=== PATIENT | male | born 1925 | race Caucasian/White ===

== ENCOUNTER 2016-07-15 13:01 | Inpatient (IN) | payer OTHER, MEDICARE ==
[~2016-07-15] VITALS: Ht 177.8 cm; Wt 100.0 kg
[~2016-07-15 13:01] MED LIST: <VITAMIN> A + D1 APP TOP; ACETAZOLAMIDE250 MG PO; ALLOPURINOL100 MG PO; AMBIEN (MONOGRAP5 MG PO; ATROVENT 0.02%2.5 ML INH; AUGMENTIN 875-1 EACH PO; BISAC-EVAC10 MG PR; CRANBERRY FRUI405 MG PO; CRANBERRY450 MG PO; DESITIN MAXIMUM S40% TOP; FUROSEMIDE20 MG PO; HYDROCORTI2.5 %/30 G TOP; HYDROCORTISONE EXT; LASIX20 M1 PO; LASIX20 MG PO; LASIX40 MG PO; LISINOPRIL2.5 M1 PO; LISINOPRIL2.5 MG PO; MAALOX PLUS30 ML PO; MELATONIN 3 MG-1 TAB PO; METFORMIN HCL1000 M2 PO; METFORMIN1000 MG PO; MILK OF MAGNESI30 ML PO; MOTRIN 400 MG400 MG PO; MULTIVITAMIN1 TAB PO; MYCOSTATIN POWD15 GM TOP; Mucinex PO; OXYCODONE HYDROC5 MG PO; OXYCONTIN10 MG PO; PHENAZOPYRIDIN100 M1 PO; PRAVACHOL40 M1 PO; PRAVASTATIN SOD40 MG PO; PREDNISONE 20MG20 MG PO; PREDNISONE10 MG PO; PRINIVIL 5MG5 MG PO; PYRIDIUM100 MG PO; PYRIDIUM200 MG PO; Prinivil PO; ROXICODONE5 MG PO; SENNA PLUS 50 M1 TAB PO; TAMSULOSIN HYD0.4 MG PO; TEMOVATE0.05% TOP; TESSALON PERLE100 MG PO; THEOPHYLLINE PO; TOPICORT0.251 TOP; TRIAMCINOL0.1 %/453 TOP; TYLENOL TAB 32325 MG PO; TYLENOL500 MG PO; ULTRAM(MONOGRAP50 MG PO; VENTOLIN1 PUF INH; VITAMIN D1000 IU PO; VITAMIN D400 I1 PO; Vitamin D PO; XARELTO10 MG PO; XARELTO20 M2 PO; ZITHROMAX 500M500 MG PO; ZOLOFT25 M1 PO
--- NOTE | 2016-07-15 13:20 | NUR ---
PT BIBA FROM HOME FOR INCREASED SOB, BLE EDEMA. PER EMS, PT WAS RECENTLY DISCHARGED FROM [facility] FOR RESP REHAB, HX OF COPD. PT POOR HISTORIAN, UNABLE TO INFORM OF ANY OTHER HISTORY. PT PURSE LIPPED BREATHING ON ARRIVAL, TACHYPNEIC, 86% ON RA. PLACED ON 3L NC OXYGEN WITH IMPROVEMENT TO 90-91%. EXP WHEEZES NOTED.
--- NOTE | 2016-07-15 13:44 | ED DYSPNEA/ASTHMA COMPLAINT ---
History of Present Illness General Chief Complaint: Dyspnea (COPD, CHF, Other) Stated Complaint: SOB Source: patient, family, old records Exam Limitations: no limitations Vital Signs & Intake/Output Vital Signs & Intake/Output Vital Signs Date Time Temp Pulse Resp B/P Pulse O2 O2 Flow FiO2 Ox Delivery Rate 07/16 0618 55 92 07/16 0400 94 BIPAP 30% 07/16 0332 65 93 07/16 0115 94 BIPAP 30% 07/16 0115 97.8 65 24 122/70 94 BIPAP 30% 07/15 1849 96.9 86 24 113/63 93 Nasal 3.0L Cannula 07/15 1821 92 Nasal 3.0L Cannula 07/15 1640 98.5 94 20 133/58 91 Nasal 2.0L Cannula 07/15 1340 95 Nasal 3.0L Cannula 07/15 1322 86 Room Air Room Air 07/15 1320 98.4 98 20 128/61 86 Room Air Room Air ED Intake and Output 07/16 0000 07/15 1200 Intake Total 7 Output Total 200 Balance -193 Intake, IV 7 Intake, Oral 0 Output, Urine 200 Patient 225 lb Weight Allergies Coded Allergies: NO KNOWN ALLERGIES (07/15/16) Triage Note: PT BIBA FROM HOME FOR INCREASED SOB, BLE EDEMA. PER EMS, PT WAS RECENTLY DISCHARGED FROM [facility] FOR [facility]P RE[facility], HX OF COPD. PT POOR HISTORIAN, UNABLE TO INFORM OF ANY OTHER HISTORY. PT PURSE LIPPED BREATHING ON ARRIVAL, TACHYPNEIC, 86% ON RA. PLACED ON 3L NC OXYGEN WITH IMPROVEMENT TO 90-91%. EXP WHEEZES NOTED. Triage Nurses Notes Reviewed? yes Onset: Gradual Duration: getting worse Timing: recent history Severity: severe Activities at Onset: activity Prior Episodes/Possible Cause: frequent episodes, chronic episodes HPI: Patient is a 89-year-old male with a past medical history of atrial fibrillation not on anticoagulation, COPD not on home O2, CHF, diabetes type 2, BPH, hypertension who presents emergency room for concerns of shortness of breath. Patient who currently lives with son who is present states that for the last 2-3 days patient has been having dyspnea and dyspnea on exertion lethargy increased sleeping and generalized malaise. No fever chills noted no cough noted. Son does state that the leg swelling is worse today Patient is also complaining of generalized body aches. Denies any headache, sore throat, chest pain arm pain and jaw pain nausea vomiting diaphoresis abdominal pain or calf pain. Patient does walk with assisted walker and gets out of breath significantly with minimal ambulation (ISABELLA SINGH) Reconcile Medications Acetazolamide 250 MG TAB 500 MG PO Q48 acidosis Alternative with Lasix every other day. Last given on 09/10/15. Amoxicillin/Potassium Clav (Augmentin 875-125 Tablet) 1 EACH TABLET 1 TAB PO BID PNEUMONIA Furosemide (Lasix) 20 MG TABLET 1 TAB PO BID DIURESIS Hydrocortisone (Cortaid Lotion 1 Oz) 1 OZ LOT 1 RAKAN EXT BID SKIN Lisinopril 2.5 MG TABLET 1 TAB PO DAILY BLOOD PRESSURE (Reported) Metformin Hydrochloride (Glucophage) 1,000 MG TAB 1 TAB PO DAILY DIABETES ( Reported) Nystatin (Mycostatin Powder) 15 GM PWD 1 RAKAN TOP TID SKIN PHENAZOPYRIDINE HCL (Phenazopyridine HCl) 100 MG TAB 200 MG PO PC SKIN Pravastatin Sodium 40 MG TABLET 1 TAB PO DAILY CHOLESTEROL (Reported) Risperidone (Risperdal) 0.25 MG TABLET 1 TAB PO DAILY AGITATION (Reported) Rivaroxaban (Xarelto) 20 MG TABLET 1 TAB PO DAILY BLOOD THINNER (Reported) with food SERTRALINE HCL (Sertraline Hydrochloride) 25 MG TABLET 1 TAB PO DAILY MENTAL HEALTH (Reported) TAMSULOSIN HCL (Tamsulosin Hydrochloride) 0.4 MG CAP.ER.24H 1 CAP PO BID PROSTATE (Reported) (NIMESH JETER,X[place]) Past History Travel History Traveled to [place] past 21 day No Medical History Any Pertinent Medical History? see below for history Neurological: dementia EENT: NONE Cardiovascular: aortic aneurysm, AFIB, CHF, hypertension, hyperlipidemia Respiratory: COPD Gastrointestinal: NONE Hepatic: NONE Renal: benign prost hyperplasia Musculoskeletal: chronic back pain, degen joint disease, fracture, gout, RIB FX left shoulder fracture Psychiatric: anxiety Endocrine: diabetes Blood Disorders: NONE Cancer(s): NONE NURSE MIDWIFE/Reproductive: NONE Other Medical Hx: Psoriasis History of MRSA: Yes History of VRE: No History of CDIFF: No Pneumonia Vaccine: 11/13/12 Influenza Vaccine: 03/16/16 Surgical History Surgical History: appendectomy Psychosocial History Who do you live with Son Services at Home None What is your primary language Sinhala Tobacco Use: Quit >30 days ago ETOH Use: denies use Illicit Drug Use: denies illicit drug use Family History Family History, If Any: FATHER (Heart disease in father). . MOTHER (Unknown cancer). . Hx Contributory? No (ISABELLA SINGH) Review of Systems Review of Systems Constitutional: Reports: see HPI, malaise. EENTM: Reports: no symptoms. Respiratory: Reports: see HPI, short of breath. Denies: cough. Cardiovascular: Reports: see HPI, peripheral edema. Denies: chest pain. GI: Reports: no symptoms. Genitourinary: Reports: no symptoms. Musculoskeletal: Reports: see HPI. Skin: Reports: no symptoms. Neurological/Psychological: Reports: no symptoms. Hematologic/Endocrine: Reports: no symptoms. Immunologic/Allergic: Reports: no symptoms. All Other Systems: Reviewed and Negative (ISABELLA SINGH) Physical Exam Physical Exam General Appearance: no apparent distress, comfortable Respiratory: wheezing, respiratory distress (MILD) Comments: HEENT: Normal EENT exam, extraocular motion intact, no nystagmus. Pupils equally round and reactive to light and accommodation. Nose is atraumatic. External auditory canal and Tympanic membranes clear. Pharynx normal. No swelling or edema. Neck: Supple, no lymphadenopathy, normal range of motion without pain or tenderness Back: Nontender, no CVA tenderness. Cardiovascular: IRRegular rate and rhythms no murmurs rubs or gallops, normal JVP Abdomen: Soft, nontender nondistended, no appreciable organomegaly. Normal bowel sounds. No ascites Extremity: No edema, no calf tenderness to palpation, normal and equal pulses. Neuro: Alert oriented x3, motor sensory normal, cranial nerves II through XII grossly intact. Skin: No appreciable rash on exposed skin, skin is warm and dry. Psych: Mood and affect is normal, memory and judgment is normal. Core Measures ACS in differential dx? No Severe Sepsis Present: No Septic Shock Present: No (ISABELLA SINGH) Progress Differential Diagnosis: asthma, AMI, bronchitis, costochondritis, CHF, COPD, musculoskeletal pain, pericarditis, pulmonary embolism, pneumonia, pneumothorax, rib fracture, unstable angina Plan of Care: Orders Procedure Date/time Status Consistent Carbohydrate 3 07/16 B Active ARTERIAL BLOOD GAS (GEN) 07/16 0600 Complete ICU LAB BUNDLE 07/16 0600 Complete Skin/Pressure Ulcer Assess (Sk 07/16 139 Active Turn and Reposition 07/16 434 Active Skin Integrity Protocol 01/01 0435 Active VRE ACTIVE SURVIELLANCE 07/16 0114 Active CULTURE,URINE 07/16 0114 Active ACTIVE SURVEILLANCE NARES 07/16 0114 Active Ngo, Insertion/Removal/Asses 07/16 UNK Active Transfer patient to 07/15 2236 Active FingerStick- Glucose 07/15 2143 Active ARTERIAL BLOOD GAS (GEN) 07/15 2128 Complete Teach/Educate 07/15 2056 Active Nutritional Intake, Monitor 07/15 2056 Active Isolation 07/15 2056 Active Patient Care Conference 07/15 2056 Active Activity/Ambulation 07/15 2056 Active TRC EVALUATION (GEN) 07/15 1632 Active Saline Lock 07/15 161 Active Pathway - chart 07/15 161 Active House Staff 07/15 161 Active Code Status 07/15 1613 Active Patient Data 07/15 1504 Active ARTERIAL BLOOD GAS (GEN) 07/15 1457 Complete Admit to inpatient 07/15 1457 Active Add-on Test (ER Only) 07/15 1352 Active MAGNESIUM 07/15 1348 Complete B-TYPE NATRIURETIC PEP (BNP) 07/15 1348 Complete RAPID VIRAL INFLUENZA A 07/15 1345 Complete D-DIMER 07/15 1344 Complete Telemetry/Protective Services Officer 07/15 1342 Active LACTIC ACID 07/15 1341 Complete CULTURE,URINE 07/15 1340 Active BLOOD CULTURE 07/15 1340 Active URINALYSIS 07/15 1340 Complete AEROSOL (GEN) 07/15 1339 Complete TROPONIN LEVEL 07/15 1325 Complete COMPREHENSIVE METABOLIC PANEL 07/15 1325 Complete CBC WITHOUT DIFFERENTIAL 07/15 1325 Complete Intake & Output 07/15 1322 Active EKG 07/15 1321 Active ARTERIAL BLOOD GAS (GEN) 07/15 1115 Complete THERAPIST ORDERS 07/15 UNK Complete Vital Signs 07/15 UNK Active Current Medications Sig/Emily Start time Last Medication Dose Stop Time Status Admin Azithromycin 500 MG DAILY@1550 07/16 1550 AC (Zithromax) Sodium Chloride 250 ML (Normal Saline 0.9%) Lisinopril 2.5 MG DAILY 07/16 1000 AC (Prinivil) Pravastatin Sodium 40 MG DAILY 07/16 1000 AC (Pravachol) Rivaroxaban 20 MG DAILY 07/16 1000 AC (Xarelto) Sertraline HCl 25 MG DAILY 07/16 1000 AC (Zoloft) Hydrocortisone 1 RAKAN BID 12/31 2200 AC Nystatin 1 RAKAN TID 07/15 2200 AC (Mycostatin) Tamsulosin HCl 0.4 MG BID 07/15 2200 AC (Flomax) Laboratory Tests 07/16/16 0600: Magnesium Cancelled 07/16/16 0540: pH 7.35, pCO2 53 H, pO2 67 L, HCO3 24, ABG O2 Sat (Measured) 93.0 L, P-50 ( Temp Corrected) N, Carboxyhemoglobin 1.2 L, O2 Concentration % .30, Respiration Rate 24, O2 Delivery Method BIPAP, Vent Mode ST, Expiratory Pressure 6, Inspiratory Pressure 16, Phlebotomy Draw Site RIGHT RADIAL 07/16/16 0427: Anion Gap 12, Estimated GFR > 60, Glucose 130 H, Calcium 7.9 L, Phosphorus 3.5 , Magnesium 1.9, Total Bilirubin 0.4, AST 15 L, ALT 30, Albumin 2.9 L 07/15/162304: pH 7.35, pCO2 58 H, pO2 69 L, HCO3 31 H, ABG O2 Sat (Measured) 93.0 L, P-50 (Temp Corrected) Y, Carboxyhemoglobin 1.3 L, O2 Concentration % 30, Temperature 98.5, Respiration Rate 24, O2 Delivery Method BIPAP, Vent Mode ST, Expiratory Pressure 6, Inspiratory Pressure 16, Phlebotomy Draw Site RIGHT RADIAL 07/15/162304: pH Pending, pCO2 Pending, pO2 Pending, HCO3 Pending, ABG O2 Sat (Measured) Pending, P-50 (Temp Corrected) Pending, Carboxyhemoglobin Pending, O2 Concentration % Pending, Temperature Pending, O2 Delivery Method Pending, Phlebotomy Draw Site Pending 07/15/162199: pH 7.25 *L, pCO2 74 *H, pO2 73 L, HCO3 32 H, ABG O2 Sat (Measured) 92.0 L, Carboxyhemoglobin 1.8, O2 Concentration % 30, Respiration Rate 24, O2 Delivery Method BIPAP, Vent Mode ST, Expiratory Pressure 6, Inspiratory Pressure 16, Phlebotomy Draw Site RIGHT RADIAL 07/15/162155: Urine Color YEL, Urine Clarity CLEAR, Urine pH 6.0, Ur Specific [place] 1.020, Urine Protein NEG, Urine Ketones NEG, Urine Nitrite NEG, Urine Bilirubin NEG, Urine Urobilinogen 0.2, Ur Leukocyte Esterase NEG, Ur Microscopic EXAM NOT REQUIRED, Urine Hemoglobin NEG, Urine Glucose NEG 07/15/16 1641: Lactic Acid Cancelled 07/15/16 1610: pH 7.31 L, pCO2 62 *H, pO2 45 *L, HCO3 45 H, ABG O2 Sat (Measured) 78.0 L, P- 50 (Temp Corrected) Y, Carboxyhemoglobin 1.6, O2 Concentration % RA, Temperature 98.4, O2 Delivery Method RA, Phlebotomy Draw Site LEFT RADIAL 07/15/16 1610: pH Pending, pCO2 Pending, pO2 Pending, HCO3 Pending, ABG O2 Sat (Measured) Pending, P-50 (Temp Corrected) Pending, Carboxyhemoglobin Pending, O2 Concentration % Pending, Temperature Pending, O2 Delivery Method Pending, Phlebotomy Draw Site Pending 07/15/16 1348: Magnesium Cancelled, Bxs-M-Bljzbqdkoaq Pept Cancelled 07/15/16 1348: Lactic Acid 0.9 07/15/16 1348: Anion Gap 11, Estimated GFR > 60, BUN/Creatinine Ratio 21.1, Glucose 115 H, Calcium 8.2 L, Magnesium 1.9, Total Bilirubin 0.4, AST 21, ALT 30, Alkaline Phosphatase 81, Troponin I < 0.01, Vmm-S-Lrznjdbrglk Pept 3280 H, Total Protein 6.5, Albumin 3.5, Globulin 3.0, Albumin/Globulin Ratio 1.2, CBC w Diff NO MAN DIFF REQ, RBC 4.49 L, MCV 85.3, MCH 27.7, RDW 14.2, MPV 9.0, Gran % 82.9 H, Lymphocytes % 7.9 L, Monocytes % 6.7, Eosinophils % 2.4, Basophils % 0.1, Absolute Granulocytes 6.3, Absolute Lymphocytes 0.6 L, Absolute Monocytes 0.5, Absolute Eosinophils 0.2, Absolute Basophils 0, PUBS MCHC 32.4 L 07/15/16 1344: D-Dimer 215 Microbiology 07/16 114 URINE ROUT: Urine Culture - RECD 07/16 114 UPPER RESP: Surveillance Culture - RECD 07/16 114 GI: Surveillance Culture - RECD 07/15 2156 URINE ROUT: Urine Culture - RECD 07/15 1410 BLOOD: Blood Culture - RECD 07/15 1348 BLOOD: Blood Culture - RECD Patient on initial examination without oxygen was noted to be 86% room air with significant wheezing noted. Patient was given nasal cannula 3 L in which she improved to 95%. Patient still is having mild respiratory distress Nebulizer treatment and steroids were initially ordered for concerns of COPD. Discussed admission with Dr. BEAVERS who is aware of telemetry admission and will take over for care (HUMA DICKERSON,ISABELLA) Diagnostic Imaging: Viewed by Me: Radiology Read. Radiology Impression: SEE COMMENTS, PLEURAL EFFUSION Initial ED EKG: AFIB (106 BPM) Comments: PATIENT: SUSU FRANCIS PRESENT AGE: 89 PATIENT ACCOUNT NO: [id number] : [birth year] LOCATION: [facility] ORDERING PHYSICIAN: ISABELLA DICKERSON SERVICE DATE: 07/15/16 EXAM TYPE: US - US-EXT BILAT VENOUS DOPPLER EXAMINATION: US TRIPLEX LOWER EXTREMITY, BILATERAL CLINICAL INFORMATION: 89-year-old male with bilateral leg edema. COMPARISON: Previous triplex scans of the lower extremities done January 2007, February 2011, at 2011, December 2012. TECHNIQUE: Color-flow triplex imaging with spectral analysis and compression Doppler were performed on the bilateral lower extremities. FINDINGS: Respiratory variation, normal compression and augmented flow are noted throughout the bilateral lower extremities. The visualized common femoral vein, superficial femoral vein, profunda femoral vein, popliteal vein and mid calf peroneal and posterior tibial venous segments show no evidence of deep venous thrombosis. Visualization of the calf veins is "sketchy" due to to the patient's body habitus. There is no Thompson's cyst. IMPRESSION: Normal triplex scan without evidence of deep venous thrombosis involving the bilateral lower extremities. PATIENT: SUSU FRANCIS PRESENT AGE: 89 PATIENT ACCOUNT NO: [id number] : [birth year] LOCATION: ER ORDERING PHYSICIAN: ISABELLA DICKERSON SERVICE DATE: 07/15/16 EXAM TYPE: RAD - XRY-CHEST XRAY, PA AND LATERAL EXAMINATION: XR CHEST CLINICAL INFORMATION: Increased shortness of breath. Recently discharged from [facility] for respiratory rehabilitation. COMPARISON: 03/28/2016. TECHNIQUE: Frontal and lateral views of the chest were obtained. FINDINGS: The cardiac silhouette is mildly enlarged. The lungs are slightly hypoinflated without focal consolidation. There is mild vascular congestion with a mild increase in interstitial markings compared to prior. Associated small pleural effusions are seen posteriorly. IMPRESSION: No focal consolidation or atelectasis. Small pleural effusions and mild interstitial edema identified. (ISABELLA SINGH) Departure Departure Disposition: STILL A PATIENT Condition: Fair Clinical Impression Primary Impression: COPD (chronic obstructive pulmonary disease) Secondary Impressions: CHF (congestive heart failure), Respiratory failure Referrals: RAMONE JETER,YAZ Cruz (PCP/Family) Referred to [facility] as new patient No Departure Forms: Customer Survey General Discharge Information Admission Note Spoke With: NATHAN JUNE MD Documentation of Exam: Documentation of any treatments & extenuating circumstances including Concerns Regarding Discharge (functional status, medication knowledge or non-compliance, living conditions, etc.) that warrant an admission rather than observation: [ Discussed patient with Dr. JUNE who agrees with telemetry admission for concerns of CHF exacerbation and COPD exacerbation. Patient requires cardiology consultation, IV diuresis, repeat nebulizer treatments, IV steroids, pulmonary consultation. Outpatient treatment at this time due to significant concerns of hypoxia would be medically harmful] (ISABELLA SINGH) PA/LAND LEASING INFORMATION CLERK Co-Sign Statement Statement: ED Attending supervision documentation- [X] I saw and evaluated the patient. I have also reviewed all the pertinent lab results and diagnostic results. I agree with the findings and the plan of care as documented in the PA's/LAND LEASING INFORMATION CLERK's documentation. [X] I have reviewed the ED Record and agree with the PA's/LAND LEASING INFORMATION CLERK's documentation. [] Additions or exceptions (if any) to the PAs/LAND LEASING INFORMATION CLERK's note and plan are summarized below: [] (NIMESH JETER,X[place]) Critical Care Note Critical Care Note Critical Care Time: 30-74 min (ISABELLA SINGH)
--- NOTE | 2016-07-15 13:53 | NUR ---
LABS DRAWN AND SENT BY THIS [facility] (BLUE,2 SST,LAV,CREWS,1ST SET OF B/C)
[2016-07-15 14:02] LABS: ABSOLUTE BASOPHIL COUNT 0 /CUMM (0.0-0.2); ABSOLUTE EOSINOPHIL COUNT 0.2 /CUMM (0.0-0.7); ABSOLUTE GRANULOCYTE CT 6.3 /CUMM (1.4-6.5); ABSOLUTE LYMPH COUNT 0.6 /CUMM (1.2-3.4); ABSOLUTE MONOCYTE COUNT 0.5 /CUMM (0.10-0.60); BASOPHIL % 0.1 % (0.0-2.0); EOSINOPHIL % 2.4 % (0-5); GRANULOCYTE % 82.9 % (42.2-75.2); HEMATOCRIT 38.3 % (42-52); MEAN CORPUSCULAR HGB 27.7 PG (27.0-31.0); MEAN CORPUSCULAR HGB CONC 32.4 G/DL (33.0-37.0); MEAN CORPUSCULAR VOLUME 85.3 FL (80.0-94.0); PLATELET COUNT 246 /CUMM (130-400); RBC DISTRIBUTION WIDTH 14.2 % (11.5-14.5); RED BLOOD CELL CT 4.49 /CUMM (4.70-6.10); WHITE BLOOD CELL COUNT 7.6 /CUMM (4.8-10.8)
--- NOTE | 2016-07-15 14:16 | NUR ---
SECOND SET OF BLOOD CULTURES AND FLU SWAB SENT TO LAB NOW. PT TO ULTRASOUND.
--- NOTE | 2016-07-15 14:32 | RADIOLOGY REPORT ---
EXAMINATION: XR CHEST CLINICAL INFORMATION: Increased shortness of breath. Recently discharged from [facility] for respiratory rehabilitation. COMPARISON: 03/28/2016. TECHNIQUE: Frontal and lateral views of the chest were obtained. FINDINGS: The cardiac silhouette is mildly enlarged. The lungs are slightly hypoinflated without focal consolidation. There is mild vascular congestion with a mild increase in interstitial markings compared to prior. Associated small pleural effusions are seen posteriorly. IMPRESSION: No focal consolidation or atelectasis. Small pleural effusions and mild interstitial edema identified.
--- NOTE | 2016-07-15 15:17 | ULTRASOUND REPORT ---
EXAMINATION: US TRIPLEX LOWER EXTREMITY, BILATERAL CLINICAL INFORMATION: 89-year-old male with bilateral leg edema. COMPARISON: Previous triplex scans of the lower extremities done January 2007, February 2011, at 2011, December 2012. TECHNIQUE: Color-flow triplex imaging with spectral analysis and compression Doppler were performed on the bilateral lower extremities. FINDINGS: Respiratory variation, normal compression and augmented flow are noted throughout the bilateral lower extremities. The visualized common femoral vein, superficial femoral vein, profunda femoral vein, popliteal vein and mid calf peroneal and posterior tibial venous segments show no evidence of deep venous thrombosis. Visualization of the calf veins is "sketchy" due to to the patient's body habitus. There is no Thompson's cyst. IMPRESSION: Normal triplex scan without evidence of deep venous thrombosis involving the bilateral lower extremities.
--- NOTE | 2016-07-15 15:36 | History & Physical ---
ABRAHAM JETER,[facility] 07/15/16 1534: General Information and HPI MD Statement: I have seen and personally examined SUSU FRANCIS and documented this H&P. The patient is a 89 year old M who presented with a patient stated chief complaint of dyspnea and dyspnea on exertion. 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 Part of the history below was obtained from the patient's son Eduardo. Over the last few days the patient has felt that he has been more dyspneic and and has experienced increasing dyspnea on exertion this has led him to become more sedentary. His son reports that the patient has also developed a tougher time completing full sentences. Approximately 3 days ago the patient's son suggested that the patient should come to the emergency department however the patient declined. Early this morning the patient's son again suggested that the patient should come to the emergency department and subsequently called the ambulance. In addition to the above he also has found that he has developed worsening bilateral leg edema. Patient also reports of worsening weakness and malaise. The son of the patient states that his appetite has been relatively good although he finds his father eating smaller and smaller meals. Patient's son reports good medication compliance. Patient's denies any chest pain and/or chest discomfort. Patient denies any fever, chills, nausea, vomiting. The patient's PCP is Dr. Irving. The patient's blowing engineer is Dr. Tay. The patient's son Eduardo with who the patient lives with can be reached on . 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 . MOTHER (Unknown cancer). . Psychosocial History Where do you live? Home Who Do You Live With? child (Son) Services at Home: None Primary Language: Yakut ETOH Use: denies use Illicit Drug Use: denies illicit drug use Functional Ability ADLs Needs Assist: dressing, eating, toileting, bathing. Ambulation: walker Review of Systems Review of Systems Constitutional: Reports: see HPI, malaise, weakness. Denies: chills, fever. Cardiovascular: Reports: peripheral edema. Denies: chest pain, edema, orthopena, palpitations, syncope. Respiratory: Reports: short of breath. Denies: cough, hemoptysis, orthopnea, sputum production. GI: Denies: abdominal pain, bloating, constipation, diarrhea, nausea, changes in stool, vomiting. Genitourinary: Denies: discharge, dysuria, frequency, hematuria. Neurological/Psychological: Denies: anxiety, depressed, dementia. Hematologic/Endocrine: Denies: bruising, bleeding, polyuria. Exam & Diagnostic Data Last 24 Hrs of Vital Signs/I&O Vital Signs Date Time Temp Pulse Resp B/P Pulse O2 O2 Flow FiO2 Ox Delivery Rate 07/15 1340 95 Nasal 3.0L Cannula 07/15 1322 86 Room Air Room Air 07/15 1320 98.4 98 20 128/61 86 Room Air Room Air Intake & Output 07/15 1600 07/15 0800 07/15 0000 Intake Total 0 Output Total Balance 0 Intake, Oral 0 Patient 102.058 kg Weight Physical Exam General Appearance Alert, Oriented X3, Cooperative HEENT Mucous Membr. moist/pink Lymphatic Axillary nl Cardiovascular Normal S1, Normal S2, Irregular rate and rhythm Lungs Mild Expirartory Wheezing Left Abdomen Normal Bowel Sounds, Soft, No Tenderness, Diffuse Psoriatic Lesions Across Anterior Abdominal Wall. Neurological Normal Speech, Strength at 5/5 X4 Ext Extremities Edema. 4+, Pitting, R>L Reproductive (MALE) ?Candial Infection, in Skin Folds Last 24 Hrs of Labs/Navdeep: Laboratory Tests 07/15/16 1610: pH 7.31 L, pCO2 62 *H, pO2 45 *L, HCO3 45 H, ABG O2 Sat (Measured) 78.0 L, P- 50 (Temp Corrected) Y, Carboxyhemoglobin 1.6, O2 Concentration % RA, Temperature 98.4, O2 Delivery Method RA, Phlebotomy Draw Site LEFT RADIAL 07/15/16 1610: pH Pending, pCO2 Pending, pO2 Pending, HCO3 Pending, ABG O2 Sat (Measured) Pending, P-50 (Temp Corrected) Pending, Carboxyhemoglobin Pending, O2 Concentration % Pending, Temperature Pending, O2 Delivery Method Pending, Phlebotomy Draw Site Pending 07/15/16 1348: Magnesium Cancelled, Udi-W-Taoztrgptju Pept Cancelled 07/15/16 1348: Lactic Acid 0.9 07/15/16 1348: Anion Gap 11, Estimated GFR > 60, BUN/Creatinine Ratio 21.1, Glucose 115 H, Calcium 8.2 L, Magnesium 1.9, Total Bilirubin 0.4, AST 21, ALT 30, Alkaline Phosphatase 81, Troponin I < 0.01, Pot-H-Hkjwxbtmdki Pept 3280 H, Total Protein 6.5, Albumin 3.5, Globulin 3.0, Albumin/Globulin Ratio 1.2, CBC w Diff NO MAN DIFF REQ, RBC 4.49 L, MCV 85.3, MCH 27.7, RDW 14.2, MPV 9.0, Gran % 82.9 H, Lymphocytes % 7.9 L, Monocytes % 6.7, Eosinophils % 2.4, Basophils % 0.1, Absolute Granulocytes 6.3, Absolute Lymphocytes 0.6 L, Absolute Monocytes 0.5, Absolute Eosinophils 0.2, Absolute Basophils 0, PUBS MCHC 32.4 L 07/15/16 1344: D-Dimer 215 Microbiology 07/15 1410 BLOOD: Blood Culture - RECD 07/15 1348 BLOOD: Blood Culture - RECD 07/15 134 URINE ROUT: Urine Culture - ORD Diagnostic Data EKG Results A.Fib Rate 106. QTC 489 CXR Results PATIENT: SUSU FRANCIS PRESENT AGE: 89 PATIENT ACCOUNT NO: [id number] : [birth year] LOCATION: [facility] ORDERING PHYSICIAN: ISABELLA DICKERSON SERVICE DATE: 07/15/16 EXAM TYPE: RAD - XRY-CHEST XRAY, PA AND LATERAL EXAMINATION: XR CHEST CLINICAL INFORMATION: Increased shortness of breath. Recently discharged from [facility] for respiratory rehabilitation. COMPARISON: 03/28/2016. TECHNIQUE: Frontal and lateral views of the chest were obtained. FINDINGS: The cardiac silhouette is mildly enlarged. The lungs are slightly hypoinflated without focal consolidation. There is mild vascular congestion with a mild increase in interstitial markings compared to prior. Associated small pleural effusions are seen posteriorly. IMPRESSION: No focal consolidation or atelectasis. Small pleural effusions and mild interstitial edema identified. DICTATED BY: JOLIE ROPER MD Other Results PATIENT: SUSU FRANCIS PRESENT AGE: 89 PATIENT ACCOUNT NO: [id number] : [birth year] LOCATION: [facility] ORDERING PHYSICIAN: ISABELLA DICKERSON SERVICE DATE: 07/15/16 EXAM TYPE: US - US-EXT BILAT VENOUS DOPPLER EXAMINATION: US TRIPLEX LOWER EXTREMITY, BILATERAL CLINICAL INFORMATION: 89-year-old male with bilateral leg edema. COMPARISON: Previous triplex scans of the lower extremities done January 2007, February 2011, at 2011, December 2012. TECHNIQUE: Color-flow triplex imaging with spectral analysis and compression Doppler were performed on the bilateral lower extremities. FINDINGS: Respiratory variation, normal compression and augmented flow are noted throughout the bilateral lower extremities. The visualized common femoral vein, superficial femoral vein, profunda femoral vein, popliteal vein and mid calf peroneal and posterior tibial venous segments show no evidence of deep venous thrombosis. Visualization of the calf veins is "sketchy" due to to the patient's body habitus. There is no Thompson's cyst. IMPRESSION: Normal triplex scan without evidence of deep venous thrombosis involving the bilateral lower extremities. DICTATED BY: SANFORD LYONS MD Assessment/Plan Assessment: This is an 89-year-old gentleman who presented today with worsening dyspnea and dyspnea on exertion. Likely related to increase salt intake and decreased activity leading to COPD exacerbation. Patient will be admitted to the telemetry service for continued monitoring. #COPD exacerbation vs CHF Exacerbation Solu-Medrol 40 mg IV every 8 hours. Once patient is stabilized he can be transitioned to by mouth prednisone. Maintain oxygen saturations above 92% supplement oxygen via nasal cannula. IV Azithromycin 500 mg every 24 hours which has been shown to reduce severity of COPD exacerbations due to its anti-inflammatory properties. Patient may benefit from a pulmonology consult in the a.m. Strict weights Maintain I's and O's Lasix IV 40 mg twice a day. BEP in a.m. CBC in a.m. Maintain aspiration precautions Keep foot of bed elevated. #History of diabetes Begin patient on NovoLog medium scale sliding dose. Fingersticks every 6 hours. If patient sugars remain unmanageable consider endocrinology consult. Hemoglobin A1c for long-term glycemic control. #History of atrial fibrillation Continue the patient on Pradaxa continued telemetry monitoring if any arrhythmias are noted. Consider cardiology consult. #History of BPH Continue Tamsulosin .4mg PO #History of mood disorder Continue Sertraline 25 mg daily #Diet Consistent carbohydrate diet, 2 g sodium restriction #Code DNR/DNI #DVT prophylaxis ALPS and novel agent Xarelto As Ranked By This Provider Problem List: 1. Dependent edema 2. DNI (do not intubate) 3. DNR (do not resuscitate) 4. Afib 5. Diabetes mellitus type 2 6. COPD exacerbation Core Measures/Miscellaneous Acute Coronary Syndrome ACS Diagnosis: No Cerebrovascular Accident CVA/TIA Diagnosis: No Congestive Heart Failure CHF Diagnosis: No Venous Thromboembolism VTE Risk Factors: Age > 40 VTE Prophylaxis Ordered Inpt: [facility] prophylaxis d/t: No contraindications No VTE Pharm Prophylaxis d/t: No contraindications VTE Diagnosis: No VTE Type: NONE VTE Confirmed by (Test): NONE Severe Sepsis Severe Sepsis Present: No BC x2: Yes Lactic Acid x2: Yes Septic Shock Septic Shock Present: No BC x2: Yes Lactic Acid: Yes Miscellaneous Documentation Attending Case Discussed With: Triny Atkinson MD Primary Care Physician: YAZ PACK MD Patient sees these Specialists Dr Tay Level of Patient Care: Telemetry JUAN JETER,MANOLO 07/15/16 1750: Resident Review Statement Resident Statement: examined this patient, discussed with internet sales representative, agreed with internet sales representative, discussed with family, reviewed EMR data (avail), discussed with nursing , discussed with case mgmt, reviewed images, amended to note Other Findings: Susu Cortes is an 89-year-old man with a medical history of COPD pneumonia psoriasis atrial fibrillation hypertension BPH dementia dyslipidemia diabetes AAA count and anemia who presents with shortness of breath and dyspnea associated with worsening dependent edema in the lower extremities; but denies any overt chest pain. His vital signs are stable at present, he did desaturate to 86% on room air. On physical examination, scattered wheeze was noted on exam , he does have dependent edema. He does have an elevated BNP of 3000 approximately. Chest x-ray did not reveal any consolidation atelectasis. However there are small pleural effusions. A Doppler ultrasound of the lower extremities did not reveal any DVTs. Suspect this patient is suffering from a COPD exacerbation in conjunction with worsening fluid retention/dependent edema without any clinical evidence of heart failure. Problem COPD exacerbation Severe dependent edema Atrial fibrillation Diabetes Plan Continued cardiac telemetry monitoring Monitor intake and output while on diuretic therapy Intravenous Lasix 40 mg twice a day to help alleviate the dependent fluid Solu-Medrol 40 mg IV every 8 hours Azithromycin 500 mg IV every 24 hours Continue home medications DVT prophylaxis the patient is already anticoagulated on a novel oral anticoagulant DNR/DNI TRINY ATKINSON MD 07/15/16 0066: General Information and HPI Allergies/Medications Home Med list Acetazolamide 250 MG TAB 500 MG PO Q48 acidosis Alternative with Lasix every other day. Last given on 09/10/15. Amoxicillin/Potassium Clav (Augmentin 875-125 Tablet) 1 EACH TABLET 1 TAB PO BID PNEUMONIA Furosemide (Lasix) 20 MG TABLET 1 TAB PO BID DIURESIS Hydrocortisone (Cortaid Lotion 1 Oz) 1 OZ LOT 1 RAKAN EXT BID SKIN Lisinopril 2.5 MG TABLET 1 TAB PO DAILY BLOOD PRESSURE (Reported) Metformin Hydrochloride (Glucophage) 1,000 MG TAB 1 TAB PO DAILY DIABETES ( Reported) Nystatin (Mycostatin Powder) 15 GM PWD 1 RAKAN TOP TID SKIN PHENAZOPYRIDINE HCL (Phenazopyridine HCl) 100 MG TAB 200 MG PO PC SKIN Pravastatin Sodium 40 MG TABLET 1 TAB PO DAILY CHOLESTEROL (Reported) Risperidone (Risperdal) 0.25 MG TABLET 1 TAB PO DAILY AGITATION (Reported) Rivaroxaban (Xarelto) 20 MG TABLET 1 TAB PO DAILY BLOOD THINNER (Reported) with food SERTRALINE HCL (Sertraline Hydrochloride) 25 MG TABLET 1 TAB PO DAILY MENTAL HEALTH (Reported) TAMSULOSIN HCL (Tamsulosin Hydrochloride) 0.4 MG CAP.ER.24H 1 CAP PO BID PROSTATE (Reported) Attending MD Review Statement Attending Statement Attending MD Statement: examined this patient, discuss w/resident/PA/SWIMMER, agreed w/resident/PA/SWIMMER, reviewed EMR data (avail), discussed with nursing Attending Assessment/Plan: 89-year-old male past medical history of COPD, chronic diastolic heart failure and A. fib. He was recently ?discharged from [facility] pul rehab ? and he returns with a shortness of breath and the room air sat of 86%. He is actively wheezing with some leg edema and elevated proBNP. At this point will bring him into telemetry and treat him both for CHF exacerbation with IV diuretics and a COPD exacerbation with IV steroids and by mouth antibiotics. Will get cardiology involved, check an echocardiogram, cont his ac and f/u lytes closely.
--- NOTE | 2016-07-15 15:57 | NUR ---
PT'S SON: FANNY FRANCIS [phone]
--- NOTE | 2016-07-15 17:15 | NUR ---
TRANSFERRED TO FLOOR BED FROM STRETCHER. COPIOUS AMOUNT OF INCONTINENT URINE NOTED. INCONTINTENT CARE PROVIDED. RED AREAS TO GROIN/SKIN/ARM FOLDS NOTED. PATIENT IS TELE HOLD IN ER. TRANSFERRING TO ROOM ROOM 9.
--- NOTE | 2016-07-15 18:05 | NUR ---
SMALL FULL THICKNESS OPEN AREA TO LEFT GLUTEAL FOLD 1.2CM X 0.5CM. WOUND BED IS 100% RED. ENTIRE BUTTOCKS, PERINEAL AREA, GROIN FOLDS, SCROTAL AREAS ARE RAW WITH SKIN SLOUGHING OFF & RED. PATIENT STATES AREA COREY WHEN CLEANED. BARRIER CREAM APPLIED TO ALL AREAS. WOUND CARE NURSE NOTIFIED FOR CONSULT. DR MARTINEZ NOTIFIED REGARDING PO LASIX DOSE ORDERED AFTER 40MG IV LASIX WAS GIVEN PER EMAR. DR MARTINEZ INSTRUCTED TO HOLD PO LASIX & HE WILL D/C THE ORDER IV LASIX IS ORDERED TO START BID IN THE AM.
[2016-07-15] MEDS ORDERED: RISPERDAL0.25 M1 PO (18:46)
--- NOTE | 2016-07-15 19:29 | NUR ---
02 SAT 93% ON 3L AT THIS TIME.
--- NOTE | 2016-07-15 19:29 | NUR ---
PT CURRENTLY SLEEPING WITH REGULAR RR. PT WAS UNABLE TO PROVIDE A URINE PREVIOUSLY. WILL CTM.
--- NOTE | 2016-07-15 20:28 | NUR ---
REPORT GIVEN TO CAR ALARCON.
--- NOTE | 2016-07-15 22:08 | NUR ---
AT APPX 2145, PT WAS UNRESPONSIVE TO VOICE AND STERNAL RUB, PT ALSO HAD A RUN OF V-TACH DURING THIS TIME. MD'S CALLED. RESPIRATORY PAGED. MD ORDERED BLOOD GAS AND BI-PAP. RESPIRATORY
--- NOTE | 2016-07-15 22:36 | NUR ---
PT IS GOING TO 103
--- NOTE | 2016-07-15 23:47 | NUR ---
REPORT GIVEN TO MARIA ISABEL YOON
[2016-07-16 01:15] VITALS: BP 122/70
--- NOTE | 2016-07-16 02:01 | NUR ---
@0030 PT ARRIVED FROM ER LETHARGIC BUT RESPONSIVE TO NAME AND TACTILE STIMULI. PT PLACED BACK ON BIPAP 30%, RR 24 IPAP 16/EPAP 6, LUNGS DIMINISHED 02 SAT 93-94%. HR ON MONITOR AFIB 60'S TO 70'S SEE ICU FLOWSHEET FOR ALL OTHER VITALS. PT WITH MULTIPLE SKIN ISSUES, PSORIASIS NOTED TO TORSO, ARMS, LEGS. YEAST TO FOLDS, PERINEAL AND COCCYX VERY RED TO PURPLE, PT SITTING IN URINE. FULL BED BATH GIVEN, CREAM APPLIED. PT REPOSITIONED FOR COMFORT.
--- NOTE | 2016-07-16 04:29 | NUR ---
PER MD JARA NO CBC THIS AM.
[2016-07-16 08:00] VITALS: BP 112/82
--- NOTE | 2016-07-16 08:00 | NUR ---
REC'D THE PT DROWSY BUT AROUSABLE TO VERBAL STIMULI-ONLY AWAKENS FOR A BRIEF TIME AND THEN DOZES BACK OFF. DENIES ANY PAIN. PT IS ON THE BIPAP AT 30% WITH AN I=16/E=6 AND A RATE OF 24. O2 SAT IS 93%. KRISTIN BS ARE CLEAR BUT DIMINISHED THROUGOUT. NO RESP DISTRESS NOTED. PT IS IN AN AFIB WITH A RATE IN THE 60'S. BLE 2+ EDEMA NOTED. PT MEDICATED WITH LASIX 40MG IV SCHEDULED AT 0730. MAYEN IN PLACE DRAINING CLEAR, PALE YELLOW URINE. ABD IS SOFT WITH NORMOACTIVE BOWEL SOUNDS. BREAKFAST TRAY HELD R/T DROWSINESS.
--- NOTE | 2016-07-16 08:21 | Cons- CRCU ---
General Information and HPI Allergies/Medications Allergies: Coded Allergies: NO KNOWN ALLERGIES (07/15/16) Home Med List: Acetazolamide 250 MG TAB 500 MG PO Q48 acidosis Alternative with Lasix every other day. Last given on 09/10/15. Amoxicillin/Potassium Clav (Augmentin 875-125 Tablet) 1 EACH TABLET 1 TAB PO BID PNEUMONIA Furosemide (Lasix) 20 MG TABLET 1 TAB PO BID DIURESIS Hydrocortisone (Cortaid Lotion 1 Oz) 1 OZ LOT 1 RAKAN EXT BID SKIN Lisinopril 2.5 MG TABLET 1 TAB PO DAILY BLOOD PRESSURE (Reported) Metformin Hydrochloride (Glucophage) 1,000 MG TAB 1 TAB PO DAILY DIABETES ( Reported) Nystatin (Mycostatin Powder) 15 GM PWD 1 RAKAN TOP TID SKIN PHENAZOPYRIDINE HCL (Phenazopyridine HCl) 100 MG TAB 200 MG PO PC SKIN Pravastatin Sodium 40 MG TABLET 1 TAB PO DAILY CHOLESTEROL (Reported) Risperidone (Risperdal) 0.25 MG TABLET 1 TAB PO DAILY AGITATION (Reported) Rivaroxaban (Xarelto) 20 MG TABLET 1 TAB PO DAILY BLOOD THINNER (Reported) with food SERTRALINE HCL (Sertraline Hydrochloride) 25 MG TABLET 1 TAB PO DAILY MENTAL HEALTH (Reported) TAMSULOSIN HCL (Tamsulosin Hydrochloride) 0.4 MG CAP.ER.24H 1 CAP PO BID PROSTATE (Reported) Past History Travel History Traveled to [place] past 21 day No Medical History Neurological: dementia EENT: NONE Cardiovascular: aortic aneurysm, AFIB, CHF, hypertension, hyperlipidemia Respiratory: COPD Gastrointestinal: NONE Hepatic: NONE Renal: benign prost hyperplasia Musculoskeletal: chronic back pain, degen joint disease, fracture, gout, RIB FX left shoulder fracture Psychiatric: anxiety Endocrine: diabetes Blood Disorders: NONE Cancer(s): NONE 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 . MOTHER (Unknown cancer). . Psychosocial History Where Do You Live? Home Who Do You Live With? child (Son) Services at Home: None Primary Language: Danish Smoking Status: Unknown If Ever Smoked ETOH Use: denies use Illicit Drug Use: denies illicit drug use Functional Ability ADLs Needs Assist: dressing, eating, toileting, bathing. Ambulation: walker Assessment/Plan Consult Acknowledgment - Thank you for your consult request.
--- NOTE | 2016-07-16 10:52 | PN- Att Addend ---
Attending Addendum Attending Brief Note Overnight events noted. Patient became more lethargic and was transferred to the ICU for hypercapnic respiratory failure. He remains on IV Lasix and IV steroids. On exam he is afebrile, blood pressure is 110/70, pulse of 78 breathing at 18-22, sat of 97% on 30%. Lungs have decreased breath sounds bilaterally, heart is S1-S2 regular, abdomen is soft and he does have edema bilaterally. He is an 89-year-old with a history of dementia, COPD and heart failure, A. fib on Xarelto was here with a presumed CHF and COPD exacerbation. We have him on Lasix 40 IV twice a day with IV steroids and by mouth Zithromax. Will watch his respiratory status closely specifically his PCO2. We will also have to watch closely for agitation in the setting of dementia. He is already anticoagulated with Xarelto and will follow.
--- NOTE | 2016-07-16 10:58 | NUR ---
THE PT WAS CHANGED FROM BIPAP TO A 3LNC AT 1015 WAS MORE ALERT. PT IS A&OX2, OFF TO TIME. ALL 1000 MEDS WERE ADMINISTERED AT 1030 ONCE THE PT WAS REMOVED FROM THE BIPAP. PT'S O2 SAT HAS BEEN 91-96%, DECREASES WHEN TALKING OR TAKING MEDS BUT IMMEDIATELY REBOUNDS UP WHEN STOPS THESE ACTIVITIES. NO RESP DISTRESS NOTED.
--- NOTE | 2016-07-16 12:48 | PN- Housestaff ---
See Addendum Subjective Follow-up For: Acute CHF/COPD exacerbation Complaints: no complaints Tele-Events Since Last Visit: Atrial Fibrillation - Subjective: I saw and examined the patient this morning. He is lying comfortably on bed on 3L NC still breathing with pursed lips. He is alert, oriented x 3. Reports feeling much better from the time he is admitted to hospital. He denies any fever, chills, chest pain, palpitations, pain, difficutly in urination. Review of Systems Constitutional: Reports: see HPI, malaise, weakness. EENTM: Reports: no symptoms. Cardiovascular: Reports: see HPI, peripheral edema. Denies: chest pain, orthopena, palpitations. Respiratory: Reports: see HPI, cough, short of breath, wheezing. Gastrointestinal: Reports: no symptoms. Genitourinary: Reports: no symptoms. Musculoskeletal: Reports: no symptoms. Skin: Reports: no symptoms. Neurological/Psychological: Reports: no symptoms. Hematologic/Endocrine: Reports: no symptoms. Objective Last 24 Hrs of Vital Signs/I&O Vital Signs Date Time Temp Pulse Resp B/P Pulse O2 O2 Flow FiO2 Ox Delivery Rate 07/16 1200 94 Nasal 3.0L Cannula 07/16 1144 Nasal 3.0L Cannula 07/16 1031 98.0 73 25 123/51 07/16 1030 98.0 73 25 123/51 07/16 1028 75 97 07/16 0834 59 92 07/16 0800 93 BIPAP 30% 07/16 0800 98.0 62 24 112/82 93 BIPAP 30% 07/16 0618 55 92 07/16 0400 94 BIPAP 30% 07/16 0332 65 93 07/16 0115 94 BIPAP 30% 07/16 0115 97.8 65 24 122/70 94 BIPAP 30% 07/15 1849 96.9 86 24 113/63 93 Nasal 3.0L Cannula 07/15 1821 92 Nasal 3.0L Cannula 07/15 1640 98.5 94 20 133/58 91 Nasal 2.0L Cannula Intake & Output 07/16 1600 07/16 0800 07/16 0000 Intake Total 66 7 Output Total 610 200 Balance -544 -193 Intake, IV 66 7 Intake, Oral 0 Number 0 Bowel Movements Output, Urine 610 200 Patient 100.045 kg Weight Physical Exam General Appearance: Alert, Oriented X3, Cooperative, No Acute Distress Skin: No Rashes HEENT: Atraumatic, PERRLA, EOMI Neck: Supple, No JVD Cardiovascular: Normal S1, Normal S2, No Murmurs, irregularly irregular Lungs: Diffuse expiratory wheezing evident Abdomen: Normal Bowel Sounds, Soft, No Tenderness Neurological: Sensation Intact, Cranial Nerves 3-12 NL, Able to talk, but not in full sentences Extremities: No Clubbing, No Cyanosis Vascular: Pulses Symmetrical Lines/Diet/Fluids Fluids/Infusions: none Catheters/Tubes: castillo Castilol Still Needed? Yes Lines: peripheral lines Assessment/Plan Assessment: Patient is a 89 YO M with PMH significant for COPD, Chronic CHF, HTN, HLD, Dementia, stable AAA, Gout, Atrial Fibrillation (on xarelto), BPH, Psoriasis presented to [facility] ED yesterday with Shrotness of breath and progressive swelling of lower extremities. PE is significant for wheezing and dependent edema. Labs significant for ProBNP of 3280. Yesterday patient became unresponsive due to hypercarbic respiratory failure, so placed in ICU and received Bipap with settings of 16/6. He is doing much better today still on 3L NC - saturating well. Overnight he remained afebrile with HR 65-72, BP 116/80mmHg, On Bipap 16/6 Plan: Acute COPD exacerbation * Admitted to tele and then transfered to ICU for close monitoring as developed hypercarbic respiratory failure for close monitoring. * IV Solumedrol 40mg Q8 * IV Azithromycin 500mg daily * TRC/nebs ??CHF exacerbation * ProBNP is 3280 with dependent leg edema, dyspnea * IV furosemide 40mg BID and pravastatin oral 40mg. * F/U ECHO , cardio consult ( worth informed). * Urine output overnight is 610. * Montoring and repleting electrolytes as needed. History of diabetes mellitus * On metformin 1000mg at home. * Blood sugars from admission are between 150-170. * Placed on low dose novolog sliding scale. History of hypertension * On lisinopril 2.5mg - we will continue that History of Atrial Fibrillation * HR overnight 65-72 * On xarelto History of BPH * On tamsulsoin - we will continue that History of depression * On sertraline 25mg - we will continue that DVT Prophylaxis * On xarelto Code Status * DNR/DNI Problem List: 1. BPH 2. Diabetes mellitus type 2 3. Gout 4. CHF (congestive heart failure) 5. Afib 6. DNR (do not resuscitate) 7. DNI (do not intubate) 8. Acute respiratory acidosis 9. Hypercapnic respiratory failure Pain Ratin Pain Location: none Pain Goal: Remain pain free Pain Plan: Tyelnol PRN Tomorrow's Labs & Rationales: CBC BEP as on diuretics DVT/Prophylaxis: pharmacological, on xarelto
[2016-07-16 16:00] VITALS: BP 110/64
--- NOTE | 2016-07-16 17:59 | NUR ---
Wound Care Assessment: Patient presents with alterations in skin integrity that were present on admission. Coccyx, bilateral buttocks, and upper posterior thighs present with multiple areas of reddened and dark purple but blanchable areas- appears as a micture of incontinence dermititis, and psoriasis lesions. Red, patchy scaly like psioraisis lesions also noted to bilateral arms, ankles, trunk, etc. A stage 2 is noted to the left buttock measuring 1 X 1.5 cm, clean pink dermal fill and a moist wound bed- Bilateral ankles are red, boggy but blanchable. Patient is on total care ICU mattress. Impression: Stage 2 pressure injury to the left buttock. Misture of inc dermititis and psoriasis like lesions as mentioned above. Recommendations: Continue use of prescribed hydrocortisone cream as prescibed by house staff. Consider dermatology eval if not already follows as an outpatient. Clease buttock wounds with normal saline- Apply vitamin A+D cream. Continue use of catergory 2 mattress. Encourage frequent turning and repositioning. Obtain a nutrition consult. Please follow all additional pressure injury guidelines.
--- NOTE | 2016-07-16 20:29 | Cons- Cardiology ---
General Information and HPI Consulting Request Date of Consult: 07/16/16 Requested By: NATHAN JUNE MD Reason for Consult: CHF History of Present Illness: The patient is an 89-year-old male with history of dementia, hypertension, hyperlipidemia, diabetes mellitus, AAA, and atrial fibrillation, anticoagulated on Xarelto. He presented to the [facility] Emergency Department on July 15 with complaint of shortness of breath. The shortness breath has progressed over the past few days, and has been worse with exertion. He also notes worsening lower extremity edema over the past few days. No chest pain. No palpitations. Diaphoresis. No syncope. No lightheadedness or dizziness. No nausea or vomiting. Allergies/Medications Allergies: Coded Allergies: NO KNOWN ALLERGIES (07/15/16) Home Med List: Acetazolamide 250 MG TAB 500 MG PO Q48 acidosis Alternative with Lasix every other day. Last given on 09/10/15. Amoxicillin/Potassium Clav (Augmentin 875-125 Tablet) 1 EACH TABLET 1 TAB PO BID PNEUMONIA Furosemide (Lasix) 20 MG TABLET 1 TAB PO BID DIURESIS Hydrocortisone (Cortaid Lotion 1 Oz) 1 OZ LOT 1 RAKAN EXT BID SKIN Lisinopril 2.5 MG TABLET 1 TAB PO DAILY BLOOD PRESSURE (Reported) Metformin Hydrochloride (Glucophage) 1,000 MG TAB 1 TAB PO DAILY DIABETES ( Reported) Nystatin (Mycostatin Powder) 15 GM PWD 1 RAKAN TOP TID SKIN PHENAZOPYRIDINE HCL (Phenazopyridine HCl) 100 MG TAB 200 MG PO PC SKIN Pravastatin Sodium 40 MG TABLET 1 TAB PO DAILY CHOLESTEROL (Reported) Risperidone (Risperdal) 0.25 MG TABLET 1 TAB PO DAILY AGITATION (Reported) Rivaroxaban (Xarelto) 20 MG TABLET 1 TAB PO DAILY BLOOD THINNER (Reported) with food SERTRALINE HCL (Sertraline Hydrochloride) 25 MG TABLET 1 TAB PO DAILY MENTAL HEALTH (Reported) TAMSULOSIN HCL (Tamsulosin Hydrochloride) 0.4 MG CAP.ER.24H 1 CAP PO BID PROSTATE (Reported) Current Medications: Current Medications Sig/Emily Start time Last Medication Dose Route Stop Time Status Admin Azithromycin 500 MG DAILY@1550 07/16 1550 AC 07/16 Sodium Chloride 250 ML IV 1630 Furosemide 40 MG 7:30 AM, & 4:30 PM 07/16 0730 AC 07/16 IV 1630 Hydrocortisone 1 RAKAN BID 07/15 2200 AC 07/16 EXT 2154 Insulin Aspart 0 TIDAC 07/16 1700 AC 07/16 SC 1700 Lisinopril 2.5 MG DAILY 07/16 1000 AC 07/16 PO 1030 Magnesium Oxide 400 MG ONE ONE 07/16 0815 DC 07/16 PO 07/16 0816 1031 Methylprednisolone 40 MG Q8 07/15 2200 AC 07/16 IV 2154 Nystatin 1 RAKAN TID 07/15 2200 AC 07/16 TOP 2154 Pravastatin Sodium 40 MG DAILY 07/16 1000 AC 07/16 PO 1031 Rivaroxaban 20 MG DAILY 07/16 1000 AC 07/16 PO 1030 Sertraline HCl 25 MG DAILY 07/16 1000 AC 07/16 PO 1031 Tamsulosin HCl 0.4 MG BID 07/15 2200 AC 07/16 PO 2153 Review of Systems Review of Systems: No rash. No tremor. No melena. No diaphoresis. All other systems are reviewed and are noted to be negative. Past History Travel History Traveled to [place] past 21 day No Medical History Neurological: dementia EENT: NONE Cardiovascular: aortic aneurysm, AFIB, CHF, hypertension, hyperlipidemia Respiratory: COPD Gastrointestinal: NONE Hepatic: NONE Renal: benign prost hyperplasia Musculoskeletal: chronic back pain, degen joint disease, fracture, gout, RIB FX left shoulder fracture Psychiatric: anxiety Endocrine: diabetes Blood Disorders: NONE Cancer(s): NONE CAN COVERER/Reproductive: NONE Other Medical Hx: Psoriasis Surgical History Surgical History: appendectomy Family History Relations & Conditions If Any: FATHER (Heart disease in father). . MOTHER (Unknown cancer). . Psychosocial History Where Do You Live? Home Who Do You Live With? child (Son) Services at Home: None Primary Language: Yi Smoking Status: Unknown If Ever Smoked ETOH Use: denies use Illicit Drug Use: denies illicit drug use Functional Ability ADLs Needs Assist: dressing, eating, toileting, bathing. Ambulation: walker Exam & Diagnostic Data Vital Signs and I&O Vital Signs Date Time Temp Pulse Resp B/P Pulse O2 O2 Flow FiO2 Ox Delivery Rate 07/16 2153 75 100/59 07/16 2000 95 Nasal 3.0L Cannula 07/16 1600 96 Nasal 3.0L Cannula 07/16 1600 98.1 86 24 110/64 96 Nasal 3.0L Cannula 07/16 1200 94 Nasal 3.0L Cannula 07/16 1144 Nasal 3.0L Cannula 07/16 1031 98.0 73 25 123/51 07/16 1030 98.0 73 25 123/51 07/16 1028 75 97 07/16 0834 59 92 07/16 0800 93 BIPAP 30% 07/16 08 98.0 62 24 112/82 93 BIPAP 30% 07/16 0618 55 92 07/16 0400 94 BIPAP 30% 07/16 0332 65 93 07/16 0115 94 BIPAP 30% 07/16 0115 97.8 65 24 122/70 94 BIPAP 30% Intake & Output 07/16 1600 07/16 0800 07/16 0000 07/15 1600 07/15 0800 07/15 0000 Intake Total 214 66 7 0 Output Total 1010 610 200 Balance -796 -544 -193 0 Intake, IV 14 66 7 Intake, Oral 200 0 0 Number 0 0 Bowel Movements Output, Urine 1010 610 200 Patient 221 lb 225 lb Weight Physical Exam: Gen: The patient is in no acute distress HEENT: Normal nose, ears, and oropharynx. Pupils equal bilaterally. Conjunctiva normal. Neck: Supple with no JVD, no masses, and no thyromegaly Lungs: Rales in the bases bilaterally, with normal respiratory effort Heart: RRR, S1, S2, no murmurs. 3+ peripheral edema, 2+ pulses in the lower extremities bilaterally Abdomen: Soft, nontender, no masses. No hepatomegaly. No splenomegaly Extremities: No clubbing or cyanosis. Normal muscle strength in the upper and lower extremities. Skin: Normal skin turgor with no skin ulcers or lesions noted. Neuro: Cranial nerves intact. Sensation intact Psych: Alert and oriented 3 with appropriate affect Labs/Navdeep Results: Laboratory Tests 07/16 07/16 07/16 07/15 0600 0540 8677 2305 Blood Gas pH (7.35 - 7.45 PH) 7.35 7.35 pCO2 (35 - 45 TORR) 53 H 58 H pO2 (80 - 100 TORR) 67 L 69 L HCO3 (21 - 28 MEQ/L) 24 31 H ABG O2 Sat (Measured) (>96.0 %) 93.0 L 93.0 L P-50 (Temp Corrected) N Y Carboxyhemoglobin (1.5 - 5.0 %) 1.2 L 1.3 L O2 Concentration % .30 30 Temperature (97.0 - 100.0 FARH) 98.5 Respiration Rate (BPM) 24 24 O2 Delivery Method BIPAP BIPAP Vent Mode ST ST Expiratory Pressure (CM H2O P) 6 6 Inspiratory Pressure (CM H2O P) 16 16 Chemistry Sodium (137 - 145 mmol/L) 140 Potassium (3.5 - 5.1 mmol/L) 4.1 Chloride (98 - 107 mmol/L) 99 Carbon Dioxide (22 - 30 mmol/L) 29 Anion Gap (5 - 16) 12 BUN (9 - 20 mg/dL) 22 H Creatinine (0.7 - 1.2 mg/dL) 0.8 Estimated GFR (>60 ml/min) > 60 Glucose (65 - 99 mg/dL) 130 H Calcium (8.4 - 10.2 mg/dL) 7.9 L Phosphorus (2.5 - 4.5 mg/dL) 3.5 Magnesium (1.6 - 2.3 mg/dL) Cancelled 1.9 Total Bilirubin (0.2 - 1.3 mg/dL) 0.4 AST (17 - 59 U/L) 15 L ALT (21 - 72 U/L) 30 Albumin (3.5 - 5.0 g/dL) 2.9 L Miscellaneous Phlebotomy Draw Site RIGHT RADIAL RIGHT RADIAL 07/15 07/15 2305 2200 Blood Gas pH (7.35 - 7.45 PH) Pending 7.25 *L pCO2 (35 - 45 TORR) Pending 74 *H pO2 (80 - 100 TORR) Pending 73 L HCO3 (21 - 28 MEQ/L) Pending 32 H ABG O2 Sat (Measured) (>96.0 %) Pending 92.0 L P-50 (Temp Corrected) Pending Carboxyhemoglobin (1.5 - 5.0 %) Pending 1.8 O2 Concentration % Pending 30 Temperature Pending Respiration Rate (BPM) 24 O2 Delivery Method Pending BIPAP Vent Mode ST Expiratory Pressure (CM H2O P) 6 Inspiratory Pressure (CM H2O P) 16 Miscellaneous Phlebotomy Draw Site Pending RIGHT RADIAL 07/15 07/15 2156 1641 Chemistry Lactic Acid Cancelled Urines Urine Color (YEL,AMB,STR) YEL Urine Clarity (CLEAR) CLEAR Urine pH (5.0 - 8.0) 6.0 Ur Specific [place] (1.001 - 1.035) 1.020 Urine Protein (NEG,<30 MG/DL) NEG Urine Ketones (NEG) NEG Urine Nitrite (NEG) NEG Urine Bilirubin (NEG) NEG Urine Urobilinogen (0.1 - 1.0 EU/dl) 0.2 Ur Leukocyte Esterase (NEG) NEG Ur Microscopic EXAM NOT REQUIRED Urine Hemoglobin (NEG) NEG Urine Glucose (N MG/DL) NEG 07/15 07/15 07/15 07/15 1610 1610 1348 1348 Blood Gas pH (7.35 - 7.45 PH) 7.31 L Pending pCO2 (35 - 45 TORR) 62 *H Pending pO2 (80 - 100 TORR) 45 *L Pending HCO3 (21 - 28 MEQ/L) 45 H Pending ABG O2 Sat (Measured) (>96.0 %) 78.0 L Pending P-50 (Temp Corrected) Y Pending Carboxyhemoglobin (1.5 - 5.0 %) 1.6 Pending O2 Concentration % RA Pending Temperature (97.0 - 100.0 FARH) 98.4 Pending O2 Delivery Method RA Pending Chemistry Lactic Acid (0.7 - 2.1 mmol/L) 0.9 Magnesium Cancelled Bfa-O-Woxxbrwpenc Pept Cancelled Miscellaneous Phlebotomy Draw Site LEFT RADIAL Pending 07/15 07/15 1348 1344 Chemistry Sodium (137 - 145 mmol/L) 143 Potassium (3.5 - 5.1 mmol/L) 4.0 Chloride (98 - 107 mmol/L) 100 Carbon Dioxide (22 - 30 mmol/L) 32 H Anion Gap (5 - 16) 11 BUN (9 - 20 mg/dL) 19 Creatinine (0.7 - 1.2 mg/dL) 0.9 Estimated GFR (>60 ml/min) > 60 BUN/Creatinine Ratio (7 - 25 %) 21.1 Glucose (65 - 99 mg/dL) 115 H Calcium (8.4 - 10.2 mg/dL) 8.2 L Magnesium (1.6 - 2.3 mg/dL) 1.9 Total Bilirubin (0.2 - 1.3 mg/dL) 0.4 AST (17 - 59 U/L) 21 ALT (21 - 72 U/L) 30 Alkaline Phosphatase (< 127 U/L) 81 Troponin I (<0.11 ng/ml) < 0.01 Czc-Y-Xqmizhldrow Pept (<125 pg/mL) 3280 H Total Protein (6.3 - 8.2 g/dL) 6.5 Albumin (3.5 - 5.0 g/dL) 3.5 Globulin (1.9 - 4.2 gm/dL) 3.0 Albumin/Globulin Ratio (1.1 - 2.2 %) 1.2 Coagulation D-Dimer (70 - 232 ng/ml) 215 Hematology CBC w Diff NO MAN DIFF REQ WBC (4.8 - 10.8 /CUMM) 7.6 RBC (4.70 - 6.10 /CUMM) 4.49 L Hgb (14.0 - 18.0 G/DL) 12.4 L Hct (42 - 52 %) 38.3 L MCV (80.0 - 94.0 FL) 85.3 MCH (27.0 - 31.0 PG) 27.7 RDW (11.5 - 14.5 %) 14.2 Plt Count (130 - 400 /CUMM) 246 MPV (7.4 - 10.4 FL) 9.0 Gran % (42.2 - 75.2 %) 82.9 H Lymphocytes % (20.5 - 51.1 %) 7.9 L Monocytes % (1.7 - 9.3 %) 6.7 Eosinophils % (0 - 5 %) 2.4 Basophils % (0.0 - 2.0 %) 0.1 Absolute Granulocytes (1.4 - 6.5 /CUMM) 6.3 Absolute Lymphocytes (1.2 - 3.4 /CUMM) 0.6 L Absolute Monocytes (0.10 - 0.60 /CUMM) 0.5 Absolute Eosinophils (0.0 - 0.7 /CUMM) 0.2 Absolute Basophils (0.0 - 0.2 /CUMM) 0 PUBS MCHC (33.0 - 37.0 G/DL) 32.4 L Diagnostic Data EKG Results EKG tracing is independently reviewed, and reveals atrial fibrillation with ventricular response of 106, premature ventricular contractions, intraventricular conduction delay CXR Results Chest x-ray July 15, 2016: No focal consolidation or atelectasis. Small pleural effusions and mild interstitial edema identified. Other Results Echocardiogram September 06, 2015: Normal size left ventricle. Mild concentric left ventricular hypertrophy. Normal left ventricular ejection fraction visually estimated at greater than 60%. Normal right ventricular size and function. Mild atrial dilatation. Mild mitral regurgitation. Mild aortic regurgitation. Mild tricuspid regurgitation. Mild pulmonary hypertension. Mild pulmonic regurgitation. Mildly dilated proximal ascending aorta (tube). Bilateral lower extremity Doppler study July 15, 2016: Normal triplex scan without evidence of deep venous thrombosis involving the bilateral lower extremities. Assessment/Plan Assessment/Plan Assessment: 1. Hypertension 2. Diabetes mellitus 3. Abdominal aortic aneurysm 4. Atrial fibrillation, anticoagulated on Xarelto 5. COPD exacerbation 6. Acute diastolic heart failure exacerbation Plan: 1. Lasix 40 milligrams IV q.12 hours 2. Continue anticoagulation with Xarelto 3. Antibiotics as per the medical service 4. Continue other cardiac medications Consult Acknowledgment - Thank you for your consult request.
[2016-07-17] VITALS: BP 118/68
[2016-07-17 04:50] LABS: ABSOLUTE BASOPHIL COUNT 0 /CUMM (0.0-0.2); ABSOLUTE EOSINOPHIL COUNT 0 /CUMM (0.0-0.7); ABSOLUTE GRANULOCYTE CT 7.8 /CUMM (1.4-6.5); ABSOLUTE LYMPH COUNT 0.3 /CUMM (1.2-3.4); ABSOLUTE MONOCYTE COUNT 0.3 /CUMM (0.10-0.60); BASOPHIL % 0.1 % (0.0-2.0); EOSINOPHIL % 0.2 % (0-5); GRANULOCYTE % 93.2 % (42.2-75.2); HEMATOCRIT 34.3 % (42-52); MEAN CORPUSCULAR HGB 27.5 PG (27.0-31.0); MEAN CORPUSCULAR HGB CONC 32.4 G/DL (33.0-37.0); MEAN CORPUSCULAR VOLUME 84.7 FL (80.0-94.0); MEAN PLATELET VOLUME 9.3 FL (7.4-10.4); PLATELET COUNT 217 /CUMM (130-400); RBC DISTRIBUTION WIDTH 13.8 % (11.5-14.5); RED BLOOD CELL CT 4.05 /CUMM (4.70-6.10); WHITE BLOOD CELL COUNT 8.4 /CUMM (4.8-10.8)
[2016-07-17 08:00] VITALS: BP 108/60
--- NOTE | 2016-07-17 08:21 | PN- Housestaff ---
RAMON JETER,BILL 07/17/16 0821: Subjective Follow-up For: COPD exacerbation Complaints: no complaints Tele-Events Since Last Visit: HR around 65-70, no significant overnight events. Subjective: I saw and examined the patient today morning. He is alert and oriented X3, saturating well on 3L NC. He reports sleepig well. Still had some dry cough. He denies any shortness of breath, fever, chills, chest pain/tightness, sorethroat, phlegm production. Review of Systems Constitutional: Reports: see HPI, malaise, weakness. EENTM: Reports: no symptoms, see HPI. Respiratory: Reports: cough. Denies: short of breath, sputum production, stridor, wheezing. Comments: ROS negative except the above. Objective Last 24 Hrs of Vital Signs/I&O Vital Signs Date Time Temp Pulse Resp B/P Pulse O2 O2 Flow FiO2 Ox Delivery Rate 07/17 0800 Nasal 2.0L Cannula 07/17 0800 97.8 66 22 108/60 92 Nasal 2.0L Cannula 07/17 0400 93 Nasal 2.0L Cannula 07/17 0000 93 Nasal 1.0L Cannula 07/17 0000 98.1 70 20 118/68 93 Nasal 1.0L Cannula 07/16 2153 75 100/59 07/16 2000 95 Nasal 3.0L Cannula 07/16 1600 96 Nasal 3.0L Cannula 07/16 1600 98.1 86 24 110/64 96 Nasal 3.0L Cannula 07/16 1200 94 Nasal 3.0L Cannula 07/16 1144 Nasal 3.0L Cannula 07/16 1031 98.0 73 25 123/51 07/16 1030 98.0 73 25 123/51 07/16 1028 75 97 Intake & Output 07/17 1600 07/17 0800 07/17 0000 Intake Total 400 784 Output Total 340 850 Balance 60 -66 Intake, IV 0 264 Intake, Oral 400 520 Number 0 2 Bowel Movements Output, Urine 340 850 Physical Exam General Appearance: Alert, Oriented X3, Cooperative, No Acute Distress Skin: No Rashes, No Breakdown HEENT: Atraumatic, PERRLA, EOMI Neck: Supple, No JVD Cardiovascular: Normal S1, Normal S2, No Murmurs Lungs: Normal Air Movement, scattered wheezing present. Abdomen: Normal Bowel Sounds, Soft, No Tenderness Neurological: Normal Speech, Strength at 5/5 X4 Ext, Normal Tone Extremities: No Clubbing, No Cyanosis, 3+ edema with significant desquamation and dryness of both the feet. Vascular: decreased pulsations over dorsalis pedis. Current Medications: Current Medications Sig/Emily Start time Last Medication Dose Route Stop Time Status Admin Azithromycin 500 MG DAILY@1550 07/16 1550 AC 07/16 Sodium Chloride 250 ML IV 1630 Furosemide 40 MG 7:30 AM, & 4:30 PM 07/16 0730 AC 07/17 IV 0639 Hydrocortisone 1 RAKAN BID 07/15 2200 AC 07/16 EXT 2154 Insulin Aspart 0 TIDAC 07/16 1700 AC 07/17 SC 0813 Lisinopril 2.5 MG DAILY 07/16 1000 AC 07/16 PO 1030 Melatonin 3 MG AT BEDTIME 07/17 0030 AC 07/17 PO 0046 Methylprednisolone 40 MG Q8 07/15 2200 AC 07/17 IV 0526 Nystatin 1 RAKAN TID 07/15 2200 AC 07/16 TOP 2154 Pravastatin Sodium 40 MG DAILY 07/16 1000 AC 07/16 PO 1031 Rivaroxaban 20 MG DAILY 07/16 1000 AC 07/16 PO 1030 Sertraline HCl 25 MG DAILY 07/16 1000 AC 07/16 PO 1031 Tamsulosin HCl 0.4 MG BID 07/15 2200 AC 07/16 PO 2153 Vancomycin HCl 1,500 MG ONCE ONE 07/17 929 AC Sodium Chloride 250 ML IV 07/17 1059 Last 24 Hrs of Lab/Navdeep Results Last 24 Hrs of Labs/Mics: Laboratory Tests 07/17/16 0420: Anion Gap 8, Estimated GFR > 60, BUN/Creatinine Ratio 38.8 H, Phosphorus 3.1, Magnesium 2.1, CBC w Diff NO MAN DIFF REQ, RBC 4.05 L, MCV 84.7, MCH 27.5, RDW 13.8, MPV 9.3, Gran % 93.2 H, Lymphocytes % 3.4 L, Monocytes % 3.1, Eosinophils % 0.2, Basophils % 0.1, Absolute Granulocytes 7.8 H, Absolute Lymphocytes 0.3 L, Absolute Monocytes 0.3, Absolute Eosinophils 0, Absolute Basophils 0, PUBS MCHC 32.4 L Microbiology 07/17 919 BLOOD: Blood Culture - ORD 01/02 0920 BLOOD: Blood Culture - ORD Lines/Diet/Fluids Lines: peripheral lines Assessment/Plan Assessment: Patient is a 89 YO M with PMH significant for COPD, Chronic CHF, HTN, HLD, Dementia, stable AAA, Gout, Atrial Fibrillation (on xarelto), BPH, Psoriasis presented to [facility] ED yesterday with Shrotness of breath and progressive swelling of lower extremities. PE is significant for wheezing and dependent edema. Labs significant for ProBNP of 3280. Yesterday patient became unresponsive due to hypercarbic respiratory failure, so placed in ICU and received Bipap with settings of 29/12. He is doing much better today still on 3L NC - saturating well. Overnight he remained afebrile with HR 65-72, BP 116/80mmHg, On Bipap 29/12 Plan: Acute COPD exacerbation * Admitted to tele and then transfered to ICU for close monitoring as developed hypercarbic respiratory failure for close monitoring. * IV Solumedrol 40mg Q12 * IV Azithromycin 500mg daily - discontinued it. * TRC/nebs ??CHF exacerbation * ProBNP is 3280 with dependent leg edema, dyspnea * IV furosemide 40mg BID and pravastatin oral 40mg. * F/U ECHO , cardio consult ( worth informed). * Urine output overnight is 610. * Montoring and repleting electrolytes as needed. Blood culx positive for gram positive cocci & urine culx positive for gram negative rods * STAGE II ulcer on buttock - possible source (unsure) * One set of blood cultures are positive for gram positive cocci. * Repeat blood cultures are sent. * A single dose of vancomycin is given pending second set culture results. History of diabetes mellitus * On metformin 1000mg at home. * Blood sugars from admission are between 150-170. * Placed on low dose novolog sliding scale. History of hypertension * On lisinopril 2.5mg - we will continue that History of Atrial Fibrillation * HR overnight 65-72 * On xarelto History of BPH * On tamsulsoin - we will continue that History of depression * On sertraline 25mg - we will continue that DVT Prophylaxis * On xarelto Code Status * DNR/DNI Problem List: 1. BPH 2. Diabetes mellitus type 2 3. Gout 4. CHF (congestive heart failure) 5. COPD exacerbation 6. DVT prophylaxis 7. Afib Pain Ratin Pain Location: n/a Pain Goal: Remain pain free Pain Plan: Tylenol PRN Tomorrow's Labs & Rationales: ICU bundle and cbc SHAYLEE JETER,NATHAN 07/17/16 1002: Attending MD Review Statement Attending Statement Attending MD Statement: examined this patient, discuss w/resident/PA/SKILLED NURSING CASE MANAGER, agreed w/resident/PA/SKILLED NURSING CASE MANAGER, reviewed EMR data (avail), discussed with nursing Attending Assessment/Plan: Patient is doing better today. He is down to 3 L of oxygen. Of note he has a stage II to his left buttock and diffuse psoriasis. He is an 89-year-old male with diabetes, A. fib on Xarelto, quit treating for acute diastolic heart failure and COPD exacerbation with acute hypoxic and hypercapnic respiratory failure. I think we can safely start tapering the steroids to every 12 today and probable by mouth prednisone in a.m. r.Talk to Cardiology about switching to by mouth Lasix. He has the Ngo catheter because of the diffuse skin peeling with the psoriasis and once we switched him to by mouth Lasix we can take out the catheter. PT eval and out of bed. Okay to transfer to telemetry. I noted the GPC in clusters in one set of blood cultures. Because of his erythematous legs with the psoriasis it's hard to tell if this is a true infection or a contaminant. At this point will repeat the blood cultures and give him 1 dose of IV Vanco to cover for the possibility of MRSA and closely follow up on the blood cultures.
--- NOTE | 2016-07-17 08:51 | NUR ---
0800: RECEIVED PT IN BED. A+OX3, FORGETFUL AT TIMES. ON 2L NC. LUNGS SOUND CLEAR, PT DENIES SOB, NO COUGH NOTED. AFIB ON MONITOR. RATE 80'S. VSS. AFEBRILE, DENIES CHEST PAIN. ABDOMEN D/S +BS. PT IS INCONTINENT OF STOOL. MAYEN IN PLACE DRAINING CLEAR YELLOW URINE. PT HAS PSORIASIS ALL OVER, BLE SWOLLEN RIGHT GREATER THAN LEFT. + PULSES. GROIN EXCORIATED. STAGE 2 X2 TO COCCYX, PT TURNED AND REPOSITIONED. #20 RF AND #[address] ON CONTACT PRECAUTIONS FOR HX OF MRSA. MRSA SWAB THIS ADMISSION CAME BACK NEGATIVE. BC 1 OF 2 SETS + FOR GRAM + COCCI IN CLUSTERS. PT DENIES PAIN AT THIS TIME. WILL MONITOR. SET UP FOR BREAKFAST.
--- NOTE | 2016-07-17 10:05 | Admission Certification ---
Admission Certification Certification Statement - As attending physician, I certify that at the time of - admission, based on clinical presentation, severity of - symptoms, need for further diagnostic testing and - therapeutic interventions, and risk of adverse outcomes - without in-hospital treatment, in my clinical assessment, - this patient requires an acute hospital stay for a minimum - of two nights or longer. I have also considered psychsocial - factors such as support system, advanced age, financial - issues, cognitive issues, and failed out-patient treatments, - past re-admission history, safety of patient, and lack of - compliance as applicable. Specific rationale supporting this admission is: Acute COPD and CHF exacerbation.
--- NOTE | 2016-07-17 10:46 | NUR ---
BLOOD CULTURES DRAWN. PT TURNED AND REPOSITIONED.
--- NOTE | 2016-07-17 15:04 | PN- Cardiology ---
Subjective Subjective: Feeling somewhat better. Shortness of breath improving. No palpitations. No lightheadedness or dizziness. No nausea. Objective Vital Signs and I&Os Vital Signs Date Time Temp Pulse Resp B/P Pulse O2 O2 Flow FiO2 Ox Delivery Rate 07/17 0946 65 124/80 07/17 0946 84 124/80 07/17 0800 Nasal 2.0L Cannula 07/17 0800 97.8 66 22 108/60 92 Nasal 2.0L Cannula 07/17 0400 93 Nasal 2.0L Cannula 07/17 0000 93 Nasal 1.0L Cannula 07/17 0000 98.1 70 20 118/68 93 Nasal 1.0L Cannula 07/16 2153 75 100/59 07/16 1999 95 Nasal 3.0L Cannula 07/16 1600 96 Nasal 3.0L Cannula 07/16 1600 98.1 86 24 110/64 96 Nasal 3.0L Cannula Intake & Output 07/17 1600 07/17 0800 07/17 0000 07/16 1600 07/16 0800 07/16 0000 Intake Total 1300 400 784 214 66 7 Output Total 1000 979 894 1265 610 200 Balance 300 60 -66 -796 -544 -193 Intake, IV 300 0 264 14 66 7 Intake, Oral 1000 400 520 200 0 Number 0 0 2 0 0 Bowel Movements Output, Urine 1000 348 724 4937 610 200 Patient 221 lb 221 lb Weight Physical Exam: Gen: The patient is in no acute distress HEENT: Normal nose, ears, and oropharynx. Pupils equal bilaterally. Conjunctiva normal. Neck: Supple with no JVD, no masses, and no thyromegaly Lungs: Rales in the bases bilaterally, with normal respiratory effort Heart: RRR, S1, S2, no murmurs. 3+ peripheral edema, 2+ pulses in the lower extremities bilaterally Abdomen: Soft, nontender, no masses. No hepatomegaly. No splenomegaly Extremities: No clubbing or cyanosis. Normal muscle strength in the upper and lower extremities. Skin: Normal skin turgor with no skin ulcers or lesions noted. Neuro: Cranial nerves intact. Sensation intact Current Medications: Current Medications Sig/Emily Start time Last Medication Dose Route Stop Time Status Admin Acetaminophen 325 MG Q6P PRN 07/17 1130 AC 07/17 PO 1139 Azithromycin 500 MG DAILY@1550 07/16 1550 DC 07/16 Sodium Chloride 250 ML IV 1630 Furosemide 40 MG 7:30 AM, & 4:30 PM 07/16 0730 AC 07/17 IV 0639 Hydrocortisone 1 RAKAN BID 07/15 2200 AC 07/17 EXT 0946 Insulin Aspart 0 TIDAC 07/16 1700 AC 07/17 SC 1147 Lisinopril 2.5 MG DAILY 07/16 1000 AC 07/17 PO 0946 Melatonin 3 MG AT BEDTIME 07/17 0030 AC 07/17 PO 0046 Methylprednisolone 40 MG Q12 07/17 2199 AC IV Methylprednisolone 40 MG Q8 07/15 2200 DC 07/17 IV 0526 Nystatin 1 RAKAN TID 07/15 220 AC 07/17 TOP 0946 Pravastatin Sodium 40 MG DAILY 07/16 1000 AC 07/17 PO 0945 Rivaroxaban 20 MG DAILY 07/16 1000 AC 07/17 PO 0946 Sertraline HCl 25 MG DAILY 07/16 1000 AC 07/17 PO 0946 Tamsulosin HCl 0.4 MG BID 07/15 2200 AC 07/17 PO 0946 Vancomycin HCl 1,500 MG ONCE ONE 07/17 929 DC 07/17 Sodium Chloride 250 ML IV 07/17 1059 1138 Vitamin A/Vitamin D 1 RAKAN DAILY 07/17 1053 07/17 TOP 1317 Results Last 48 Hrs of Labs/Mics: Laboratory Tests 07/17/16 0420: Anion Gap 8, Estimated GFR > 60, BUN/Creatinine Ratio 38.8 H, Phosphorus 3.1, Magnesium 2.1, CBC w Diff NO MAN DIFF REQ, RBC 4.05 L, MCV 84.7, MCH 27.5, RDW 13.8, MPV 9.3, Gran % 93.2 H, Lymphocytes % 3.4 L, Monocytes % 3.1, Eosinophils % 0.2, Basophils % 0.1, Absolute Granulocytes 7.8 H, Absolute Lymphocytes 0.3 L, Absolute Monocytes 0.3, Absolute Eosinophils 0, Absolute Basophils 0, PUBS MCHC 32.4 L 07/16/16 0600: Magnesium Cancelled 07/16/16 0540: pH 7.35, pCO2 53 H, pO2 67 L, HCO3 24, ABG O2 Sat (Measured) 93.0 L, P-50 ( Temp Corrected) N, Carboxyhemoglobin 1.2 L, O2 Concentration % .30, Respiration Rate 24, O2 Delivery Method BIPAP, Vent Mode ST, Expiratory Pressure 6, Inspiratory Pressure 16, Phlebotomy Draw Site RIGHT RADIAL 07/16/16 0427: Anion Gap 12, Estimated GFR > 60, Glucose 130 H, Calcium 7.9 L, Phosphorus 3.5 , Magnesium 1.9, Total Bilirubin 0.4, AST 15 L, ALT 30, Albumin 2.9 L 07/15/16 2305: pH 7.35, pCO2 58 H, pO2 69 L, HCO3 31 H, ABG O2 Sat (Measured) 93.0 L, P-50 (Temp Corrected) Y, Carboxyhemoglobin 1.3 L, O2 Concentration % 30, Temperature 98.5, Respiration Rate 24, O2 Delivery Method BIPAP, Vent Mode ST, Expiratory Pressure 6, Inspiratory Pressure 16, Phlebotomy Draw Site RIGHT RADIAL 07/15/162304: pH Pending, pCO2 Pending, pO2 Pending, HCO3 Pending, ABG O2 Sat (Measured) Pending, P-50 (Temp Corrected) Pending, Carboxyhemoglobin Pending, O2 Concentration % Pending, Temperature Pending, O2 Delivery Method Pending, Phlebotomy Draw Site Pending 07/15/162199: pH 7.25 *L, pCO2 74 *H, pO2 73 L, HCO3 32 H, ABG O2 Sat (Measured) 92.0 L, Carboxyhemoglobin 1.8, O2 Concentration % 30, Respiration Rate 24, O2 Delivery Method BIPAP, Vent Mode ST, Expiratory Pressure 6, Inspiratory Pressure 16, Phlebotomy Draw Site RIGHT RADIAL 07/15/166: Urine Color YEL, Urine Clarity CLEAR, Urine pH 6.0, Ur Specific [place] 1.020, Urine Protein NEG, Urine Ketones NEG, Urine Nitrite NEG, Urine Bilirubin NEG, Urine Urobilinogen 0.2, Ur Leukocyte Esterase NEG, Ur Microscopic EXAM NOT REQUIRED, Urine Hemoglobin NEG, Urine Glucose NEG 07/15/16 1641: Lactic Acid Cancelled 07/15/16 1610: pH 7.31 L, pCO2 62 *H, pO2 45 *L, HCO3 45 H, ABG O2 Sat (Measured) 78.0 L, P- 50 (Temp Corrected) Y, Carboxyhemoglobin 1.6, O2 Concentration % RA, Temperature 98.4, O2 Delivery Method RA, Phlebotomy Draw Site LEFT RADIAL 07/15/16 1610: pH Pending, pCO2 Pending, pO2 Pending, HCO3 Pending, ABG O2 Sat (Measured) Pending, P-50 (Temp Corrected) Pending, Carboxyhemoglobin Pending, O2 Concentration % Pending, Temperature Pending, O2 Delivery Method Pending, Phlebotomy Draw Site Pending Microbiology 07/16 114 UPPER RESP: Surveillance Culture - COMP 07/16 114 GI: Surveillance Culture - COMP Blood culture: Positive for gram-positive cocci Urine culture positive for gram-negative rods Assessment/Plan Assessment/Plan Assessment: 1. Hypertension 2. Diabetes mellitus 3. Abdominal aortic aneurysm 4. Atrial fibrillation, anticoagulated on Xarelto 5. COPD exacerbation 6. Acute diastolic heart failure exacerbation 7. Blood culture positive for gram-positive cocci Plan: 1. Would continue IV Lasix. 2. Continue anticoagulation with Xarelto 3. Antibiotics as per the medical service 4. Continue other cardiac medications 5. Echocardiogram pending. Continue telemetry? Yes
[2016-07-17 16:00] VITALS: BP 120/60
--- NOTE | 2016-07-17 20:28 | NUR ---
PT HAS HEMATURIA IN MAYEN. DR. RUBY NOTIFIED. PER MD CONTINUE TO MONITOR. IF HEMATURIA CONTINUES NOTIFIY MD AND CHECK CBC.
[2016-07-17 22:00] VITALS: BP 118/62
--- NOTE | 2016-07-18 07:40 | PN- Housestaff ---
ABRAHAM JETER,[facility] 07/18/16 0735: Subjective Follow-up For: COPD exacerbation Tele-Events Since Last Visit: Alonso. Fib 71-81 no events Subjective: Mr Lamar was seen and examined this morning. His resting comfortably in bed. Patient reports no events overnight. Patient is somewhat confused although is alert and oriented 3. He states that he has no reason to be in the hospital and was brought here mistakenly by the utility worker driver. Patient does state that he does feel better. He reports no chest pain and/or chest discomfort. Patient denies any shortness of breath, wheezing, orthopnea or palpitations. Patient reports that his bilateral leg edema has improved. Patient reports a good appetite. Patient denies any fever, chills comes, nausea, vomiting. Review of Systems Constitutional: Reports: see HPI. Denies: chills, fever, malaise, weakness. Objective Last 24 Hrs of Vital Signs/I&O Vital Signs Date Time Temp Pulse Resp B/P Pulse O2 O2 Flow FiO2 Ox Delivery Rate 07/18 0000 Nasal 2.0L Cannula 07/17 2200 97.8 72 20 118/62 94 Nasal 2.0L Cannula 07/17 2150 84 118/68 07/17 1600 Nasal 2.0L Cannula 07/17 1600 98.4 63 20 120/60 97 Nasal 2.0L Cannula 07/17 0946 65 124/80 07/17 0946 84 124/80 07/17 0800 Nasal 2.0L Cannula 07/17 0800 97.8 66 22 108/60 92 Nasal 2.0L Cannula Intake & Output 07/18 0800 07/18 0000 07/17 1600 Intake Total 250 1300 Output Total 1450 1000 Balance -1200 300 Intake, IV 10 300 Intake, Oral 240 1000 Number 0 Bowel Movements Output, Urine 1450 1000 Patient 100.045 kg Weight Physical Exam General Appearance: Alert, Oriented X3, Cooperative Cardiovascular: Normal S1, Normal S2, Irregular Rate/ Rhythm Lungs: Bilateral Expiratory Rhonchi Abdomen: Normal Bowel Sounds, Soft, No Tenderness Neurological: Normal Speech, Strength at 5/5 X4 Ext Extremities: Edema 3+. R>L Current Medications: Current Medications Sig/Emily Start time Last Medication Dose Route Stop Time Status Admin Acetaminophen 325 MG Q6P PRN 07/17 1130 AC 07/17 PO 1139 Azithromycin 500 MG DAILY@1550 07/16 1550 DC 07/16 Sodium Chloride 250 ML IV 1630 Furosemide 40 MG 7:30 AM, & 4:30 PM 07/16 0730 AC 07/17 IV 1549 Hydrocortisone 1 RAKAN BID 07/15 2200 AC 07/17 EXT 2151 Insulin Aspart 0 TIDAC 07/16 1700 AC 07/17 SC 1700 Lisinopril 2.5 MG DAILY 07/16 1000 AC 07/17 PO 0946 Melatonin 3 MG AT BEDTIME 07/17 0030 AC 07/17 PO 2150 Methylprednisolone 40 MG Q12 07/17 2200 AC 07/17 IV 2150 Methylprednisolone 40 MG Q8 07/15 220 DC 07/17 IV 0526 Nystatin 1 RAKAN TID 07/15 220 AC 07/17 TOP 2150 Pravastatin Sodium 40 MG DAILY 07/16 1000 AC 07/17 PO 0945 Rivaroxaban 20 MG DAILY 07/16 1000 AC 07/17 PO 0946 Sertraline HCl 25 MG DAILY 07/16 1000 AC 07/17 PO 0946 Tamsulosin HCl 0.4 MG BID 07/15 2200 AC 07/17 PO 2150 Vancomycin HCl 1,500 MG ONCE ONE 07/17 0930 DC 07/17 Sodium Chloride 250 ML IV 07/17 1059 1138 Vitamin A/Vitamin D 1 RAKAN DAILY 07/17 1053 AC 07/17 TOP 1317 Last 24 Hrs of Lab/Navdeep Results Last 24 Hrs of Labs/Mics: Laboratory Tests 07/18/16 0620: Sodium Pending, Potassium Pending, Chloride Pending, Carbon Dioxide Pending, Anion Gap Pending, BUN Pending, Creatinine Pending, BUN/Creatinine Ratio Pending , CBC w Diff Pending, WBC Pending, RBC Pending, Hgb Pending, Hct Pending, MCV Pending, MCH Pending, RDW Pending, Plt Count Pending, MPV Pending, PUBS MCHC Pending Microbiology 07/17 1010 BLOOD: Blood Culture - RECD 07/17 1010 BLOOD: Blood Culture - RECD Orders ECHO Findings: SERVICE DATE: 07/17/16- EXAM TYPE: CARD - ECHOCARDIOGRAM SUSU LAMAR Age: 89 : 1925 Gender: M Exam Date: 07/17/2016 09:02 Exam Location: [facility] Ht (in): 70 Wt (lb): 220 BSA: 2.25 BP: 118 / 68 Ordering Physician: BILL NAVARRO MD Referring Physician: Mallory Tay MD Technologist: Jessica Murillo [facility] Room Number: 103 Indications: HEART FAILURE Rhythm: Atrial fibrillation Technical Quality: Fair FINDINGS Left Ventricle Normal size left ventricle. Mild concentric left ventricular hypertrophy. No obvious regional wall motion abnormalities. Normal left ventricular ejection fraction visually estimated at > 60%. Right Ventricle Normal right ventricular size and function. Right Atrium Mild right atrial dilatation. Left Atrium Mild to moderate left atrial dilatation. Mitral Valve Mild mitral annular calcification. Mitral valve thickened. Mild mitral regurgitation. Aortic Valve Trileaflet aortic valve. Mild aortic sclerosis. No aortic stenosis. Mild aortic regurgitation. Tricuspid Valve Structurally normal tricuspid valve. Mild tricuspid regurgitation. Mild to moderate pulmonary hypertension. Right ventricular systolic pressure estimated to be elevated at 47 mmHg. Pulmonic Valve Pulmonic valve not well visualized. No pulmonic regurgitation. Pericardium No pericardial effusion. Great Vessels Normal size aortic root. CONCLUSIONS Normal size left ventricle. Mild concentric left ventricular hypertrophy. No obvious regional wall motion abnormalities. Normal left ventricular ejection fraction visually estimated at > 60%. Normal right ventricular size and function. Mild right atrial dilatation. Mild to moderate left atrial dilatation. Mild mitral regurgitation. Mild aortic regurgitation. Mild tricuspid regurgitation. Mild to moderate pulmonary hypertension. Mallory Tay M.D. (Electronically Signed) Final Date: 18 July 2016 10:37 MEASUREMENTS (Male / Female) Normal Values 2D ECHO LV Diastolic Diameter PLAX 5.5 cm 4.2 - 5.9 / 3.9 - 5.3 cm LV Systolic Diameter PLAX 3.1 cm 2.1 - 4.0 cm LV Fractional Shortening PLAX 43.6 % 25 - 46 % LV Ejection Fraction 2D Teich 74.3 % IVS Diastolic Thickness 1.3 cm LVPW Diastolic Thickness 1.3 cm LV Relative Wall Thickness 0.5 RV Internal Dim ED PLAX 3.1 cm 1.9 - 3.8 cm LVOT Diameter 2.0 cm Aortic Root Diameter 3.2 cm LA Systolic Diameter LX 4.4 cm 3.0 - 4.0 / 2.7 - 3.8 cm LA Volume 44.0 cm 18 - 58 / 22 - 52 cm Ascending Aorta Diameter 3.4 cm DOPPLER AV Peak Velocity 126.0 cm/s AV Peak Gradient 6.4 mmHg AV Mean Velocity 86.9 cm/s AV Mean Gradient 3.0 mmHg AV Velocity Time Integral 25.3 cm LVOT Peak Velocity 94.0 cm/s LVOT Peak Gradient 3.5 mmHg LVOT Mean Velocity 65.4 cm/s LVOT Mean Gradient 2.0 mmHg LVOT Velocity Time Integral 18.1 cm LVOT Stroke Volume 56.9 cm AV Area Cont Eq vti 2.2 cm AV Area Cont Eq pk 2.3 cm MV Peak Velocity 114.0 cm/s MV Peak Gradient 5.2 mmHg MV Mean Velocity 59.3 cm/s MV Mean Gradient 2.0 mmHg Mitral E Point Velocity 116.0 cm/s MV PHT Velocity 120.0 cm/s MV Deceleration [place] 410.0 cm/s MV Pressure Half Time 87.8 ms MV Area PHT 2.5 cm MV Deceleration Time 215.0 ms TR Peak Velocity 323.0 cm/s TR Peak Gradient 41.7 mmHg Right Atrial Pressure 5.0 mmHg Pulmonary Artery Systolic Pressu 46.7 mmHg Right Ventricular Systolic Press 46.7 mmHg PV Peak Velocity 85.9 cm/s PV Peak Gradient 3.0 mmHg PV Mean Velocity 51.8 cm/s PV Mean Gradient 1.0 mmHg PV Velocity Time Integral 14.0 cm LV E' Lateral Velocity 12.5 cm/s Mitral E to LV E' Lateral Ratio 9.3 LV E' Septal Velocity 11.6 cm/s Mitral E to LV E' Septal Ratio 10.0 DICTATED BY: JESSICA JETER,MALLORY Martínez Assessment/Plan Assessment: Patient is a 89 YO M with PMH significant for COPD, Chronic CHF, HTN, HLD, Dementia, stable AAA, Gout, Atrial Fibrillation (on xarelto), BPH, Psoriasis presented to [facility] ED yesterday with Shrotness of breath and progressive swelling of lower extremities. PE is significant for wheezing and dependent edema. Labs significant for ProBNP of 3280. Yesterday patient became unresponsive due to hypercarbic respiratory failure, so placed in ICU and received Bipap with settings of 16/6. He is doing much better today still on 3L NC - saturating well. Overnight he remained afebrile with HR 65-72, BP 116/80mmHg, On Bipap 16/6 Plan: #Acute COPD exacerbation * Admitted to tele and then transfered to ICU for close monitoring as developed hypercarbic respiratory failure for close monitoring. * IV Solumedrol 40mg Q12--> transitioned to Oral Prednisone, 20 mg. * IV Azithromycin 500mg daily - discontinued it. * TRC/nebs #??CHF exacerbation * ProBNP is 3280 with dependent leg edema, dyspnea * Continue IV furosemide 40mg BID and pravastatin oral 40mg. * Montoring and repleting electrolytes as needed. #Blood culx positive for gram positive cocci & urine culx positive for gram negative rods * STAGE II ulcer on buttock, Present on admission - possible source (unsure) * One set of blood cultures are positive for gram positive cocci. * Repeat blood cultures are pending. * A single dose of vancomycin is given pending second set culture results.--> discontinued Vancomycin. #History of diabetes mellitus * On metformin 1000mg at home. * Blood sugars from admission are between 193-248 * Placed on low dose novolog sliding scale.--> Medium Dose SS #History of Atrial Fibrillation * HR overnight 71-81 * On xarelto #History of BPH * On tamsulsoin - we will continue that #Thyroid Dysfunction * Rule out Hyupothyroid: TSH and Ft4 #History of depression * On sertraline 25mg - we will continue that #DVT Prophylaxis * On xarelto #Code Status * DNR/DNI Problem List: 1. COPD (chronic obstructive pulmonary disease) 2. Afib 3. Shortness of breath 4. COPD exacerbation 5. Dependent edema 6. Psoriasis 7. Sacral decubitus ulcer, stage II 8. Dementia Pain Ratin Pain Location: No Pain reported Pain Goal: Remain pain free Pain Plan: Tylenol PRN Tomorrow's Labs & Rationales: BEP: Monitor Electrolytes, Worsening hyponatremia CBC: Monitor WBC in the setting ?bacteremia JESENIA RAMOS MD 07/18/16 2243: Attending MD Review Statement Attending Statement Attending MD Statement: examined this patient, discuss w/resident/PA/TIE KNITTER HELPER, agreed w/resident/PA/TIE KNITTER HELPER, reviewed EMR data (avail), discussed with nursing, discussed with case mgmt, amended to note Attending Assessment/Plan: The patient was seen and discussed with house staff. Agree with plan of care as outlined.
[2016-07-18 08:04] LABS: ABSOLUTE BASOPHIL COUNT 0 /CUMM (0.0-0.2); ABSOLUTE EOSINOPHIL COUNT 0 /CUMM (0.0-0.7); ABSOLUTE GRANULOCYTE CT 7.6 /CUMM (1.4-6.5); ABSOLUTE LYMPH COUNT 0.3 /CUMM (1.2-3.4); ABSOLUTE MONOCYTE COUNT 0.3 /CUMM (0.10-0.60); BASOPHIL % 0 % (0.0-2.0); EOSINOPHIL % 0 % (0-5); GRANULOCYTE % 92.2 % (42.2-75.2); HEMATOCRIT 35.7 % (42-52); MEAN CORPUSCULAR HGB CONC 32.7 G/DL (33.0-37.0); MEAN CORPUSCULAR VOLUME 85.5 FL (80.0-94.0); MEAN PLATELET VOLUME 9.8 FL (7.4-10.4); PLATELET COUNT 225 /CUMM (130-400); RBC DISTRIBUTION WIDTH 13.7 % (11.5-14.5); RED BLOOD CELL CT 4.18 /CUMM (4.70-6.10)
[2016-07-18 08:30] VITALS: BP 132/66
[2016-07-18 09:32] LABS: WHITE BLOOD CELL COUNT 8.2 /CUMM (4.8-10.8)
--- NOTE | 2016-07-18 10:37 | ECHOCARDIOGRAM REPORT ---
SUSU FRANCIS Age: 89 : 1925 Gender: M Exam Date: 07/17/2016 09:02 Exam Location: [facility] Ht (in): 70 Wt (lb): 220 BSA: 2.25 BP: 118 / 68 Ordering Physician: BILL NAVARRO MD Referring Physician: Tripp Tay MD Technologist: Jessica Murillo [facility] Room Number: 103 Indications: HEART FAILURE Rhythm: Atrial fibrillation Technical Quality: Fair FINDINGS Left Ventricle Normal size left ventricle. Mild concentric left ventricular hypertrophy. No obvious regional wall motion abnormalities. Normal left ventricular ejection fraction visually estimated at > 60%. Right Ventricle Normal right ventricular size and function. Right Atrium Mild right atrial dilatation. Left Atrium Mild to moderate left atrial dilatation. Mitral Valve Mild mitral annular calcification. Mitral valve thickened. Mild mitral regurgitation. Aortic Valve Trileaflet aortic valve. Mild aortic sclerosis. No aortic stenosis. Mild aortic regurgitation. Tricuspid Valve Structurally normal tricuspid valve. Mild tricuspid regurgitation. Mild to moderate pulmonary hypertension. Right ventricular systolic pressure estimated to be elevated at 47 mmHg. Pulmonic Valve Pulmonic valve not well visualized. No pulmonic regurgitation. Pericardium No pericardial effusion. Great Vessels Normal size aortic root. CONCLUSIONS Normal size left ventricle. Mild concentric left ventricular hypertrophy. No obvious regional wall motion abnormalities. Normal left ventricular ejection fraction visually estimated at > 60%. Normal right ventricular size and function. Mild right atrial dilatation. Mild to moderate left atrial dilatation. Mild mitral regurgitation. Mild aortic regurgitation. Mild tricuspid regurgitation. Mild to moderate pulmonary hypertension. Tripp Tay M.D. (Electronically Signed) Final Date: 18 July 2016 10:37 MEASUREMENTS (Male / Female) Normal Values 2D ECHO LV Diastolic Diameter PLAX 5.5 cm 4.2 - 5.9 / 3.9 - 5.3 cm LV Systolic Diameter PLAX 3.1 cm 2.1 - 4.0 cm LV Fractional Shortening PLAX 43.6 % 25 - 46 % LV Ejection Fraction 2D Teich 74.3 % IVS Diastolic Thickness 1.3 cm LVPW Diastolic Thickness 1.3 cm LV Relative Wall Thickness 0.5 RV Internal Dim ED PLAX 3.1 cm 1.9 - 3.8 cm LVOT Diameter 2.0 cm Aortic Root Diameter 3.2 cm LA Systolic Diameter LX 4.4 cm 3.0 - 4.0 / 2.7 - 3.8 cm LA Volume 44.0 cm 18 - 58 / 22 - 52 cm Ascending Aorta Diameter 3.4 cm DOPPLER AV Peak Velocity 126.0 cm/s AV Peak Gradient 6.4 mmHg AV Mean Velocity 86.9 cm/s AV Mean Gradient 3.0 mmHg AV Velocity Time Integral 25.3 cm LVOT Peak Velocity 94.0 cm/s LVOT Peak Gradient 3.5 mmHg LVOT Mean Velocity 65.4 cm/s LVOT Mean Gradient 2.0 mmHg LVOT Velocity Time Integral 18.1 cm LVOT Stroke Volume 56.9 cm AV Area Cont Eq vti 2.2 cm AV Area Cont Eq pk 2.3 cm MV Peak Velocity 114.0 cm/s MV Peak Gradient 5.2 mmHg MV Mean Velocity 59.3 cm/s MV Mean Gradient 2.0 mmHg Mitral E Point Velocity 116.0 cm/s MV PHT Velocity 120.0 cm/s MV Deceleration [place] 410.0 cm/s MV Pressure Half Time 87.8 ms MV Area PHT 2.5 cm MV Deceleration Time 215.0 ms TR Peak Velocity 323.0 cm/s TR Peak Gradient 41.7 mmHg Right Atrial Pressure 5.0 mmHg Pulmonary Artery Systolic Pressu 46.7 mmHg Right Ventricular Systolic Press 46.7 mmHg PV Peak Velocity 85.9 cm/s PV Peak Gradient 3.0 mmHg PV Mean Velocity 51.8 cm/s PV Mean Gradient 1.0 mmHg PV Velocity Time Integral 14.0 cm LV E' Lateral Velocity 12.5 cm/s Mitral E to LV E' Lateral Ratio 9.3 LV E' Septal Velocity 11.6 cm/s Mitral E to LV E' Septal Ratio 10.0
--- NOTE | 2016-07-18 11:38 | PN- Cardiology ---
Subjective Subjective: Mr. Lamar is an 89-year-old white male with a history of dementia, hypertension , dyslipidemia, diabetes mellitus, hypomagnesemia, gout, chronic anemia, small abdominal aortic aneurysm, recurrent falls, and chronic anticoagulation on the factor Xa inhibitor rivaroxaban (Xarelto) who has also had recurrent episodes of diastolic heart failure with echocardiographic evidence of left ventricular hypertrophy by echocardiography performed most recently 09/05/2015 and preserved systolic function who presented from home with increasing shortness of breath and bilateral lower extremity edema with room air O2 saturation 86% in the emergency department that improved with 3 L nasal oxygen and a CXR consistent with interstitial edema and small bilateral pleural effusions. One bottle from a set of blood cultures drawn on admission is also growing coagulase-negative staph aureus. Mr. Lamar has dementia and cannot give a reliable history. Objective Vital Signs and I&Os Vital Signs Date Time Temp Pulse Resp B/P Pulse O2 O2 Flow FiO2 Ox Delivery Rate 07/18 1035 132/66 07/18 1035 132/66 07/18 0830 98.1 94 20 132/66 95 Nasal 2.0L Cannula 07/18 0000 Nasal 2.0L Cannula 07/17 2200 97.8 72 20 118/62 94 Nasal 2.0L Cannula 07/17 2150 84 118/68 07/17 1600 Nasal 2.0L Cannula 07/17 1600 98.4 63 20 120/60 97 Nasal 2.0L Cannula Intake & Output 07/18 1600 07/18 0800 07/18 0000 07/17 1600 07/17 0800 07/17 0000 Intake Total 250 1300 400 784 Output Total 1450 1000 340 850 Balance -1200 300 60 -66 Intake, IV 10 300 0 264 Intake, Oral 240 1000 400 520 Number 0 0 2 Bowel Movements Output, Urine 1450 1000 340 850 Patient 221 lb Weight Physical Exam: Unkempt appearing elderly male in no acute distress with nasal oxygen in place. Vital signs: See above. Lungs: Decreased breath sounds bilaterally, occasional wheeze. Heart: S1, S2 (irregularly, irregular) with grade 1-2/6 systolic murmur. Extremities: Bilateral lower extremity edema. Current Medications: Current Medications Sig/Emily Start time Last Medication Dose Route Stop Time Status Admin Acetaminophen 325 MG Q6P PRN 07/17 1130 AC 07/17 PO 1139 Furosemide 40 MG 7:30 AM, & 4:30 PM 07/16 0730 AC 07/18 IV 0831 Hydrocortisone 1 RAKAN BID 07/15 2200 AC 07/18 EXT 1041 Insulin Aspart 0 TIDAC 07/16 1700 AC 07/18 SC 0832 Lisinopril 2.5 MG DAILY 07/16 1000 AC 07/18 PO 1035 Melatonin 3 MG AT BEDTIME 07/17 0030 AC 07/17 PO 2150 Methylprednisolone 40 MG Q12 07/17 2200 AC 07/18 IV 1042 Nystatin 1 RAKAN TID 07/15 2200 AC 07/18 TOP 1041 Pravastatin Sodium 40 MG DAILY 07/16 1000 AC 07/18 PO 1035 Rivaroxaban 20 MG DAILY 07/16 1000 AC 07/18 PO 1035 Sertraline HCl 25 MG DAILY 07/16 1000 AC 07/18 PO 1035 Tamsulosin HCl 0.4 MG BID 07/15 2200 AC 07/18 PO 1035 Vitamin A/Vitamin D 1 RAKAN DAILY 07/17 1053 AC 07/18 TOP 1042 Results Last 48 Hrs of Labs/Mics: Laboratory Tests 07/18/16 0620: Anion Gap 6, Estimated GFR > 60, BUN/Creatinine Ratio 33.8 H, CBC w Diff NO MAN DIFF REQ, RBC 4.18 L, MCV 85.5, MCH 28.0, RDW 13.7, MPV 9.8, Gran % 92.2 H, Lymphocytes % 3.9 L, Monocytes % 3.9, Eosinophils % 0, Basophils % 0 L, Absolute Granulocytes 7.6 H, Absolute Lymphocytes 0.3 L, Absolute Monocytes 0.3, Absolute Eosinophils 0, Absolute Basophils 0, PUBS MCHC 32.7 L 07/17/16 0420: Anion Gap 8, Estimated GFR > 60, BUN/Creatinine Ratio 38.8 H, Phosphorus 3.1, Magnesium 2.1, CBC w Diff NO MAN DIFF REQ, RBC 4.05 L, MCV 84.7, MCH 27.5, RDW 13.8, MPV 9.3, Gran % 93.2 H, Lymphocytes % 3.4 L, Monocytes % 3.1, Eosinophils % 0.2, Basophils % 0.1, Absolute Granulocytes 7.8 H, Absolute Lymphocytes 0.3 L, Absolute Monocytes 0.3, Absolute Eosinophils 0, Absolute Basophils 0, PUBS MCHC 32.4 L Recent Imaging Studies: Echocardiogram (07/17/2015) Normal size left ventricle. Mild concentric left ventricular hypertrophy. No obvious regional wall motion abnormalities. Normal left ventricular ejection fraction visually estimated at > 60%. Normal right ventricular size and function. Mild right atrial dilatation. Mild to moderate left atrial dilatation. Mild mitral regurgitation. Mild aortic regurgitation. Mild tricuspid regurgitation. Mild to moderate pulmonary hypertension. Assessment/Plan Assessment/Plan Diastolic heart failure secondary to diastolic dysfunction from long-standing hypertension in this elderly male with dementia, multiple risk factors for coronary artery disease, etc. who is also growing coagulase-negative staph aureus in one bottle of blood cultures drawn on 07/15/2016 of questionable source. Fortunately, his respiratory status has improved following diuresis of over 2 L, total respiratory care, etc. and his echocardiogram again reveals preserved left ventricular systolic function and left ventricular hypertrophy. Continue present regimen. Consider ID and pulmonary medicine input. Continue telemetry? Yes
--- NOTE | 2016-07-18 11:43 | Patient Discharge Instructions ---
Discharge Instructions General Discharge Information You were seen/treated for: COPD Exacerbation You had these procedures: Echocardiogram Watch for these problems: Fever, nausea, vomiting, chills, weakness, increased generalized edema. Palpitations. Chest pain. Shortness of breath. If you have any adverse reactions from any of the medications prescribed please inform your primary care physician and you may be required to come back to the emergency department. Thank you for letting us be part of your care. Special Instructions: Please follow-up with your primary care physician on 07/24/2016. This is for a post hospital discharge follow-up. While you were in the hospital we chaged some of your medications. Take Lasix twice per day on: Sunday, Sunday, Sunday and Sunday. Take Acetazolamide on: Sunday, , Sunday. Please have a BEP drawn on 07/24/2016. CC results to PCP and Web Art Director. Please follow-up with the airfield operations specialist on 07/24/2016. We have provided you with a referral. Please follow-up with the agricultural extension educator on 07/24/2016. We have provided you with a referral. Diet Continue normal diet: No Recommended Diet: Heart Healthy Activity Full Activity/No Limits: No Activity Self Limited: Yes (As Tolerated) Acute Coronary Syndrome Inclusion Criteria At DC or during hospital stay patient has or had the following: ACS DIAGNOSIS No Discharge Core Measures Meds if any: Prescribed or Continued at Discharge Meds if any: NOT Prescribed or Continued at Discharge Congestive Heart Failure Inclusion Criteria At DC or during hospital stay patient has or had the following: CHF DIAGNOSIS No Discharge Core Measures Meds if any: Prescribed or Continued at Discharge Meds if any: NOT Prescribed or Continued at Discharge Cerebrovascular accident Inclusion Criteria At DC or during hospital stay patient has or had the following: CVA/TIA Diagnosis No Discharge Core Measures Meds if any: Prescribed or Continued at Discharge Meds if any: NOT Prescribed or Continued at Discharge Venous thromboembolism Inclusion Criteria VTE Diagnosis No VTE Type NONE VTE Confirmed by (Test) NONE Discharge Core Measures - Per Current guidelines, there needs to be overlap - treatment for the first 5 days of Warfarin therapy. - If discharged on Warfarin prior to 5 days of - overlap therapy, the patient will need to be - assessed for post discharge needs including - *Post discharge parental anticoagulation - *Warfarin and/or parental anticoagulation education - *Follow up date to check INR post discharge At least 5 days overlap therapy as Inpatient No Meds if any: Prescribed or Continued at Discharge Note: Overlap Therapy is Warfarin and Anticoagulant Meds if any: NOT Prescribed or Continued at Discharge
--- NOTE | 2016-07-18 15:25 | Cons- Infect Disease ---
General Information and HPI Consulting Request Date of Consult: 07/18/16 Requested By: JESENIA RAMOS MD Reason for Consult: Positive blood culture for gram-positive cocci Source of Information: patient, old records Exam Limitations: dementia History of Present Illness: This is an 89-year-old man with COPD, atrial fibrillation, maintained on Xarelto , psoriasis and BPH, hospitalized 3 months prior to admission with Group B strep and Moraxella sepsis, presumably secondary to a pulmonary infection, though his chest x-rays were negative, admitted on July 15 with a several day history of increasing shortness of breath and increasing lower extremity edema. On admission he was afebrile, tachypneic, with an O2 sat of 86% on room air. Laboratory data revealed a white blood cell count of 8000, BUN/creatinine 19 and 0.9, with normal liver enzymes, BNP 3280, d-dimer 215. ABG 7.31/62/45 on room air. Urinalysis negative. Chest x-ray revealed mild vascular congestion with increased interstitial markings and small pleural effusions bilaterally. Dopplers of both lower extremities were negative. He was begun on IV Lasix, Solumedrol and, for "its anti-inflammatory properties", Azithromycin, and he was admitted to the ICU. On July 17 one blood culture was reported positive for gram-positive cocci in clusters, at which point the Azithromycin was discontinued and he was given 1 dose of Vancomycin. He has been afebrile (on steroids) since admission and his white blood cell count has remained normal. He has diuresed about 3500 mL and at present offers no complaints, though he is a poor historian secondary to dementia. Allergies/Medications Allergies: Coded Allergies: NO KNOWN ALLERGIES (07/15/16) Home Med List: Acetazolamide 250 MG TAB 500 MG PO Q48 acidosis Alternative with Lasix every other day. Last given on 09/10/15. Amoxicillin/Potassium Clav (Augmentin 875-125 Tablet) 1 EACH TABLET 1 TAB PO BID PNEUMONIA Furosemide (Lasix) 20 MG TABLET 1 TAB PO BID DIURESIS Hydrocortisone (Cortaid Lotion 1 Oz) 1 OZ LOT 1 RAKAN EXT BID SKIN Lisinopril 2.5 MG TABLET 1 TAB PO DAILY BLOOD PRESSURE (Reported) Metformin Hydrochloride (Glucophage) 1,000 MG TAB 1 TAB PO DAILY DIABETES ( Reported) Nystatin (Mycostatin Powder) 15 GM PWD 1 RAKAN TOP TID SKIN PHENAZOPYRIDINE HCL (Phenazopyridine HCl) 100 MG TAB 200 MG PO PC SKIN Pravastatin Sodium 40 MG TABLET 1 TAB PO DAILY CHOLESTEROL (Reported) Risperidone (Risperdal) 0.25 MG TABLET 1 TAB PO DAILY AGITATION (Reported) Rivaroxaban (Xarelto) 20 MG TABLET 1 TAB PO DAILY BLOOD THINNER (Reported) with food SERTRALINE HCL (Sertraline Hydrochloride) 25 MG TABLET 1 TAB PO DAILY MENTAL HEALTH (Reported) TAMSULOSIN HCL (Tamsulosin Hydrochloride) 0.4 MG CAP.ER.24H 1 CAP PO BID PROSTATE (Reported) Past History Travel History Traveled to [place] past 21 day No Medical History Neurological: dementia EENT: NONE Cardiovascular: aortic aneurysm, AFIB, CHF, hypertension, hyperlipidemia Respiratory: COPD Gastrointestinal: NONE Hepatic: NONE Renal: benign prost hyperplasia Musculoskeletal: chronic back pain, degen joint disease, fracture, gout, RIB FX left shoulder fracture Psychiatric: anxiety Endocrine: diabetes Blood Disorders: NONE Cancer(s): 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 . MOTHER (Unknown cancer). . Psychosocial History Where Do You Live? Home Who Do You Live With? child (Son) Services at Home: None Primary Language: Croatian Smoking Status: Unknown If Ever Smoked ETOH Use: denies use Illicit Drug Use: denies illicit drug use Functional Ability ADLs Needs Assist: dressing, eating, toileting, bathing. Ambulation: walker Review of Systems Review of Systems Cardiovascular: Reports: edema (right greater than left leg). All Other Systems: Reviewed and Negative Exam & Diagnostic Data Last 24 Hrs of Vital Signs/I&O Vital Signs Date Time Temp Pulse Resp B/P Pulse O2 O2 Flow FiO2 Ox Delivery Rate 07/18 1035 132/66 07/18 1035 132/66 07/18 0830 98.1 94 20 132/66 95 Nasal 2.0L Cannula 07/18 0800 Nasal 2.0L Cannula 07/18 0000 Nasal 2.0L Cannula 07/17 2200 97.8 72 20 118/62 94 Nasal 2.0L Cannula 07/17 2150 84 118/68 07/17 1600 Nasal 2.0L Cannula 07/17 1600 98.4 63 20 120/60 97 Nasal 2.0L Cannula Intake & Output 07/18 1600 07/18 0800 07/18 0000 Intake Total 620 250 Output Total 1600 1450 Balance -980 -1200 Intake, IV 10 Intake, Oral 620 240 Number 1 Bowel Movements Output, Urine 1600 1450 Physical Exam Other Physical Findings: He is awake and alert in no acute distress. He is afebrile on steroids. Skin reveals scattered psoriatic lesions on his trunk and extremities, with no surrounding cellulitis. HEENT exam is negative. Neck is supple with no adenopathy. Lungs are clear with decreased breath sounds at both bases. Heart irregular rhythm with a 1/6 systolic ejection murmur. Abdomen is soft, nontender with positive bowel sounds. Back no CVA tenderness. Extremities bilateral lower extremity edema, right greater than left, with psoriatic lesions , but with no erythema. Neuro is without focality. Ngo catheter is in place. Last 24 Hours of Lab Results: Laboratory Tests 07/18 0620 Chemistry Sodium (137 - 145 mmol/L) 135 L Potassium (3.5 - 5.1 mmol/L) 4.2 Chloride (98 - 107 mmol/L) 90 L Carbon Dioxide (22 - 30 mmol/L) 38 H Anion Gap (5 - 16) 6 BUN (9 - 20 mg/dL) 27 H Creatinine (0.7 - 1.2 mg/dL) 0.8 Estimated GFR (>60 ml/min) > 60 BUN/Creatinine Ratio (7 - 25 %) 33.8 H Hematology CBC w Diff NO MAN DIFF REQ WBC (4.8 - 10.8 /CUMM) 8.2 RBC (4.70 - 6.10 /CUMM) 4.18 L Hgb (14.0 - 18.0 G/DL) 11.7 L Hct (42 - 52 %) 35.7 L MCV (80.0 - 94.0 FL) 85.5 MCH (27.0 - 31.0 PG) 28.0 RDW (11.5 - 14.5 %) 13.7 Plt Count (130 - 400 /CUMM) 225 MPV (7.4 - 10.4 FL) 9.8 Gran % (42.2 - 75.2 %) 92.2 H Lymphocytes % (20.5 - 51.1 %) 3.9 L Monocytes % (1.7 - 9.3 %) 3.9 Eosinophils % (0 - 5 %) 0 Basophils % (0.0 - 2.0 %) 0 L Absolute Granulocytes (1.4 - 6.5 /CUMM) 7.6 H Absolute Lymphocytes (1.2 - 3.4 /CUMM) 0.3 L Absolute Monocytes (0.10 - 0.60 /CUMM) 0.3 Absolute Eosinophils (0.0 - 0.7 /CUMM) 0 Absolute Basophils (0.0 - 0.2 /CUMM) 0 PUBS MCHC (33.0 - 37.0 G/DL) 32.7 L Last 24 Hours of Navdeep Results: Blood cultures July 15 one bottle positive for coag-negative Staph Blood cultures July 17 negative Rapid flu swab July 15 negative Urine culture July 15 approximately 40,000 colonies of Proteus mirabilis resistant to Nitrofurantoin Diagnostic Data Recent Imaging Findings: Chest x-ray July 15, personally reviewed, reveals mild vascular congestion with increased interstitial markings and small pleural effusions bilaterally. Dopplers of both lower extremities July 15 negative. Assessment/Plan Assessment/Plan Impression: This is an 89-year-old man with a history of COPD, atrial fibrillation, psoriasis and BPH admitted on July 15 with several days of increasing shortness of breath and lower extremity edema, found to be afebrile with a normal white blood cell count, treated with Lasix for presumed CHF and Solumedrol for a possible exacerbation of COPD, with one blood culture found to be positive for coag-negative Staph and with a urine culture positive for 40,000 colonies of Proteus. I suspect that the positive blood culture represents a contaminant, and this is reinforced by the fact that the repeat blood cultures sent yesterday remain negative. Likewise the positive urine culture most likely represents a contaminant as the urinalysis was negative. He appears to have overall improved with Lasix and Solumedrol; therefore, in the absence of any obvious focus of infection, I feel that he can continue to be followed off antibiotics. The role of Azithromycin in this setting, for its presumed anti- inflammatory effect, is unclear and feel that it would be best to follow him off of this as well. Suggestion: 1. Would taper steroids 2. Would remove Ngo catheter as soon as possible 3. Continue to follow off antibiotics Consult Acknowledgment - Thank you for your consult request.
--- NOTE | 2016-07-18 16:06 | Cons- Pulmonary ---
General Information and HPI Consulting Request Date of Consult: 07/18/16 Requested By: Med team History of Present Illness: This is an 89-year-old man with a history of COPD, atrial fibrillation, psoriasis and BPH admitted on July 15 with several days of increasing shortness of breath and lower extremity edema, found to be afebrile with a normal white blood cell count, treated with Lasix for presumed CHF and Solumedrol for a possible exacerbation of COPD, with one blood culture found to be positive for coag-negative Staph and with a urine culture positive for 40,000 colonies of Proteus. SInce admission he has sig diuresed and has improved per patient No sig sputum no sig wheezing He also notes worsening lower extremity edema over the past few days. No chest pain. No palpitations. Diaphoresis. No syncope. No lightheadedness or dizziness. No nausea or vomiting. Review of Systems Constitutional: Reports: see HPI, malaise, weakness. Denies: chills, fever. Cardiovascular: Reports: peripheral edema. Denies: chest pain, edema, orthopena, palpitations, syncope. Respiratory: Reports: short of breath. Denies: cough, hemoptysis, orthopnea, sputum production. GI: Denies: abdominal pain, bloating, constipation, diarrhea, nausea, changes in stool, vomiting. Genitourinary: Denies: discharge, dysuria, frequency, hematuria. Neurological/Psychological: Denies: anxiety, depressed, dementia. Hematologic/Endocrine: Denies: bruising, bleeding, polyuria. Allergies/Medications Allergies: Coded Allergies: NO KNOWN ALLERGIES (07/15/16) Home Med List: Acetazolamide 250 MG TAB 500 MG PO Q48 acidosis Alternative with Lasix every other day. Last given on 09/10/15. Amoxicillin/Potassium Clav (Augmentin 875-125 Tablet) 1 EACH TABLET 1 TAB PO BID PNEUMONIA Furosemide (Lasix) 20 MG TABLET 1 TAB PO BID DIURESIS Hydrocortisone (Cortaid Lotion 1 Oz) 1 OZ LOT 1 RAKAN EXT BID SKIN Lisinopril 2.5 MG TABLET 1 TAB PO DAILY BLOOD PRESSURE (Reported) Metformin Hydrochloride (Glucophage) 1,000 MG TAB 1 TAB PO DAILY DIABETES ( Reported) Nystatin (Mycostatin Powder) 15 GM PWD 1 RAKAN TOP TID SKIN PHENAZOPYRIDINE HCL (Phenazopyridine HCl) 100 MG TAB 200 MG PO PC SKIN Pravastatin Sodium 40 MG TABLET 1 TAB PO DAILY CHOLESTEROL (Reported) Risperidone (Risperdal) 0.25 MG TABLET 1 TAB PO DAILY AGITATION (Reported) Rivaroxaban (Xarelto) 20 MG TABLET 1 TAB PO DAILY BLOOD THINNER (Reported) with food SERTRALINE HCL (Sertraline Hydrochloride) 25 MG TABLET 1 TAB PO DAILY MENTAL HEALTH (Reported) TAMSULOSIN HCL (Tamsulosin Hydrochloride) 0.4 MG CAP.ER.24H 1 CAP PO BID PROSTATE (Reported) Review of Systems Review of Systems Constitutional: Reports: see HPI. 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 . MOTHER (Unknown cancer). . Psychosocial History Where Do You Live? Home Who Do You Live With? child (Son) Services at Home: None Primary Language: Irish Smoking Status: Unknown If Ever Smoked ETOH Use: denies use Illicit Drug Use: denies illicit drug use Functional Ability ADLs Needs Assist: dressing, eating, toileting, bathing. Ambulation: walker Exam & Diagnostic Data Last 24 Hrs of Vital Signs/I&O Vital Signs Date Time Temp Pulse Resp B/P Pulse O2 O2 Flow FiO2 Ox Delivery Rate 07/18 1035 132/66 07/18 1035 132/66 07/18 0830 98.1 94 20 132/66 95 Nasal 2.0L Cannula 07/18 0800 Nasal 2.0L Cannula 07/18 0000 Nasal 2.0L Cannula 07/17 2200 97.8 72 20 118/62 94 Nasal 2.0L Cannula 07/17 2150 84 118/68 07/17 1600 Nasal 2.0L Cannula 07/17 1600 98.4 63 20 120/60 97 Nasal 2.0L Cannula Intake & Output 07/18 1600 07/18 0800 07/18 0000 Intake Total 620 250 Output Total 1600 1450 Balance -980 -1200 Intake, IV 10 Intake, Oral 620 240 Number 1 Bowel Movements Output, Urine 1600 1450 Last 48 Hrs of Labs/Navdeep: Laboratory Tests 07/18/16 0620: Anion Gap 6, Estimated GFR > 60, BUN/Creatinine Ratio 33.8 H, CBC w Diff NO MAN DIFF REQ, RBC 4.18 L, MCV 85.5, MCH 28.0, RDW 13.7, MPV 9.8, Gran % 92.2 H, Lymphocytes % 3.9 L, Monocytes % 3.9, Eosinophils % 0, Basophils % 0 L, Absolute Granulocytes 7.6 H, Absolute Lymphocytes 0.3 L, Absolute Monocytes 0.3, Absolute Eosinophils 0, Absolute Basophils 0, PUBS MCHC 32.7 L 07/17/16 0420: Anion Gap 8, Estimated GFR > 60, BUN/Creatinine Ratio 38.8 H, Phosphorus 3.1, Magnesium 2.1, CBC w Diff NO MAN DIFF REQ, RBC 4.05 L, MCV 84.7, MCH 27.5, RDW 13.8, MPV 9.3, Gran % 93.2 H, Lymphocytes % 3.4 L, Monocytes % 3.1, Eosinophils % 0.2, Basophils % 0.1, Absolute Granulocytes 7.8 H, Absolute Lymphocytes 0.3 L, Absolute Monocytes 0.3, Absolute Eosinophils 0, Absolute Basophils 0, PUBS MCHC 32.4 L Assessment/Plan Impression/Plan: Physical Exam General Appearance Alert, Oriented X3, Cooperative HEENT Mucous Membr. moist/pink Lymphatic Axillary nl Cardiovascular Normal S1, Normal S2, Irregular rate and rhythm Lungs Mild Expirartory Wheezing Left Abdomen Normal Bowel Sounds, Soft, No Tenderness, Diffuse Psoriatic Lesions Across Anterior Abdominal Wall. Neurological Normal Speech, Strength at 5/5 X4 Ext Extremities Edema. 1+, Pitting, R>L Reproductive (MALE) ?Candial Infection, in Skin Folds SIGNIFICANT DATA Lower extremity ultrasoundrevealed no DVT chest x-ray showed no focal consolidation and small bilateral pulmonary edema with effusion echocardiogram showed normal ejection fraction with moderate pulmonary hypertension previous CT scan of the abdomen and pelvis had shown enlarged prostate with some gallbladder sludge CT scan of the chest done in 2013 showed no major acute abnormality in the chest White count upon admission was normal there is mild left shift hemoglobin 12.4 ABG 735/53/57 signifying chronic hypercarbia IMPRESSION This is an elderly gentleman with history of dementia with 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 He does not seem to have significant COPD. Patient's previous thyroid function tests has been normal and this is probably not contribution to his hypercarbia. 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 * Diabetes, BPH, hyperlipidemia, psoriasis * Previous history suggestive of on and off hyperglycemia RECOMMENDATION * Can discontinue antibiotics * Switch him to by mouth prednisone 20 mg for 3 days and DC * Continue intravenous diuretics * If his bicarbonate goes more than 38 patient would require Diamox by mouth into the right be Lasix * Keep his head of bed elevated * If his heart rate is well under control we could try him on 200 mg of theophylline at bedtime * Keep the head of bed elevated * Check tsh and free t4 * Increase activity Consult Acknowledgment - Thank you for your consult request.
[2016-07-18 16:26] VITALS: BP 138/86
[2016-07-18 23:00] VITALS: BP 134/76
--- NOTE | 2016-07-19 05:43 | PN- Housestaff ---
ABRAHAM JETER,[facility] 07/19/16 0541: Subjective Follow-up For: COPD Exacerbation GPC Bacteremia Tele-Events Since Last Visit: Chance Subjective: Mr Lamar was seen and examined this morning. He is resting comfortably in bed. Patient denies any issue any overnight. Reports improvement in dyspnea and shortness of breath. Patient denies any wheezing. He denies any chest pain and/or chest discomfort. He states that the Ngo was removed and subsequently feels more comfortable. He reports a good appetite and is tolerating by mouth intake well. Patient denies any fever, chills, nausea, vomiting. Review of Systems Constitutional: Denies: chills, fever, weakness. Objective Last 24 Hrs of Vital Signs/I&O Vital Signs Date Time Temp Pulse Resp B/P Pulse O2 O2 Flow FiO2 Ox Delivery Rate 07/19 0000 92 Nasal 2.0L Cannula 07/18 2300 98.6 82 14 134/76 92 Nasal 2.0L Cannula 07/18 1626 98.2 95 20 138/86 97 Nasal Cannula 07/18 1600 Nasal 2.0L Cannula 07/18 1035 132/66 07/18 1035 132/66 07/18 0830 98.1 94 20 132/66 95 Nasal 2.0L Cannula 07/18 0800 Nasal 2.0L Cannula Intake & Output 07/19 0800 07/19 0000 07/18 1600 Intake Total 730 620 Output Total 1650 1600 Balance -920 -980 Intake, IV 10 Intake, Oral 720 620 Number 1 Bowel Movements Output, Urine 1650 1600 Physical Exam General Appearance: Alert, Oriented X3, Cooperative Cardiovascular: Normal S1, Normal S2, Irregular Rate/ Rhythm Lungs: Clear to Auscultation Abdomen: Normal Bowel Sounds, Soft, No Tenderness Neurological: Normal Gait, Normal Speech Extremities: Edema 3+ Current Medications: Current Medications Sig/Emily Start time Last Medication Dose Route Stop Time Status Admin Acetaminophen 325 MG Q6P PRN 07/17 1130 AC 07/19 PO 0646 Furosemide 40 MG 7:30 AM, & 4:30 PM 07/16 0730 AC 07/18 IV 1734 Hydrocortisone 1 RAKAN BID 07/15 2200 AC 07/18 EXT 2120 Insulin Aspart 0 TIDAC 07/18 1200 AC 07/18 SC 1735 Insulin Aspart 0 TIDAC 07/16 1700 DC 07/18 SC 0832 Lisinopril 2.5 MG DAILY 07/16 1000 AC 07/18 PO 1035 Melatonin 3 MG AT BEDTIME 07/17 0030 AC 07/18 PO 2119 Methylprednisolone 40 MG Q12 07/17 2199 DC 07/18 IV 1042 Nystatin 1 RAKAN TID 07/15 2200 AC 07/18 TOP 2120 Patient Medication 1 ED .STK-MED ONE 07/18 1415 DC Teaching ED 07/18 1416 Pravastatin Sodium 40 MG DAILY 07/16 1000 AC 07/18 PO 1035 Prednisone 20 MG DAILY 07/18 1620 AC 07/18 PO 2119 Rivaroxaban 20 MG DAILY 07/16 1000 AC 07/18 PO 1035 Sertraline HCl 25 MG DAILY 07/16 1000 AC 07/18 PO 1035 Tamsulosin HCl 0.4 MG BID 07/15 2200 AC 07/18 PO 2119 Theophylline 200 MG ONCE ONE 07/18 2199 DC 07/18 PO 07/18 2201 2119 Vitamin A/Vitamin D 1 RAKAN DAILY 07/17 1053 07/18 TOP 1042 Last 24 Hrs of Lab/Navdeep Results Last 24 Hrs of Labs/Mics: Laboratory Tests 07/19/16 0640: Sodium Pending, Potassium Pending, Chloride Pending, Carbon Dioxide Pending, Anion Gap Pending, BUN Pending, Creatinine Pending, BUN/Creatinine Ratio Pending , CBC w Diff Pending, WBC Pending, RBC Pending, Hgb Pending, Hct Pending, MCV Pending, MCH Pending, RDW Pending, Plt Count Pending, MPV Pending, PUBS MCHC Pending Microbiology 07/18 1105 URINE ROUT: Urine Culture - COLB 07/18 1031 UPPER RESP: Surveillance Culture - RECD Assessment/Plan Assessment: Patient is a 89 YO M with PMH significant for COPD, Chronic CHF, HTN, HLD, Dementia, stable AAA, Gout, Atrial Fibrillation (on xarelto), BPH, P[facility]iasis [facility] yesterday with Shrotness of breath and progressive swelling of lower extremities. PE is significant for wheezing and dependent edema. Labs significant for ProBNP of 3280. Yesterday patient became unresponsive due to hypercarbic respiratory failure, so placed in ICU and received Bipap with settings of 16/6. He is doing much better today still on 3L NC - saturating well. Overnight he remained afebrile with HR 65-72, BP 116/80mmHg, On Bipap 29/12 Plan: #Hypercarbic respiratory failure * Admitted to tele and then transfered to ICU for close monitoring as developed hypercarbic respiratory failure for close monitoring. * IV Solumedrol 40mg Q12--> transitioned to Oral Prednisone, 20 mg. this can be discontinued tomorrow. * IV Azithromycin 500mg daily - discontinued it. * The patient was started on theophylline at bedtime. Day 2. 200 mg to be administered this evening. Patient will also have his evening IV Lasix dose replaced with a one-time dose of Diamox 500 mg IV. Bicarbonate level elevated today 40. * TRC/nebs #??CHF exacerbation * ProBNP is 3280 with dependent leg edema, dyspnea * Continue IV furosemide 40mg BID and pravastatin oral 40mg. * Montoring and repleting electrolytes as needed. #Blood culx positive for gram positive cocci & urine culx positive for gram negative rods * STAGE II ulcer on buttock, Present on admission - possible source (unsure) * One set of blood cultures are positive for gram positive cocci. * Repeat blood cultures are pending: Currently negative. Formal ID consult obtained who recommended that we should follow the patient off antibiotics. * A single dose of vancomycin is given pending second set culture results.--> discontinued Vancomycin. #History of diabetes mellitus * On metformin 1000mg at home. * Blood sugars from admission are between 162-246 * Placed on low dose novolog sliding scale.--> Medium Dose SS #History of Atrial Fibrillation * HR overnight 70s-80s * On xarelto #History of BPH * On tamsulsoin - we will continue that. Ngo was discontinued on 07/18/2016. #Thyroid Dysfunction * Rule out Hypothyroid: TSH: 1.60, Free T4: 0.97. Values within normal limits. #History of depression * On sertraline 25mg - we will continue that #DVT Prophylaxis * On xarelto #Code Status * DNR/DNI Problem List: 1. Respiratory failure 2. Afib 3. Hypercapnic respiratory failure 4. Shortness of breath 5. Psoriasis 6. Dependent edema 7. Lower extremity edema 8. BPH Pain Ratin Pain Location: No Pain Pain Goal: Remain pain free Pain Plan: Tylenol PRN Tomorrow's Labs & Rationales: BEP: Monitor electrolytes due to diuresis. JESENIA RAMOS MD 07/19/16 4349: Attending MD Review Statement Attending Statement Attending MD Statement: examined this patient, discuss w/resident/PA/STEEPLE JACK, agreed w/resident/PA/STEEPLE JACK, reviewed EMR data (avail), discussed with nursing, discussed with case mgmt, amended to note Attending Assessment/Plan: The patient was seen and agree with assessment and plan as outlined.
[2016-07-19 08:04] LABS: ABSOLUTE BASOPHIL COUNT 0 /CUMM (0.0-0.2); ABSOLUTE EOSINOPHIL COUNT 0 /CUMM (0.0-0.7); ABSOLUTE GRANULOCYTE CT 7.1 /CUMM (1.4-6.5); ABSOLUTE LYMPH COUNT 0.4 /CUMM (1.2-3.4); ABSOLUTE MONOCYTE COUNT 0.5 /CUMM (0.10-0.60); BASOPHIL % 0.3 % (0.0-2.0); EOSINOPHIL % 0.1 % (0-5); HEMATOCRIT 37.8 % (42-52); MEAN CORPUSCULAR HGB 27.8 PG (27.0-31.0); MEAN CORPUSCULAR HGB CONC 32.7 G/DL (33.0-37.0); MEAN CORPUSCULAR VOLUME 84.9 FL (80.0-94.0); MEAN PLATELET VOLUME 9.4 FL (7.4-10.4); RBC DISTRIBUTION WIDTH 13.9 % (11.5-14.5); RED BLOOD CELL CT 4.46 /CUMM (4.70-6.10)
[2016-07-19 08:10] VITALS: BP 134/70
[2016-07-19 09:02] LABS: GRANULOCYTE % 88.6 % (42.2-75.2); PLATELET COUNT 223 /CUMM (130-400)
--- NOTE | 2016-07-19 09:45 | PN- Pulmonary ---
Subjective HPI/Critical Care Issues: Mr Lamar was seen and examined this morning. He is resting comfortably in bed. Patient denies any issue any overnight. Reports improvement in dyspnea and shortness of breath. Patient denies any wheezing. He denies any chest pain and/or chest discomfort. He states that the Castillo was removed and subsequently feels more comfortable. He reports a good appetite and is tolerating by mouth intake well. Patient denies any fever, chills, nausea, vomiting. Review of Systems Constitutional: Denies: chills, fever, weakness. Objective Current Medications: Current Medications Sig/Emily Start time Last Medication Dose Route Stop Time Status Admin Acetaminophen 325 MG Q6P PRN 07/17 1130 AC 07/19 PO 0646 Furosemide 40 MG 7:30 AM, & 4:30 PM 07/16 0730 AC 07/19 IV 0803 Hydrocortisone 1 RAKAN BID 07/15 2200 AC 07/19 EXT 0908 Insulin Aspart 0 TIDAC 07/18 1200 AC 07/19 SC 0801 Insulin Aspart 0 TIDAC 07/16 1700 DC 07/18 SC 0832 Lisinopril 2.5 MG DAILY 07/16 1000 AC 07/19 PO 0906 Melatonin 3 MG AT BEDTIME 07/17 0030 AC 07/18 PO 2119 Methylprednisolone 40 MG Q12 07/17 2200 DC 07/18 IV 1042 Nystatin 1 RAKAN TID 07/15 220 AC 07/19 TOP 0908 Patient Medication 1 ED .STK-MED ONE 07/18 1415 DC Teaching ED 07/18 1416 Pravastatin Sodium 40 MG DAILY 07/16 1000 AC 07/19 PO 0906 Prednisone 20 MG DAILY 07/18 1620 AC 07/19 PO 0906 Rivaroxaban 20 MG DAILY 07/16 1000 AC 07/19 PO 0906 Sertraline HCl 25 MG DAILY 07/16 1000 AC 07/19 PO 0906 Tamsulosin HCl 0.4 MG BID 07/15 2200 AC 07/19 PO 0906 Theophylline 200 MG ONCE ONE 07/18 2200 DC 07/18 PO 07/18 2201 2119 Vitamin A/Vitamin D 1 RAKAN DAILY 07/17 1053 AC 07/19 TOP 0909 Vital Signs & I&O Last 24 Hrs of Vitals and I&O: Vital Signs Date Time Temp Pulse Resp B/P Pulse O2 O2 Flow FiO2 Ox Delivery Rate 01/04 0906 68 134/70 07/19 0906 68 134/70 07/19 0810 97.8 68 20 134/70 95 Nasal 2.0L Cannula 07/19 0800 Nasal 2.0L Cannula 07/19 0000 92 Nasal 2.0L Cannula 07/18 2300 98.6 82 14 134/76 92 Nasal 2.0L Cannula 07/18 1626 98.2 95 20 138/86 97 Nasal Cannula 07/18 1600 Nasal 2.0L Cannula 07/18 1035 132/66 07/18 1035 132/66 Intake & Output 07/19 1600 07/19 0800 07/19 0000 Intake Total 200 730 Output Total 700 1650 Balance -500 -920 Intake, IV 10 Intake, Oral 200 720 Output, Urine 700 1650 Impression/Plan Impression/Plan Impression/Plan: Physical Exam General Appearance Alert, Oriented X3, Cooperative HEENT Mucous Membr. moist/pink Lymphatic Axillary nl Cardiovascular Normal S1, Normal S2, Irregular rate and rhythm Lungs Mild Expirartory Wheezing Left Abdomen Normal Bowel Sounds, Soft, No Tenderness, Diffuse Psoriatic Lesions Across Anterior Abdominal Wall. Neurological Normal Speech, Strength at 5/5 X4 Ext Extremities Edema. 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 He does not seem to have significant COPD. Patient's previous thyroid function tests has been normal. 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
--- NOTE | 2016-07-19 15:42 | PN- Infect Dx ---
Subjective Subjective: Afebrile. He does report mild nausea with no other complaints. Objective Last 24 Hrs of Vital Signs/I&O Vital Signs Date Time Temp Pulse Resp B/P Pulse O2 O2 Flow FiO2 Ox Delivery Rate 07/19 1221 Nasal 2.0L Cannula 07/19 0906 68 134/70 07/19 0906 68 134/70 07/19 0810 97.8 68 20 134/70 95 Nasal 2.0L Cannula 07/19 0800 Nasal 2.0L Cannula 07/19 0000 92 Nasal 2.0L Cannula 07/18 2300 98.6 82 14 134/76 92 Nasal 2.0L Cannula 07/18 1626 98.2 95 20 138/86 97 Nasal Cannula 07/18 1600 Nasal 2.0L Cannula Intake & Output 07/19 1600 07/19 0800 07/19 0000 Intake Total 614 200 730 Output Total 5540 434 5254 Balance -586 -500 -920 Intake, IV 14 10 Intake, Oral 600 200 720 Output, Urine 6326 722 4076 Physical Exam Other Physical Findings: He appears comfortable in no acute distress Lungs decreased breath sounds at both bases Heart irregular rhythm with a 1/6 systolic ejection murmur Extremities bilateral lower extremity edema, right greater than left Results Last 24 Hours of Lab Results: Laboratory Tests 07/19 0640 Chemistry Sodium (137 - 145 mmol/L) 135 L Potassium (3.5 - 5.1 mmol/L) 4.3 Chloride (98 - 107 mmol/L) 87 L Carbon Dioxide (22 - 30 mmol/L) 40 H Anion Gap (5 - 16) 8 BUN (9 - 20 mg/dL) 25 H Creatinine (0.7 - 1.2 mg/dL) 0.8 Estimated GFR (>60 ml/min) > 60 BUN/Creatinine Ratio (7 - 25 %) 31.3 H Hematology CBC w Diff NO MAN DIFF REQ WBC (4.8 - 10.8 /CUMM) 8.0 RBC (4.70 - 6.10 /CUMM) 4.46 L Hgb (14.0 - 18.0 G/DL) 12.4 L Hct (42 - 52 %) 37.8 L MCV (80.0 - 94.0 FL) 84.9 MCH (27.0 - 31.0 PG) 27.8 RDW (11.5 - 14.5 %) 13.9 Plt Count (130 - 400 /CUMM) 223 MPV (7.4 - 10.4 FL) 9.4 Gran % (42.2 - 75.2 %) 88.6 H Lymphocytes % (20.5 - 51.1 %) 5.1 L Monocytes % (1.7 - 9.3 %) 5.9 Eosinophils % (0 - 5 %) 0.1 Basophils % (0.0 - 2.0 %) 0.3 Absolute Granulocytes (1.4 - 6.5 /CUMM) 7.1 H Absolute Lymphocytes (1.2 - 3.4 /CUMM) 0.4 L Absolute Monocytes (0.10 - 0.60 /CUMM) 0.5 Absolute Eosinophils (0.0 - 0.7 /CUMM) 0 Absolute Basophils (0.0 - 0.2 /CUMM) 0 PUBS MCHC (33.0 - 37.0 G/DL) 32.7 L Last 24 Hours of Navdeep Results: Blood cultures July 17 remain negative Assessment/Plan Impression: Stable off antibiotics with temperatures and white blood cell count remaining normal and with repeat blood cultures remaining negative. He has no evidence of infection at this time. Suggestion: 1. Would continue to taper steroids per Pulmonary 2. Continue to follow off antibiotics
[2016-07-19 17:05] VITALS: BP 127/82
[2016-07-19] MEDS ORDERED: DIAMOX SEQUELS500 MG PO (20:37)
[2016-07-19] MEDS ORDERED: LASIX20 M1 PO (20:37)
[2016-07-19 22:21] VITALS: BP 150/90
--- NOTE | 2016-07-20 06:07 | PN- Housestaff ---
ABRAHAM JETER,[facility] 07/20/16 0607: Subjective Follow-up For: Hypercapnic respiratory failure Dependent edema Atrial fibrillation Tele-Events Since Last Visit: Catina Kolb Subjective: Mr. Lamar was seen and examined this morning. He is resting comfortably in bed. Patient states that this morning he not feeling very well. Following to dyspnea. He also states that he feels more malaise and weakness. Patient states he was able to sleep relatively okay overnight. He does not state that he has any active pain or discomfort. He denies any chest pain, palpitations, orthopnea. Patient does report dysuria, denies frequency No evidence of any hematuria. Patient denies any fever, chills, nausea, vomiting. Review of Systems Constitutional: Reports: see HPI, malaise, weakness. Denies: chills. Objective Last 24 Hrs of Vital Signs/I&O Vital Signs Date Time Temp Pulse Resp B/P Pulse O2 O2 Flow FiO2 Ox Delivery Rate 07/20 1037 83 178/100 07/20 1037 83 178/100 07/20 0851 97.9 83 26 178/100 95 Nasal 2.0L Cannula 07/20 0800 95 Nasal 2.0L Cannula 07/20 0000 Nasal 2.0L Cannula 07/19 2221 98.5 94 24 150/90 95 Nasal 2.0L Cannula 07/19 2219 94 150/90 07/19 1705 98.4 77 22 127/82 92 Nasal 3.0L Cannula 07/19 1600 Nasal 2.0L Cannula 07/19 1221 Nasal 2.0L Cannula Intake & Output 07/20 1600 07/20 0800 07/20 0000 Intake Total 240 Output Total Balance 240 Intake, Oral 240 Number 1 Bowel Movements Physical Exam General Appearance: Alert, Oriented X3, Cooperative, No Acute Distress Cardiovascular: Normal S1, Normal S2, Irregular rate and Rhythm Lungs: Decreased Breath Sounds Bilaterally Abdomen: Normal Bowel Sounds, Soft, No Tenderness Neurological: Normal Speech Extremities: Edema 3+ Current Medications: Current Medications Sig/Emily Start time Last Medication Dose Route Stop Time Status Admin Acetaminophen 325 MG .STK-MED ONE 07/19 2144 DC PO 07/19 2145 Acetaminophen 325 MG Q6P PRN 07/17 1130 AC 07/19 PO 2217 Acetazolamide 500 MG ONCE ONE 07/19 1600 DC 07/19 Sodium Chloride 50 ML IV 07/19 1629 1931 Furosemide 40 MG 7:30 AM, & 4:30 PM 07/16 0730 DC 07/19 IV 0803 Hydrocortisone 1 RAKAN BID 07/15 2200 AC 07/20 EXT 1037 Insulin Aspart 0 TIDAC 07/18 1200 AC 07/19 SC 1930 Lisinopril 2.5 MG DAILY 07/16 1000 AC 07/20 PO 1037 Melatonin 3 MG AT BEDTIME 07/17 0030 AC 07/19 PO 2216 Nystatin 1 RAKAN TID 07/15 2200 DC 07/19 TOP 1932 Pravastatin Sodium 40 MG DAILY 07/16 1000 AC 07/20 PO 1037 Prednisone 20 MG DAILY 07/18 1620 AC 07/20 PO 1037 Rivaroxaban 20 MG DAILY 07/16 1000 AC 07/20 PO 1037 Sertraline HCl 25 MG DAILY 07/16 1000 AC 07/20 PO 1037 Tamsulosin HCl 0.4 MG BID 07/15 2200 AC 07/20 PO 1037 Theophylline 200 MG 2200 07/19 2200 AC 07/19 PO 2217 Vitamin A/Vitamin D 1 RAKAN DAILY 07/17 1053 AC 07/20 TOP 1037 Last 24 Hrs of Lab/Navdeep Results Last 24 Hrs of Labs/Mics: Laboratory Tests 07/20/16 1010: pH 7.38, pCO2 66 *H, pO2 93, HCO3 39 H, ABG O2 Sat (Measured) 96.0, Carboxyhemoglobin 1.4 L, O2 Concentration % 3LPM, Temperature 97.9, O2 Delivery Method NC, Phlebotomy Draw Site RIGHT RADIAL 07/20/16 0645: Anion Gap 5, Estimated GFR > 60, BUN/Creatinine Ratio 27.8 H Orders Radiology Findings: SERVICE DATE: 07/20/16 EXAM TYPE: RAD - XRY-PORTABLE CHEST XRAY EXAMINATION: XR PORTABLE CHEST CLINICAL INFORMATION: Shortness of breath. Evaluate for aspiration pneumonia. COMPARISON: CXR from 03/28/2016 and 07/15/2016. TECHNIQUE: Portable view of the chest was obtained. FINDINGS: Cardiomegaly and chronically enlarged central pulmonary vessels without interstitial edema. No pleural effusions are seen on this single view exam. There is no acute pulmonary consolidation. Thoracic aorta has atherosclerotic calcification. The bones appear diffusely osteopenic. Old fracture deformity of left humeral neck. IMPRESSION: 1. Cardiomegaly. 2. No evidence of aspiration pneumonia. No acute pulmonary findings compared to the chest radiograph of 03/28/2016. DICTATED BY: ISABELA CHASE MD Assessment/Plan Assessment: Patient is a 89 YO M with PMH significant for COPD, Chronic CHF, HTN, HLD, Dementia, stable AAA, Gout, Atrial Fibrillation (on xarelto), BPH, Psoriasis presented to [place] ED yesterday with Shrotness of breath and progressive swelling of lower extremities. PE is significant for wheezing and dependent edema. Labs significant for ProBNP of 3280. Yesterday patient became unresponsive due to hypercarbic respiratory failure, so placed in ICU and received Bipap with settings of 29/12. He is doing much better today still on 3L NC - saturating well. Overnight he remained afebrile with HR 65-72, BP 116/80mmHg, On Bipap 29/12 Plan: #Hypercarbic respiratory failure * Admitted to tele and then transfered to ICU for close monitoring as developed hypercarbic respiratory failure for close monitoring. * IV Solumedrol 40mg Q12--> transitioned to Oral Prednisone, 40 mg. Patient received two doses of 20mg and will be started on 40 mg on 07/21/2016. * IV Azithromycin 500mg daily - discontinued it. * The patient was started on theophylline at bedtime. Day 2. 200 mg to be administered this evening. Patient will also have his evening IV Lasix dose replaced with a one-time dose of Diamox 500 mg IV. Bicarbonate level elevated today 42. Acetazolamide 500 mg BID. * Chest X-Ray repeated, does not show worsening pulmonary congestion. * AB.38, pCO2 66, pO2 93, HCO3: 39 * Theophylline 200mg at Bed Time. * TRC/nebs #??CHF exacerbation * ProBNP is 3280 with dependent leg edema, dyspnea * Continue IV furosemide 40mg BID and pravastatin oral 40mg. * Montoring and repleting electrolytes as needed. * [id number] Ordered.Repeat BEP at 20.00 #Blood culx positive for gram positive cocci & urine culx positive for gram negative rods * STAGE II ulcer on buttock, Present on admission - possible source (unsure) * One set of blood cultures are positive for gram positive cocci. * Repeat blood cultures are pending: Currently negative. Formal ID consult obtained who recommended that we should follow the patient off antibiotics. * A single dose of vancomycin is given pending second set culture results.--> discontinued Vancomycin. * Urine Analysis Repeated 07/20/2016. * Urine Culture Ordered. Repeated 07/20/2016. #History of diabetes mellitus * On metformin 1000mg at home. * Blood sugars from admission are between 143-237 * Placed on low dose novolog sliding scale.--> Medium Dose SS #History of Atrial Fibrillation * HR overnight 82-90 * On xarelto #History of BPH * On tamsulsoin - we will continue that. Ngo was discontinued on 07/18/2016. #Thyroid Dysfunction * Rule out Hypothyroid: TSH: 1.60, Free T4: 0.97. Values within normal limits. #History of depression * On sertraline 25mg - we will continue that #DVT Prophylaxis * On xarelto #Code Status * DNR/DNI Problem List: 1. Respiratory failure 2. Afib 3. COPD (chronic obstructive pulmonary disease) 4. Hypercapnic respiratory failure 5. Acute respiratory acidosis Pain Ratin Pain Location: NA Pain Goal: Remain pain free Pain Plan: Tylenol PRN Tomorrow's Labs & Rationales: BEP: monitor electrolyte derangements, Hypokalemia JESENIA RAMOS MD 07/20/16 1729: Attending MD Review Statement Attending Statement Attending MD Statement: examined this patient, discuss w/resident/PA/FULL STACK WEB DEVELOPER, agreed w/resident/PA/[employer] ST[employer] WEB DEVELOPER, reviewed EMR data (avail), discussed with nursing, discussed with case mgmt, amended to note Attending Assessment/Plan: The patient was seen and discussed with house staff. Agree with plan of care as outlined.
[2016-07-20 08:51] VITALS: BP 178/100
--- NOTE | 2016-07-20 10:50 | NUR ---
PHYSICAL THERAPY. PT TREATMENT DEFERRED AT THIS TIME 2/2 HTN. PT WILL F/U APPROPRIATE.
[2016-07-20] MEDS ORDERED: ACETAZOLAMIDE250 M1 PO (10:51)
[2016-07-20] MEDS ORDERED: THEOPHYLLINE A200 MG PO (10:54)
--- NOTE | 2016-07-20 10:59 | Discharge Summary ---
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 Diabetes history of gout chronic edema small abdominal aneurysm, psoriasis proximal atrial fibrillation on anticoagulation diastolic heart failure was admitted with acute diastolic congestive heart failure, multifactorial acute on chronic hypercarbic respiratory failure, respiratory acidosis, bilateral pulmonary edema with effusions, underlying pulmonary hypertension 2/2 significant diastolic heart disease,obesity hypoventilation syndrome with central apnea. Patient improved with diuretics and steroids, Diamox. He will be in a brief prednisone taper 20 mg for 2 days and then discontinued, theophylline 200 mg at bedtime. His diuretic regimen will be as follows: Acetazolamide 250mg 1 capsule twice a day on Sunday and Sunday, Lasix 20 mg bid SUN-SUN. Theophylline 200mg po at bedtime. PT evaluation recommends short-term rehabilitation. After removal of the castillo catheter, he began complaining of dysuria, had a UA + for esterase, and grew >100,000 CFUs of GNRs. He is being treated with bactrim DS for 7 days. Please check culture sensitivies to ensure microorganism is sensitive to Bactrim. He should have prompt follow-up with his primary medical doctor, Dr. Gladys Jasmine, Dr. Mallory Tay (cardiology), Mona Barkley MD (pulmonology) - Problems - Multifactorial acute on chronic hypercarbic hypoxemic respiratory failure Acute diastolic congestive heart failure Pulmonary edema with pleural effusions UTI Allergies: Coded Allergies: NO KNOWN ALLERGIES (07/15/16) Disposition Summary Disposition Principal Diagnosis: Multifactorial acute on chronic hypercarbic hypoxemic respiratory failure Additional Diagnosis: Acute diastolic congestive heart failure Pulmonary edema with pleural effusions UTI Discharge Disposition: STR Discharge Instructions General Discharge Information Code Status: Do Not Resucitate/Intubat Patient's Diet: CC3 Patient's Activity: self limited Follow-Up Instructions/Appts: follow-up with his primary medical doctor, Dr. Gladys Jasmine, Dr. Mallory Tay ( cardiology), Mona Barkley MD (pulmonology) Medications at Discharge Discharge Medications: Stop taking the following medications: Acetazolamide (Acetazolamide) 250 MG TAB ORAL EVERY 48 HOURS (Every 2 days) Days = 30 Amoxicillin/Potassium Clav (Augmentin 875-125 Tablet) 1 EACH TABLET ORAL TWICE DAILY Qty = 10 Continue taking these medications: SERTRALINE HCL (Sertraline Hydrochloride) 25 MG TABLET 1 Tablet ORAL DAILY Qty = 30 Comments: Last Taken:not taken while in hospital Time: TAMSULOSIN HCL (Tamsulosin Hydrochloride) 0.4 MG CAP.ER.24H 1 Capsule ORAL TWICE DAILY Qty = 30 Comments: Last Taken:09/10/15 Time:1100 Rivaroxaban (Xarelto) 20 MG TABLET 1 Tablet ORAL DAILY Qty = 30 Instructions: with food Comments: Last Taken:09/10/14 Time:1137 Metformin Hydrochloride (Glucophage) 1,000 MG TAB 1 Tablet ORAL DAILY Comments: Last Taken:not take in hospital Time: Pravastatin Sodium (Pravastatin Sodium) 40 MG TABLET 1 Tablet ORAL DAILY Qty = 30 Comments: Last Taken:not taken in hospital Time: Lisinopril (Lisinopril) 2.5 MG TABLET 1 Tablet ORAL DAILY Comments: Last Taken:09/09/15 Time:1520 Nystatin (Mycostatin Powder) 15 GM PWD 1 Application On the skin THREE TIMES DAILY Days = 30 Comments: Last Taken:09/10/15 Time:1100 Hydrocortisone (Cortaid Lotion 1 Oz) 1 OZ LOT 1 Application ON SKIN TWICE DAILY Days = 30 Comments: Last Taken:09/10/15 Time:1100 PHENAZOPYRIDINE HCL (Phenazopyridine HCl) 100 MG TAB 200 Milligram ORAL AFTER MEALS Days = 30 Comments: Last Taken:09/10/15 Time:1500 Risperidone (Risperdal) 0.25 MG TABLET 1 Tablet ORAL DAILY Qty = 30 Acetazolamide (Acetazolamide) 250 MG TABLET 1 Tablet ORAL SEE INSTRUCTIONS Qty = 60 Instructions: Take on: Sunday, Sunday, . Do not take your Lasix on these days. Comments: IV GIVEN 07/21/16 @ 2100 This prescription has been renewed Start taking the following new medications: Acetazolamide (Acetazolamide) 250 MG TABLET 1 Tablet ORAL TWICE DAILY Qty = 60 No Refills Instructions: take only on every SAT & SUN Furosemide (Lasix) 40 MG TABLET 40 Milligram ORAL SEE INSTRUCTIONS Qty = 60 No Refills Instructions: Take on: Sunday, Sunday, Sunday, Sunday. Theophylline Anhydrous (Theophylline Anhydrous) 200 MG TAB.ER.12H 1 Tablet ORAL AT BEDTIME Qty = 30 No Refills Prednisone (Prednisone) 10 MG TABLET 1 Tablet ORAL SEE INSTRUCTIONS Qty = 26 No Refills Instructions: Please take: From 07/22/2016 to 07/23/2016: take 4 tablets daily From 07/24 to 07/26: take 3 tablets daily From 07/27 to 07/29: take 2 tablets daily From 07/30 to 08/01: take 1 tablet daily Then Stop Sulfamethoxazole/Trimethoprim (Bactrim Ds Tablet) 800 MG-160 MG TABLET 1 Tablet ORAL TWICE DAILY Qty = 12 No Refills Comments: Last Taken: 07/21/16 Time: Copies To: SIERRA JETER,MONA Martínez; JESSICA JETER,MALLORY Martínez; RAMONE JETER,YAZ Cruz Attending MD Review Statement Documenting Attending: JESENIA RAMOS MD Other Findings: The patient was seen and discussed with house staff. GNR UTI with some symptoms. Will treat empirically with Bactrim per ID and await final culture. Also add pyridium for dysuria. OK to go to rehab and will check culture to verify sensitivity to Bactrim.
--- NOTE | 2016-07-20 11:58 | PN- Pulmonary ---
Subjective HPI/Critical Care Issues: Mr. Lamar was seen and examined this morning. He is resting comfortably in bed. Patient states that this morning he not feeling very well. Has dysuria He also states that he feels more malaise a Patient states he was able to sleep relatively okay overnight. He does not state that he has any active pain or discomfort. He denies any chest pain, palpitations, orthopnea. Patient does report dysuria, denies frequency No evidence of any hematuria. Patient denies any fever, chills, nausea, vomiting. Review of Systems Constitutional: Reports: see HPI, malaise, weakness. Denies: chills. Objective Current Medications: Current Medications Sig/Emily Start time Last Medication Dose Route Stop Time Status Admin Acetaminophen 325 MG .STK-MED ONE 07/19 2145 DC PO 07/19 214 Acetaminophen 325 MG Q6P PRN 07/17 1130 AC 07/19 PO 2217 Acetazolamide 500 MG ONCE ONE 07/19 1600 DC 07/19 Sodium Chloride 50 ML IV 07/19 1629 1931 Furosemide 40 MG 7:30 AM, & 4:30 PM 07/16 0730 DC 07/19 IV 0803 Hydrocortisone 1 RAKAN BID 07/15 2200 AC 07/20 EXT 1037 Insulin Aspart 0 TIDAC 07/18 1200 AC 07/19 SC 1930 Lisinopril 2.5 MG DAILY 07/16 1000 AC 07/20 PO 1037 Melatonin 3 MG AT BEDTIME 07/17 0030 AC 07/19 PO 2216 Nystatin 1 RAKAN TID 07/15 2200 DC 07/19 TOP 1932 Pravastatin Sodium 40 MG DAILY 07/16 1000 AC 07/20 PO 1037 Prednisone 20 MG DAILY 07/18 1620 AC 07/20 PO 1037 Rivaroxaban 20 MG DAILY 07/16 1000 AC 07/20 PO 1037 Sertraline HCl 25 MG DAILY 07/16 1000 AC 07/20 PO 1037 Tamsulosin HCl 0.4 MG BID 07/15 2200 AC 07/20 PO 1037 Theophylline 200 MG 2200 07/19 2200 AC 07/19 PO 2217 Vitamin A/Vitamin D 1 RAKAN DAILY 07/17 1053 AC 07/20 TOP 1037 Vital Signs & I&O Last 24 Hrs of Vitals and I&O: Vital Signs Date Time Temp Pulse Resp B/P Pulse O2 O2 Flow FiO2 Ox Delivery Rate 07/20 1037 83 178/100 07/20 1037 83 178/100 07/20 0851 97.9 83 26 178/100 95 Nasal 2.0L Cannula 07/20 0800 95 Nasal 2.0L Cannula 07/20 0000 Nasal 2.0L Cannula 07/19 2221 98.5 94 24 150/90 95 Nasal 2.0L Cannula 07/19 2219 94 150/90 07/19 1705 98.4 77 22 127/82 92 Nasal 3.0L Cannula 07/19 1600 Nasal 2.0L Cannula 07/19 1221 Nasal 2.0L Cannula Intake & Output 07/20 1600 07/20 0800 07/20 0000 Intake Total 240 Output Total Balance 240 Intake, Oral 240 Number 1 Bowel Movements Laboratory Tests 07/20 07/20 1010 0645 Blood Gas pH (7.35 - 7.45 PH) 7.38 pCO2 (35 - 45 TORR) 66 *H pO2 (80 - 100 TORR) 93 HCO3 (21 - 28 MEQ/L) 39 H ABG O2 Sat (Measured) (>96.0 %) 96.0 Carboxyhemoglobin (1.5 - 5.0 %) 1.4 L O2 Concentration % 3LPM Temperature (97.0 - 100.0 FARH) 97.9 O2 Delivery Method NC Chemistry Sodium (137 - 145 mmol/L) 135 L Potassium (3.5 - 5.1 mmol/L) 3.8 Chloride (98 - 107 mmol/L) 88 L Carbon Dioxide (22 - 30 mmol/L) 42 H Anion Gap (5 - 16) 5 BUN (9 - 20 mg/dL) 25 H Creatinine (0.7 - 1.2 mg/dL) 0.9 Estimated GFR (>60 ml/min) > 60 BUN/Creatinine Ratio (7 - 25 %) 27.8 H Miscellaneous Phlebotomy Draw Site RIGHT RADIAL 07/19 0640 Chemistry Sodium (137 - 145 mmol/L) 135 L Potassium (3.5 - 5.1 mmol/L) 4.3 Chloride (98 - 107 mmol/L) 87 L Carbon Dioxide (22 - 30 mmol/L) 40 H Anion Gap (5 - 16) 8 BUN (9 - 20 mg/dL) 25 H Creatinine (0.7 - 1.2 mg/dL) 0.8 Estimated GFR (>60 ml/min) > 60 BUN/Creatinine Ratio (7 - 25 %) 31.3 H Hematology CBC w Diff NO MAN DIFF REQ WBC (4.8 - 10.8 /CUMM) 8.0 RBC (4.70 - 6.10 /CUMM) 4.46 L Hgb (14.0 - 18.0 G/DL) 12.4 L Hct (42 - 52 %) 37.8 L MCV (80.0 - 94.0 FL) 84.9 MCH (27.0 - 31.0 PG) 27.8 RDW (11.5 - 14.5 %) 13.9 Plt Count (130 - 400 /CUMM) 223 MPV (7.4 - 10.4 FL) 9.4 Gran % (42.2 - 75.2 %) 88.6 H Lymphocytes % (20.5 - 51.1 %) 5.1 L Monocytes % (1.7 - 9.3 %) 5.9 Eosinophils % (0 - 5 %) 0.1 Basophils % (0.0 - 2.0 %) 0.3 Absolute Granulocytes (1.4 - 6.5 /CUMM) 7.1 H Absolute Lymphocytes (1.2 - 3.4 /CUMM) 0.4 L Absolute Monocytes (0.10 - 0.60 /CUMM) 0.5 Absolute Eosinophils (0.0 - 0.7 /CUMM) 0 Absolute Basophils (0.0 - 0.2 /CUMM) 0 PUBS MCHC (33.0 - 37.0 G/DL) 32.7 L Microbiology Date/Time Procedure - Status Source Growth 07/18 1105 Urine Culture - CAN URINE ROUT Cancelled: SPECIMEN NOT RECEIVED IN LABORATORY 07/18 1031 Surveillance Culture - COMP UPPER RESP Impression/Plan Impression/Plan Impression/Plan: Physical Exam General Appearance Alert, Oriented X3, Cooperative HEENT Mucous Membr. moist/pink Lymphatic Axillary nl Cardiovascular Normal S1, Normal S2, Irregular rate and rhythm Lungs Mild Expirartory Wheezing Left Abdomen Normal Bowel Sounds, Soft, No Tenderness, Diffuse Psoriatic Lesions Across Anterior Abdominal Wall. Neurological Normal Speech, Strength at 5/5 X4 Ext Extremities Edema. 1+, Pitting, R>L Reproductive (MALE) ?Candial Infection, in Skin Folds SIGNIFICANT DATA Lower extremity ultrasoundrevealed no DVT chest x-ray showed no focal consolidation and small bilateral pulmonary edema with effusion echocardiogram showed normal ejection fraction with moderate pulmonary hypertension previous CT scan of the abdomen and pelvis had shown enlarged prostate with some gallbladder sludge ABG 735/53/57 signifying chronic hypercarbia Bicarb today 42 IMPRESSION This is an elderly gentleman with history of dementia with severe small vessel disease in the brain, hypertension, hyperlipidemia, diabetes, previous gout and chronic anemia, small abdominal aneurysm, significant psoriasis, paroxysmal atrial fibrillation on appropriate anticoagulation, diastolic heart disease with acute diastolic heart failure now with significant diuresis, now has a following respiratory issues * Chronic hypercarbic respiratory failure with mild worsening today which appears to be multifactorial which includes probable significant central apnea as patient seemed to have significant small vessel disease. He does not seem to have significant COPD. Patient's previous thyroid function tests has been normal. * Resolving Bilateral pulmonary edema with pleural effusion with acute diastolic heart failure * Secondary pulmonary hypertension most likely related to diastolic heart disease and probable obesity hypoventilation syndrome with central apnea * Diabetes, BPH, hyperlipidemia, psoriasis * Previous history suggestive of on and off hyperglycemia RECOMMENDATION * Switch him to by mouth prednisone can increase to 40 daily * Continue intravenous diuretics, give diamox 500 two doses today as his bicarb is high * Potassium 40 meq today and rpt this pm * Would eventually need lasix 5 days a week and diamox 2 days a week * Keep his head of bed elevated * 200 mg of theophylline at bedtime * Keep the head of bed elevated * Increase activity, oob to chair * Urine culture and post void residue
--- NOTE | 2016-07-20 12:09 | RADIOLOGY REPORT ---
EXAMINATION: XR PORTABLE CHEST CLINICAL INFORMATION: Shortness of breath. Evaluate for aspiration pneumonia. COMPARISON: CXR from 03/28/2016 and 07/15/2016. TECHNIQUE: Portable view of the chest was obtained. FINDINGS: Cardiomegaly and chronically enlarged central pulmonary vessels without interstitial edema. No pleural effusions are seen on this single view exam. There is no acute pulmonary consolidation. Thoracic aorta has atherosclerotic calcification. The bones appear diffusely osteopenic. Old fracture deformity of left humeral neck. IMPRESSION: 1. Cardiomegaly. 2. No evidence of aspiration pneumonia. No acute pulmonary findings compared to the chest radiograph of 03/28/2016.
--- NOTE | 2016-07-20 13:29 | PN- Cardiology ---
Subjective Subjective: Complaining of burning on urination. Ngo catheter was discontinued yesterday. Also admits to chest discomfort during the night. On telemetry he remains in atrial fibrillation/flutter with a ventricular response rate ranging between approximately 70-90 bpm. Objective Vital Signs and I&Os Vital Signs Date Time Temp Pulse Resp B/P Pulse O2 O2 Flow FiO2 Ox Delivery Rate 07/20 1037 83 178/100 07/20 1037 83 178/100 07/20 0851 97.9 83 26 178/100 95 Nasal 2.0L Cannula 07/20 0800 95 Nasal 2.0L Cannula 07/20 0000 Nasal 2.0L Cannula 07/19 2221 98.5 94 24 150/90 95 Nasal 2.0L Cannula 07/19 2219 94 150/90 07/19 1705 98.4 77 22 127/82 92 Nasal 3.0L Cannula 07/19 1600 Nasal 2.0L Cannula Intake & Output 07/20 1600 07/20 0800 07/20 0000 07/19 1600 07/19 0800 07/19 0000 Intake Total 240 614 200 730 Output Total 5603 101 2584 Balance 240 -586 -500 -920 Intake, IV 14 10 Intake, Oral 240 600 200 720 Number 1 Bowel Movements Output, Urine 7884 733 9912 Physical Exam: Elderly male in no acute distress with nasal oxygen in place. Vital signs: See above. Lungs: Decreased breath sounds bilaterally, occasional wheeze. Heart: S1, S2 (irregularly, irregular) with grade 1-2/6 systolic murmur. Extremities: Bilateral lower extremity edema. Palpation to the chest where he has been feeling discomfort overnight reproduced chest discomfort similar to what he was experiencing. Current Medications: Current Medications Sig/Emily Start time Last Medication Dose Route Stop Time Status Admin Acetaminophen 325 MG .STK-MED ONE 07/19 214 DC PO 07/19 214 Acetaminophen 325 MG Q6P PRN 07/17 1130 AC 07/19 PO 2217 Acetazolamide 500 MG ONCE ONE 07/19 1600 DC 07/19 Sodium Chloride 50 ML IV 07/19 1629 1931 Furosemide 40 MG 7:30 AM, & 4:30 PM 07/16 0730 DC 07/19 IV 0803 Hydrocortisone 1 RAKAN BID 07/15 2200 AC 07/20 EXT 1037 Insulin Aspart 0 TIDAC 07/18 1200 AC 07/20 SC 1207 Lisinopril 2.5 MG DAILY 07/16 1000 AC 07/20 PO 1037 Melatonin 3 MG AT BEDTIME 07/17 0030 AC 07/19 PO 2216 Nystatin 1 RAKAN TID 07/15 2200 DC 07/19 TOP 1932 Patient Medication 1 ED .STK-MED ONE 07/20 1311 DC Teaching ED 07/20 1312 Pravastatin Sodium 40 MG DAILY 07/16 1000 AC 07/20 PO 1037 Prednisone 20 MG DAILY 07/18 1620 AC 07/20 PO 1037 Rivaroxaban 20 MG DAILY 07/16 1000 AC 07/20 PO 1037 Sertraline HCl 25 MG DAILY 07/16 1000 AC 07/20 PO 1037 Tamsulosin HCl 0.4 MG BID 07/15 2200 AC 07/20 PO 1037 Theophylline 200 MG 2200 07/19 220 AC 07/19 PO 2217 Vitamin A/Vitamin D 1 RAKAN DAILY 07/17 1053 07/20 TOP 1037 Results Last 48 Hrs of Labs/Mics: Laboratory Tests 07/20/16 1130: Urine Color YEL, Urine Clarity HAZY H, Urine pH 8.5 H, Ur Specific [place] <= 1.005, Urine Protein TRACE H, Urine Ketones NEG, Urine Nitrite POS H, Urine Bilirubin NEG, Urine Urobilinogen 1.0, Ur Leukocyte Esterase LARGE H, Ur Microscopic SEDIMENT EXAMINED, Urine RBC >75 H, Urine WBC 1-3 H, Ur Epithelial Cells FEW, Urine Hemoglobin LARGE H, Urine Glucose NEG 07/20/16 1010: pH 7.38, pCO2 66 *H, pO2 93, HCO3 39 H, ABG O2 Sat (Measured) 96.0, Carboxyhemoglobin 1.4 L, O2 Concentration % 3LPM, Temperature 97.9, O2 Delivery Method NC, Phlebotomy Draw Site RIGHT RADIAL 07/20/16 0645: Anion Gap 5, Estimated GFR > 60, BUN/Creatinine Ratio 27.8 H 07/19/16 0640: Anion Gap 8, Estimated GFR > 60, BUN/Creatinine Ratio 31.3 H, CBC w Diff NO MAN DIFF REQ, RBC 4.46 L, MCV 84.9, MCH 27.8, RDW 13.9, MPV 9.4, Gran % 88.6 H, Lymphocytes % 5.1 L, Monocytes % 5.9, Eosinophils % 0.1, Basophils % 0.3, Absolute Granulocytes 7.1 H, Absolute Lymphocytes 0.4 L, Absolute Monocytes 0.5, Absolute Eosinophils 0, Absolute Basophils 0, PUBS MCHC 32.7 L Recent Imaging Studies: CXR (07/20/2015) Cardiomegaly. No evidence of aspiration pneumonia. No acute pulmonary findings compared to the chest radiograph of 03/28/2016. Assessment/Plan Assessment/Plan Diastolic heart failure secondary to diastolic dysfunction from long-standing hypertension in this elderly male with dementia, multiple risk factors for coronary artery disease, etc. who is also growing coagulase-negative staph aureus in one bottle of blood cultures drawn on 07/15/2016 that is probably a contaminant, as the other bottle from that set and the subsequent set to have all been "no growth". Fortunately, his respiratory status has improved following diuresis of over 5 L, total respiratory care, etc. and his echocardiogram again reveals preserved left ventricular systolic function and left ventricular hypertrophy. The chest discomfort he was experiencing is likely musculoskeletal, as it was easily reproducible by palpation to the chest wall. Continue present regimen. Replete potassium and follow-up magnesium levels given his significant diuresis. His dysuria and urinalysis suggest a urinary tract infection and would alert infectious disease to this. Can discontinue telemetry. Continue telemetry? No
[2016-07-20 16:00] VITALS: BP 120/80
[2016-07-20 22:25] VITALS: BP 106/62
--- NOTE | 2016-07-21 06:39 | PN- Housestaff ---
Subjective Follow-up For: Hypercapnic respiratory failure Dependent edema Atrial fibrillation Tele-Events Since Last Visit: Off Tele Subjective: Mr Lamar was seen and examined this morning. He is resting comfortably in bed. He states he was able to sleep well. The patient denies any chest pain and states the episode he has at 2.00 am has since resolved. Patient denies any dyspnea or any shortness of breath. Mr Lamar denies any dysuria, frequency, hesitation or burning. Patient continues to be on supplemental O2 3L. Via NC. The patient does states the he feels his dyspnea and shortness of breath have improved. He reports decreased bilaterral edema. He denies any fever, chills, nausea, vomiting. Review of Systems Constitutional: Reports: see HPI. Denies: chills, fever, malaise. Objective Last 24 Hrs of Vital Signs/I&O Vital Signs Date Time Temp Pulse Resp B/P Pulse O2 O2 Flow FiO2 Ox Delivery Rate 07/21 0100 96 Nasal 2.0L Cannula 07/20 2225 99.5 72 20 106/62 97 Nasal 2.0L Cannula 07/20 2125 99.5 07/20 2125 72 106/62 07/20 1600 98.0 90 24 120/80 95 Nasal 2.0L Cannula 07/20 1037 83 178/100 07/20 1037 83 178/100 07/20 0851 97.9 83 26 178/100 95 Nasal 2.0L Cannula 07/20 0800 95 Nasal 2.0L Cannula Intake & Output 07/21 0800 07/21 0000 07/20 1600 Intake Total 480 1209 725 Output Total 50 Balance 480 1209 675 Intake, IV 144 Intake, Oral 480 1065 725 Number 1 1 2 Bowel Movements Output, Urine 50 Physical Exam General Appearance: Alert, Oriented X3, Cooperative Cardiovascular: Normal S1, Normal S2, Irregular Rate and Rhythm Lungs: Decreased Breath sounds. L Sided Wheezing. Abdomen: Normal Bowel Sounds, Soft, No Tenderness Neurological: Normal Speech Extremities: No Edema Current Medications: Current Medications Sig/Emily Start time Last Medication Dose Route Stop Time Status Admin Acetaminophen 325 MG .STK-MED ONE 07/20 2113 DC PO 07/20 2114 Acetaminophen 325 MG .STK-MED ONE 07/20 1541 DC PO 07/20 1542 Acetaminophen 325 MG Q6P PRN 07/17 1130 AC 07/20 PO 2125 Acetazolamide 500 MG BID 07/20 1320 DC 07/20 Sodium Chloride 50 ML IV 07/20 Ceftriaxone Sodium 1,000 MG DAILY 07/20 1450 DC 07/20 IV 1538 Furosemide 40 MG DAILY 07/20 1457 AC 07/20 IV 1538 Hydrocortisone 1 RAKAN BID 07/15 2200 AC 07/20 EXT 2127 Insulin Aspart 0 TIDAC 07/18 1200 AC 07/20 SC 1753 Lisinopril 2.5 MG DAILY 07/16 1000 AC 07/20 PO 1037 Melatonin 3 MG AT BEDTIME 07/17 0030 AC 07/20 PO 2125 Patient Medication 1 ED .STK-MED ONE 07/20 1311 DC Teaching ED 07/20 1312 Phenazopyridine HCl 100 MG BID PRN 07/21 0015 AC PO Phenazopyridine HCl 100 MG ONCE ONE 07/20 1415 DC 07/20 PO 07/20 1416 1538 Potassium Chloride 40 MEQ ONCE ONE 07/20 1330 DC 07/20 PO 07/20 1331 1427 Pravastatin Sodium 40 MG DAILY 07/16 1000 AC 07/20 PO 1037 Prednisone 40 MG DAILY 07/21 1000 AC PO Prednisone 20 MG ONCE ONE 07/20 1330 DC 07/20 PO 07/20 1331 1538 Prednisone 20 MG DAILY 07/18 1620 DC 07/20 PO 1037 Rivaroxaban 20 MG DAILY 07/16 1000 AC 07/20 PO 1037 Sertraline HCl 25 MG DAILY 07/16 1000 AC 07/20 PO 1037 Tamsulosin HCl 0.4 MG BID 07/15 220 AC 07/20 PO 2125 Theophylline 200 MG 22007/19 2200 AC 07/20 PO 2126 Vitamin A/Vitamin D 1 RAKAN DAILY 07/17 1053 AC 07/20 TOP 1037 Last 24 Hrs of Lab/Navdeep Results Last 24 Hrs of Labs/Mics: Laboratory Tests 07/21/16 0655: Sodium Pending, Potassium Pending, Chloride Pending, Carbon Dioxide Pending, Anion Gap Pending, BUN Pending, Creatinine Pending, BUN/Creatinine Ratio Pending 07/20/16 2100: Anion Gap 9, Estimated GFR > 60, BUN/Creatinine Ratio 27.0 H, Phosphorus 3.1, Magnesium 2.1 07/20/16 1130: Urine Color YEL, Urine Clarity HAZY H, Urine pH 8.5 H, Ur Specific [employer] <= 1.005, Urine Protein TRACE H, Urine Ketones NEG, Urine Nitrite POS H, Urine Bilirubin NEG, Urine Urobilinogen 1.0, Ur Leukocyte Esterase LARGE H, Ur Microscopic SEDIMENT EXAMINED, Urine RBC >75 H, Urine WBC 1-3 H, Ur Epithelial Cells FEW, Urine Hemoglobin LARGE H, Urine Glucose NEG 07/20/16 1010: pH 7.38, pCO2 66 *H, pO2 93, HCO3 39 H, ABG O2 Sat (Measured) 96.0, Carboxyhemoglobin 1.4 L, O2 Concentration % 3LPM, Temperature 97.9, O2 Delivery Method NC, Phlebotomy Draw Site RIGHT RADIAL Microbiology 07/20 908 URINE ROUT: Urine Culture - RECD Assessment/Plan Assessment: Patient is a 89 YO M with PMH significant for COPD, Chronic CHF, HTN, HLD, Dementia, stable AAA, Gout, Atrial Fibrillation (on xarelto), BPH, Psoriasis presented to [facility] yesterday with Shrotness of breath and progressive swelling of lower extremities. PE is significant for wheezing and dependent edema. Labs significant for ProBNP of 3280. Yesterday patient became unresponsive due to hypercarbic respiratory failure, so placed in ICU and received Bipap with settings of 16/6. He is doing much better today still on 3L NC - saturating well. Overnight he remained afebrile with HR 65-72, BP 116/80mmHg, On Bipap 16/6 Plan: #Hypercarbic respiratory failure * Admitted to tele and then transfered to ICU for close monitoring as developed hypercarbic respiratory failure for close monitoring. * IV Solumedrol 40mg Q12--> transitioned to Oral Prednisone, 40 mg. Patient received two doses of 20mg and will be started on 40 mg on 07/21/2016. Patient discharged on a prednisone taper every 3 days. * IV Azithromycin 500mg daily - discontinued it. * The patient was started on theophylline at bedtime. Day 2. 200 mg to be administered this evening. Patient will also have his evening IV Lasix dose replaced with a one-time dose of Diamox 500 mg IV. Bicarbonate level elevated today 42. Acetazolamide 500 mg BID. * Chest X-Ray repeated, does not show worsening pulmonary congestion. * AB.38, pCO2 66, pO2 93, HCO3: 39 * Patient will receive acetazolamide on 3 days a week and Lasix on 4 days a week. * Theophylline 200mg at Bed Time. * TRC/nebs #??CHF exacerbation * ProBNP is 3280 with dependent leg edema, dyspnea * Continue IV furosemide 40mg --> Transition to Oral Lasix 40 mg BID and pravastatin oral 40mg. * Montoring and repleting electrolytes as needed. * [id number] Ordered.Repeat BEP at 20.00 #Blood culx positive for gram positive cocci & urine culx positive for gram negative rods * STAGE II ulcer on buttock, Present on admission - possible source (unsure) * One set of blood cultures are positive for gram positive cocci. * Repeat blood cultures are pending: Currently negative. Formal ID consult obtained who recommended that we should follow the patient off antibiotics. * A single dose of vancomycin is given pending second set culture results.--> discontinued Vancomycin. * Urine Analysis Repeated: Positive of Nitrite, WBC 1-3, RBC >75 (likely due to trauma from castillo pull), Large hemoglobin. * Urine culture from 07/20/2016 shows greater than 100,000 colonies of gram- negative rods. The patient was started on Bactrim double strength every 12 hours. He was discharged to [facility] on this medication will await sensitivities and follow-up with correct and/or antibiotic revision if this antibiotic does not offer advocate adequate coverage. #History of diabetes mellitus * On metformin 1000mg at home. * Blood sugars from admission are between 167-282 * Placed on low dose novolog sliding scale.--> Medium Dose SS #History of Atrial Fibrillation * HR overnight 72-90 * On xarelto #History of BPH * On tamsulsoin - we will continue that. Castillo was discontinued on 07/18/2016. * Denies any urinary Symptoms #Thyroid Dysfunction * Rule out Hypothyroid: TSH: 1.60, Free T4: 0.97. Values within normal limits. #History of depression * On sertraline 25mg - we will continue that #DVT Prophylaxis * On xarelto #Code Status * DNR/DNI Problem List: 1. Respiratory failure 2. COPD (chronic obstructive pulmonary disease) 3. Afib 4. Hypercapnic respiratory failure 5. Shortness of breath 6. BPH 7. Dysuria Pain Ratin Pain Location: NA Pain Goal: Remain pain free Pain Plan: Tylenol PRN Tomorrow's Labs & Rationales: NA
[2016-07-21 07:59] VITALS: BP 110/62
--- NOTE | 2016-07-21 08:45 | PN- Pulmonary ---
Subjective HPI/Critical Care Issues: Ms Lamar was seen and examined this morning. He is resting comfortably in bed. He denies any events overnight and states he was able to sleep well. The patient denies any chest pain and states the episode he has at 2.00 am has since resolved. Patient denies any dyspnea or any shortness of breath. Patient continues to be on supplemental O2. Via NC. The patient does states the he feels his dyspnea and shortness of breath have improved. He reports decreased edema. He denies any fever, chills, nausea, vomiting. Review of Systems Constitutional: Reports: see HPI. Denies: chills, fever, malaise. Objective Current Medications: Current Medications Sig/Emily Start time Last Medication Dose Route Stop Time Status Admin Acetaminophen 325 MG .STK-MED ONE 07/204 DC PO 07/20 211 Acetaminophen 325 MG .STK-MED ONE 07/20 1541 DC PO 07/20 1542 Acetaminophen 325 MG Q6P PRN 07/17 1130 AC 07/20 PO 2125 Acetazolamide 500 MG BID 07/20 1320 DC 07/20 Sodium Chloride 50 ML IV 07/20 2229 2126 Ceftriaxone Sodium 1,000 MG DAILY 07/20 1450 DC 07/20 IV 1538 Furosemide 40 MG DAILY 07/20 1457 AC 07/20 IV 1538 Hydrocortisone 1 RAKAN BID 07/15 2200 AC 07/20 EXT 2127 Insulin Aspart 0 TIDAC 07/18 1200 AC 07/20 SC 1753 Lisinopril 2.5 MG DAILY 07/16 1000 AC 07/20 PO 1037 Melatonin 3 MG AT BEDTIME 07/17 0030 07/20 PO 2125 Patient Medication 1 ED .STK-MED ONE 07/20 1311 DC Teaching ED 07/20 1312 Phenazopyridine HCl 100 MG BID PRN 07/21 0015 AC PO Phenazopyridine HCl 100 MG ONCE ONE 07/20 1415 DC 07/20 PO 07/20 1416 1538 Potassium Chloride 40 MEQ ONCE ONE 07/20 1330 DC 07/20 PO 07/20 1331 1427 Pravastatin Sodium 40 MG DAILY 07/16 1000 AC 07/20 PO 1037 Prednisone 40 MG DAILY 07/21 1000 AC PO Prednisone 20 MG ONCE ONE 07/20 1330 DC 07/20 PO 07/20 1331 1538 Prednisone 20 MG DAILY 07/18 1620 DC 07/20 PO 1037 Rivaroxaban 20 MG DAILY 07/16 1000 AC 07/20 PO 1037 Sertraline HCl 25 MG DAILY 07/16 1000 AC 07/20 PO 1037 Tamsulosin HCl 0.4 MG BID 07/15 2200 AC 07/20 PO 212 Theophylline 200 MG 07/19 AC 07/20 PO 2126 Vitamin A/Vitamin D 1 RAKAN DAILY 07/17 1053 AC 07/20 TOP 1037 Vital Signs & I&O Last 24 Hrs of Vitals and I&O: Vital Signs Date Time Temp Pulse Resp B/P Pulse O2 O2 Flow FiO2 Ox Delivery Rate 07/21 0759 98.3 88 20 110/62 96 Nasal 2.0L Cannula 07/21 0100 96 Nasal 2.0L Cannula 07/20 2225 99.5 72 20 106/62 97 Nasal 2.0L Cannula 07/20 2125 99.5 07/20 2125 72 106/62 07/20 1600 98.0 90 24 120/80 95 Nasal 2.0L Cannula 07/20 1037 83 178/100 07/20 1037 83 178/100 07/20 0851 97.9 83 26 178/100 95 Nasal 2.0L Cannula Intake & Output 07/21 1600 07/21 0800 07/21 0000 Intake Total 480 1209 Output Total Balance 480 1209 Intake, IV 144 Intake, Oral 480 1065 Number 1 1 Bowel Movements Impression/Plan Impression/Plan Impression/Plan: Physical Exam General Appearance Alert, Oriented X3, Cooperative HEENT Mucous Membr. moist/pink Lymphatic Axillary nl Cardiovascular Normal S1, Normal S2, Irregular rate and rhythm Lungs Mild Expirartory Wheezing Left Abdomen Normal Bowel Sounds, Soft, No Tenderness, Diffuse Psoriatic Lesions Across Anterior Abdominal Wall. Neurological Normal Speech, Strength at 5/5 X4 Ext Extremities Edema. 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 He does not seem to have significant COPD. Patient's previous thyroid function tests has been normal. 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
[2016-07-21] MEDS ORDERED: ACETAZOLAMIDE250 M1 PO (09:33)
[2016-07-21] MEDS ORDERED: LASIX40 M1 PO ×2 (09:34→09:37)
[2016-07-21] MEDS ORDERED: PREDNISONE10 M2 PO (09:45)
--- NOTE | 2016-07-21 13:48 | PN- Cardiology ---
Subjective Subjective: Still c/o dysuria. Denies any further chest discomfort or shortness of breath. Inputs/outputs suggest a greater than 2 L positive fluid balance over the past 24 hours ? accuracy with incontinence. Off telemetry. Objective Vital Signs and I&Os Vital Signs Date Time Temp Pulse Resp B/P Pulse O2 O2 Flow FiO2 Ox Delivery Rate 07/21 0829 110/62 07/21 0926 110/62 07/21 0800 96 Nasal 2.0L Cannula 07/21 0759 98.3 88 20 110/62 96 Nasal 2.0L Cannula 07/21 0100 96 Nasal 2.0L Cannula 07/20 222 99.5 72 20 106/62 97 Nasal 2.0L Cannula 07/20 212 99.5 07/20 212 72 106/62 07/20 1600 98.0 90 24 120/80 95 Nasal 2.0L Cannula Intake & Output 07/21 1600 07/21 0800 07/21 0000 07/20 1600 07/20 0807/20 0000 Intake Total 480 1209 725 240 Output Total 50 Balance 480 1209 675 240 Intake, IV 144 Intake, Oral 480 1065 725 240 Number 1 1 2 1 Bowel Movements Output, Urine 50 Physical Exam: Elderly male in no acute distress with nasal oxygen in place. Vital signs: See above. Lungs: Decreased breath sounds bilaterally, occasional wheeze. Heart: S1, S2 (irregularly, irregular) with grade 1-2/6 systolic murmur. Extremities: Bilateral lower extremity edema. Current Medications: Current Medications Sig/Emily Start time Last Medication Dose Route Stop Time Status Admin Acetaminophen 325 MG .STK-MED ONE 07/20 2113 DC PO 07/20 2114 Acetaminophen 325 MG .STK-MED ONE 07/20 1541 DC PO 07/20 1542 Acetaminophen 325 MG Q6P PRN 07/17 1130 AC 07/21 PO 1256 Acetazolamide 500 MG BID 07/20 1320 DC 07/20 Sodium Chloride 50 ML IV 07/20 Ceftriaxone Sodium 1,000 MG DAILY 07/20 1450 DC 07/20 IV 1538 Furosemide 40 MG 7:30 AM, & 4:30 PM 07/21 1630 AC PO Furosemide 40 MG DAILY 07/20 1457 DC 07/20 IV 1538 Hydrocortisone 1 RAKAN BID 07/15 2200 AC 07/21 EXT 1036 Insulin Aspart 0 TIDAC 07/18 1200 AC 07/21 SC 1215 Lisinopril 2.5 MG DAILY 07/16 1000 AC 07/21 PO 0929 Melatonin 3 MG AT BEDTIME 07/17 0030 AC 07/20 PO 2125 Phenazopyridine HCl 100 MG BID PRN 07/21 0015 AC PO Phenazopyridine HCl 100 MG ONCE ONE 07/20 1415 DC 07/20 PO 07/20 1416 1538 Potassium Chloride 40 MEQ ONCE ONE 07/21 0900 DC 07/21 PO 07/21 0901 1032 Pravastatin Sodium 40 MG DAILY 07/16 1000 AC 07/21 PO 0926 Prednisone 40 MG DAILY 07/21 1000 AC 07/21 PO 0932 Rivaroxaban 20 MG DAILY 07/16 1000 AC 07/21 PO 0929 Sertraline HCl 25 MG DAILY 07/16 1000 AC 07/21 PO 0930 Tamsulosin HCl 0.4 MG BID 07/15 2200 AC 07/21 PO 0926 Theophylline 200 MG 2200 07/19 2200 AC 07/20 PO 2126 Vitamin A/Vitamin D 1 RAKAN DAILY 07/17 1053 07/21 TOP 1036 Results Last 48 Hrs of Labs/Mics: Laboratory Tests 07/21/16 0655: Anion Gap 8, Estimated GFR > 60, BUN/Creatinine Ratio 31.3 H 07/20/16 2100: Anion Gap 9, Estimated GFR > 60, BUN/Creatinine Ratio 27.0 H, Phosphorus 3.1, Magnesium 2.1 07/20/16 1130: Urine Color YEL, Urine Clarity HAZY H, Urine pH 8.5 H, Ur Specific [employer] <= 1.005, Urine Protein TRACE H, Urine Ketones NEG, Urine Nitrite POS H, Urine Bilirubin NEG, Urine Urobilinogen 1.0, Ur Leukocyte Esterase LARGE H, Ur Microscopic SEDIMENT EXAMINED, Urine RBC >75 H, Urine WBC 1-3 H, Ur Epithelial Cells FEW, Urine Hemoglobin LARGE H, Urine Glucose NEG 07/20/16 1010: pH 7.38, pCO2 66 *H, pO2 93, HCO3 39 H, ABG O2 Sat (Measured) 96.0, Carboxyhemoglobin 1.4 L, O2 Concentration % 3LPM, Temperature 97.9, O2 Delivery Method NC, Phlebotomy Draw Site RIGHT RADIAL 07/20/16 0645: Anion Gap 5, Estimated GFR > 60, BUN/Creatinine Ratio 27.8 H Assessment/Plan Assessment/Plan Diastolic heart failure secondary to diastolic dysfunction from long-standing hypertension in this elderly male with dementia, multiple risk factors for coronary artery disease, etc. who is also growing coagulase-negative staph aureus in one bottle of two in blood culture set drawn on 07/15/2016 that is probably a contaminant, as the other bottle from that set and the subsequent set have all been "no growth". Fortunately, his respiratory status has improved following diuresis, total respiratory care, etc. and his echocardiogram again reveals preserved left ventricular systolic function and left ventricular hypertrophy. The chest discomfort he had been experiencing was likely musculoskeletal, as it was easily reproducible by palpation to the chest wall, he had no acute neurologic or graphic changes, and his troponins remained negative. Continue present regimen with alternating furosemide and acetazolamide. Will need close outpatient follow-up with laboratory work. His dysuria, urinalysis, and urine culture growing greater than 10,000 GNRs c/w possible urinary tract infection. Discuss with hospitalist/ID. Continue telemetry? Not applicable
--- NOTE | 2016-07-21 14:26 | PN- Infect Dx ---
Subjective Subjective: Afebrile on steroids. He does report dysuria over the last several days since removal of the Ngo catheter. Objective Last 24 Hrs of Vital Signs/I&O Vital Signs Date Time Temp Pulse Resp B/P Pulse O2 O2 Flow FiO2 Ox Delivery Rate 07/21 928 110/62 07/21 09 110/62 07/21 08 96 Nasal 2.0L Cannula 07/21 0759 98.3 88 20 11062 96 Nasal 2.0L Cannula 07/21 0100 96 Nasal 2.0L Cannula 07/20 2225 99.5 72 20 106/62 97 Nasal 2.0L Cannula 07/20 2125 99.5 07/20 2125 72 106/62 07/20 1600 98.0 90 24 120/80 95 Nasal 2.0L Cannula Intake & Output 07/21 1600 07/21 0807/21 0000 Intake Total 480 1209 Output Total Balance 480 1209 Intake, IV 144 Intake, Oral 480 1065 Number 1 1 Bowel Movements Physical Exam Other Physical Findings: He appears comfortable in no acute distress Lungs mild expiratory wheezes bilaterally Heart irregular rhythm with a 1/6 systolic ejection murmur Back no CVA tenderness Extremities bilateral lower extremity edema, right greater than left Results Last 24 Hours of Lab Results: Laboratory Tests 07/21 07/20 0655 2100 Chemistry Sodium (137 - 145 mmol/L) 136 L 134 L Potassium (3.5 - 5.1 mmol/L) 3.9 4.4 Chloride (98 - 107 mmol/L) 89 L 87 L Carbon Dioxide (22 - 30 mmol/L) 38 H 37 H Anion Gap (5 - 16) 8 9 BUN (9 - 20 mg/dL) 25 H 27 H Creatinine (0.7 - 1.2 mg/dL) 0.8 1.0 Estimated GFR (>60 ml/min) > 60 > 60 BUN/Creatinine Ratio (7 - 25 %) 31.3 H 27.0 H Phosphorus (2.5 - 4.5 mg/dL) 3.1 Magnesium (1.6 - 2.3 mg/dL) 2.1 Last 24 Hours of Navdeep Results: Urine culture July 20 greater than 100,000 colonies of gram-negative rods Recent Imaging Studies: Chest x-ray July 20 cardiomegaly Assessment/Plan Impression: Stable with temperatures and white blood cell count remaining normal. He does report dysuria and repeat urine culture is again positive, now for greater than 100,000 colonies of gram-negative rods, though his urinalysis is not suggestive of a urinary tract infection. He was apparently given a dose of Ceftriaxone yesterday and, given his complaints, it would be reasonable to continue him on antibiotics for a presumed lower urinary tract infection. A recent urine culture grew Proteus, though only 40,000 colonies, and can cover this organism pending results of the recent repeat culture. Suggestion: 1. Would continue to taper steroids 2. Follow-up final urine culture 3. Begin Bactrim DS 1 po every 12 hours for 6 days pending above
[2016-07-21 15:13] VITALS: BP 102/60
[2016-07-21] MEDS ORDERED: BACTRIM DS TAB1 EACH PO (15:15)
[2016-07-21 17:19] VITALS: BP 102/60
--- NOTE | 2016-07-24 11:11 | Event Note ---
Event Note Event Note: Spoke with the attending physician Dr Holbrook regarding an oversight that had been done on discharge instructions with regards to this patients' Lasix and Acetazolamide. Called [facility] ([phone]) and spoke to the nurse drying room supervisor (Jazmin), communicated these changes to her. Patient was to take: PO lasix 40 mg twice per day on Sunday, Sunday, Sunday, Sunday. Acetazolamide: 500mg twice per day: Sunday, , Sunday. The above was to be administered with routine BEP monotoring. Next BEP was recomended for 07/27/2016. Beeper #[id number] was given for additional questions or concerns. 07/26/2016. Called [facility] again, Spoke with Ana MATTA), reconfrimed the above with her. Agree with above.
== END 2016-07-21 19:00 | DRG 291 ==
LOC: ERH 13:01 → CRI 14:57 → 1NO 14:57 → ERHI 14:57 → CRI 07-16 00:16 → 1NO 07-17 21:08
PROVIDERS: Emergency Medicine; Internal Medicine; Student in an Organized Health Care Education/Training Program; ADMIT Nuclear Medicine Nuclear Cardiology
PROC: 5A09357 Assistance with Respiratory Ventilation, Less than 24 Consecutive Hours, Continuous Positive Airway Pressure (ICD-10-PCS; principal; 2016-07-16)
DX: I11.0 Hypertensive heart disease with heart failure (principal); I50.33 Acute on chronic diastolic (congestive) heart failure; J96.22 Acute and chronic respiratory failure with hypercapnia; E87.2 Acidosis; F03.90 Unspecified dementia, unspecified severity, without behavioral disturbance, psychotic disturbance, mood disturbance, and anxiety; L89.322 Pressure ulcer of left buttock, stage 2; N39.0 Urinary tract infection, site not specified; J44.1 Chronic obstructive pulmonary disease with (acute) exacerbation; I48.92 Unspecified atrial flutter; I27.2 Other secondary pulmonary hypertension; E66.2 Morbid (severe) obesity with alveolar hypoventilation; E11.9 Type 2 diabetes mellitus without complications; B96.4 Proteus (mirabilis) (morganii) as the cause of diseases classified elsewhere; I71.4 Abdominal aortic aneurysm, without rupture; N40.0 Benign prostatic hyperplasia without lower urinary tract symptoms; E78.5 Hyperlipidemia, unspecified; Z79.01 Long term (current) use of anticoagulants; I48.2 Chronic atrial fibrillation; Z79.84 Long term (current) use of oral hypoglycemic drugs; L40.8 Other psoriasis
CPT/HCPCS: 1NP; CCU; ERO; 36415; 81001; 81003; 82436; 87040; 87086; 87804; 87804-59; 93005; 93010; 93306; 93970; 96365; 96375; 97001-GP; 97110-GO; 97112-GO; 97162-GP; 97530-GO; 99291; J0456; J0696; J1120; J1815; J1940; J2405; J2920; J2930; J3370; J3490; J7040

== ENCOUNTER 2016-08-19 12:13 | Inpatient (IN) | payer OTHER, MEDICARE ==
[~2016-08-19] VITALS: Ht 177.8 cm; Wt 90.3 kg
[~2016-08-19 12:13] MED LIST changes: +ACETAZOLAMIDE250 M1 PO; +BACTRIM DS TAB1 EACH PO; +DIAMOX SEQUELS500 MG PO; +LASIX40 M1 PO; +PREDNISONE10 M2 PO; +RISPERDAL0.25 M1 PO; +THEOPHYLLINE A200 MG PO
--- NOTE | 2016-08-19 12:30 | NUR ---
PT TO ROOM21 BIBA FROM HOME FOR C/O BACK PAIN 12/23 SINCE THIS MORNING, PT DENIES INJURY, DENIES FALL. HX OF AAA,AFIB,HTN,DIABETES,DEMENTIA,CHRONIC BACK PAIN. PT ARRIVED AAOx2, DENIES CHEST PAIN, DENIES SOB, DENIES ABD PAIN,N/V/D. VSS. RASH TO ABDOMEN AND BACK NOTED.
--- NOTE | 2016-08-19 12:38 | ED NECK/BACK PAIN COMPLAINT ---
History of Present Illness General Chief Complaint: Low Back Pain/Injury Stated Complaint: BIBA BACK PAIN Source: patient, family, old records, EMS Exam Limitations: dementia Vital Signs & Intake/Output Vital Signs & Intake/Output Vital Signs Date Time Temp Pulse Resp B/P Pulse O2 O2 Flow FiO2 Ox Delivery Rate 08/22 1033 92 Room Air Room Air 08/22 0928 Room Air 08/22 0627 97.7 85 20 136/80 90 Room Air 08/22 0000 Room Air 08/21 2318 97.7 100 20 140/70 94 Room Air 08/21 2107 98.0 77 20 122/82 08/21 1935 95 Room Air 08/21 1405 98.0 77 20 122/82 95 ED Intake and Output 08/22 0000 08/21 1200 Intake Total 1190 Output Total 1 Balance 1189 Intake, IV 370 Intake, Oral 820 Number 1 1 Bowel Movements Output, Stool 1 Allergies Coded Allergies: NO KNOWN ALLERGIES (07/15/16) Triage Note: PT TO [facility]OM[facility] FROM HOME FOR C/O BACK PAIN 12/23 SINCE THIS MORNING, PT DENIES INJURY, DENIES FALL. HX OF AAA,AFIB,HTN,DIABETES,DEMENTIA,CHRONIC BACK PAIN. PT ARRIVED AAOx2, DENIES CHEST PAIN, DENIES SOB, DENIES ABD PAIN,N/V/D. VSS. RASH TO ABDOMEN AND BACK NOTED. Triage Nurses Notes Reviewed? yes Onset: Abrupt Duration: day(s): (4), constant Timing: recent history Quality/Severity: moderate Radiation: none Method of Injury: unknown Loss of Consciousness: no loss of consciousness Associated Symptoms: LETHARGY HPI: 89 year old male with history dementia small subtle disease of the brain, hypertension distal. Diabetes history of gout chronic edema small abdominal aneurysm, psoriasis proximal atrial fibrillation on anticoagulation diastolic heart failure presents emergency room with his son for evaluation who states that the patient has been more lethargic and has had difficulty transferring and ambulating since getting home from rehabilitation 4 days ago. The patient was recently hospitalized here for a CHF exacerbation. His son states that he has never acted this way upon being discharged in the past he has physical therapy scheduled to come for the first time in 2 days to the house. On arrival the patient is without any complaints. He denies back pain to myself contrary to triage note. There's been no fever no chills no cough. No chest pain or leg swelling. Son states she has been sleeping more frequently there's been no change in his appetite (ISABELLA ZHU) Reconcile Medications Acetazolamide 250 MG TABLET 1 TAB PO SEE ADMIN CRITERIA respiratory failure Take on: Sunday, Sunday, . Do not take your Lasix on these days. Furosemide 20 MG TABLET 1 TAB PO BID WATER PILL (Reported) Hydrocortisone (Cortaid Lotion 1 Oz) 1 OZ LOT 1 RAKAN EXT BID SKIN Lisinopril 2.5 MG TABLET 1 TAB PO DAILY BLOOD PRESSURE (Reported) Metformin Hydrochloride (Glucophage) 1,000 MG TAB 1 TAB PO DAILY DIABETES ( Reported) Pravastatin Sodium 40 MG TABLET 1 TAB PO DAILY CHOLESTEROL (Reported) Risperidone (Risperdal) 0.25 MG TABLET 1 TAB PO DAILY AGITATION (Reported) Rivaroxaban (Xarelto) 20 MG TABLET 1 TAB PO DAILY BLOOD THINNER (Reported) with food SERTRALINE HCL (Sertraline Hydrochloride) 25 MG TABLET 1 TAB PO DAILY MENTAL HEALTH (Reported) TAMSULOSIN HCL (Tamsulosin Hydrochloride) 0.4 MG CAP.ER.24H 1 CAP PO BID PROSTATE (Reported) Theophylline Anhydrous 200 MG TAB.ER.12H 1 TAB PO AT BEDTIME COPD (NIMESH JETER,XENIA) Past History Travel History Traveled to [place] past 21 day No Medical History Any Pertinent Medical History? 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 . MOTHER (Unknown cancer). . Hx Contributory? No (ISABELLA ZHU) Review of Systems Review of Systems Constitutional: Reports: see HPI. All Other Systems: Reviewed and Negative Comments Review of systems: See HPI, All other systems negative. Constitutional, no chills no fever, malaise HEENT: No visual changes no sore throat no congestion Cardiovascular: No chest pain , no palpitation Skin, no jaundice no rashes, no change in skin Respiratory: No dyspnea no cough no sputum GI: No nausea no vomiting, no diarrhea, no bloating/constipation : No dysuria No hematuria, no frequency, Muscle skeletal: No joint pain, no joint swelling,back pain, no neck pain, Neurologic: No numbness no headache Psych: No stress Heme/endocrine: No bruising no bleeding Immunology: No lymphadenopathy (ISABELLA ZHU) Physical Exam Physical Exam General Appearance: well developed/nourished, awake Neck: normal inspection, supple, full range of motion Comments: Well-developed well-nourished person in no acute distress HEENT: Normal EENT exam; PERRL, EOMI, no nystagmus. HEAD is atraumatic. moist mucous membranes. Neck: Supple, normal range of motion without pain or tenderness Back: Nontender, no CVA tenderness. Full range of motion Cardiovascular: Regular rate and rhythms no murmurs rubs or gallops, normal JVP Respiratory: Chest nontender.There were no bony deformities, no asymmetry. No respiratory distress. Crackles bilateral bases Abdomen: Soft, nontender nondistended, no appreciable organomegaly. Normal bowel sounds. No rebound/guarding, No appreciable enlargement of the abdominal aorta, No ascites. Extremity: No edema, full range of motion of extremities, normal and equal pulses bilaterally, 5 out of 5 strength noted to bilateral upper and lower extremities Neuro: Alert oriented x, motor sensory normal, There were no obvious focal neurologic abnormalities. Skin: There is an irregularLY shaped area partial-thickness skin breakdown to the right upper back with dressing in place, there is no surrounding erythema or tenderness, skin is warm and dry. Psych: Mood and affect is normal, memory and judgment is normal. (ISABELLA ZHU) Progress Differential Diagnosis: spinal cord inj, chf, pna, electrolyte abnoramlity, dehydration, hypercarbic resp failure,c ellulitis Plan of Care: Orders Procedure Date/time Status TROPONIN LEVEL 08/22 599 Complete CBC WITHOUT DIFFERENTIAL 08/22 599 Complete BASIC ELECTROLYTES PLUS BUN&CR 08/22 599 Complete Therapeutic Activities 08/22 UNK Complete PT EVAL LOW COMPLEX 20 MIN 08/22 UNK Complete Evaluate Swallowing 08/21 UNK Complete AEROSOL CHG 08/21 UNK Complete PHYSICIAN CONSULT 08/21 UNK Active Laboratory Tests 08/22/16 0645: Anion Gap 5, Estimated GFR > 60, BUN/Creatinine Ratio 21.7, Troponin I < 0.01, CBC w Diff NO MAN DIFF REQ, RBC 4.14 L, MCV 83.1, MCH 27.7, RDW 14.6 H, MPV 8.3, Gran % 77.0 H, Lymphocytes % 14.6 L, Monocytes % 8.1, Eosinophils % 0.1, Basophils % 0.2, Absolute Granulocytes 4.1, Absolute Lymphocytes 0.8 L, Absolute Monocytes 0.4, Absolute Eosinophils 0, Absolute Basophils 0, PUBS MCHC 33.3 Diagnostic Imaging: Viewed by Me: Radiology Read. Discussed w/RAD: Radiology Read. Radiology Impression: PATIENT: SUSU FRANCIS PRESENT AGE: 89 PATIENT ACCOUNT NO: [id number] : [birth year] LOCATION: [facility] ORDERING PHYSICIAN: ISABELLA DICKERSON SERVICE DATE: 08/19/16 EXAM TYPE: RAD - XRY- PORTABLE CHEST XRAY EXAMINATION: XR PORTABLE CHEST CLINICAL INFORMATION: 89-year -old man with dyspnea. COMPARISON: 07/20/2016 chest radiograph TECHNIQUE: Portable AP view of the chest was obtained. FINDINGS: There is new patchy airspace opacity in the right mid lung that is most consistent with acute pneumonia. Atelectatic changes are noted at the left lung base. Moderate cardiomegaly and aortic tortuosity are approximately stable. There are no large pleural effusions. IMPRESSION: New hazy opacity in the right midlung is most consistent with acute pneumonia. DICTATED BY: ESAU MANCILLA MD DATE/TIME DICTATED: 08/19/161341 AMBULATORY CARE COORDINATOR:JAIME DATE/TIME TRANSCRIBED:08/19/161341 CONFIDENTIAL, DO NOT COPY WITHOUT APPROPRIATE AUTHORIZATION. <Electronically signed in Other Vendor System> SIGNED BY: ESAU MANCILLA MD 08/19/161345 Initial ED EKG: AFIB 90, NO ACUTE ST SEG CHANGES, NORMAL AXIS Prior EKG: unchanged (07/15/16) Rhythm Strip: atrial fibrillation (MARCIA DICKERSON,ISABELLA) Departure Departure Time of Disposition: 1416 Disposition: HOME OR SELF CARE Condition: Stable Clinical Impression Primary Impression: PNA (pneumonia) Secondary Impressions: Skin abrasion Referrals: LEONARDO JETER,RONI Cruz (PCP/Family) Departure Forms: Customer Survey General Discharge Information Admission Note Spoke With: AVA JETER,ROSLYN Documentation of Exam: Documentation of any treatments & extenuating circumstances including Concerns Regarding Discharge (functional status, medication knowledge or non-compliance, living conditions, etc.) that warrant an admission rather than observation: IV ABX, TREND LABS, WUOND CARE CONSULT FOR SORE ON RIGHT UPPER BACK , GIVEN LETHARGY PREMATURE DISCHARGE [facility] (ISABELLA ZHU) PA/SEPTIC TANK SETTER Co-Sign Statement Statement: ED Attending supervision documentation- [X] I saw and evaluated the patient. I have also reviewed all the pertinent lab results and diagnostic results. I agree with the findings and the plan of care as documented in the PA's/SEPTIC TANK SETTER's documentation. [X] I have reviewed the ED Record and agree with the PA's/SEPTIC TANK SETTER's documentation. [] Additions or exceptions (if any) to the PAs/SEPTIC TANK SETTER's note and plan are summarized below: [] (NIMESH JETER,[place]) ED Attending Observation Initial Observation Note: I have seen and personally examined SUSU FRANCIS on 08/19/16 at 1441. I agree with the current emergency department documentation. The disposition (admission or discharge) is uncertain at this time, he needs a period of observation for the following reason(s): The ED Nurse caring for this patient has been personally informed as to what the patient is being observed for. (ISABELLA ZHU)
--- NOTE | 2016-08-19 13:03 | NUR ---
TUAN KENNEDY AT BEDSIDE FOR PT EVAL.
--- NOTE | 2016-08-19 13:30 | NUR ---
LABS DRAWN AND SENT BY THIS [facility] (BLUE,2 SST,LAV,CREWS)
--- NOTE | 2016-08-19 13:46 | RADIOLOGY REPORT ---
EXAMINATION: XR PORTABLE CHEST CLINICAL INFORMATION: 89-year-old man with dyspnea. COMPARISON: 07/20/2016 chest radiograph TECHNIQUE: Portable AP view of the chest was obtained. FINDINGS: There is new patchy airspace opacity in the right mid lung that is most consistent with acute pneumonia. Atelectatic changes are noted at the left lung base. Moderate cardiomegaly and aortic tortuosity are approximately stable. There are no large pleural effusions. IMPRESSION: New hazy opacity in the right midlung is most consistent with acute pneumonia.
[2016-08-19 13:58] LABS: ABSOLUTE BASOPHIL COUNT 0 /CUMM (0.0-0.2); ABSOLUTE EOSINOPHIL COUNT 0 /CUMM (0.0-0.7); ABSOLUTE GRANULOCYTE CT 5.4 /CUMM (1.4-6.5); ABSOLUTE LYMPH COUNT 0.4 /CUMM (1.2-3.4); ABSOLUTE MONOCYTE COUNT 0.5 /CUMM (0.10-0.60); BASOPHIL % 0 % (0.0-2.0); EOSINOPHIL % 0.6 % (0-5); GRANULOCYTE % 85.3 % (42.2-75.2); HEMATOCRIT 38.6 % (42-52); MEAN CORPUSCULAR HGB 27.5 PG (27.0-31.0); MEAN CORPUSCULAR HGB CONC 33.2 G/DL (33.0-37.0); MEAN CORPUSCULAR VOLUME 82.8 FL (80.0-94.0); MEAN PLATELET VOLUME 8.2 FL (7.4-10.4); PLATELET COUNT 235 /CUMM (130-400); RBC DISTRIBUTION WIDTH 14.9 % (11.5-14.5); RED BLOOD CELL CT 4.67 /CUMM (4.70-6.10); WHITE BLOOD CELL COUNT 6.3 /CUMM (4.8-10.8)
--- NOTE | 2016-08-19 14:27 | NUR ---
TUAN KENNEDY TO BEDSIDE TO DISCUSS TEST RESULTS AND POC. PTS SON AT BEDSIDE.
[2016-08-19] MEDS ORDERED: FUROSEMIDE20 M1 PO (14:39)
--- NOTE | 2016-08-19 15:48 | NUR ---
PT GOING TO ROOM 234-1.
--- NOTE | 2016-08-19 16:00 | NUR ---
IV EST, PT MEDICATED WITH FORTAZ PER EMAR. VANCOMYCIN INFUSING PER EMAR.
--- NOTE | 2016-08-19 16:17 | History & Physical ---
[facility]NE [facility] 08/19/16 1546: General Information and HPI MD Statement: I have seen and personally examined SUSU FRANCIS and documented this H&P. The patient is a 89 year old M who presented with a patient stated chief complaint of [weakness and lethargy]. 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 Patient had a prolonged hospitalization at [facility] from 07/07/16- 07/21/16. His problems included acute diastolic congestive heart failure, multifactorial acute on chronic hypercarbic respiratory failure likely secondary to obesity hypoventilation syndrome with central apnea, pulmonary edema with pleural effusions and UTI. He was treated with diuretics, steroids and Diamox. Blood cultures were positive for coag-negative staph and urine culture for Proteus. Patient was watched off antibiotics and discharged to [facility] on a steroid taper. He was discharged home from [facility] on 08/15/2016. Patient's son states that since discharge, he has been doing poorly with increased fatigue and lethargy. He hasn't been able to ambulate with his walker. He denied any fever , chills, nausea, vomiting, abdominal discomfort, chest pain, palpitations, urinary or bowel symptoms. He has been coughing occasionally without significant sputum production. Son said that he sounded congested at home. His functional status is below his baseline and that is concerning his family. His nursing clinical director found him to be very drowsy and lethargic this morning and recommended to bring him to the hospital for evaluation. Vitals in the ED temperature 90.8, pulse 96, respirations 16, blood pressure 117 /64, saturating 96% on room air. Labs showed no white count, H&H 12.8/38.6, sodium 136, potassium 3.2, bicarbonate 34, proBNP 1070. ABG 7.41/40/74 Chest x-ray:New hazy opacity in the right midlung is most consistent with acute pneumonia. Patient received 1 dose of IV ceftazidime plus vancomycin in the ED. Allergies/Medications Allergies: Coded Allergies: NO KNOWN ALLERGIES (07/15/16) Home Med list Acetazolamide 250 MG TABLET 1 TAB PO SEE ADMIN CRITERIA respiratory failure Take on: Sunday, Sunday, . Do not take your Lasix on these days. Furosemide 20 MG TABLET 1 TAB PO BID WATER PILL (Reported) Hydrocortisone (Cortaid Lotion 1 Oz) 1 OZ LOT 1 RAKAN EXT BID SKIN Lisinopril 2.5 MG TABLET 1 TAB PO DAILY BLOOD PRESSURE (Reported) Metformin Hydrochloride (Glucophage) 1,000 MG TAB 1 TAB PO DAILY DIABETES ( Reported) Pravastatin Sodium 40 MG TABLET 1 TAB PO DAILY CHOLESTEROL (Reported) Risperidone (Risperdal) 0.25 MG TABLET 1 TAB PO DAILY AGITATION (Reported) Rivaroxaban (Xarelto) 20 MG TABLET 1 TAB PO DAILY BLOOD THINNER (Reported) with food SERTRALINE HCL (Sertraline Hydrochloride) 25 MG TABLET 1 TAB PO DAILY MENTAL HEALTH (Reported) TAMSULOSIN HCL (Tamsulosin Hydrochloride) 0.4 MG CAP.ER.24H 1 CAP PO BID PROSTATE (Reported) Theophylline Anhydrous 200 MG TAB.ER.12H 1 TAB PO AT BEDTIME COPD Past History Travel History Traveled to [place] past 21 day No Medical History Neurological: dementia EENT: NONE Cardiovascular: aortic aneurysm, AFIB, CHF, hypertension, hyperlipidemia Respiratory: COPD Gastrointestinal: NONE Hepatic: NONE Renal: benign prost hyperplasia Musculoskeletal: chronic back pain, degen joint disease, fracture, gout, RIB FX left shoulder fracture Psychiatric: anxiety Endocrine: diabetes Blood Disorders: NONE Cancer(s): 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 . MOTHER (Unknown cancer). . Psychosocial History Who Do You Live With? child (Son) Services at Home: None Primary Language: Scottish Functional Ability ADLs Needs Assist: dressing, eating, toileting, bathing. Ambulation: walker Review of Systems Review of Systems Constitutional: Reports: malaise, weakness. EENTM: Reports: no symptoms. Cardiovascular: Reports: no symptoms. Respiratory: Reports: cough. GI: Reports: no symptoms. Genitourinary: Reports: no symptoms. Musculoskeletal: Reports: no symptoms. Skin: Reports: no symptoms. Neurological/Psychological: Reports: dementia. Exam & Diagnostic Data Last 24 Hrs of Vital Signs/I&O Vital Signs Date Time Temp Pulse Resp B/P Pulse O2 O2 Flow FiO2 Ox Delivery Rate 08/19 1511 98.6 86 16 111/60 98 Room Air 08/19 1227 98.0 96 16 117/64 96 Room Air Intake & Output 08/19 1600 08/19 0800 08/19 0000 Intake Total Output Total Balance Patient 79.379 kg Weight Physical Exam General Appearance Alert, Moderate Distress, oriented X 2 Skin skin tear seen in the back, dressings intact, patchy areas of redness seen on the left back HEENT Atraumatic, PERRLA, EOMI Neck Supple, No JVD Lymphatic Cervical nl Cardiovascular Normal S1, Normal S2, irregularly irregular heart rate Lungs bilateral ronchi Abdomen Normal Bowel Sounds, Soft, No Tenderness Neurological Normal Speech, Normal Tone Extremities No Clubbing, No Cyanosis, 1+ edema right lower extremity, trace edema left lower extremity Vascular Pulses Symmetrical Body Front and Back (Adult) 1) skin tear 2) patchy red areas Last 24 Hrs of Labs/Navdeep: Laboratory Tests 08/19/16 1330: pH 7.41, pCO2 40, pO2 74 L, HCO3 25, ABG O2 Sat (Measured) 92.0 L, Carboxyhemoglobin 1.9, O2 Concentration % .21, Temperature 98.0, O2 Delivery Method RA, Phlebotomy Draw Site LEFT RADIAL 08/19/16 1329: Anion Gap 6, Estimated GFR > 60, BUN/Creatinine Ratio 21.3, Glucose 128 H, Calcium 8.4, Total Bilirubin 0.3, AST 24, ALT 28, Alkaline Phosphatase 70, Pro-B -Natriuretic Pept 1070 H, Total Protein 6.1 L, Albumin 3.4 L, Globulin 2.7, Albumin/Globulin Ratio 1.3, CBC w Diff MAN DIFF ORDERED, RBC 4.67 L, MCV 82.8, MCH 27.5, RDW 14.9 H, MPV 8.2, Gran % 85.3 H, Lymphocytes % 6.3 L, Monocytes % 7.8, Eosinophils % 0.6, Basophils % 0 L, Absolute Granulocytes 5.4, Absolute Lymphocytes 0.4 L, Absolute Monocytes 0.5, Absolute Eosinophils 0, Absolute Basophils 0, Platelet Estimate VERIFIED BY SMEAR, Poikilocytosis 1+, Anisocytosis 1+, Ovalocytes 1+, PUBS MCHC 33.2 Microbiology 08/19 1504 BLOOD: Blood Culture - RECD 08/19 1455 BLOOD: Blood Culture - RECD Assessment/Plan Assessment: 89 year-old gentleman with significant past medical history COPD, not on home oxygen, 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 Vitals in the ED temperature 90.8, pulse 96, respirations 16, blood pressure 117 /64, saturating 96% on room air. Labs showed no white count, H&H 12.8/38.6, sodium 136, potassium 3.2, bicarbonate 34, proBNP 1070. ABG 7.41/40/74 Chest x-ray:New hazy opacity in the right midlung is most consistent with acute pneumonia. Patient received 1 dose of IV ceftazidime plus vancomycin in the ED. Plan: #Acute hypoxic respiratory failure likely 2/2 healthcare associated pneumonia( HCAP) -Recent hospitalization at [facility] followed by rehabilitation at [facility] -Evidence of new hazy opacity in the right midlung consistent with acute pneumonia -Received 1 dose of IV ceftazidime plus vancomycin in the ED. Continue the same antibiotics pending cultures. -Maintain oxygen saturations above 92% -TR nebs [id number] -Continue Solu-Medrol 40 every 8 for now as patient is wheezing -Pancultures -Tylenol for fever -Urine strep and Legionella -Incentive spirometry -Pulmonology consult in a.m. #History of HFpEF: No evidence of congestion on chest x-ray. -Continue home dose of Lasix at 20 twice a day by mouth #History of diabeteS -Hold metformin -4 times a day Accu-Cheks -NovoLog sliding scale -Diabetic diet #History of atrial fibrillation/hypertension and hyper lipidemia -Continue Xarelto, lisinopril and statin #History of BPH -Continue Tamsulosin .4mg PO #History of mood disorder -Continue Sertraline 25 mg daily and risperidone 0.25 mg daily #Diet -Consistent carbohydrate diet, 2 g sodium restriction #Code -DNR/DNI #DVT prophylaxis -ALPS and Xarelto As Ranked By This Provider Problem List: 1. Skin abrasion 2. COPD (chronic obstructive pulmonary disease) 3. Afib 4. Dementia 5. Pneumonia Core Measures/Miscellaneous Acute Coronary Syndrome ACS Diagnosis: No Cerebrovascular Accident CVA/TIA Diagnosis: No Congestive Heart Failure CHF Diagnosis: No Venous Thromboembolism VTE Risk Factors: Age > 40, Immobility, paresis VTE Prophylaxis Ordered Inpt: [facility]- [facility] prophylaxis d/t: No contraindications No VTE Pharm Prophylaxis d/t: No contraindications VTE Diagnosis: No VTE Type: NONE VTE Confirmed by (Test): NONE Severe Sepsis Severe Sepsis Present: No BC x2: Yes Lactic Acid x2: Yes Septic Shock Septic Shock Present: No BC x2: Yes Lactic Acid: Yes Miscellaneous Documentation Attending Case Discussed With: ROSLYN ESCALANTE MD Primary Care Physician: RONI IRVING MD Patient sees these Specialists Dr Irving Level of Patient Care: General Medicine ROSLYN ESCALANTE MD 08/19/162051: Attending MD Review Statement Attending Statement Attending MD Statement: examined this patient, discuss w/resident/PA/MEDICAL SERVICES ASSISTANT, agreed w/resident/PA/MEDICAL SERVICES ASSISTANT, reviewed EMR data (avail), discussed with nursing, discussed with case mgmt, reviewed images, amended to note Attending Assessment/Plan: 89 y/o with pmh sig for COPD, not on home oxygen, 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 Siknce he went home from rehab he is doing posstly. Very weak, lethargic. VNs found him lethargic this am therefore was sent to ER. In the ER the cxr is consistent with possible PNA. Pt did c/o cough and some sob but 2/2 dementia, detailed hx was limited. Vital Signs Date Time Temp Pulse Resp B/P Pulse O2 O2 Flow FiO2 Ox Delivery Rate 08/19 1903 Room Air Room Air 08/19 1831 93 Room Air 08/19 1826 98.1 91 24 124/62 93 Room Air 08/19 1649 99.3 94 16 116/74 96 Room Air 08/19 1511 98.6 86 16 111/60 98 Room Air 08/19 1227 98.0 96 16 117/64 96 Room Air on exam; awake, nad. cv; s1,s2, irregular. resp; + rhonchi b/l and some wheeze. abd; soft, nt, bs+ ext; 1+ edema b/l Laboratory Tests 08/19 08/19 1330 1329 Blood Gas pH (7.35 - 7.45 PH) 7.41 pCO2 (35 - 45 TORR) 40 pO2 (80 - 100 TORR) 74 L HCO3 (21 - 28 MEQ/L) 25 ABG O2 Sat (Measured) (>96.0 %) 92.0 L Carboxyhemoglobin (1.5 - 5.0 %) 1.9 O2 Concentration % .21 Temperature (97.0 - 100.0 FARH) 98.0 O2 Delivery Method RA Chemistry Sodium (137 - 145 mmol/L) 136 L Potassium (3.5 - 5.1 mmol/L) 3.2 L Chloride (98 - 107 mmol/L) 96 L Carbon Dioxide (22 - 30 mmol/L) 34 H Anion Gap (5 - 16) 6 BUN (9 - 20 mg/dL) 17 Creatinine (0.7 - 1.2 mg/dL) 0.8 Estimated GFR (>60 ml/min) > 60 BUN/Creatinine Ratio (7 - 25 %) 21.3 Glucose (65 - 99 mg/dL) 128 H Calcium (8.4 - 10.2 mg/dL) 8.4 Total Bilirubin (0.2 - 1.3 mg/dL) 0.3 AST (17 - 59 U/L) 24 ALT (21 - 72 U/L) 28 Alkaline Phosphatase (< 127 U/L) 70 Ltw-M-Tyxjmphphoj Pept (<125 pg/mL) 1070 H Total Protein (6.3 - 8.2 g/dL) 6.1 L Albumin (3.5 - 5.0 g/dL) 3.4 L Globulin (1.9 - 4.2 gm/dL) 2.7 Albumin/Globulin Ratio (1.1 - 2.2 %) 1.3 Hematology CBC w Diff MAN DIFF ORDERED WBC (4.8 - 10.8 /CUMM) 6.3 RBC (4.70 - 6.10 /CUMM) 4.67 L Hgb (14.0 - 18.0 G/DL) 12.8 L Hct (42 - 52 %) 38.6 L MCV (80.0 - 94.0 FL) 82.8 MCH (27.0 - 31.0 PG) 27.5 RDW (11.5 - 14.5 %) 14.9 H Plt Count (130 - 400 /CUMM) 235 MPV (7.4 - 10.4 FL) 8.2 Gran % (42.2 - 75.2 %) 85.3 H Lymphocytes % (20.5 - 51.1 %) 6.3 L Monocytes % (1.7 - 9.3 %) 7.8 Eosinophils % (0 - 5 %) 0.6 Basophils % (0.0 - 2.0 %) 0 L Absolute Granulocytes (1.4 - 6.5 /CUMM) 5.4 Absolute Lymphocytes (1.2 - 3.4 /CUMM) 0.4 L Absolute Monocytes (0.10 - 0.60 /CUMM) 0.5 Absolute Eosinophils (0.0 - 0.7 /CUMM) 0 Absolute Basophils (0.0 - 0.2 /CUMM) 0 Platelet Estimate (ADEQUATE) VERIFIED BY SMEAR Poikilocytosis 1+ Anisocytosis 1+ Ovalocytes 1+ PUBS MCHC (33.0 - 37.0 G/DL) 33.2 Miscellaneous Phlebotomy Draw Site LEFT RADIAL EKG>>> afib. 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 Pt admitted to med floor. Will obtain all cx, urine legionella ans strept ag. WIll cover with broad spectrum abx and narrow as cx result. Agree with IV steroids, TRC neds. Confirm and continue home meds, DVT Px: Xarelto. DNR./I.,
--- NOTE | 2016-08-19 16:56 | NUR ---
REPORT GIVEN TO CAR MARLEY TO 2NA.
--- NOTE | 2016-08-19 17:02 | NUR ---
PT REFUSED TO TAKE HIS PANTS OFF, AND REFUSED TO CHANGE BREAF.
--- NOTE | 2016-08-19 17:10 | NUR ---
[employer] CALLED FOR TRANSPORTATION.
[2016-08-19 18:26] VITALS: BP 124/62
--- NOTE | 2016-08-19 20:13 | NUR ---
1744-PT ARRIVED VIA STRETCHER FROM ER. REPORT REC'D FROM TICKET COLLECTOR OR USHERCAR CUTLER. PT INCONTINENT OF BOWEL AND BLADDER. PT CHANGED WHEN HE ARRIVED TO THE FLOOR. OPEN AREAS TO COCCYX, MID BACK. DISCOLORATION TO BUTTOCKS/COCCYX. SEE SKIN MAN. VSS. BED ALARM PLACED. PT ORIENTED TO ROOM AND CALL LIGHT.
[2016-08-19 22:47] VITALS: BP 126/64
[2016-08-20 03:28] VITALS: BP 130/70
--- NOTE | 2016-08-20 03:57 | NUR ---
PT VSS, C/O CHEST PAIN, NOTIFIED MD, TROPONIN,EKG ORDERED. THEN PT DENIED CHEST PAIN TO MD. WILL CONTINUE TO MONITOR.
--- NOTE | 2016-08-20 07:01 | NUR ---
PT C/O DIFFICULTY BREATHING, SATING 93% RA, HAS NOT DIFFICULTY YELLING, DEMANDING TO SEE MD. MD NOTIFIED.
[2016-08-20 07:07] VITALS: BP 124/62
--- NOTE | 2016-08-20 09:13 | PN- Housestaff ---
Subjective Follow-up For: Pneumonia Subjective: Patient seen and examined. He is seen sitting upright in bed receiving a breathing treatment. He appears to be in no acute distress. He is complaing of mild shortness of breath and a nonproductive cough. He is also complaining of persistent chest pain. Otheriwse he denies any fever, chills, palpitations, nausea, vomiting, diarrhea. No overnight events reported. Review of Systems Constitutional: Reports: see HPI. Objective Last 24 Hrs of Vital Signs/I&O Vital Signs Date Time Temp Pulse Resp B/P Pulse O2 O2 Flow FiO2 Ox Delivery Rate 08/20 1422 98.2 80 20 120/80 96 / 1220 94 Room Air 08/20 0952 75 122/78 08/20 0951 75 122/78 08/20 0929 93 Nasal 2.0L Cannula 08/20 0800 94 08/20 0707 98.1 102 20 124/62 93 Room Air 08/20 0328 98.4 97 21 130/70 93 Room Air 08/20 0249 93 Room Air 02 0000 94 Room Air 08/19 2247 98.5 79 24 126/64 94 Room Air 08/19 2208 79 126/64 02/04 1903 Room Air Room Air 08/19 1831 93 Room Air 08/19 1826 98.1 91 24 124/62 93 Room Air / 1649 99.3 94 16 116/74 96 Room Air Intake & Output / 1600 /05 0800 02/05 0000 Intake Total 660 500 500 Output Total 300 Balance 360 500 500 Intake, IV 60 20 20 Intake, Oral 600 480 480 Number 1 3 1 Bowel Movements Output, Urine 300 Patient 90.718 kg Weight Physical Exam General Appearance: Alert, Cooperative, No Acute Distress Other Physical Findings: General - well developed, well nourished elderly male in no acute distress HEENT - NCAT, PERRL, EOMI, anicteric sclera, moist mucous membranes, nasal cannula in place Neck - Supple, no JVD CVS - S1, S2 w/o m/g/r Resp - Minimal wheezing heard in all four lung aguilar GI - Soft, nontender, nondistended, bowel sounds present Neuro - Awake and alert, CN II - XII grossly intact Ext - normal distal pulses, no cyanosis/clubbing/edema Current Medications: Current Medications Sig/Emily Start time Last Medication Dose Route Stop Time Status Admin Acetaminophen 325 MG Q6 PRN 08/19 1630 AC PO Acetazolamide 250 MG TuThSa@1000 08/22 1000 AC PO Albuterol Sulfate 3 ML BID 08/19 2200 AC 08/20 INH 1214 Azithromycin 500 MG ONCE ONE 08/20 1315 DC 08/20 Dextrose/Water 250 ML IV 08/20 1414 1418 Ceftazidime 1,000 MG IQ8 08/20 0000 AC 08/20 IV 1600 Furosemide 20 MG BID 08/19 220 DC 08/20 PO 0951 Hydrocortisone 1 RAKAN BID 08/19 220 AC 08/20 EXT 0952 Insulin Aspart 0 TIDAC 08/19 1700 AC 08/20 SC 0823 Lisinopril 2.5 MG DAILY 08/20 1000 AC 08/20 PO 0952 Methylprednisolone 40 MG BID 08/19 220 AC 08/20 IV 0951 Methylprednisolone 40 MG Q8 08/19 1622 DC IV Patient Medication 1 UNIT ONE NR 08/19 1600 RI Teaching ED 08/19 1630 Patient Medication 1 UNIT ONE NR 08/19 1600 RI Teaching ED 08/19 1630 Patient Medication 1 UNIT ONE NR 08/19 1600 RI Teaching ED 08/19 1630 Patient Medication 1 UNIT ONE NR 08/19 1600 RI Teaching ED 08/19 1630 Potassium Chloride 40 MEQ .STK-MED ONE 08/20 0000 DC PO 08/20 0001 Potassium Chloride 40 MEQ ONCE ONE 08/19 2345 DC 08/20 PO 08/19 2346 0004 Potassium Chloride 10 MEQ ONCE ONE 08/19 1745 CAN IV 08/19 1746 Potassium Chloride 10 MEQ ONCE ONE 08/19 1745 DC 08/19 IV 08/19 1746 1940 Pravastatin Sodium 40 MG 1700 08/19 1700 AC 08/19 PO 1940 Risperidone 0.25 MG DAILY 08/20 1000 AC 08/20 PO 0952 Rivaroxaban 20 MG DAILY 08/20 1000 AC 08/20 PO 0952 Sertraline HCl 25 MG DAILY 08/20 1000 AC 08/20 PO 0952 Tamsulosin HCl 0.4 MG BID 08/19 2200 AC 08/20 PO 0951 Theophylline 200 MG AT BEDTIME 08/19 2200 AC 08/19 PO 2206 Vancomycin HCl 1,000 MG DAILY@1600 08/20 1600 AC Dextrose/Water 250 ML IV Last 24 Hrs of Lab/Navdeep Results Last 24 Hrs of Labs/Mics: Laboratory Tests 08/20/16 0348: Troponin I 0.02 08/20/16 0348: Anion Gap 6, Estimated GFR > 60, BUN/Creatinine Ratio 26.7 H, Serum Osmolality 290 Microbiology 08/20 1120 URINE ROUT: Legionella Antigen - RES 08/20 1120 URINE ROUT: Streptococcus pneumoniae Antigen (M - RES 08/20 1120 URINE ROUT: Urine Culture - RES 08/19 1625 LOWER RESP: Respiratory Culture - CAN Cancelled: SPECIMEN NOT RECEIVED IN LABORATORY 08/19 162 LOWER RESP: Gram Stain - CAN Cancelled: SPECIMEN NOT RECEIVED IN LABORATORY Assessment/Plan Assessment: Patient was started on vancomycin/ceftazidime for clinical suspicion of healthy care acquired pneumonia. He has remained afebrile without leukocytosis since admission last evening. Patients lab worked demonstrated hyponatremia for which one dose of azithromycin was given for low clinical suspicion of legionella pneumonia. Strep/Legionella labs later returned negative. Patient is still continued on intravenous steroids, TRC albuterol treatments, and supplemental oxygen. Healthcare Acquired Pneumonia/COPD/Acute Hypoxic Respiratory Failure: History of COPD no home O2 and Obesity Hypoventilation Syndrome. Recently discharged from [place] to [facility] on 07/21/16. Strep/Legionella antigen negative. -Supplemental oxygen, goal >92% -TRC with Albuterol when necessary -Incentive spirometry -Vancomycin 1g IV Daily -Ceftazidime 1g IV Q8H -Theophylline 200mg PO QHS -Solumedrol 40mg IV Q8H -PT evaluation -F/U Cultures & Sensitivities -Pulm consult History of Atrial Fibrillation: -Xarelto 20mg PO Daily Hyponatremia: -Hold lasix -F/U Urine lytes HFpEF: No pulmonary vascular congestion on chest x-ray. -Lasix held NIDDM: -Hold oral hypoglycemics -Accuchecks TIDAC/HS -Novolog SSI Mood Disorder - Risperidone 0.25mg PO Daily Hyperlipidemia - Pravastatin 40mg PO Daily Hypertension - Lisinopril 2.5mg PO Daily BPH - Tamuloson 0.4mg PO Daily Pain Plan: -Acetaminophen 650mg PO Q6H Pain 1-3/Fever Diet - Consistent Carb with 2g Na restriction DVT PPx - ALPS & Anticoagulation Code Status - DNR/DNI Problem List: 1. Pneumonia Pain Ratin Pain Location: Chest Pain Goal: Pain 4 or less Pain Plan: As noted in plan Tomorrow's Labs & Rationales: CBC - pneumonia BEP - hyponatremia
--- NOTE | 2016-08-20 12:28 | Cons- Pulmonary ---
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 Patient had a prolonged hospitalization at [facility] from 07/07/16- 07/21/16. His problems included acute diastolic congestive heart failure, multifactorial acute on chronic hypercarbic respiratory failure likely secondary to obesity hypoventilation syndrome with central apnea, pulmonary edema with pleural effusions and UTI. He was treated with diuretics, steroids and Diamox. Blood cultures were positive for coag-negative staph and urine culture for Proteus. Patient was watched off antibiotics and discharged to [facility] on a steroid taper. He was discharged home from [facility] on 08/15/2016. Patient's son states that since discharge, he has been doing poorly with increased fatigue and lethargy. He hasn't been able to ambulate with his walker. He denied any fever , chills, nausea, vomiting, abdominal discomfort, chest pain, palpitations, urinary or bowel symptoms. He has been coughing occasionally without significant sputum production. Son said that he sounded congested at home. His functional status is below his baseline and that is concerning his family. His acute care certified nursing assistant found him to be very drowsy and lethargic this morning and recommended to bring him to the hospital for evaluation. Vitals in the ED temperature 90.8, pulse 96, respirations 16, blood pressure 117 /64, saturating 96% on room air. Labs showed no white count, H&H 12.8/38.6, sodium 136, potassium 3.2, bicarbonate 34, proBNP 1070. ABG 7.41/40/74 Chest x-ray:New hazy opacity in the right midlung is most consistent with acute pneumonia. Patient received 1 dose of IV ceftazidime plus vancomycin in the ED. Allergies/Medications Allergies: Coded Allergies: NO KNOWN ALLERGIES (07/15/16) Home Med List: Acetazolamide 250 MG TABLET 1 TAB PO SEE ADMIN CRITERIA respiratory failure Take on: Sunday, Sunday, . Do not take your Lasix on these days. Furosemide 20 MG TABLET 1 TAB PO BID WATER PILL (Reported) Hydrocortisone (Cortaid Lotion 1 Oz) 1 OZ LOT 1 RAKAN EXT BID SKIN Lisinopril 2.5 MG TABLET 1 TAB PO DAILY BLOOD PRESSURE (Reported) Metformin Hydrochloride (Glucophage) 1,000 MG TAB 1 TAB PO DAILY DIABETES ( Reported) Pravastatin Sodium 40 MG TABLET 1 TAB PO DAILY CHOLESTEROL (Reported) Risperidone (Risperdal) 0.25 MG TABLET 1 TAB PO DAILY AGITATION (Reported) Rivaroxaban (Xarelto) 20 MG TABLET 1 TAB PO DAILY BLOOD THINNER (Reported) with food SERTRALINE HCL (Sertraline Hydrochloride) 25 MG TABLET 1 TAB PO DAILY MENTAL HEALTH (Reported) TAMSULOSIN HCL (Tamsulosin Hydrochloride) 0.4 MG CAP.ER.24H 1 CAP PO BID PROSTATE (Reported) Theophylline Anhydrous 200 MG TAB.ER.12H 1 TAB PO AT BEDTIME COPD Review of Systems Review of Systems Constitutional: Reports: see HPI. Comments Review of Systems Constitutional: Reports: malaise, weakness. EENTM: Reports: no symptoms. Cardiovascular: Reports: no symptoms. Respiratory: Reports: cough. GI: Reports: no symptoms. Genitourinary: Reports: no symptoms. Musculoskeletal: Reports: no symptoms. Skin: Reports: no symptoms. 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 . MOTHER (Unknown cancer). . Psychosocial History Where Do You Live? Home Who Do You Live With? child (Son) Services at Home: None Primary Language: Icelandic Smoking Status: Former Smoker Functional Ability ADLs Needs Assist: dressing, eating, toileting, bathing. Ambulation: walker Exam & Diagnostic Data Last 24 Hrs of Vital Signs/I&O Vital Signs Date Time Temp Pulse Resp B/P Pulse O2 O2 Flow FiO2 Ox Delivery Rate 08/20 1220 94 Room Air 08/20 0952 75 122/78 08/20 0951 75 122/78 08/20 0929 93 Nasal 2.0L Cannula 08/20 0800 94 08/20 0707 98.1 102 20 124/62 93 Room Air 08/20 0328 98.4 97 21 130/70 93 Room Air 08/20 0249 93 Room Air 08/20 0000 94 Room Air 08/19 2247 98.5 79 24 126/64 94 Room Air 08/19 2208 79 126/64 08/19 1903 Room Air Room Air 08/19 1831 93 Room Air 08/19 1826 98.1 91 24 124/62 93 Room Air 08/19 1649 99.3 94 16 116/74 96 Room Air 08/19 1511 98.6 86 16 111/60 98 Room Air 08/19 1227 98.0 96 16 117/64 96 Room Air Intake & Output 08/20 1600 08/20 0800 08/20 0000 Intake Total 500 500 Output Total Balance 500 500 Intake, IV 20 20 Intake, Oral 480 480 Number 3 1 Bowel Movements Patient 200 lb Weight Last 48 Hrs of Labs/Navdeep: Laboratory Tests 08/20/16 0348: Troponin I 0.02 08/20/16 0348: Anion Gap 6, Estimated GFR > 60, BUN/Creatinine Ratio 26.7 H 08/19/16 1330: pH 7.41, pCO2 40, pO2 74 L, HCO3 25, ABG O2 Sat (Measured) 92.0 L, Carboxyhemoglobin 1.9, O2 Concentration % .21, Temperature 98.0, O2 Delivery Method RA, Phlebotomy Draw Site LEFT RADIAL 08/19/16 1329: Anion Gap 6, Estimated GFR > 60, BUN/Creatinine Ratio 21.3, Glucose 128 H, Calcium 8.4, Total Bilirubin 0.3, AST 24, ALT 28, Alkaline Phosphatase 70, Pro-B -Natriuretic Pept 1070 H, Total Protein 6.1 L, Albumin 3.4 L, Globulin 2.7, Albumin/Globulin Ratio 1.3, CBC w Diff MAN DIFF ORDERED, RBC 4.67 L, MCV 82.8, MCH 27.5, RDW 14.9 H, MPV 8.2, Gran % 85.3 H, Lymphocytes % 6.3 L, Monocytes % 7.8, Eosinophils % 0.6, Basophils % 0 L, Absolute Granulocytes 5.4, Absolute Lymphocytes 0.4 L, Absolute Monocytes 0.5, Absolute Eosinophils 0, Absolute Basophils 0, Platelet Estimate VERIFIED BY SMEAR, Poikilocytosis 1+, Anisocytosis 1+, Ovalocytes 1+, PUBS MCHC 33.2 Assessment/Plan Impression/Plan: SIGNIFICANT DATA Chest x-ray showed hazy opacity in the right mid lung consistent with pneumonia Recent CT of the abdomen done that showed distended gallbladder and large prostate BUN/creatinine stable bicarbonate 29 white count 6.3 hemoglobin 12.8 he had 81% granulocytes INR was not done ABG did not reveal hypercarbia much improved than previous ABGs Physical Exam General Appearance Alert, Moderate Distress, oriented X 2 Skin skin tear seen in the back, dressings intact, patchy areas of redness seen on the left back HEENT Atraumatic, PERRLA, EOMI Neck Supple, No JVD Lymphatic Cervical nl Cardiovascular Normal S1, Normal S2, irregularly irregular heart rate Lungs bilateral ronchi Abdomen Normal Bowel Sounds, Soft, No Tenderness Neurological Normal Speech, Normal Tone Extremities No Clubbing, No Cyanosis, 1+ edema right lower extremity, trace edema left lower extremity Vascular Pulses Symmetrical IMPRESSION This is an elderly gentleman with history of dementia with severe small vessel disease in the brain, hypertension, hyperlipidemia, diabetes, previous gout and chronic anemia, small abdominal aneurysm, significant psoriasis, paroxysmal atrial fibrillation on appropriate anticoagulation, diastolic heart disease , now has a following respiratory issues * Right-sided pulmonary infiltrate could be pneumonia but seems less likely. 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 and probable obesity hypoventilation syndrome with central apnea * Diabetes, BPH, hyperlipidemia, psoriasis * Previous history suggestive of on and off hypoglycemia RECOMMENDATION Panculture Continue his current diuretic regimen Continue antibiotics Swallow evaluation Please order a CT of the chest without IV contrast later on to evaluate his pulmonary infiltrates Continue his bedtime theophylline and acetazolamide as before Out of bed to chair Keep his head elevated Avoid any sedatives or narcotics Check theophylline level If he stable we will consider discontinuing his antibiotics for now Aggressive physical therapy Check Legionella urinary antigen and pneumococcal antigen Flu swab Changes steroids to 20 mg prednisone daily Continue his other diuretics Continue his nebulizer treatment Prognosis guarded Consult Acknowledgment - Thank you for your consult request.
--- NOTE | 2016-08-20 13:41 | PN- Att Addend ---
Attending Addendum Attending Brief Note Patient seen and examined, claims that he's feeling slightly better. He still has a cough. He denies any current shortness of breath. Vital Signs Date Time Temp Pulse Resp B/P Pulse O2 O2 Flow FiO2 Ox Delivery Rate 08/20 1220 94 Room Air 08/20 0952 75 122/78 08/20 0951 75 122/78 08/20 0929 93 Nasal 2.0L Cannula 08/20 0800 94 08/20 0707 98.1 102 20 124/62 93 Room Air 08/20 0328 98.4 97 21 130/70 93 Room Air 08/20 0249 93 Room Air 08/20 0000 94 Room Air 08/19 2247 98.5 79 24 126/64 94 Room Air 08/19 2208 79 126/64 / 1903 Room Air Room Air 08/19 1831 93 Room Air 08/19 1826 98.1 91 24 124/62 93 Room Air 08/19 1649 99.3 94 16 116/74 96 Room Air 08/19 1511 98.6 86 16 111/60 98 Room Air on exam; awake, nad. cv; s1,s2, irregular. resp; b/l coare bs. 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 Please follow-up on all the cultures. We'll check urine Legionella antigen. Patient has hyponatremia today. Question if this was secondary to overdiuresis. Patient has received am dose of Lasix. We'll hold the p.m. dose and reevaluate in the morning. Please check urine lytes as well as serum and urine osmolality. We'll continue the antibiotics until we receive the cultures. If cultures remain negative then will narrow the coverage. Continue current dose of IV steroids, TRC nebs. DVT prophylaxis: Xarelto.
[2016-08-20 14:22] VITALS: BP 120/80
[2016-08-20 22:22] VITALS: BP 122/78
--- NOTE | 2016-08-21 07:46 | PN- Housestaff ---
KAYLEEN BERNABE MD 08/21/16 0746: Subjective Follow-up For: Pneumonia Subjective: Patient seen and examined. He is seen lying flat in bed resting comfortably. He appears to be in no acute distress. Currently he is complaining of 5/10 aching chest pain located in the middle of his chest radiating "straight down". He denies any blurred/double vision, numbness/tingling/pain in his arms. He is complaining of a mild shortness of breath, but is denying any supplemental oxygen. Otherwise he says he slept well last night and has no complaints. Additionally he denies any fever, chills, palpitations, nausea, vomiting, diarrhea. Overnight he reportedly had multiple episodes of either chest pain, shortness of breath, or other minor complaints or which he paged nursing staff frequently but quickly forgot about. During these events he appeared to be in no acute distress and any investigations were negative. Review of Systems Constitutional: Reports: see HPI. Objective Last 24 Hrs of Vital Signs/I&O Vital Signs Date Time Temp Pulse Resp B/P Pulse O2 O2 Flow FiO2 Ox Delivery Rate 08/20 2221 97.6 72 20 122/78 94 Room Air 08/20 2140 120/78 08/20 1422 98.2 80 20 120/80 96 08/20 1220 94 Room Air 08/20 0952 75 122/78 08/20 0951 75 122/78 08/20 0929 93 Nasal 2.0L Cannula 08/20 0800 94 Intake & Output 08/21 0800 08/21 0000 08/20 1600 Intake Total 300 660 Output Total 300 Balance 300 360 Intake, IV 300 60 Intake, Oral 600 Number 1 1 Bowel Movements Output, Urine 300 Physical Exam General Appearance: Alert, Cooperative, No Acute Distress Other Physical Findings: General - well developed, well nourished elderly male in no acute distress HEENT - NCAT, PERRL, EOMI, anicteric sclera, moist mucous membranes Neck - Supple, no JVD CVS - S1, S2 w/o m/g/r, nontender to palpation Resp -diminished airflow with minimal wheezing heard in left lung aguilar, no crackles GI - Soft, mild right upper quadrant tenderness, nondistended, bowel sounds present Neuro - Awake and alert, CN II - XII grossly intact Ext - normal distal pulses, no cyanosis/clubbing/edema Current Medications: Current Medications Sig/Emily Start time Last Medication Dose Route Stop Time Status Admin Acetaminophen 325 MG Q6 PRN 08/19 1630 AC 08/21 PO 0523 Acetazolamide 250 MG TuThSa@1000 08/22 1000 AC PO Albuterol Sulfate 3 ML BID 08/19 2200 AC 08/20 INH 1214 Azithromycin 500 MG ONCE ONE 08/20 1315 DC 08/20 Dextrose/Water 250 ML IV 08/20 1414 1418 Ceftazidime 1,000 MG IQ8 08/20 0000 AC 08/20 IV 2330 Furosemide 20 MG BID 08/19 2200 DC 08/20 PO 0951 Hydrocortisone 1 RAKAN BID 08/19 2200 AC 08/20 EXT 2140 Insulin Aspart 0 TIDAC 08/19 1700 AC 08/20 SC 1753 Lisinopril 2.5 MG DAILY 08/20 1000 AC 08/20 PO 0952 Methylprednisolone 40 MG BID 08/19 2200 DC 08/20 IV 0951 Pravastatin Sodium 40 MG 1700 08/19 1700 AC 08/20 PO 1639 Prednisone 20 MG DAILY 08/21 1000 AC PO Risperidone 0.25 MG DAILY 08/20 1000 AC 08/20 PO 0952 Rivaroxaban 20 MG DAILY 08/20 1000 AC 08/20 PO 0952 Sertraline HCl 25 MG DAILY 08/20 1000 AC 08/20 PO 0952 Tamsulosin HCl 0.4 MG BID 08/19 2200 AC 08/20 PO 2140 Theophylline 200 MG AT BEDTIME 08/19 2200 AC 08/20 PO 2139 Vancomycin HCl 1,000 MG DAILY@1600 08/20 1600 AC 08/20 Dextrose/Water 250 ML IV 1919 Last 24 Hrs of Lab/Navdeep Results Last 24 Hrs of Labs/Mics: Laboratory Tests 08/20/16 1120: Urine Osmolality 344, Ur Random Creatinine 48.4, Ur Random Sodium 21 L, Ur Random Potassium 19.6, Fraction Sodium Excret 0.2 Microbiology 08/20 1119 URINE ROUT: Legionella Antigen - RES 08/20 1119 URINE ROUT: Streptococcus pneumoniae Antigen (M - RES 08/20 1119 URINE ROUT: Urine Culture - RES Assessment/Plan Assessment: Patient was scheduled to have a CT scan of his chest this morning but declined when transport arrived stating he doesn't "need it anymore" because he "feels better". In the afternoon he was encouraged to have the scan again to help guide clinical therapy, for which he agreed. He is continued on Vancomycin/Ceftazidime and remains without fever. Antibiotics will be narrowed pending CT scan results and culture/sensitivites. Labs were not drawn today for unclear reasons. Patient continues to complain of chest pain, but soon forgets when asked about it a short time later. Healthcare Acquired Pneumonia/COPD/Acute Hypoxic Respiratory Failure: History of COPD no home O2 and Obesity Hypoventilation Syndrome. Recently discharged from [place] to [facility] on 07/21/16. Strep/Legionella antigen negative. -Supplemental oxygen, goal >92% -TRC with Albuterol when necessary -Incentive spirometry -Vancomycin 1g IV Daily -Ceftazidime 1g IV Q8H -Theophylline 200mg PO QHS -Acetazolamide 250mg PO -Solumedrol discontinued -Prednisone 40mg PO Daily x 4 days -PT evaluation -F/U Cultures & Sensitivities -Pulm consult History of Atrial Fibrillation: -Xarelto 20mg PO Daily Hyponatremia: -Hold lasix HFpEF: No pulmonary vascular congestion on chest x-ray. -Lasix held NIDDM: -Hold oral hypoglycemics -Accuchecks TIDAC/HS -Novolog SSI Mood Disorder - Risperidone 0.25mg PO Daily Hyperlipidemia - Pravastatin 40mg PO Daily Hypertension - Lisinopril 2.5mg PO Daily BPH - Tamuloson 0.4mg PO Daily Pain Plan: -Acetaminophen 650mg PO Q6H Pain 1-3/Fever Diet - Consistent Carb with 2g Na restriction DVT PPx - ALPS & Anticoagulation Code Status - DNR/DNI Problem List: 1. Pneumonia Pain Ratin Pain Location: Chest Pain Goal: Remain pain free Pain Plan: As noted in plan Tomorrow's Labs & Rationales: CBC - pneumonia BEP - hyponatremia Troponin - persistent CP, labs not drawn today ROSLYN ESCALANTE MD 08/21/16 1213: Attending MD Review Statement Attending Statement Attending Statement: examined this patient, discuss w/resident/PA/SHIPWRIGHT HELPER, agreed w/resident/PA/SHIPWRIGHT HELPER, reviewed EMR data (avail), discussed with nursing, discussed with case mgmt, reviewed images, amended to note Attending Assessment/Plan: Patient seen and examined, he is forgetful. Currently feels well and denies any complaints. He is currently not requiring any oxygen. Patient is scheduled for CT chest today. Vital Signs Date Time Temp Pulse Resp B/P Pulse O2 O2 Flow FiO2 Ox Delivery Rate 08/21 1112 94 Room Air 08/20 2222 97.6 72 20 122/78 94 Room Air 08/20 2140 120/78 02/ 1422 98.2 80 20 120/80 96 / 1220 94 Room Air on exam; awake, nad. cv; s1,s2, rrr. resp; coarse bs overall. abd; soft, nt, bs+ ext; trace edema. labs pending. 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 ' Patient undergoing CT chest to determine if there is any evidence of residual pneumonia. Patient was hyponatremic yesterday, today's labs are pending. So far his cultures have remained negative. Will adjust antibiotics according to the CT results. Continue prednisone, TRC nebs. Will start the taper of prednisone. Continue other current medications. DVT prophylaxis: Xarelto. Please order PT evaluation if not done.
--- NOTE | 2016-08-21 11:17 | NUR ---
PHYSICAL THERAPY: ORDERS RECIEVED, CHART REVIEWED, ATTEMPTED TO SEE PT FOR EVAL IN PT X 2 TODAY, PT REFUSING EACH TIME, RN INFORMED
--- NOTE | 2016-08-21 13:30 | PN- Pulmonary ---
Subjective HPI/Critical Care Issues: Sleeping early this am when i saw him Improving by history Objective Current Medications: Current Medications Sig/Emily Start time Last Medication Dose Route Stop Time Status Admin Acetaminophen 650 MG .STK-MED ONE 08/21 0519 DC PO 08/21 0520 Acetaminophen 325 MG Q6 PRN / 1630 AC 08/21 PO 0523 Acetazolamide 250 MG TuThSa@1000 / 1000 AC PO Albuterol Sulfate 3 ML BID 08/19 2200 AC 08/21 INH 1108 Azithromycin 500 MG ONCE ONE 08/20 1315 DC 02/05 Dextrose/Water 250 ML IV 08/20 1414 1418 Ceftazidime 1,000 MG IQ8 08/20 0000 AC 08/21 IV 1129 Hydrocortisone 1 RAKAN BID 08/19 2200 AC 08/21 EXT 1155 Insulin Aspart 0 TIDAC 08/19 1700 AC 08/21 SC 1240 Lisinopril 2.5 MG DAILY / 1000 AC 08/21 PO 1155 Methylprednisolone 40 MG BID 08/19 2200 DC / IV 0951 Omeprazole 20 MG DAILY AC 08/21 1015 AC 08/21 PO 1301 Pravastatin Sodium 40 MG 1700 / 1700 AC 08/20 PO 1639 Prednisone 40 MG DAILY 08/22 1000 AC 08/21 PO 1303 Prednisone 20 MG DAILY 08/21 1000 DC PO Risperidone 0.25 MG DAILY 08/20 1000 AC 08/21 PO 1154 Rivaroxaban 20 MG DAILY 08/20 1000 AC 08/21 PO 1154 Sertraline HCl 25 MG DAILY 08/20 1000 AC 08/21 PO 1153 Tamsulosin HCl 0.4 MG BID 08/19 2200 AC 08/21 PO 1155 Theophylline 200 MG AT BEDTIME 08/19 2200 AC 08/20 PO 2139 Vancomycin HCl 1,000 MG DAILY@1600 / 1600 AC 08/20 Dextrose/Water 250 ML IV 1919 Vital Signs & I&O Last 24 Hrs of Vitals and I&O: Vital Signs Date Time Temp Pulse Resp B/P Pulse O2 O2 Flow FiO2 Ox Delivery Rate 08/21 1112 94 Room Air / 2222 97.6 72 20 122/78 94 Room Air / 2140 120/78 / 1422 98.2 80 20 120/80 96 Intake & Output 08/21 1600 02/ 0800 02/06 0000 Intake Total 300 Output Total 1 Balance -1 300 Intake, IV 300 Number 1 Bowel Movements Output, Stool 1 Impression/Plan Impression/Plan Impression/Plan: SIGNIFICANT DATA Chest x-ray showed hazy opacity in the right mid lung consistent with pneumonia Recent CT of the abdomen done that showed distended gallbladder and large prostate BUN/creatinine stable bicarbonate 29 white count 6.3 hemoglobin 12.8 he had 81% granulocytes INR was not done ABG did not reveal hypercarbia much improved than previous ABGs Physical Exam General Appearance sleeping Skin sstable HEENT Atraumatic, PERRLA, EOMI Neck Supple, No JVD Lymphatic Cervical nl Cardiovascular Normal S1, Normal S2, irregularly irregular heart rate Lungs bilateral ronchi Abdomen Normal Bowel Sounds, Soft, No Tenderness Neurological Normal Speech, Normal Tone Extremities No Clubbing, No Cyanosis, 1+ edema right lower extremity, trace edema left lower extremity Vascular Pulses Symmetrical IMPRESSION This is an elderly gentleman with history of dementia with severe small vessel disease in the brain, hypertension, hyperlipidemia, diabetes, previous gout and chronic anemia, small abdominal aneurysm, significant psoriasis, paroxysmal atrial fibrillation on appropriate anticoagulation, diastolic heart disease , now has a following respiratory issues * Right-sided pulmonary infiltrate could be pneumonia but seems less likely. 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
[2016-08-21 14:05] VITALS: BP 122/82
--- NOTE | 2016-08-21 14:10 | NUR ---
WOUND CARE: REQUESTED BY NURSING STAFF TO EVALUATE PT FOR SKIN ALTERATIONS PRESENT ON ADMISSION - HX REVIEWED FROM CHART - MID BACK PRESENTS WITH A 8X13 CM IRREGULARLY SHAPED WOUND SECONDARY TO ABRASION/SKIN TEAR WITH PREDOMINANTLY YELLOW FILL AND BUDS OF GRANULATION THROUGHOUT - SCANT SEROUS DRNG - NO INFECTION - COCCYX 1 X 0.2 CM STAGE 2 PRESSURE INJURY CLEAN PINK DERMAL FILL SCANT SEROUS DRNG AND SL PERIWOUND MACERATION - LEFT BUTTOCKS UNSTAGEABLE PRESSURE INJURIES 1X1 CM AND 0.3 X 0.3 CM MOIST YELLOW SLOUGH AND PERIWOUND CALLOUSED TISSUE - SCANT DRNG - NO EVIDENCE OF INFECTION - MULTIPLE PLAQUE LIKE LESIONS TO ABD FOLDS, BACK AND LEGS SECONDARY TO PSORIASIS RECOMMENDATION: CLEANSE BACK WOUND WITH NS FB XEROFORM GAUZE AND DPD DAILY - CLEANSE BUTTOCKS WOUNDS WITH NS FB HYDROCOLLOID DRSG Q 3 DAYS AND PRN - CLEANSE COCCYX WITH NS FB HYDROCOLLOID DRESSING Q 3 DAYS AND PRN - CONT WITH SIZE ISAACS MATTRESS
--- NOTE | 2016-08-21 16:42 | CT SCAN REPORT ---
EXAMINATION: CT CHEST WITHOUT CONTRAST CLINICAL INFORMATION: Shortness of breath. Chest pain. Hypoxia. Evaluate for pulmonary infiltrate. COMPARISON: CT scan of the chest dated 03/03/2014. Chest x-ray dated 08/19/2016 and 07/20/2016. TECHNIQUE: Multidetector volumetric CT imaging of the chest was obtained noncontrast. Sagittal and coronal reformations were obtained. DLP: 701.32 mGy-cm. FINDINGS: LUNGS: Evaluation is limited by motion artifact. However, no focal consolidation is seen in the right mid lung. There is a small amount of dependent atelectasis seen posteriorly in the right upper lobe adjacent to the fissure. There is mild dependent atelectasis in both lower lobes and some reticular nodular irregular opacity is seen chronically within the inferior aspect of the lingula, unchanged. There is also small amount of pleural-based reticular nodular opacities seen anteriorly within the right lower lobe (series 4, image 284 through 280). A few scattered tiny noncalcified 0.2 cm micronodules are seen in the lungs bilaterally, unchanged. No suspicious pulmonary nodule or mass is seen. No effusion or focal pleural thickening is noted. LYMPHOVASCULAR STRUCTURES: Ascending and descending aorta mildly ectatic but not aneurysmal. Moderate atherosclerotic calcifications of the aorta is seen. Heart size normal. No pericardial effusion. Severe coronary artery calcifications involving all 3 vessels. No mediastinal, hilar or axillary adenopathy or free fluid collection. THYROID GLAND: Unremarkable to the extent included. UPPER ABDOMEN: There may be a small sliding hiatal hernia. Included portions of the solid organs in the upper abdomen within normal limits. BONES: Old healed fracture deformity of the left humeral neck is seen. There is a mild S-shaped thoracic scoliosis with moderate vertebral spondylosis in the lower thoracic spine. IMPRESSION: 1. No focal pneumonia. 2. Small amounts of dependent atelectasis in the right upper lobe and both lower lobes. 3. Chronic area of atelectasis or scarring in the inferomedial lingula. 4. No adenopathy. 5. Ectatic aorta and severe three-vessel coronary artery calcifications.
[2016-08-21 23:18] VITALS: BP 140/70
[2016-08-22 06:27] VITALS: BP 136/80
--- NOTE | 2016-08-22 07:11 | PN- Housestaff ---
KAYLEEN BERNABE MD 08/22/16 0711: Subjective Follow-up For: Pneumonia Subjective: Patient seen and examined. He is seen sitting upright in his bed resting comfortably. He appears to be in no acute distress. He denies any continues chest/abdominal pain or shortness of breath, but does admit to a persistent nonproductive cough. Otherwise he slept well last night and has no complaints. He was encouraged to work with physical therapy today and was agreeable. Additionally he denies any fever, chills, palpitations, nausea, vomiting, diarrhea. No overnight events reported. Review of Systems Constitutional: Reports: see HPI. Objective Last 24 Hrs of Vital Signs/I&O Vital Signs Date Time Temp Pulse Resp B/P Pulse O2 O2 Flow FiO2 Ox Delivery Rate 08/22 626 97.7 85 20 136/80 90 Room Air 08/22 0000 Room Air 08/21 2318 97.7 100 20 140/70 94 Room Air 08/21 2107 98.0 77 20 122/82 08/21 1935 95 Room Air 08/21 1405 98.0 77 20 122/82 95 08/21 1112 94 Room Air Intake & Output 08/22 1600 08/22 0800 08/22 0000 Intake Total 120 240 Output Total Balance 120 240 Intake, IV 120 Intake, Oral 120 120 Number 1 Bowel Movements Physical Exam General Appearance: Alert, Cooperative, No Acute Distress Other Physical Findings: General - well developed, well nourished elderly male in no acute distress HEENT - NCAT, PERRL, EOMI, anicteric sclera, moist mucous membranes Neck - Supple, no JVD CVS - S1, S2 w/o m/g/r, nontender to palpation Resp -diminished airflow in all lung aguilar, no crackles GI - Soft, mild right upper quadrant tenderness, nondistended, bowel sounds present Neuro - Awake and alert, CN II - XII grossly intact Ext - normal distal pulses, no cyanosis/clubbing/edema Current Medications: Current Medications Sig/Emily Start time Last Medication Dose Route Stop Time Status Admin Acetaminophen 325 MG Q6 PRN 08/19 1630 AC 08/21 PO 0523 Acetazolamide 250 MG TuThSa@1000 08/22 1000 AC PO Albuterol Sulfate 3 ML BID 08/19 2200 AC 08/21 INH 1933 Ceftazidime 1,000 MG IQ8 08/20 0000 AC 08/22 IV 0135 Guaifenesin 600 MG Q12 08/21 2200 AC 08/21 PO 2107 Hydrocortisone 1 RAKAN BID 08/19 2200 AC 08/21 EXT 2107 Insulin Aspart 0 TIDAC 08/19 1700 AC 08/21 SC 1706 Lisinopril 2.5 MG DAILY 08/20 1000 AC 08/21 PO 1155 Omeprazole 20 MG DAILY AC 08/21 1015 AC 08/22 PO 0615 Pravastatin Sodium 40 MG 1700 08/19 1700 AC 08/21 PO 1709 Prednisone 40 MG DAILY 08/22 1000 AC 08/21 PO 1303 Prednisone 20 MG DAILY 08/21 1000 DC PO Risperidone 0.25 MG DAILY 08/20 1000 AC 08/21 PO 1154 Rivaroxaban 20 MG DAILY 08/20 1000 AC 08/21 PO 1154 Sertraline HCl 25 MG DAILY 08/20 1000 AC 08/21 PO 1153 Tamsulosin HCl 0.4 MG BID 08/19 2200 AC 08/21 PO 2107 Theophylline 200 MG AT BEDTIME 08/19 2200 AC 08/21 PO 2107 Vancomycin HCl 1,000 MG DAILY@1600 / 1600 AC 08/21 Dextrose/Water 250 ML IV 1712 Assessment/Plan Assessment: Patient underwent a CT scan without contrast of his chest last night to further assess for occult disease. The imaging study did not demonstrate any focal pneumona and commented on only atelectasis and coronary calcifications. He remains afebrile without leukocytosis. Vancomycin/Ceftazidime discontinued today and patient was followed off antibiotics as he has remained afebrile without leukocytosis. He is continued on prednisone. PT assessment determined that patient was an assist of 2 and would benefit from short term rehabiliation. COPD: History of COPD no home O2 and Obesity Hypoventilation Syndrome. Recently discharged from [place] to [facility] on 07/21/16. Strep/Legionella antigen negative. Patient started on Vancomycin/Ceftazidime were were subsequently discontinued and converted to oral augmentin. -Supplemental oxygen, goal >92% -TRC with Albuterol when necessary -Incentive spirometry -Vancomycin/Ceftazidime discontinued -Theophylline 200mg PO QHS -Acetazolamide 250mg PO -Prednisone 40mg PO Daily x 4 days -PT evaluation: Assist of 2, DC to STR -F/U Cultures & Sensitivities, NGTD -Pulm consult History of Atrial Fibrillation: -Xarelto 20mg PO Daily Hyponatremia: -Hold lasix HFpEF: No pulmonary vascular congestion on chest x-ray. -Lasix held NIDDM: -Hold oral hypoglycemics -Accuchecks TIDAC/HS -Novolog SSI Mood Disorder - Risperidone 0.25mg PO Daily Hyperlipidemia - Pravastatin 40mg PO Daily Hypertension - Lisinopril 2.5mg PO Daily BPH - Tamuloson 0.4mg PO Daily Pain Plan: -Acetaminophen 650mg PO Q6H Pain 1-3/Fever Diet - Consistent Carb with 2g Na restriction DVT PPx - ALPS & Anticoagulation Code Status - DNR/DNI Problem List: 1. Respiratory failure Pain Ratin Pain Location: None Pain Goal: Pain 4 or less Pain Plan: As noted in plan Tomorrow's Labs & Rationales: None LEON JETER,JADYN 08/22/16 1425: Attending MD Review Statement Attending Statement Attending MD Statement: examined this patient, discuss w/resident/PA/HUMAN RESOURCES REPRESENTATIVE, agreed w/resident/PA/HUMAN RESOURCES REPRESENTATIVE, reviewed EMR data (avail), discussed with nursing Attending Assessment/Plan: Patient seen and examined. Plan of care discussed with the medical team and the patient. Available lab work and radiology test reports were reviewed. He is on room air. He is awake alert and oriented. He denies any acute respiratory issues or difficulty breathing. He denies any recent fever or chills. He is currently afebrile with stable vital signs. Chest exam shows somewhat decreased air entry with bilateral scattered crackles. Labs were reviewed. CT findings from yesterday were reviewed there is no evidence of pneumonia. Plan dx: COPD Acute Bronchitis * Given the patient is afebrile without any elevated white cell count and currently asymptomatic and not even requiring oxygen and his CT scan does not show any lobar pneumonia I will stop antibiotics and watch patient off antibiotics * Continue supportive treatment with TRC nebulizer treatment * Increase ambulation and begin discharge planning
[2016-08-22 09:20] LABS: ABSOLUTE BASOPHIL COUNT 0 /CUMM (0.0-0.2); ABSOLUTE EOSINOPHIL COUNT 0 /CUMM (0.0-0.7); ABSOLUTE GRANULOCYTE CT 4.1 /CUMM (1.4-6.5); ABSOLUTE LYMPH COUNT 0.8 /CUMM (1.2-3.4); ABSOLUTE MONOCYTE COUNT 0.4 /CUMM (0.10-0.60); BASOPHIL % 0.2 % (0.0-2.0); EOSINOPHIL % 0.1 % (0-5); HEMATOCRIT 34.4 % (42-52); MEAN CORPUSCULAR HGB 27.7 PG (27.0-31.0); MEAN CORPUSCULAR HGB CONC 33.3 G/DL (33.0-37.0); MEAN CORPUSCULAR VOLUME 83.1 FL (80.0-94.0); MEAN PLATELET VOLUME 8.3 FL (7.4-10.4); PLATELET COUNT 226 /CUMM (130-400); RBC DISTRIBUTION WIDTH 14.6 % (11.5-14.5); RED BLOOD CELL CT 4.14 /CUMM (4.70-6.10); WHITE BLOOD CELL COUNT 5.4 /CUMM (4.8-10.8)
--- NOTE | 2016-08-22 12:37 | PN- Pulmonary ---
Subjective HPI/Critical Care Issues: He denies any continues chest/abdominal pain or shortness of breath, but does admit to a persistent nonproductive cough. Otherwise he slept well last night and has no complaints. He was encouraged to work with physical therapy today and was agreeable. Additionally he denies any fever, chills, palpitations, nausea, vomiting, diarrhea. No overnight events reported. Review of Systems Constitutional: Reports: see HPI. Objective Current Medications: Current Medications Sig/Emily Start time Last Medication Dose Route Stop Time Status Admin Acetaminophen 325 MG Q6 PRN 08/19 1630 AC 08/21 PO 0523 Acetazolamide 250 MG TuThSa@1000 08/22 1000 AC 08/22 PO 1128 Albuterol Sulfate 3 ML BID 08/19 220 AC 08/22 INH 1028 Amoxicillin/ 875 MG Q12 08/22 1000 AC 08/22 Clavulanate Potassium PO 1128 Ceftazidime 1,000 MG IQ8 08/20 0000 DC 08/22 IV 0135 Guaifenesin 600 MG Q12 08/21 2200 AC 08/22 PO 1135 Hydrocortisone 1 RAKAN BID 08/19 2200 AC 08/22 EXT 1136 Insulin Aspart 0 TIDAC / 1700 AC 08/21 SC 1706 Lisinopril 2.5 MG DAILY 08/20 1000 AC 08/22 PO 1135 Omeprazole 20 MG DAILY AC 08/21 1015 AC 08/22 PO 0615 Pravastatin Sodium 40 MG 1700 / 1700 AC 08/21 PO 1709 Prednisone 40 MG DAILY 08/22 1000 AC 08/22 PO 1133 Risperidone 0.25 MG DAILY 08/20 1000 AC 08/22 PO 1134 Rivaroxaban 20 MG DAILY 08/20 1000 AC 08/22 PO 1130 Sertraline HCl 25 MG DAILY 08/20 1000 AC 08/22 PO 1130 Tamsulosin HCl 0.4 MG BID 08/19 2200 AC 08/22 PO 1132 Theophylline 200 MG AT BEDTIME 08/19 220 AC 08/21 PO 2107 Vancomycin HCl 1,000 MG DAILY@1600 02/ 1600 DC 08/21 Dextrose/Water 250 ML IV 1712 Vital Signs & I&O Last 24 Hrs of Vitals and I&O: Vital Signs Date Time Temp Pulse Resp B/P Pulse O2 O2 Flow FiO2 Ox Delivery Rate 08/22 1033 92 Room Air Room Air 08/22 0928 Room Air 08/22 06 97.7 85 20 136/80 90 Room Air 08/22 0000 Room Air 08/21 2318 97.7 100 20 140/70 94 Room Air 08/21 2107 98.0 77 20 122/82 / 1935 95 Room Air 08/21 1405 98.0 77 20 122/82 95 Intake & Output 08/22 1600 08/22 0800 08/22 0000 Intake Total 120 240 Output Total 1 Balance -1 120 240 Intake, IV 120 Intake, Oral 120 120 Number 1 Bowel Movements Output, Stool 1 Impression/Plan Impression/Plan Impression/Plan: SIGNIFICANT DATA Chest x-ray showed hazy opacity in the right mid lung consistent with pneumonia Recent CT of the abdomen done that showed distended gallbladder and large prostate BUN/creatinine stable bicarbonate 29 white count 6.3 hemoglobin 12.8 he had 81% granulocytes INR was not done ABG did not reveal hypercarbia much improved than previous ABGs CT CHEST IMPRESSION: 1. No focal pneumonia. 2. Small amounts of dependent atelectasis in the right upper lobe and both lower lobes. 3. Chronic area of atelectasis or scarring in the inferomedial lingula. 4. No adenopathy. 5. Ectatic aorta and severe three-vessel coronary artery calcifications. 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
[2016-08-22 14:35] VITALS: BP 122/72
[2016-08-22] MEDS ORDERED: PREDNISONE20 M1 PO (15:19)
[2016-08-22] MEDS ORDERED: AUGMENTIN 875-1 EACH PO (15:24)
--- NOTE | 2016-08-22 16:23 | Patient Discharge Instructions ---
Discharge Instructions General Discharge Information You were seen/treated for: Acute bronchitis with COPD Generalized weakness You had these procedures: CT chest Special Instructions: Follow-up with your primary care provider and advertising job titles after discharge. Take Augmentin as directed, be sure to finish his medication. Wound care instructions: CLEANSE BACK WOUND WITH NS FB XEROFORM GAUZE AND DPD DAILY - CLEANSE BUTTOCKS WOUNDS WITH NS FB HYDROCOLLOID DRSG Q 3 DAYS AND PRN - CLEANSE COCCYX WITH NS FB HYDROCOLLOID DRESSING Q 3 DAYS AND PRN - CONT WITH SIZE ISAACS MATTRESS Diet Continue normal diet: Yes Recommended Diet: Diabetic, Heart Healthy Activity Full Activity/No Limits: Yes Activity Self Limited: No Additional ACTIVITY Info: Increase as tolerated Acute Coronary Syndrome Inclusion Criteria At DC or during hospital stay patient has or had the following: ACS DIAGNOSIS No Discharge Core Measures Meds if any: Prescribed or Continued at Discharge Meds if any: NOT Prescribed or Continued at Discharge Congestive Heart Failure Inclusion Criteria At DC or during hospital stay patient has or had the following: CHF DIAGNOSIS Yes Discharge Core Measures Meds if any: Prescribed or Continued at Discharge CATHERINE/ARB for EF <40% Yes Meds if any: NOT Prescribed or Continued at Discharge Cerebrovascular accident Inclusion Criteria At DC or during hospital stay patient has or had the following: CVA/TIA Diagnosis No Discharge Core Measures Meds if any: Prescribed or Continued at Discharge Meds if any: NOT Prescribed or Continued at Discharge Venous thromboembolism Inclusion Criteria VTE Diagnosis No VTE Type NONE VTE Confirmed by (Test) NONE Discharge Core Measures - Per Current guidelines, there needs to be overlap - treatment for the first 5 days of Warfarin therapy. - If discharged on Warfarin prior to 5 days of - overlap therapy, the patient will need to be - assessed for post discharge needs including - *Post discharge parental anticoagulation - *Warfarin and/or parental anticoagulation education - *Follow up date to check INR post discharge At least 5 days overlap therapy as Inpatient No Meds if any: Prescribed or Continued at Discharge Note: Overlap Therapy is Warfarin and Anticoagulant Meds if any: NOT Prescribed or Continued at Discharge
[2016-08-22 23:00] VITALS: BP 142/90
--- NOTE | 2016-08-23 07:12 | PN- Housestaff ---
KAYLEEN BERNABE MD 08/23/16 0711: Subjective Follow-up For: Acute bronchitis Subjective: Patient seen and examined. He is seen lying flat in bed resting comfortably. He appears to be in no acute distress. At his bedside is his son whom is up-to- date about his father's clinical condition has no further questions at this time. He continues to report persistent chest pain that radiates down to his belly, collateral information obtained from his son confirms that he has had this pain at home and sometimes uses this as an excuse to not participate in an activity. Patient also admits to a persistent nonproductive cough. Otherwise he feels fine and is agreeable to discharge to [facility] today. Additionally he denies any headache, fever, chills, palpitations, worsening shortness of breath, nausea, vomiting, diarrhea. No overnight events reported. Review of Systems Constitutional: Reports: see HPI. Objective Last 24 Hrs of Vital Signs/I&O Vital Signs Date Time Temp Pulse Resp B/P Pulse O2 O2 Flow FiO2 Ox Delivery Rate 08/23 0921 94 Room Air Room Air 08/23 0738 97.9 72 22 140/80 92 Room Air 08/22 2300 97.9 88 18 142/90 93 Room Air 08/22 2108 144/90 08/22 1850 94 Room Air Room Air 08/22 1435 98.2 68 20 122/72 93 08/22 1033 92 Room Air Room Air Intake & Output 08/23 1600 08/23 0800 08/23 0000 Intake Total 300 300 Output Total Balance 300 300 Intake, Oral 300 300 Physical Exam General Appearance: Alert, Oriented X3, Cooperative, No Acute Distress Other Physical Findings: General - well developed, well nourished elderly male in no acute distress HEENT - NCAT, PERRL, EOMI, anicteric sclera, moist mucous membranes Neck - Supple, no JVD CVS - S1, S2 w/o m/g/r, nontender to palpation Resp -diminished airflow in all lung aguilar, no crackles GI - Soft, nontender, nondistended, bowel sounds present Neuro - Awake and alert, CN II - XII grossly intact Ext - normal distal pulses, no cyanosis/clubbing/edema Current Medications: Current Medications Sig/Emily Start time Last Medication Dose Route Stop Time Status Admin Acetaminophen 325 MG Q6 PRN 08/19 1630 AC 08/21 PO 0523 Acetazolamide 250 MG TuThSa@1000 08/22 1000 AC 08/22 PO 1128 Albuterol Sulfate 3 ML BID 08/19 2200 AC 08/23 INH 0917 Amoxicillin/ 875 MG Q12 08/22 2200 CAN Clavulanate Potassium PO Amoxicillin/ 875 MG Q12 08/22 1000 DC / Clavulanate Potassium PO 1128 Calcium Carbonate 500 MG DAILY 08/23 1000 AC PO Furosemide 20 MG BID 08/22 2200 AC 08/22 PO 2104 Guaifenesin 600 MG Q12 08/21 2200 AC 08/22 PO 2104 Guaifenesin/Codeine 10 ML Q6P PRN 08/23 0800 AC Phosphate PO Hydrocortisone 1 RAKAN BID 08/19 2200 AC 08/22 EXT 2104 Insulin Aspart 0 TIDAC 08/19 1700 AC 08/22 SC 1745 Lisinopril 2.5 MG DAILY 08/20 1000 AC 08/22 PO 1135 Omeprazole 20 MG DAILY AC 08/21 1015 AC 08/23 PO 0550 Pravastatin Sodium 40 MG 1700 08/19 1700 AC 08/22 PO 1744 Prednisone 40 MG DAILY 08/22 1000 AC 08/22 PO 1133 Risperidone 0.25 MG DAILY 08/20 1000 AC 08/22 PO 1134 Rivaroxaban 20 MG DAILY 08/20 1000 AC 08/22 PO 1130 Sertraline HCl 25 MG DAILY 08/20 1000 AC 08/22 PO 1130 Tamsulosin HCl 0.4 MG BID 08/19 2200 AC 08/22 PO 2108 Theophylline 200 MG AT BEDTIME 08/19 2200 AC 08/22 PO 2104 Assessment/Plan Assessment: Patient is doing well and has clinically improving acute bronchitis. Patient is to be discharged to [facility]. He is to finish his antibiotic course with oral Augmentin to complete a 7 day total course. COPD: History of COPD no home O2 and Obesity Hypoventilation Syndrome. Recently discharged from [place] to [facility] on 07/21/16. Strep/Legionella antigen negative. Patient started on Vancomycin/Ceftazidime were were subsequently discontinued and converted to oral augmentin. -Supplemental oxygen, goal >92% -TRC with Albuterol when necessary -Incentive spirometry -Augmentin 875 mg by mouth twice a day, 7 day total course of antibiotics -Theophylline 200mg PO QHS -Acetazolamide 250mg PO -Prednisone 40mg PO Daily x 4 days -PT evaluation: Assist of 2, DC to STR -F/U Cultures & Sensitivities, NGTD -Pulm consult History of Atrial Fibrillation: -Xarelto 20mg PO Daily Hyponatremia: -Hold lasix HFpEF: No pulmonary vascular congestion on chest x-ray. -Lasix held NIDDM: -Hold oral hypoglycemics -Accuchecks TIDAC/HS -Novolog SSI Mood Disorder - Risperidone 0.25mg PO Daily Hyperlipidemia - Pravastatin 40mg PO Daily Hypertension - Lisinopril 2.5mg PO Daily BPH - Tamuloson 0.4mg PO Daily Pain Plan: -Acetaminophen 650mg PO Q6H Pain 1-3/Fever Diet - Consistent Carb with 2g Na restriction DVT PPx - ALPS & Anticoagulation Code Status - DNR/DNI Problem List: 1. COPD (chronic obstructive pulmonary disease) Pain Ratin Pain Location: None Pain Goal: Remain pain free Pain Plan: As noted in plan Tomorrow's Labs & Rationales: None ROSLYN ESCALANTE MD 08/23/16 1241: Attending MD Review Statement Attending Statement Attending MD Statement: examined this patient, discuss w/resident/PA/METALIZING MACHINE OPERATOR, agreed w/resident/PA/METALIZING MACHINE OPERATOR, reviewed EMR data (avail), discussed with nursing, discussed with case mgmt, reviewed images, amended to note Attending Assessment/Plan: Patient seen and examined, overall improved. CT chest does not show any evidence of pneumonia but gameroom technician thinks that patient has acute bronchitis therefore recommended a total of seven-day course of antibiotics. Antibiotics have been switched to oral. Patient remained afebrile with white count normal. Otherwise he is doing much better overall. He was seen by physical therapy and they recommended rehabilitation. He had complained of recurrent chest pain but every time her EKG was negative and upon questioning the family further we found that patient has a tendency to do that to been some attention. Patient is medically stable for discharge to rehabilitation today. We have added Prilosec to the regimen.
[2016-08-23 07:38] VITALS: BP 140/80
--- NOTE | 2016-08-23 08:17 | Discharge Summary ---
See Addendum Visit Information Visit Dates Admission Date: 08/19/16 Discharge Date: 08/23/16 Hospital Course Course Attending Physician: ROSLYN ESCALANTE MD Primary Care Physician: LEONARDO JETER,RONI Cruz Consulting Request: Consulting Specialty: Pulmonary Disease Consulting Physician: Dr. Barkley Reason for Consult: Pneumonia Hospital Course: 89 yo gentleman with pmh of COPD not on home oxygen, vascular dementia, HTN, HLD , DM, abdominal aortic aneurysm, HFpEF (>60%), gout, chronic anemia, BPH, obesity hypoventilation syndrome, and atrial fibrillation on Xarelto was brought from home by EMS due to weakness and inability to ambulate. He was recently admitted in [facility] for acute on chronic respiratory failure secondary to pulmonary edema/acute diastolic HF and Proteus mirabilis UTI then discharged to [facility] on 07/21/2016. He came home from [facility] on 08/15/16. Patient's son stated that since discharge, he has been doing poorly with increased fatigue and lethargy. He hasn't been able to ambulate with his walker. He has been coughing occasionally without significant sputum production. He denied any fever/chills, nausea/vomiting, abdominal discomfort, chest pain, palpitations, urinary or bowel symptoms. His functional status is below his baseline and that was concerning to his family. His assistant director of nursing found him to be very drowsy and lethargic on day of admission and recommended to bring him to the hospital for evaluation. Initial V/S: 98F, pulse 96, respirations 16, blood pressure 117/64, saturating 96% on room air. On exam: General Appearance Alert, Moderate Distress, oriented X 2, Skin skin tear seen in the back, dressings intact, patchy areas of redness seen on the left back, HEENT Atraumatic, PERRLA, EOMI, Neck Supple, No JVD, Lymphatic Cervical nl, Cardiovascular irregularly irregular heart rate, Normal S1, Normal S2, Lungs bilateral ronchi, Abdomen Normal Bowel Sounds, Soft, No Tenderness Neurological Normal Speech, Normal Tone, Extremities No Clubbing, No Cyanosis, 1 + edema right lower extremity, trace edema left lower extremity, Vascular Pulses Symmetrical Labs 6.3, Hb&Hct 12.8/38.6, sodium 136, potassium 3.2, bicarbonate 34, proBNP 1070. ABG pH7.41, pCO2 40 pO2 74 HCO3 25 O2 92% on RA Chest x-ray: New hazy opacity in the right midlung is most consistent with acute pneumonia. 1. Acute bronchitis: Initially patient was treated with IV vancomycin / ceftazidime for probable health-care associated PNA. Pulmonary consult was obtained from Dr. Barkley. As patient remained afebrile without leukocytosis, CT chest was obtained which showed no focal pneumonia with small amounts of dependent atelectasis. It was recommended to treat with po augementin for bronichitis with underlying COPD/chronic respiratory failure. He will be discharged with po augmentin. 2. COPD/chronic respiratory failure: We continued TRC/nebs with oxygen support to keep O2 > 92%. PO prednisone 40mg daily was given and he'll be discharge with po prednisone. Please follow up with Dr. Barkley for further management. 3. HTN/A.fib on xarelto: We continued xarelto 20mg daily and lisinopril 2.5mg daily 4. HFpEF: Last echo EF > 60% with RVSP 47mmHg. As patient had hyponatremia, po lasix was held initially. PO lasix 20mg bid was resumed and we continued diamox 250mg and lisinopril. 5. DM: patient had Accuchecks TIDAC/HS with diabetic/heart healthy diet, novolog s/s was given during hospitalization. 6. HLD: We continued pravastatin 40mg daily 7. BPH: We continued tamsulosin 0.4mg daily 8. Generalized weakness: Patient continue physical therapy. STR was recommended. DVT ppx: po xarelto, DNR/I. Allergies: Coded Allergies: NO KNOWN ALLERGIES (07/15/16) Disposition Summary Disposition Principal Diagnosis: Acute bronchitis with COPD Generalized weakness Additional Diagnosis: HTN HLD A.fib on xarelto HFpEF DM BPH Discharge Disposition: SNF Discharge Instructions General Discharge Information Code Status: Do Not Resucitate/Intubat Patient's Diet: Diabetic /heart-healthy diet Patient's Activity: Increase as tolerated Follow-Up Instructions/Appts: Please follow up with a primary care physician in 1 week Please follow up with Dr. Barkley for chronic respiratory failure/COPD Please follow up with postal delivery officer for A.fib/CHF. Medications at Discharge Discharge Medications: Continue taking these medications: SERTRALINE HCL (Sertraline Hydrochloride) 25 MG TABLET 1 Tablet ORAL DAILY Qty = 30 Comments: Last Taken:not taken while in hospital Time: TAMSULOSIN HCL (Tamsulosin Hydrochloride) 0.4 MG CAP.ER.24H 1 Capsule ORAL TWICE DAILY Qty = 30 Comments: Last Taken:09/10/15 Time:1100 Rivaroxaban (Xarelto) 20 MG TABLET 1 Tablet ORAL DAILY Qty = 30 Instructions: with food Comments: Last Taken:09/10/14 Time:1137 Metformin Hydrochloride (Glucophage) 1,000 MG TAB 1 Tablet ORAL DAILY Comments: Last Taken:not take in hospital Time: Pravastatin Sodium (Pravastatin Sodium) 40 MG TABLET 1 Tablet ORAL DAILY Qty = 30 Comments: Last Taken:not taken in hospital Time: Lisinopril (Lisinopril) 2.5 MG TABLET 1 Tablet ORAL DAILY Comments: Last Taken:09/09/15 Time:1520 Hydrocortisone (Cortaid Lotion 1 Oz) 1 OZ LOT 1 Application ON SKIN TWICE DAILY Days = 30 Comments: Last Taken:09/10/15 Time:1100 Risperidone (Risperdal) 0.25 MG TABLET 1 Tablet ORAL DAILY Qty = 30 Theophylline Anhydrous (Theophylline Anhydrous) 200 MG TAB.ER.12H 1 Tablet ORAL AT BEDTIME Qty = 30 Acetazolamide (Acetazolamide) 250 MG TABLET 1 Tablet ORAL SEE INSTRUCTIONS Qty = 60 Instructions: Take on: Sunday, Sunday, . Do not take your Lasix on these days. Comments: IV GIVEN 07/21/16 @ 2100 Furosemide (Furosemide) 20 MG TABLET 1 Tablet ORAL TWICE DAILY Qty = 60 Start taking the following new medications: Prednisone (Prednisone) 20 MG TABLET 40 Milligram ORAL DAILY Qty = 3 No Refills Amoxicillin/Potassium Clav (Augmentin 875-125 Tablet) 875 MG-125 MG TABLET 1 Tablet ORAL TWICE DAILY Qty = 6 No Refills Copies To: AVA JETER,ROSLYN; SIERRA JETER,MONA Martínez; LEONARDO JETER,RONI Cruz
--- NOTE | 2016-08-23 09:57 | PN- Pulmonary ---
Subjective HPI/Critical Care Issues: Appears comfortable afebrile stable Sleeping when i saw him Objective Current Medications: Current Medications Sig/Emily Start time Last Medication Dose Route Stop Time Status Admin Acetaminophen 325 MG Q6 PRN 08/19 1630 AC 08/21 PO 0523 Acetazolamide 250 MG TuThSa@1000 / 1000 AC 08/22 PO 1128 Albuterol Sulfate 3 ML BID 08/19 2200 AC 08/23 INH 0917 Amoxicillin/ 875 MG Q12 08/22 2200 CAN Clavulanate Potassium PO Amoxicillin/ 875 MG Q12 08/22 1000 DC /07 Clavulanate Potassium PO 1128 Calcium Carbonate 500 MG DAILY 08/23 1000 AC PO Furosemide 20 MG BID 08/22 2200 AC 08/22 PO 2104 Guaifenesin 600 MG Q12 08/21 2200 AC 08/22 PO 2104 Guaifenesin/Codeine 10 ML Q6P PRN 08/23 0800 AC Phosphate PO Hydrocortisone 1 RAKAN BID 08/19 2200 AC 08/22 EXT 2104 Insulin Aspart 0 TIDAC 08/19 1700 AC 08/22 SC 1745 Lisinopril 2.5 MG DAILY 08/20 1000 AC 08/22 PO 1135 Omeprazole 20 MG DAILY AC 08/21 1015 AC 08/23 PO 0550 Pravastatin Sodium 40 MG 1700 08/19 1700 AC 08/22 PO 1744 Prednisone 40 MG DAILY 08/22 1000 AC 08/22 PO 1133 Risperidone 0.25 MG DAILY 08/20 1000 AC 08/22 PO 1134 Rivaroxaban 20 MG DAILY 08/20 1000 AC 08/22 PO 1130 Sertraline HCl 25 MG DAILY 08/20 1000 AC 08/22 PO 1130 Tamsulosin HCl 0.4 MG BID 08/19 2200 AC 08/22 PO 2108 Theophylline 200 MG AT BEDTIME 08/19 2200 AC 08/22 PO 2104 Vital Signs & I&O Last 24 Hrs of Vitals and I&O: Vital Signs Date Time Temp Pulse Resp B/P Pulse O2 O2 Flow FiO2 Ox Delivery Rate 08/23 0921 94 Room Air Room Air 08/23 737 97.9 72 22 140/80 92 Room Air 08/22 2300 97.9 88 18 142/90 93 Room Air 08/22 2108 144/90 08/22 1850 94 Room Air Room Air 08/22 1435 98.2 68 20 122/72 93 08/22 1033 92 Room Air Room Air Intake & Output 08/23 1600 08/23 0800 08/23 0000 Intake Total 300 300 Output Total Balance 300 300 Intake, Oral 300 300 Impression/Plan Impression/Plan Impression/Plan: SIGNIFICANT DATA Chest x-ray showed hazy opacity in the right mid lung consistent with pneumonia Recent CT of the abdomen done that showed distended gallbladder and large prostate BUN/creatinine stable bicarbonate 29 white count 6.3 hemoglobin 12.8 he had 81% granulocytes INR was not done ABG did not reveal hypercarbia much improved than previous ABGs CT CHEST IMPRESSION: 1. No focal pneumonia. 2. Small amounts of dependent atelectasis in the right upper lobe and both lower lobes. 3. Chronic area of atelectasis or scarring in the inferomedial lingula. 4. No adenopathy. 5. Ectatic aorta and severe three-vessel coronary artery calcifications. 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
[2016-08-23 11:46] VITALS: BP 140/80
[2016-08-23] MEDS ORDERED: OMEPRAZOLE20 M2 PO (11:46)
== END 2016-08-23 13:31 | DRG 191 ==
LOC: ENRESERVDT → ENRESERVTM → ERH 12:13 → ENPENDDIS 14:18 → 2NA 14:18 → ERHI 14:18 → 2NA 17:42
PROVIDERS: Internal Medicine Interventional Cardiology; Physician Assistant Medical; ADMIT Hospitalist
DX: J44.0 Chronic obstructive pulmonary disease with (acute) lower respiratory infection (principal); E66.2 Morbid (severe) obesity with alveolar hypoventilation; J96.12 Chronic respiratory failure with hypercapnia; I27.2 Other secondary pulmonary hypertension; E87.1 Hypo-osmolality and hyponatremia; I11.0 Hypertensive heart disease with heart failure; I50.32 Chronic diastolic (congestive) heart failure; J20.9 Acute bronchitis, unspecified; N40.0 Benign prostatic hyperplasia without lower urinary tract symptoms; Z79.01 Long term (current) use of anticoagulants; Z68.28 Body mass index [BMI] 28.0-28.9, adult; E78.5 Hyperlipidemia, unspecified; F41.9 Anxiety disorder, unspecified; I48.0 Paroxysmal atrial fibrillation; L40.9 Psoriasis, unspecified; Z87.891 Personal history of nicotine dependence; F01.50 Vascular dementia, unspecified severity, without behavioral disturbance, psychotic disturbance, mood disturbance, and anxiety; E11.9 Type 2 diabetes mellitus without complications; Z79.84 Long term (current) use of oral hypoglycemic drugs
CPT/HCPCS: 2NAP; 84133; 84300; 82436; 82570; 87040; 87070; 87086; 87449; 87450; 87804; 87804-59; 93005; 93010; 97110-GO; 97161-GP; 97530-GO; J0456; J0713; J2920; J3370; J3490; J7060

== ENCOUNTER 2016-09-06 14:32 | Inpatient (IN) | payer OTHER, MEDICARE ==
[~2016-09-06] VITALS: Ht 175.3 cm; Wt 92.6 kg
[~2016-09-06 14:32] MED LIST changes: +FUROSEMIDE20 M1 PO; +OMEPRAZOLE20 M2 PO; +PREDNISONE20 M1 PO
[2016-09-06] MEDS ORDERED: TRAZODONE HCL50 M1 PO (14:35)
[2016-09-06] MEDS ORDERED: CEFTRIAXONE1 G1 IM (14:37)
[2016-09-06] MEDS ORDERED: PREDNISONE20 M1 PO (14:40)
[2016-09-06] MEDS ORDERED: VITAMIN D250000 UNIT PO (14:43)
[2016-09-06] MEDS ORDERED: CORTAID42 GM TOP (14:45)
[2016-09-06] MEDS ORDERED: TAMSULOSIN HCL0.4 M1 PO (14:47)
--- NOTE | 2016-09-06 14:58 | ED GI/GU/ABDOMINAL COMPLAINT ---
History of Present Illness General Chief Complaint: General Adult Stated Complaint: HEMATURIA UNABLE TO URINATE Source: patient Exam Limitations: dementia Vital Signs & Intake/Output Vital Signs & Intake/Output Vital Signs Date Time Temp Pulse Resp B/P Pulse O2 O2 Flow FiO2 Ox Delivery Rate 09/06 2105 97 Nasal 2.0L Cannula 09/06 2011 98.6 110 28 75/50 95 Nasal 2.0L Cannula 09/06 1849 99.6 109 24 75/54 96 Nasal 2.0L Cannula 09/06 1738 105 24 84/42 97 Nasal 2.0L Cannula 09/06 1654 95 30 82/40 97 Nasal 2.0L Cannula 09/06 1610 102.3 09/06 1608 Nasal Cannula 09/06 1608 99.6 107 36 84/40 95 Nasal Cannula 09/06 1436 102.3 115 26 101/63 94 Nasal 2.0L Cannula Allergies Coded Allergies: NO KNOWN ALLERGIES (07/15/16) Triage Nurses Notes Reviewed? yes Onset: Abrupt Duration: unknown duration Timing: recent history No Modifying Factors: none HPI: 82-year-old male with a history of dementia sent into [facility] for evaluation of altered mental status and inability to urinate and high fever. They cannot get a catheter in her at the [facility]. Patient has a fever upon arrival and is pleasantly demented and not able to answer any questions. He denies any pain or any symptoms at all. (VALERIE DICKERSON,JALEEL) Reconcile Medications Acetazolamide 250 MG TABLET 1 TAB PO SEE ADMIN CRITERIA respiratory failure Take on: Sunday, Sunday, . Do not take your Lasix on these days. Ceftriaxone Sodium (Ceftriaxone) 1 GRAM VIAL 1 IM 1300 UTI (Reported) FIRST DOSE 09/06 LAST DATE 09/10 Ergocalciferol (Vitamin D2) (Vitamin D2) 50,000 UNIT CAPSULE 1 CAP PO Q30D SUPPLEMENT (Reported) Furosemide 20 MG TABLET 1 TAB PO BID WATER PILL (Reported) Reason to Stop at ADM: HYPOTENSIVE Hydrocortisone (Cortaid) 1 % CREAM..G. 1 RAKAN TOP BID UNKNOWN (Reported) Lisinopril 2.5 MG TABLET 1 TAB PO DAILY HEART (Reported) Metformin HCl (Metformin HCl ER) 1,000 MG TAB.ER.24 1 TAB PO DAILY DM ( Reported) Reason to Stop at ADM: ISS Omeprazole 20 MG CAPSULE.DR 20 MG PO DAILY AC GERD Pravastatin Sodium (Pravachol) 40 MG TABLET 1 TAB PO 1700 CHOLESTEROL ( Reported) Prednisone 20 MG TABLET 1 TAB PO DAILY STEROID (Reported) 20MG 09/05-09/07 10MG 09/08-09/10 5MG 09/11 Risperidone (Risperdal) 0.25 MG TABLET 1 TAB PO DAILY AGITATION (Reported) Rivaroxaban (Xarelto) 20 MG TABLET 1 TAB PO 1700 BLOOD THINNER (Reported) with food Sertraline HCl (Zoloft) 25 MG TABLET 1 TAB PO DAILY MENTAL HEALTH (Reported) Tamsulosin HCl 0.4 MG CAP.ER.24H 1 CAP PO BID PROSTATE (Reported) Reason to Stop at ADM: HYPOTENSIVE Theophylline Anhydrous 200 MG TAB.ER.12H 1 TAB PO AT BEDTIME COPD Trazodone HCl 50 MG TABLET 1 TAB PO DAILY SLEEP (Reported) Reason to Stop at ADM: WILL HOLF FOR NOW, PATIENT SEPTIC AND MAY GET ALTERED (LELA JETER,RONI Weller) Past History Travel History Traveled to [place] past 21 day No Medical History Any Pertinent Medical History? see below for history Neurological: dementia EENT: NONE Cardiovascular: aortic aneurysm, AFIB, CHF, hypertension, hyperlipidemia Respiratory: COPD Gastrointestinal: NONE Hepatic: NONE Renal: benign prost hyperplasia Musculoskeletal: chronic back pain, degen joint disease, fracture, gout, RIB FX left shoulder fracture Psychiatric: anxiety Endocrine: diabetes Blood Disorders: NONE Cancer(s): NONE MINE INSPECTOR/Reproductive: NONE Other Medical Hx: Psoriasis History of MRSA: No History of VRE: No History of CDIFF: No Influenza Vaccine: 03/16/16 Surgical History Surgical History: appendectomy Psychosocial History Who do you live with Son Services at Home None What is your primary language Ugandan Tobacco Use: Never used Family History Family History, If Any: FATHER (Heart disease in father). . MOTHER (Unknown cancer). . Hx Contributory? No (JALEEL STREETER) Review of Systems Review of Systems Constitutional: Reports: see HPI. EENTM: Reports: no symptoms. Respiratory: Reports: no symptoms. Cardiovascular: Reports: no symptoms. GI: Reports: no symptoms. Genitourinary: Reports: see HPI. Musculoskeletal: Reports: no symptoms. Skin: Reports: no symptoms. Neurological/Psychological: Reports: no symptoms. Hematologic/Endocrine: Reports: no symptoms. Immunologic/Allergic: Reports: no symptoms. All Other Systems: Reviewed and Negative (JALEEL STREETER) Physical Exam Physical Exam General Appearance: alert, awake, mild distress Head: atraumatic, normal appearance Eyes: Bilateral: normal appearance. Ears, Nose, Throat, Mouth: hearing grossly normal, moist mucous membrane Neck: normal inspection Respiratory: normal breath sounds, no respiratory distress Cardiovascular: regular rate/rhythm Gastrointestinal: soft, non-tender Back: normal inspection Extremities: normal range of motion Neurologic/Psych: awake, alert, disoriented x 3 Skin: intact, normal color Core Measures ACS in differential dx? No Severe Sepsis Present: Yes BC x2: Yes Lactic Acid x2: Yes IV ABX Broad Spectrum: Yes NS/LR Started: Yes Septic Shock Present: Yes BC x2: Yes Lactic Acid: Yes IV ABX Broad Spectrum: Yes Focused Exam Completed: Yes NS/LR 30ml/kg w/in 3hrs: Yes IV Vasopressors started: No (family declined) (JALEEL STREETER) ED Sepsis Exam Date of Focused Sepsis Exam: 09/06/16 Time of Focused Sepsis Exam: 1800 Sepsis Cardiac Exam: Tachycardia Sepsis Resp Exam: decreased Sepsis Cap Refill Exam: <2 Sec Sepsis Peripheral Pulse Exam: Normal Sepsis Peripheral Pulse Location: Radial Sepsis Skin Color Exam: Flushed Skin Temp/Moisture Exam: Cool/Diaphoretic (JALEEL STREETER) Progress Differential Diagnosis: appendicitis, biliary colic, bowel obstruction, cholecystitis, diverticulitis, epididymitis, pancreatitis, prostatitis, peptic ulcer, PUD/GERD, SBO, UTI/pyelo, sepsis Plan of Care: Orders Procedure Date/time Status Nothing by Mouth 09/07 B Active ICU LAB BUNDLE 09/07 0500 Active CORTISOL AM 09/07 0500 Active CBC WITHOUT DIFFERENTIAL 09/07 0500 Active LACTIC ACID 09/07 0005 Active LACTIC ACID 09/06 2130 Active Skin/Pressure Ulcer Assess (Sk 09/06 2102 Active Lab Add-on Test 09/06 2049 Active LACTIC ACID 09/06 204 Active Pathway - chart 09/06 181 Active Code Status 09/06 181 Active LACTIC ACID 09/06 1757 Complete Patient Data 09/06 1720 Active Admit to inpatient 09/06 1648 Active C.DIFFICILE 09/06 1615 Active RAPID VIRAL INFLUENZA A 09/06 1532 Complete CORTISOL PM 09/06 1520 Active Ngo, Insertion/Removal/Asses 09/06 145 Active CULTURE,URINE 09/06 145 Active BLOOD CULTURE 09/06 145 Active TROPONIN LEVEL 09/06 145 Active LACTIC ACID 09/06 145 Active COMPREHENSIVE METABOLIC PANEL 09/06 145 Active CBC WITHOUT DIFFERENTIAL 09/06 145 Complete EKG 09/06 145 Active CULTURE,URINE 09/06 145 Active URINALYSIS 09/06 145 Complete House Staff 09/06 UNK Active Vital Signs 09/06 UNK Active Intake & Output 09/06 UNK Active Current Medications Sig/Emily Start time Last Medication Dose Stop Time Status Admin Vancomycin HCl 1,000 MG DAILY 09/07 1000 AC Dextrose/Water 250 ML (D5W) Ceftazidime 1,000 MG Q12 09/06 2200 AC (Fortaz) Theophylline 200 MG AT BEDTIME 09/06 2200 AC (Theophylline 200MG ER Tab) Ergocalciferol 50,000 IU Q30D 09/06 1845 UNVr (Drisdol) Acetaminophen 650 MG Q6P PRN 09/06 1830 AC (Tylenol) Laboratory Tests 09/06/16 2055: Lactic Acid Pending 09/06/16 1840: Lactic Acid 3.5 H 09/06/16 1520: Anion Gap 13, Estimated GFR > 60, BUN/Creatinine Ratio 24.5, Glucose 209 H, Lactic Acid 6.2 H, Calcium 8.2 L, Total Bilirubin 0.7, AST 41, ALT 36, Alkaline Phosphatase 98, Troponin I 0.03, Total Protein 6.0 L, Albumin 3.4 L, Globulin 2.6, Albumin/Globulin Ratio 1.3, Cortisol PM Sample Pending, CBC w Diff MAN DIFF ORDERED, RBC 4.64 L, MCV 82.7, MCH 27.3, RDW 16.2 H, MPV 8.4, Gran % 98.3 H, Lymphocytes % 1.2 L, Monocytes % 0.5 L, Eosinophils % 0, Basophils % 0 L, Absolute Granulocytes 19.8 H, Segmented Neutrophils 88 H, Band Neutrophils 9 H, Absolute Lymphocytes 0.3 L, Lymphocytes 2 L, Monocytes 1 L, Absolute Monocytes 0.1 L, Absolute Eosinophils 0, Absolute Basophils 0, Platelet Estimate ADEQUATE, Normochromic RBCs VERIFIED, Anisocytosis 1+, PUBS MCHC 33.0 09/06/16 1455: Urine Color BLDY H, Urine Clarity HAZY H, Urine pH 6.0, Ur Specific [place] 1.015, Urine Protein 30 H, Urine Ketones NEG, Urine Nitrite NEG, Urine Bilirubin NEG, Urine Urobilinogen 0.2, Ur Leukocyte Esterase LARGE H, Ur Microscopic SEDIMENT EXAMINED, Urine RBC 25-50 H, Urine WBC 10-15 H, Urine Hemoglobin LARGE H, Urine Glucose NEG 09/06/16 1000: Sodium Cancelled, Potassium Cancelled, Chloride Cancelled, Carbon Dioxide Cancelled, Anion Gap Cancelled, BUN Cancelled, Creatinine Cancelled, Glucose Cancelled, Calcium Cancelled, Phosphorus Cancelled, Magnesium Cancelled, Total Bilirubin Cancelled, AST Cancelled, ALT Cancelled, Albumin Cancelled Microbiology 09/06 1616 NASOPHARYN: Influenza Virus A & B Rapid Smear - COMP 09/06 1615 STOOL: Clostridium difficile Toxin A & B - ORD 09/06 1525 BLOOD: Blood Culture - RECD 09/06 1520 BLOOD: Blood Culture - RECD 09/06 1457 URINE ROUT: Urine Culture - ORD 09/06 1455 URINE ROUT: Urine Culture - RECD Diagnostic Imaging: Viewed by Me: Radiology Read. Discussed w/RAD: Radiology Read. Radiology Impression: SERVICE DATE: 09/06/16-1501 EXAM TYPE: RAD - XRY- PORTABLE CHEST XRAY EXAMINATION: XR PORTABLE CHEST CLINICAL INFORMATION: Acute mental status changes. Fever. COMPARISON: Several prior chest x-rays, most recent of which is dated 08/19/2016. CT scan of the chest dated 08/21/2016. TECHNIQUE: Portable AP semierect view of the chest was obtained. FINDINGS: The cardiomediastinal silhouette is within normal limits in size. Prominent ectasia of the aorta is again seen is accentuated by patient rotation. Lungs bilaterally are symmetrically expanded without focal consolidation, evidence of edema or pleural effusion. No pneumothorax is seen. Chronic fracture deformity of the left humeral neck is seen, unchanged. IMPRESSION: 1. No evidence of focal pneumonia. 2. Ectatic aorta, unchanged. Initial ED EKG: rate (140), AFIB Comments: 09/06/2016 4:29:41 PM Case was discussed with the patient's son. He is a DNR/DNI. He does not want the patient to get a central line if needed. Patient [facility] be [facility]. (JALEEL STREETER) Departure Departure Disposition: STILL A PATIENT Condition: Stable Clinical Impression Primary Impression: Sepsis Secondary Impressions: UTI (urinary tract infection) Referrals: LEONARDO JETER,RONI Cruz Departure Forms: Customer Survey General Discharge Information (JALEEL STREETER) Departure Prescriptions: Current Visit Scripts Theophylline Anhydrous 1 TAB PO AT BEDTIME #30 TAB Admission Note Spoke With: LEON JETER,JADYN Documentation of Exam: Documentation of any treatments & extenuating circumstances including Concerns Regarding Discharge (functional status, medication knowledge or non-compliance, living conditions, etc.) that warrant an admission rather than observation: [ AGREESIVE HYDRATION, BROAD SPETCUM ABX, patient remained hypotensive and really prior ICU level of monitoring. Patient's son does not want a central line at this time but does want him to still be treated. Patient is DNR/DNI. ] PA/ANDROID PROGRAMMER Co-Sign Statement Statement: ED Attending supervision documentation- [X] I saw and evaluated the patient. I have also reviewed all the pertinent lab results and diagnostic results. I agree with the findings and the plan of care as documented in the PA's/ANDROID PROGRAMMER's documentation. [X] I have reviewed the ED Record and agree with the PA's/ANDROID PROGRAMMER's documentation. [] Additions or exceptions (if any) to the PAs/ANDROID PROGRAMMER's note and plan are summarized below: [] (LELA JETER,RONI Weller) Critical Care Note Critical Care Note Critical Care Time: 30-74 min (JLAEEL STREETER)
--- NOTE | 2016-09-06 15:23 | RADIOLOGY REPORT ---
EXAMINATION: XR PORTABLE CHEST CLINICAL INFORMATION: Acute mental status changes. Fever. COMPARISON: Several prior chest x-rays, most recent of which is dated 08/19/2016. CT scan of the chest dated 08/21/2016. TECHNIQUE: Portable AP semierect view of the chest was obtained. FINDINGS: The cardiomediastinal silhouette is within normal limits in size. Prominent ectasia of the aorta is again seen is accentuated by patient rotation. Lungs bilaterally are symmetrically expanded without focal consolidation, evidence of edema or pleural effusion. No pneumothorax is seen. Chronic fracture deformity of the left humeral neck is seen, unchanged. IMPRESSION: 1. No evidence of focal pneumonia. 2. Ectatic aorta, unchanged.
[2016-09-06 15:35] LABS: ABSOLUTE BASOPHIL COUNT 0 /CUMM (0.0-0.2); ABSOLUTE EOSINOPHIL COUNT 0 /CUMM (0.0-0.7); ABSOLUTE GRANULOCYTE CT 19.8 /CUMM (1.4-6.5); ABSOLUTE LYMPH COUNT 0.3 /CUMM (1.2-3.4); ABSOLUTE MONOCYTE COUNT 0.1 /CUMM (0.10-0.60); BASOPHIL % 0 % (0.0-2.0); EOSINOPHIL % 0 % (0-5); GRANULOCYTE % 98.3 % (42.2-75.2); MEAN CORPUSCULAR HGB 27.3 PG (27.0-31.0); MEAN CORPUSCULAR VOLUME 82.7 FL (80.0-94.0); MEAN PLATELET VOLUME 8.4 FL (7.4-10.4); PLATELET COUNT 265 /CUMM (130-400); RBC DISTRIBUTION WIDTH 16.2 % (11.5-14.5); RED BLOOD CELL CT 4.64 /CUMM (4.70-6.10); WHITE BLOOD CELL COUNT 20.2 /CUMM (4.8-10.8)
[2016-09-06 15:50] LABS: HEMATOCRIT 38.4 % (42-52)
--- NOTE | 2016-09-06 17:46 | History & Physical ---
NATANAEL JETER,[facility] [place]/06[place]16 1895: General Information and HPI MD Statement: I have seen and personally examined SUSU LAMAR and documented this H&P. The patient is a 89 year old M who presented with a chief complaint of fever, urinary retention, hematuria and AMS. Source of Information: patient, family, old records Exam Limitations: clinical condition, confusion, dementia History of Present Illness: Mr. Lamar is a 89 y/o M with PMHx of COPD on 2 L home oxygen, atrial fibrillation on Xarelto and HFpEF who is brought in from [facility] for fever, urinary retention, hematuria and AMS. Of note, patient has dementia at baseline and was confused and unable to provide clear and detailed history at the time of the interview so most of the history is obtained from the W-10, ED notes and patient's son. According to the W-10, they were unable to place a Ngo catheter at the group home and patient arrived to the ED with blood on his penis. During the interview patient denied chest pain, palpitations , shortness of breath, abdominal pain, nausea, vomiting or diarrhea. His only complaint was headache which had started this morning. Of note, patient has been hospitalized here at [facility] twice within the past two month. The most recent hospitalization was about 2.5 weeks ago (08/19/16-08/23/16) for acute bronchitis and COPD exacerbation, during which time patient was treated with IV steroids and discharged on prednisone taper and home oxygen. The first one was about two months ago (07/15/16-07/21/16) for acute on chronic hypercarbic respiratory failure that was felt to be multifactorial. According to patient's son he has been doing poorly with low oral intake since that hospitalization. Allergies/Medications Allergies: Coded Allergies: NO KNOWN ALLERGIES (07/15/16) Home Med list Acetazolamide 250 MG TABLET 1 TAB PO SEE ADMIN CRITERIA respiratory failure Take on: Sunday, Sunday, . Do not take your Lasix on these days. Albuterol Sulfate 5 MG/ML SOLUTION 0.5 MG NEB Q4 PRN COPD (Reported) Calcium Carbonate (TUMS) 200 MG CALCIUM (500 MG) TAB.CHEW 2 TAB PO 4 TIMES/DAY HEART BURN (Reported) Ceftriaxone Sodium (Ceftriaxone) 1 GRAM VIAL 1 IM 1300 UTI (Reported) FIRST DOSE 09/06 LAST DATE 09/10 Ergocalciferol (Vitamin D2) (Vitamin D2) 50,000 UNIT CAPSULE 1 CAP PO Q30D SUPPLEMENT (Reported) Furosemide 20 MG TABLET 1 TAB PO BID WATER PILL (Reported) Reason to Stop at ADM: HYPOTENSIVE Hydrocortisone (Cortaid) 1 % CREAM..G. 1 RAKAN TOP BID SKIN (Reported) Lisinopril 2.5 MG TABLET 1 TAB PO DAILY BP (Reported) Reason to Stop at ADM: HYPOTENSIVE Metformin HCl (Metformin HCl ER) 1,000 MG TAB.ER.24 1 TAB PO DAILY DM ( Reported) Reason to Stop at ADM: ISS Pravastatin Sodium (Pravachol) 40 MG TABLET 1 TAB PO 1700 CHOLESTEROL ( Reported) Prednisone 20 MG TABLET 2 TAB PO DAILY STEROID (Reported) 20MG 09/05-09/07 10MG 09/08-09/10 5MG 09/11 Risperidone (Risperdal) 0.25 MG TABLET 1 TAB PO DAILY AGITATION (Reported) Reason to Stop at ADM: AMS Rivaroxaban (Xarelto) 20 MG TABLET 1 TAB PO DAILY AFIB (Reported) with food Sertraline HCl (Zoloft) 25 MG TABLET 1 TAB PO DAILY MENTAL HEALTH (Reported) Reason to Stop at ADM: AMS Tamsulosin HCl 0.4 MG CAP.ER.24H 1 CAP PO BID PROSTATE (Reported) Reason to Stop at ADM: HYPOTENSIVE Theophylline Anhydrous 200 MG TAB.ER.12H 1 TAB PO AT BEDTIME COPD Trazodone HCl 50 MG TABLET 1 TAB PO DAILY SLEEP (Reported) Reason to Stop at ADM: WILL HOLF FOR NOW, PATIENT SEPTIC AND MAY GET ALTERED Past History Travel History Traveled to [place] past 21 day No Medical History Neurological: dementia EENT: NONE Cardiovascular: aortic aneurysm, AFIB, CHF, hypertension, hyperlipidemia Respiratory: COPD Gastrointestinal: NONE Hepatic: NONE Renal: benign prost hyperplasia Musculoskeletal: chronic back pain, degen joint disease, fracture, gout, RIB FX left shoulder fracture Psychiatric: anxiety Endocrine: diabetes Blood Disorders: NONE Cancer(s): NONE TAWER/Reproductive: NONE Other Medical Hx: Psoriasis History of MRSA: No History of VRE: No History of CDIFF: No Influenza Vaccine: 03/16/16 Surgical History Surgical History: appendectomy Past Family/Social History Family History Relations & Conditions if any FATHER (Heart disease in father). . MOTHER (Unknown cancer). . Psychosocial History [facility] do you live? [facility] Primary Language: Estonian Smoking Status: Never Smoked ETOH Use: denies use Illicit Drug Use: denies illicit drug use Functional Ability ADLs Needs Assist: dressing, eating, toileting, bathing. 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 EENTM: Reports: no symptoms. Cardiovascular: Denies: chest pain, palpitations. Respiratory: Denies: short of breath. GI: Denies: abdominal pain. Genitourinary: Reports: no symptoms. Musculoskeletal: Reports: no symptoms. Skin: Reports: no symptoms. Neurological/Psychological: Reports: headache. Hematologic/Endocrine: Reports: no symptoms. Immunologic/Allergic: Reports: no symptoms. All Other Systems: Reviewed and Negative Exam & Diagnostic Data Last 24 Hrs of Vital Signs/I&O Vital Signs Date Time Temp Pulse Resp B/P Pulse O2 O2 Flow FiO2 Ox Delivery Rate 09/06 1738 105 24 84/42 97 Nasal 2.0L Cannula 09/06 1654 95 30 82/40 97 Nasal 2.0L Cannula 09/06 1610 102.3 09/06 1608 Nasal Cannula 09/06 1608 99.6 107 36 84/40 95 Nasal Cannula 09/06 1436 102.3 115 26 101/63 94 Nasal 2.0L Cannula Intake & Output 09/06 1600 09/06 0800 09/06 0000 Intake Total Output Total 400 Balance -400 Number 1 Bowel Movements Output, Urine 400 Patient 79.379 kg Weight Physical Exam General Appearance Lethargic but Arousable, Follows Commands Skin Psoriasiform Lesions on Abdomen, Delayed Capillary Refill (>2 Seconds) HEENT Dry Mucous Membranes Neck No JVD Cardiovascular Irregularly Irregular Lungs Clear to Auscultation Bilaterally on Anterior Lung Riggs Abdomen Soft, Positive Bowel Sounds, Mild Tenderness To Palpation on Right Upper Quadrant Neurological Oriented to Name and Place, but Not Time Extremities No Clubbing, No Cyanosis, Trace Pitting Edema on Bilateral Lower Extremities Last 24 Hrs of Labs/Navdeep: Laboratory Tests 09/06/16 1520: Anion Gap 13, Estimated GFR > 60, BUN/Creatinine Ratio 24.5, Glucose 209 H, Lactic Acid 6.2 H, Calcium 8.2 L, Total Bilirubin 0.7, AST 41, ALT 36, Alkaline Phosphatase 98, Troponin I 0.03, Total Protein 6.0 L, Albumin 3.4 L, Globulin 2.6, Albumin/Globulin Ratio 1.3, CBC w Diff MAN DIFF ORDERED, RBC 4.64 L, MCV 82.7, MCH 27.3, RDW 16.2 H, MPV 8.4, Gran % 98.3 H, Lymphocytes % 1.2 L, Monocytes % 0.5 L, Eosinophils % 0, Basophils % 0 L, Absolute Granulocytes 19.8 H, Segmented Neutrophils 88 H, Band Neutrophils 9 H, Absolute Lymphocytes 0.3 L, Lymphocytes 2 L, Monocytes 1 L, Absolute Monocytes 0.1 L, Absolute Eosinophils 0, Absolute Basophils 0, Platelet Estimate ADEQUATE, Normochromic RBCs VERIFIED, Anisocytosis 1+, PUBS MCHC 33.0 09/06/16 1455: Urine Color BLDY H, Urine Clarity HAZY H, Urine pH 6.0, Ur Specific [place] 1.015, Urine Protein 30 H, Urine Ketones NEG, Urine Nitrite NEG, Urine Bilirubin NEG, Urine Urobilinogen 0.2, Ur Leukocyte Esterase LARGE H, Ur Microscopic SEDIMENT EXAMINED, Urine RBC 25-50 H, Urine WBC 10-15 H, Urine Hemoglobin LARGE H, Urine Glucose NEG Diagnostic Data EKG Results Atrial fibrillation HR 140 QTc 489 CXR Results 1. No evidence of focal pneumonia. 2. Ectatic aorta, unchanged. Assessment/Plan Assessment: 89 y/o M with PMHx of COPD, atrial fibrillation on Xarelto and psoriasis who presents with fever and hematuria. #Severe sepsis: Patient met SIRS criteria on initial presentation in the presence of fever (102.3), tachycardia (HR 115), tachypnea (RR 26) and leukocytosis (WBC 20.2). Qualifies as severe sepsis in the setting of hypotension with BP, measured by cuff, of 79/46 after receiving 3 boluses of NS in the ED. Lactic acid markedly elevated at 6.2 on admission, improved to 3.5 with aggressive IVF hydration. Most likely source of sepsis is UTI given urinalysis with large leukocyte esterase and pyuria (WBC 10-15) as well as hematuria and urinary retention. Other potential but less likely sources include pneumonia although CXR with no evidence of focal pneumonia, diarrhea or biliary tree although LFTs and bilirubin are within normal limits. S/p 1 dose of vancomycin and ceftriaxone in the ED. * Admit to the ICU for close hemodynamic monitoring. * Patient is DNR/DNI including no pressors or central line. * CT Chest and Abdomen/Pelvis W/ IV Contrast ordered * UCx and BCx ordered. * Check rapid flu. * Stool C diff ordered. * Continue aggressive IVF hydration with NS @ 100 cc/hr. * Administer NS boluses as needed. * Continue vancomycin 1 g IV Q24H. * Start ceftazidime 1 g IV Q12H. * Trend lactic acid. * Ngo inserted. Monitor strict I/Os. * Keep patient NPO in the setting of altered mental status. * Strict aspiration precautions. * Hydrocortisone 100 mg IV administered as patient had recently. * Check AM cortisol. #Atrial fibrillation: Presented with atrial fibrillation with rapid ventricular response, most likely secondary to sepsis. HR improved from 140s to 90-100s after fluid resuscitation. * Continue prior to admission Xarelto 20 mg PO QHS. #HFpEF: Most recent ECHO in July 2016 with LVEF > 60%. No evidence of decompensated CHF including JVD or crackles. * Monitor for volume overload. * Hold prior to admission Lasix and metolazone in the setting of hypotension. #T2DM: Takes metformin 1000 mg ER daily. * Hold oral hypoglycemic agents while inpatient. * Accu-checks Q6H and Novolog NPO sliding scale while inpatient. #COPD: Not in acute exacerbation. No wheezing on lung exam. Recently hospitalized here at [facility] for COPD * Provide supplemental oxygen to keep SpO2 > 92%. * Continue prior to admission theophylline 200 mg PO QHS. * TRC and nebs as needed. #HTN: Takes lisinopril 2.5 mg PO daily and furosemide 20 mg PO BID. * Hold antihypertensive medications in the setting of hypotension. #BPH: Takes tamsulosin 0.4 mg ER PO BID. * Hold tamsulosin in the setting of hypotension. * Ngo inserted. Monitor strict I/Os. #HLD: * Continue prior to admission pravastatin 40 mg PO QHS. Diet: NPO DVT PPx: Xarelto Pain: Tylenol 650 mg PO Q6H PRN for mild pain (scale 1-3) Percocet 1 tab PO Q6H PRN for moderate pain (scale 4-6) Percocet 2 tabs PO Q6H PRN for severe pain (scale 7-10) CODE: DNR/DNI, no pressors or central lines As Ranked By This Provider Problem List: 1. Severe sepsis 2. Atrial fibrillation 3. (HFpEF) heart failure with preserved ejection fraction 4. Type 2 diabetes mellitus 5. Altered mental status 6. COPD (chronic obstructive pulmonary disease) 7. BPH (benign prostatic hyperplasia) 8. HTN (hypertension) Core Measures/Miscellaneous Acute Coronary Syndrome ACS Diagnosis: No Cerebrovascular Accident CVA/TIA Diagnosis: No Congestive Heart Failure CHF Diagnosis: No Venous Thromboembolism VTE Risk Factors: Acute medical illness, Age > 40, Immobility, paresis VTE Prophylaxis Ordered Inpt: Mech & Pharm No Mech VTE prophylaxis d/t: No contraindications No VTE Pharm Prophylaxis d/t: No contraindications VTE Diagnosis: No VTE Type: NONE VTE Confirmed by (Test): NONE Severe Sepsis Severe Sepsis Present: Yes BC x2: Yes Lactic Acid x2: Yes IV ABX Broad Spectrum: Yes NS/LR Started: Yes Septic Shock Septic Shock Present: No Miscellaneous Documentation Attending Case Discussed With: LEON JETER,[facility] Primary Care Physician: YAZ PACK MD Patient sees these Specialists Lab Nurse: Tripp Tay MD Level of Patient Care: Critical Care (CRI) SUNDEEP JETER,[facility] 09/06/16 1806: Resident Review Statement Resident Statement: examined this patient, discussed with r d intern, agreed with r d intern, reviewed EMR data (avail), reviewed images Other Findings: 89-year-old man with a past medical history of COPD, discharged with home oxygen and started using 2 L by nasal cannula in August, dementia, hypertension, hyperlipidemia, [id number] diabetes mellitus, abdominal aortic aneurysm, heart failure with preserved ejection fraction with an EF of 60% (Echo on 07/17/2016), doubt, chronic anemia, BPH, previous history of UTI, has grown Pseudomonas aeruginosa, Proteus mirabilis and MRSA in the past, history of A. fib on Xarelto, obesity hypoventilation syndrome, was recently admitted to [facility] for COPD exacerbation and discharged to [facility] on 2016 on a steroid taper, now presents with urinary retention and hematuria as per the W-10 in the ED notes. According to the W 10 there were unable to place a cath in the patient arrived to the ED with blood on his penis. He also had a fever to 102.3 on admission. Although the patient was alert awake and oriented to place and month, he was unable to provide an accurate history and sequence of events. He however, denied any chest pain, abdominal pain, cough, congestion, nausea vomiting or diarrhea. He did mention having mild headache, and feeling thirsty. According to the son the patient has had low by mouth intake, and his condition has been declining since his admission at [facility] on and multiple admissions following that. On admission the patient had a fever of 102.3, heart rate of 1:15, respiratory rate 26, blood pressure of 101/63, and oxygen saturations 94% on 2 L oxygen. While in the ED the patient's her pressure started to decrease to 84/40. On exam: The patient was alert awake and oriented to place the first time the medical team evaluated him however with time he started becoming more altered. He is not arousable to verbal, on but to sternal rub once he wakes up he starts responding to questions and is oriented to place. He has become more diaphoretic, more somnolent. Very dry mucous membranes Also it was a difficult exam as the patient did not want to get up or move to one of the sites because his back pain, the lungs sound clear on auscultation Irregularly irregular, S1 and S2 heard, no murmurs Abdomen soft, nondistended, mild tenderness on the right upper quadrant, corrected patches on dominant skin, bowel sounds positive Complete neuro exam could not be done as the patient was not willing to follow all commands, and later he became more sedated Bilateral trace leg edema, peripheral pulses palpable Fungal infection of the toenails Lab work shows a WBC count of 20.2, hemoglobin 12.7 and hematocrit 38.4 which is at baseline, platelet count of 265, annular second count of 98.3, bands of 9 Sodium 132, potassium 3.7, chloride 89, bicarbonate 30, anion gap 13, BUN 27 creatinine 1.1, at baseline, glucose 209 Lactic acid 6.2 Before meals 36, ALT 98, troponin 0.03 UA was bloody, hazy, urine protein of 30, negative urine nitrite, large leuk esterase, RBCs 25-50, urine wbc's 10-15 Chest x-ray does not show any consolidation or pathology Assessment: 1. SIRS/Severe sepsis likely secondary to UTI, imminent septic shock with hypotension that is refractory even after 3 boluses of normal saline 2. Lactic acidosis 3. Altered mental status secondary to sepsis 4. COPD, not in acute exacerbation 5. A. fib with rapid ventricular rate, likely secondary to dehydration 6. Heart failure with preserved ejection fraction, less than 60% 7. History of hypertension 8. History of BPH 9. Diabetes mellitus Plan: We'll admit the patient to the ICU We'll check vitals as per his protocol 1. Severe sepsis likely secondary to UTI, imminent septic shock with hypotension that is refractory even after 3 boluses of normal saline: 2. Lactic acidosis: 3. Altered mental status secondary to sepsis: - The patient meets criteria for SIRS with a fever of 102.3 on admission, difficult to 20.2, bandemia of 9, tachycardia 115, and respiratory rate of 26, with a likely source being the urine with a dirty UA, so shows large leuk esterase but previously has had UTIs with cultures growing Pseudomonas aeruginosa, and Proteus mirabilis, and MRSA. The patient's blood pressure continued to decline in the ED from 101/63 to 84/40 Even after 3 boluses of normal saline. The fourth bolus was started when the medical team is evaluating the patient and the annual blood pressure checked by the team at the time was 79 /46. - The patient was given IV ceftriaxone and vancomycin in the ED - We'll continue the patient on vancomycin and start IV ceftazidime - We'll follow urine and blood culture - We'll get CT abdomen and pelvis and chest done with IV contrast to find any other source of infection - The patient had a lactic acidosis of 6.2 on admission that decreased to 3.5 after hydration - It is important to note that the patient had pain on steroids due to COPD exacerbation since 08/19/2016 when he was admitted, and was discharged on a steroid taper which was supposed to end on August. Also given a stress dose of hydrocortisone, 100 mg IV 1 - We'll add cortisone on the ED labs and we'll check a.m. cortisol levels as well The patient is a DNI/DNR, no central lines, no pressors, therefore will continue with aggressive hydration and continue to monitor in the ICU for now 4. COPD, not in acute exacerbation: - The patient has history of COPD, was recently admitted to [facility] for CPD exacerbation and discharged on home oxygen that he did not use before and steroid taper. - Continue with [facility] nebs, home inhalers, and oxygen as needed - Does not seem to be in acute COPD exacerbation, no wheezing, no acute pathology in the chest x-ray - Keep the patient nothing by mouth for now as the patient has altered mental status, will keep an aspiration precautions, and advance diet depending on his mentation. At the facility he has a diabetic diet with regular consistency 5. A. fib with rapid ventricular rate, likely secondary to dehydration: - EKG showed a heart rate of 140, A. fib, with no ST-T wave changes - Apical heart rate is likely secondary to dehydration and sepsis as the heart rate already decreased to 90s-100s after he was rehydrated -Continue with Xarelto 6. Heart failure with preserved ejection fraction, less than 60%: - The patient has heart failure, diastolic, stage I, with an EF of 60% on an echo done in July 2016 - Currently the lungs are clear, no JVD, trace leg edema, not in florid CHF - Patient needs fluids, will hold his Lasix and metolazone - We'll watch for fluid overload and monitor respiratory status 7. History of hypertension: - The patient is in severe sepsis with hypotension - He needs aggressive hydration, will hold lisinopril and monitor blood pressure 8. History of BPH: - We'll insert Ngo for I/oh monitoring, and hold tamsulosin that may cause hypotension 9. Diabetes mellitus: - Nothing by mouth sliding scale - We'll hold metformin 10. We'll keep the patient nothing by mouth, and advance diet as per documentation in the morning 11. Pain pathway: Added Tylenol for mild pain, but discontinued oxycodone for moderate to severe pain as the patient has altered mental status and would want any narcotics for now 12. He prophylaxis: The patient is on Xarelto 13. CODE STATUS: DNI/DNR, no central line, no pressors Addendum at 8 pm: It is important to note that the team had a very long conversation with the patient's son and the patient himself regarding his medical management and goals of care. The patient's son, Bharat Lamar, is his medical power of tax attorney. He mentioned the patient is a DNI/DNR and does not want any invasive procedures but wants aggressive medical management to treat his medical conditions to a certain point. But when the patient's blood pressure was not increasing and remained at 75/50 despite being on the fifth boluses of normal saline, and a dose of hydrocortisone 100 mg IV, we had a conversation with this and again who agreed to having a central line placed to bring his blood pressures up. However when Dr. Durán and I went to the patient's room, although altered, arousable, he flatly refused any intervention at this point and wanted to be left alone and comfortable. The patient was at bedside and spoke with his father as well. Final decision was made to continue with aggressive hydration and medical management with IV antibiotics with close monitoring in the ICU but, NO central line, no pressors, no intubation or CPR. It was communicated to the son that the patient has a poor prognosis and a conversation regarding comfort care measures would be the next step, which may or may not happen overnight. line, no pressors, no intubation or CPR. It was communicated to the son that the patient has a poor prognosis and a conversation regarding comfort care measures would be the next step, which may or may not happen overnight.
[2016-09-06] MEDS ORDERED: THEOPHYLLINE A200 MG PO (18:36)
--- NOTE | 2016-09-06 20:34 | CT SCAN REPORT ---
EXAMINATION: CT CHEST WITH CONTRAST CLINICAL INFORMATION: Sepsis. Evaluate for source of infection. COMPARISON: CT chest without contrast 08/21/2016. TECHNIQUE: Multidetector volumetric CT imaging of the chest was obtained after the administration of 94 mL of Optiray 320 intravenous contrast without immediate adverse reactions. Axial MIP volume rendering provided. Sagittal and coronal reformatted images were obtained. DLP: 1378 mGy-cm FINDINGS: CLINICAL TRIALS DATA COORDINATOR: Floor Coverings Salesperson view of the chest demonstrates pulmonary hypoinflation. LUNGS: The lungs are hypoinflated and there is minimal dependent bibasilar atelectasis. No focal airspace consolidation is identified. There are no suspicious pulmonary nodules or masses. The central airways are patent, without endobronchial obstructing lesions. MEDIASTINUM: Borderline enlarged heart, without significant pericardial effusion. Scattered coronary artery calcifications and scattered atherosclerosis of the thoracic aorta. Normal caliber of the thoracic aorta and main pulmonary artery. No large central pulmonary emboli. No significant mediastinal or hilar adenopathy. PLEURA: No pleural effusions or pneumothoraces. AXILLA: No significant axillary adenopathy. UPPER ABDOMEN: Please refer to a similarly dated CT of the abdomen and pelvis for further details regarding the abdomen. OSSEOUS STRUCTURES: No acute osseous abnormality of the imaged thoracic spine. No visible destructive osseous lesions. IMPRESSION: No acute findings within the chest. No infiltrates to suggest infection. No suspicious pulmonary nodules or masses.
--- NOTE | 2016-09-06 20:41 | CT SCAN REPORT ---
EXAMINATION: CT CHEST, ABDOMEN AND PELVIS WITH CONTRAST CLINICAL INFORMATION: Fever, hypotension. COMPARISON: None TECHNIQUE: Multidetector volumetric imaging was performed of the abdomen and pelvis before and after the IV administration of 94 mL of Optiray 320 intravenous contrast. Sagittal and coronal reformatted images were obtained on the technologist's workstation. DLP: 1878 mGy-cm FINDINGS: CHEST: LUNGS: Both lungs are well-expanded without any acute pneumonic process. No pulmonary nodule, mass or consolidation seen. MEDIASTINUM: The thyroid lobes are symmetrical. The central trachea and the bronchi appears widely patent. The thoracic aorta is of normal caliber without dissection or aneurysm. The heart size is normal. There are coronary artery calcifications. There is no mediastinal mass or abnormal lymph nodes seen. PLEURA: There is no pleural effusion. There is minimal right posterior pleural thickening in the lower lobe. AXILLA: Unremarkable. The chest wall is unremarkable. ABDOMEN AND PELVIS: LIVER, GALLBLADDER, AND BILIARY TREE: The liver is normal in size, shape, and attenuation. No focal hepatic lesion or biliary ductal dilatation is present. The gallbladder is unremarkable with no evidence of radiopaque gallstones, gallbladder wall thickening, or obvious pericholecystic inflammatory changes. PANCREAS: Unremarkable. SPLEEN: Unremarkable. ADRENAL GLANDS: Unremarkable. KIDNEYS AND URETERS: The kidneys are normal in size, shape, and attenuation. No hydronephrosis, hydroureter, or calculi seen. No perinephric stranding. There is punctate cortical hypodensity in the upper pole both kidneys suspicious for tiny cysts. BLADDER: There is a Ngo's catheter in the bladder with mild bladder wall thickening. GASTROINTESTINAL TRACT: There is moderate stool seen in right colon without any colonic distention. The small bowel loops are normal caliber there is no obstruction, free air or free fluid. ABDOMINAL WALL: No significant hernia is appreciated. LYMPH NODES: Normal. VASCULAR: There is atherosclerotic calcification an dilation of mid end distal abdominal aorta mid abdominal aorta measures 2.8 cm in AP and transverse dimension. There is mild ectasia of the left common iliac artery. The right common iliac arteries normal caliber. PELVIC VISCERA: No free air or free fluid seen. Prostate gland is normal size. OSSEOUS STRUCTURES: No compressive fracture, lytic or sclerotic process seen. There is moderate spondylosis lower dorsal spine. IMPRESSION: No acute process seen in CT of chest, abdomen or pelvis. 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
[2016-09-06] MEDS ORDERED: XARELTO20 M2 PO (21:34)
[2016-09-06] MEDS ORDERED: TUMS200 MG PO (21:44)
[2016-09-06] MEDS ORDERED: ALBUTEROL S5 MG/1 ML NEB (21:46)
--- NOTE | 2016-09-06 23:54 | Event Note ---
Event Note Event Note: Patient came up to the ICU with a blood pressure of 78/49, somnolent but arousable on verbal commands, very mild crackles on ausculation, S/P 6 boluses of NS, oxygen saturation remains at 2 liters. Another bolus of NS given, with the BP coming up to 84/68, manual 104/69, MAP 73. Will continue on maintainence NS @100 cc/hr and watch for respiratory status. Will defer conversation regarding comfort care as the patient is doing relatively better so far. Upon examination in the ICU there is decub ulcer and skin break down at the back where he usually lays, possibly stage 2, present on admission. This could possibiliy also be the source of sepsis, less likely so. Skin care started.
[2016-09-07 05:39] LABS: ABSOLUTE BASOPHIL COUNT 0 /CUMM (0.0-0.2); ABSOLUTE EOSINOPHIL COUNT 0 /CUMM (0.0-0.7); ABSOLUTE GRANULOCYTE CT 35.5 /CUMM (1.4-6.5); ABSOLUTE LYMPH COUNT 0.5 /CUMM (1.2-3.4); BASOPHIL % 0 % (0.0-2.0); EOSINOPHIL % 0 % (0-5); HEMATOCRIT 34.4 % (42-52); MEAN CORPUSCULAR HGB 27.6 PG (27.0-31.0); MEAN CORPUSCULAR HGB CONC 32.6 G/DL (33.0-37.0); MEAN CORPUSCULAR VOLUME 84.7 FL (80.0-94.0); MEAN PLATELET VOLUME 8.5 FL (7.4-10.4); PLATELET COUNT 163 /CUMM (130-400); RBC DISTRIBUTION WIDTH 16.2 % (11.5-14.5); RED BLOOD CELL CT 4.06 /CUMM (4.70-6.10)
--- NOTE | 2016-09-07 07:12 | PN- Resident CRCU ---
Subjective HPI/CRCU Issues: Patient is doing better today. His blood pressures have improved to 100/60s with aggressive fluid resuscitation. He received a total of 7.5 mL of NS boluses in addition to maintenance fluids, NS @ 100 cc/hr. He defervesced overnight and remains afebrile. Patient was seen and examined this morning. He is still lethargic, but more awake and alert compared to yesterday. He continues to be confused which is his baseline and does not offer any complaints. Objective Vital Signs & I&O Last 8 Hrs of Vitals and I&O: Vital Signs Date Time Temp Pulse Resp B/P Pulse O2 O2 Flow FiO2 Ox Delivery Rate 09/07 1133 98 Nasal 2.0L Cannula 09/07 1110 Nasal 2.0L Cannula 09/07 08 98.0 91 26 102/64 97 Nasal 2.0L Cannula 09/07 0800 98 Nasal 2.0L Cannula 09/07 0356 96 Nasal 2.0L Cannula 09/06 2340 95 Nasal 2.0L Cannula 09/06 2155 98.8 20 68/48 97 Room Air 09/06 2134 98.8 09/06 2105 97 Nasal 2.0L Cannula 09/06 2011 98.6 110 28 75/50 95 Nasal 2.0L Cannula 09/06 1849 99.6 109 24 75/54 96 Nasal 2.0L Cannula 09/06 1738 105 24 84/42 97 Nasal 2.0L Cannula Intake & Output 09/07 1600 Intake Total Output Total Balance Patient 92.646 kg Weight Exam General Appearance: alert, awake, lethargic, confused, follows commands Ears, Nose, Throat: moist mucus membranes Respiratory: no respiratory distress, few crackles scattered throughout bilateral lung aguilar, no wheezes Cardiovascular: irregularly irregular, normal S1 and S2, no murmurs, rubs or gallops Gastrointestinal: soft, non-tender, positive bowel sounds Extremities: no edema, no clubbing or cyanosis Skin: warm/dry, capillary refill < 2 seconds, psoriasiform lesions on abdomen Current Medications: Current Medications Sig/Emily Start time Last Medication Dose Route Stop Time Status Admin Acetaminophen 1,000 MG Q6P PRN 09/07 0845 AC 09/07 N/A 1 UNIT IV 1606 Acetaminophen 650 MG Q6P PRN 09/06 1830 AC PO Albuterol Sulfate 3 ML Q4P PRN 09/07 1115 AC 09/07 INH 1124 Ceftazidime 1,000 MG Q12 09/06 2200 AC 09/07 IV 1046 Dextrose/Sodium 1,000 ML Q10H 09/07 1100 AC 09/07 Chloride IV 1222 Ergocalciferol 50,000 IU Q30D@1000 09/14 1000 AC PO Hydrocortisone 1 RAKAN BID 09/06 2200 AC 09/07 TOP 1047 Hydrocortisone 50 MG Q8 09/07 1400 DC Sodium Succinate IV Hydrocortisone 50 MG Q6 09/07 0828 DC 09/07 Sodium Su[place]inate [place] 0849 Hydrocortisone 100 MG STAT STA 09/06 1847 DC 09/06 Sodium Succinate IV 09/06 1848 2013 Insulin Human Regular 0 Q6 09/06 2359 AC 09/07 SC 1225 Lidocaine 1 PAT DAILY 09/07 1553 AC EXT Magnesium Sulfate 1 GM ONCE ONE 09/07 1130 DC 09/07 Dextrose/Water 100 ML IV 09/07 1529 1326 Magnesium Sulfate 1 GM ONCE ONE 09/07 0930 DC 09/07 Dextrose/Water 100 ML IV 09/07 1129 1218 Magnesium Sulfate 1 GM ONCE ONE 09/07 0800 DC 09/07 Dextrose/Water 100 ML IV 09/07 1159 1056 Magnesium Sulfate 1 GM ONCE ONE 09/07 0730 DC 09/07 Dextrose/Water 100 ML IV 09/07 0929 0849 Oxycodone/ 1 TAB Q6P PRN 09/06 1830 DC Acetaminophen PO Oxycodone/ 2 TAB Q6P PRN 09/06 1830 DC Acetaminophen PO Potassium Chloride 10 MEQ ONCE ONE 09/07 0830 DC 09/07 IV 09/07 0831 1218 Potassium Chloride 10 MEQ ONCE ONE 09/07 0800 DC 09/07 IV 09/07 0801 1056 Potassium Chloride 10 MEQ ONCE ONE 09/07 0730 DC 09/07 IV 09/07 0731 0940 Pravastatin Sodium 40 MG 1700 09/07 1700 CAN PO Prednisone 10 MG DAILY 09/07 1450 AC 09/07 PO 1653 Risperidone 0.25 MG DAILY 09/07 1230 AC 09/07 PO 1426 Rivaroxaban 20 MG 1700 09/07 1700 AC 09/07 PO 1653 Sodium Chloride 1,000 ML BOLUS ONE 09/06 2230 DC 09/06 IV 09/06 2329 2215 Sodium Chloride 1,000 ML BOLUS ONE 09/06 1944 DC 09/06 IV 09/06 Sodium Chloride 1,000 ML BOLUS ONE 09/06 194 DC 09/06 IV 09/06 Sodium Chloride 1,000 ML BOLUS ONE 09/06 1829 DC 09/06 IV 09/06 Sodium Chloride 1,000 ML Q10H 09/06 1830 DC 09/06 IV 1855 Tamsulosin HCl 0.4 MG BID 09/07 2199 AC PO Theophylline 200 MG AT BEDTIME 09/06 2199 DC PO Trazodone HCl 50 MG AT BEDTIME 09/07 220 AC PO Vancomycin HCl 1,000 MG 1700 09/07 1700 CAN Dextrose/Water 250 ML IV Vancomycin HCl 1,000 MG DAILY 09/07 1000 DC Dextrose/Water 250 ML IV Vitamin A/Vitamin D 1 RAKAN BID 09/06 222 AC 09/07 TOP 1047 Zinc Oxide 1 RAKAN BID 09/06 2223 DC 09/06 TOP 2300 Results Results: Laboratory Tests 09/07 09/07 09/07 1500 1050 0818 Chemistry Sodium (137 - 145 mmol/L) 134 L Potassium (3.5 - 5.1 mmol/L) 4.2 Chloride (98 - 107 mmol/L) 101 Carbon Dioxide (22 - 30 mmol/L) 25 Anion Gap (5 - 16) 8 BUN (9 - 20 mg/dL) 23 H Creatinine (0.7 - 1.2 mg/dL) 0.8 Estimated GFR (>60 ml/min) > 60 Glucose (65 - 99 mg/dL) 130 H Lactic Acid (0.7 - 2.1 mmol/L) 2.1 Calcium (8.4 - 10.2 mg/dL) 6.8 L Phosphorus (2.5 - 4.5 mg/dL) 3.8 Magnesium (1.6 - 2.3 mg/dL) 2.2 Total Bilirubin (0.2 - 1.3 mg/dL) 0.3 AST (17 - 59 U/L) 16 L ALT (21 - 72 U/L) 29 Albumin (3.5 - 5.0 g/dL) 2.4 L Coagulation PT (9.4 - 12.5 SEC) 13.3 H Cancelled INR (0.90 - 1.17) 1.27 H Cancelled 09/07 09/07 09/06 0510 0125 2130 Chemistry Sodium (137 - 145 mmol/L) 137 Potassium (3.5 - 5.1 mmol/L) 3.4 L Chloride (98 - 107 mmol/L) 102 Carbon Dioxide (22 - 30 mmol/L) 26 Anion Gap (5 - 16) 9 BUN (9 - 20 mg/dL) 23 H Creatinine (0.7 - 1.2 mg/dL) 1.0 Estimated GFR (>60 ml/min) > 60 Glucose (65 - 99 mg/dL) 121 H Lactic Acid (0.7 - 2.1 mmol/L) 2.6 H Cancelled Calcium (8.4 - 10.2 mg/dL) 6.6 L Phosphorus (2.5 - 4.5 mg/dL) 4.6 H Magnesium (1.6 - 2.3 mg/dL) 1.0 L Total Bilirubin (0.2 - 1.3 mg/dL) 0.4 AST (17 - 59 U/L) 20 ALT (21 - 72 U/L) 32 Albumin (3.5 - 5.0 g/dL) 2.6 L TSH (0.270 - 4.200 uIU/mL) 0.973 Cortisol AM Sample (4.46 - 22.7 ug/dL) 31.2 H Hematology CBC w Diff MAN DIFF ORDERED WBC (4.8 - 10.8 /CUMM) 37.0 *H RBC (4.70 - 6.10 /CUMM) 4.06 L Hgb (14.0 - 18.0 G/DL) 11.2 L Hct (42 - 52 %) 34.4 L MCV (80.0 - 94.0 FL) 84.7 MCH (27.0 - 31.0 PG) 27.6 RDW (11.5 - 14.5 %) 16.2 H Plt Count (130 - 400 /CUMM) 163 MPV (7.4 - 10.4 FL) 8.5 Gran % (42.2 - 75.2 %) 96.0 H Lymphocytes % (20.5 - 51.1 %) 1.3 L Monocytes % (1.7 - 9.3 %) 2.7 Eosinophils % (0 - 5 %) 0 Basophils % (0.0 - 2.0 %) 0 L Absolute Granulocytes (1.4 - 6.5 /CUMM) 35.5 H Segmented Neutrophils (42.2 - 75.2 %) 84 H Band Neutrophils (0.0 - 5.0 %) 10 H Absolute Lymphocytes (1.2 - 3.4 /CUMM) 0.5 L Lymphocytes (20.5 - 51.1 %) 2 L Monocytes (1.7 - 9.3 %) 3 Absolute Monocytes (0.10 - 0.60 /CUMM) 1.0 H Absolute Eosinophils (0.0 - 0.7 /CUMM) 0 Absolute Basophils (0.0 - 0.2 /CUMM) 0 Metamyelocytes (0.0 - 1.0 %) 1 Platelet Estimate (ADEQUATE) ADEQUATE Poikilocytosis FEW Anisocytosis 1+ Ovalocytes FEW PUBS MCHC (33.0 - 37.0 G/DL) 32.6 L Other Body Source Fld Total RBCs Counted (%) 100 09/06 1840 Chemistry Lactic Acid (0.7 - 2.1 mmol/L) 3.6 H 3.5 H BCx (09/06/16): Gram negative rods x2 UCx (09/06/16): Greater than 100,000 colonies of gram negative rods Rapid flu (09/06/16): Negative Stool C.difficile (09/06/16): Negative CT Scan Findings: CT CHEST/ABDOMEN/PELVIS W/ IV CONTRAST: No acute process seen in CT of chest, abdomen or pelvis. 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 Impression/Plan Impression/Problem List Impression: 89 y/o M with PMHx of COPD, atrial fibrillation on Xarelto and psoriasis admitted for severe sepsis 2/2 UTI with multisystem organ dysfunction. Problem List: 1. Sepsis secondary to UTI 2. HTN (hypertension) 3. BPH (benign prostatic hyperplasia) 4. COPD (chronic obstructive pulmonary disease) 5. Type 2 diabetes mellitus 6. (HFpEF) heart failure with preserved ejection fraction 7. Atrial fibrillation 8. Altered mental status 9. Psoriasis Pain Ratin Tomorrow's Labs & Rationales: CBC and ICU bundle (ICU patient) Plan Respiratory: #COPD: Not in acute exacerbation. In compensated chronic hypercarbic respiratory failure with stable respiratory status. Remains on 2 L NC, unchanged from home oxygen requirement. * Provide supplemental oxygen to keep SpO2 > 92%. * Hold prior to admission theophylline. * TRC and nebs as needed. Infectious Diseases: #Sepsis 2/2 UTI: Presented with severe sepsis with multisystem organ dysfunction but has shown significant improvement overall. BPs have improved after aggressive IVF hydration with NS boluses, total of 7.5 L. Deffervesced last night after receiving vancomycin, ceftriaxone and ceftazidime and has remained afebrile. Lactic acid has improved from 6.2 to 2.6 today. Leukocytosis and bandemia have worsened, WBC increased from 20.2 to 37 today and bands from 9 to 10. 2/2 UTI with BCx and UCx growing gram negative rods, most likely Proteus as patient had grown pansensitive Proteus in the past. Work-up for other sources of sepsis has been negative. CT Chest/Abdomen/Pelvis W/ IV Contrast with no acute process. Stool C. difficile and rapid flu negative. Adrenal insufficiency can be ruled as AM cortisol was elevated at 31.2. TSH within normal limits. * Switch fluids D5NS @ 50 cc/hr. * Vancomycin discontinued. * Continue ceftazidime 1 g IV Q12H. * Keep Ngo. Continue to monitor strict I/Os. * Switch to prednisone 10 mg PO daily. * Continue to monitor CBCs for improvement of leukocytosis and bandemia. * DNR/DNI including no central line and pressors per patient's and family's wishes. * Can downgrade to General Medicine given marked improvement and relative clinical stability. Cardiovascular: #Atrial fibrillation: Remains in atrial fibrillation with well-controlled heart rate after fluid resuscitation yesterday. * Continue prior to admission Xarelto 20 mg PO QHS. #HFpEF: Most recent ECHO in July 2016 with LVEF > 60%. No evidence of decompensated CHF including JVD or crackles. * Monitor for volume overload. * Continue to hold prior to admission Lasix and metolazone in the setting of hypotension. #HTN: Takes lisinopril 2.5 mg PO daily and furosemide 20 mg PO BID. * Continue to hold antihypertensive medications in the setting of hypotension. #HLD: * Hold prior to admission pravastatin for now. Hematology: H/H stable, 11.2/12.7 today. INR 1.12. Anti-coagulated with Xarelto. No evidence of bleeding or bruising. Metabolic: #T2DM: Takes metformin 1000 mg ER daily. * Hold oral hypoglycemic agents while inpatient. * Accu-checks and Novolog SSI TIDAC. Alimentary: S/p swallow eval. Mechanical soft/ground and nectar thick liquids diet started per their recs. Neurological: #Dementia: Mental status improved. Awake and alert today, but still confused which is patient's baseline. * Continue prior to admission risperidone 0.25 mg PO daily and trazodone 50 mg PO QHS. * Consider starting mirtazapine at bedtime. * Maintain aspiration precautions. Skin: #Psoriasis: Psoriasiform lesions noted on abdomen. * Continue to apply prior to admission hydrocortisone BID to rash. DVT/Prophylaxis: mechanical, pharmacological Code Status: Do Not Resucitate/Intubat (no pressors or central line) Other: #BPH: Takes tamsulosin 0.4 mg ER PO BID. * Resume prior to admission tamsulosin.
[2016-09-07 08:00] VITALS: BP 102/64
--- NOTE | 2016-09-07 08:04 | Admission Certification ---
Admission Certification Certification Statement - As attending physician, I certify that at the time of - admission, based on clinical presentation, severity of - symptoms, need for further diagnostic testing and - therapeutic interventions, and risk of adverse outcomes - without in-hospital treatment, in my clinical assessment, - this patient requires an acute hospital stay for a minimum - of two nights or longer. I have also considered psychsocial - factors such as support system, advanced age, financial - issues, cognitive issues, and failed out-patient treatments, - past re-admission history, safety of patient, and lack of - compliance as applicable. Specific rationale supporting this admission is: Severe sepsis and hypertension
--- NOTE | 2016-09-07 08:14 | PN- Att Addend ---
Attending Addendum Attending Brief Note Patient seen and examined. Plan of care discussed with the medical team and the patient. Available lab work and radiology test reports were reviewed. Patient is a [facility] resident with prior multiple admissions to [facility] last one discharge and 80 after pneumonia. He was discharged on Augmentin. Patient was seen by his son yesterday and was in his usual status. Today he was sent in because [facility] note is that he was not urinating and a Ngo catheter could not be inserted. Patient was found to be hypotensive and septic with elevated lactic gas level. Vital Signs Date Time Temp Pulse Resp B/P Pulse O2 O2 Flow FiO2 Ox Delivery Rate 09/06 1738 105 24 84/42 97 Nasal 2.0L Cannula 09/06 1654 95 30 82/40 97 Nasal 2.0L Cannula 09/06 1610 102.3 09/06 1608 Nasal Cannula 09/06 1608 99.6 107 36 84/40 95 Nasal Cannula 09/06 1436 102.3 115 26 101/63 94 Nasal 2.0L Cannula Intake & Output 09/06 1600 09/06 0800 09/06 0000 Intake Total Output Total 400 Balance -400 Number 1 Bowel Movements Output, Urine 400 Patient 79.379 kg Weight Exam: General: Patient awake alert but disoriented without any distress; appears lethargic CVS: S1 plus S2 without any murmur or gallops Chest: Few scattered crepitation without any wheeze. There is no respiratory distress. Abdomen: Soft nontender, bowel sound present, no guarding or rebound [employer]: Awake alert oriented without any focal neuro deficit and follows command appropriately Extremities: No edema; no clubbing or cyanosis noted Sepsis focused exam Capillary refill was less than 2 seconds Peripheral pulses were present bilaterally; pulses appear week bilaterally Dorsalis pedis and radial pulses were were weak bilaterally Skin was normal warm and dry without any cyanosis or rash Laboratory Tests 09/06/16 1520: Anion Gap 13, Estimated GFR > 60, BUN/Creatinine Ratio 24.5, Glucose 209 H, Lactic Acid 6.2 H, Calcium 8.2 L, Total Bilirubin 0.7, AST 41, ALT 36, Alkaline Phosphatase 98, Troponin I 0.03, Total Protein 6.0 L, Albumin 3.4 L, Globulin 2.6, Albumin/Globulin Ratio 1.3, CBC w Diff MAN DIFF ORDERED, RBC 4.64 L, MCV 82.7, MCH 27.3, RDW 16.2 H, MPV 8.4, Gran % 98.3 H, Lymphocytes % 1.2 L, Monocytes % 0.5 L, Eosinophils % 0, Basophils % 0 L, Absolute Granulocytes 19.8 H, Segmented Neutrophils 88 H, Band Neutrophils 9 H, Absolute Lymphocytes 0.3 L, Lymphocytes 2 L, Monocytes 1 L, Absolute Monocytes 0.1 L, Absolute Eosinophils 0, Absolute Basophils 0, Platelet Estimate ADEQUATE, Normochromic RBCs VERIFIED, Anisocytosis 1+, PUBS MCHC 33.0 09/06/16 1455: Urine Color BLDY H, Urine Clarity HAZY H, Urine pH 6.0, Ur Specific [place] 1.015, Urine Protein 30 H, Urine Ketones NEG, Urine Nitrite NEG, Urine Bilirubin NEG, Urine Urobilinogen 0.2, Ur Leukocyte Esterase LARGE H, Ur Microscopic SEDIMENT EXAMINED, Urine RBC 25-50 H, Urine WBC 10-15 H, Urine Hemoglobin LARGE H, Urine Glucose NEG Diagnostic Data EKG Results Atrial fibrillation HR 140 QTc 489 CXR Results 1. No evidence of focal pneumonia. 2. Ectatic aorta, unchanged. CT Abd: No acute process seen in CT of chest, abdomen or pelvis. 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 Nursing staff in ER has noted diarrhea and given recent exposure antibiotic this possibility of C. difficile. We will continue Vanco and Fortaz for now. * Septic shock * Rule out C. difficile * Rule out genetic tract infection with obstruction- CT scan negative for any gross obstruction * History of dementia * Hypertension Plan * Admit to ICU * Continue Fortaz and vancomycin for now * Continue aggressive IV fluids * As per family patient is DNR/DNI and no central line are to be inserted and no vasopressors to be given; this was discussed with the son at the bedside in the emergency room * Given the patient is taking prednisone I will start stress dose of steroids with hydrocortisone * Check cortisol level; check TSH level * Recheck CBC * Follow blood cultures and urine cultures; follow-up C. difficile * Patient prognosis is poor given the degree of hypotension and sepsis.
--- NOTE | 2016-09-07 09:41 | Cons- CRCU ---
General Information and HPI Consulting Request Date of Consult: 09/07/16 Requested By: ed/med team History of Present Illness: Mr. Lamar is a 89 y/o M with PMHx of COPD on 2 L home oxygen, atrial fibrillation on Xarelto and HFpEF who is brought in from [facility] for fever, urinary retention, hematuria and AMS. Of note, patient has dementia at baseline and was confused and unable to provide clear and detailed history at the time of the interview so most of the history is obtained from the W-10, ED notes and patient's son. According to the W-10, they were unable to place a Ngo catheter at the group home and patient arrived to the ED with blood on his penis. During the interview patient denied chest pain, palpitations , shortness of breath, abdominal pain, nausea, vomiting or diarrhea. His only complaint was headache which had started this morning. Of note, patient has been hospitalized here at [facility] twice within the past two month. The most recent hospitalization was about 2.5 weeks ago (08/19/16-08/23/16) for acute bronchitis and COPD exacerbation, during which time patient was treated with IV steroids and discharged on prednisone taper and home oxygen. The first one was about two months ago (07/15/16-07/21/16) for acute on chronic hypercarbic respiratory failure that was felt to be multifactorial. According to patient's son he has been doing poorly with low oral intake since that hospitalization. Since he came in he has had sig hypotension and was in sig shock Now fluid resucitated and improving slowly Allergies/Medications Allergies: Coded Allergies: NO KNOWN ALLERGIES (07/15/16) Home Med List: Acetazolamide 250 MG TABLET 1 TAB PO SEE ADMIN CRITERIA respiratory failure Take on: Sunday, Sunday, . Do not take your Lasix on these days. Albuterol Sulfate 5 MG/ML SOLUTION 0.5 MG NEB Q4 PRN COPD (Reported) Calcium Carbonate (TUMS) 200 MG CALCIUM (500 MG) TAB.CHEW 2 TAB PO 4 TIMES/DAY HEART BURN (Reported) Ceftriaxone Sodium (Ceftriaxone) 1 GRAM VIAL 1 IM 1300 UTI (Reported) FIRST DOSE 09/06 LAST DATE 09/10 Ergocalciferol (Vitamin D2) (Vitamin D2) 50,000 UNIT CAPSULE 1 CAP PO Q30D SUPPLEMENT (Reported) Furosemide 20 MG TABLET 1 TAB PO BID WATER PILL (Reported) Reason to Stop at ADM: HYPOTENSIVE Hydrocortisone (Cortaid) 1 % CREAM..G. 1 RAKAN TOP BID SKIN (Reported) Lisinopril 2.5 MG TABLET 1 TAB PO DAILY BP (Reported) Reason to Stop at ADM: HYPOTENSIVE Metformin HCl (Metformin HCl ER) 1,000 MG TAB.ER.24 1 TAB PO DAILY DM ( Reported) Reason to Stop at ADM: ISS Pravastatin Sodium (Pravachol) 40 MG TABLET 1 TAB PO 1700 CHOLESTEROL ( Reported) Prednisone 20 MG TABLET 2 TAB PO DAILY STEROID (Reported) 20MG 09/05-09/07 10MG 09/08-09/10 5MG 09/11 Risperidone (Risperdal) 0.25 MG TABLET 1 TAB PO DAILY AGITATION (Reported) Reason to Stop at ADM: AMS Rivaroxaban (Xarelto) 20 MG TABLET 1 TAB PO DAILY AFIB (Reported) with food Sertraline HCl (Zoloft) 25 MG TABLET 1 TAB PO DAILY MENTAL HEALTH (Reported) Reason to Stop at ADM: AMS Tamsulosin HCl 0.4 MG CAP.ER.24H 1 CAP PO BID PROSTATE (Reported) Reason to Stop at ADM: HYPOTENSIVE Theophylline Anhydrous 200 MG TAB.ER.12H 1 TAB PO AT BEDTIME COPD Trazodone HCl 50 MG TABLET 1 TAB PO DAILY SLEEP (Reported) Reason to Stop at ADM: WILL HOLF FOR NOW, PATIENT SEPTIC AND MAY GET ALTERED Current Medications: Current Medications Sig/Emily Start time Last Medication Dose Route Stop Time Status Admin Acetaminophen 1,000 MG Q6P PRN 09/07 0845 09/07 N/A 1 UNIT IV 0849 Acetaminophen 650 MG Q6P PRN 09/06 1830 AC PO Acetaminophen 0 .STK-MED ONE 09/06 1553 DC IV Acetaminophen 1,000 MG ONCE ONE 09/06 1545 DC 09/06 N/A 1 UNIT IV 09/06 1559 1610 Ceftazidime 1,000 MG Q12 09/06 2199 AC 09/06 IV 2320 Ceftriaxone Sodium 0 .STK-MED ONE 09/06 1523 DC .ROUTE Ceftriaxone Sodium 1,000 MG ONCE ONE 09/06 1515 DC 09/06 IV 09/06 1516 1531 Ergocalciferol 50,000 IU Q30D@1000 09/14 1000 AC PO Hydrocortisone 1 RAKAN BID 09/06 2199 AC 09/06 TOP 2300 Hydrocortisone 50 MG Q6 09/07 0828 AC 09/07 Sodium Succinate IV 0849 Hydrocortisone 100 MG STAT STA 09/06 1847 DC 09/06 Sodium Succinate IV 09/06 1848 2013 Insulin Human Regular 0 Q6 09/06 2359 AC 09/07 SC 0635 Magnesium Sulfate 1 GM ONCE ONE 09/07 1130 AC Dextrose/Water 100 ML IV 09/07 1529 Magnesium Sulfate 1 GM ONCE ONE 09/07 0930 AC Dextrose/Water 100 ML IV 09/07 1129 Magnesium Sulfate 1 GM ONCE ONE 09/07 0800 AC Dextrose/Water 100 ML IV 09/07 1159 Magnesium Sulfate 1 GM ONCE ONE 09/07 0730 AC 09/07 Dextrose/Water 100 ML IV 09/07 0929 0849 Oxycodone/ 1 TAB Q6P PRN 09/06 1830 DC Acetaminophen PO Oxycodone/ 2 TAB Q6P PRN 09/06 1830 DC Acetaminophen PO Potassium Chloride 10 MEQ ONCE ONE 09/07 0830 DC IV 09/07 0831 Potassium Chloride 10 MEQ ONCE ONE 09/07 0800 DC IV 09/07 0801 Potassium Chloride 10 MEQ ONCE ONE 09/07 0730 DC IV 09/07 0731 Pravastatin Sodium 40 MG 1700 09/07 1700 AC PO Rivaroxaban 20 MG 1700 09/07 1700 AC PO Sodium Chloride 1,000 ML BOLUS ONE 09/06 2230 DC 09/06 IV 09/06 2329 2215 Sodium Chloride 1,000 ML BOLUS ONE 09/06 1945 DC 09/06 IV 09/06 Sodium Chloride 1,000 ML BOLUS ONE 09/06 1945 DC 09/06 IV 09/06 2044 2108 Sodium Chloride 1,000 ML BOLUS ONE 09/06 1830 DC 09/06 IV 09/06 1929 1903 Sodium Chloride 1,000 ML Q10H 09/06 1830 AC 09/06 IV 1855 Sodium Chloride 1,000 ML BOLUS ONE 09/06 1615 DC 09/06 IV 09/06 1714 1737 Sodium Chloride 500 ML BOLUS ONE 09/06 1615 DC 09/06 IV 09/06 1714 1653 Sodium Chloride 1,000 ML BOLUS ONE 09/06 1500 DC 09/06 IV 09/06 1559 1531 Theophylline 200 MG AT BEDTIME 09/06 2200 AC PO Vancomycin HCl 1,000 MG 1700 09/07 1700 AC Dextrose/Water 250 ML IV Vancomycin HCl 1,000 MG DAILY 09/07 1000 DC Dextrose/Water 250 ML IV Vancomycin HCl 0 .STK-MED ONE 09/06 1642 DC .ROUTE Vancomycin HCl 1,000 MG ONCE ONE 09/06 1615 DC 09/06 Dextrose/Water 250 ML IV 09/06 1714 1653 Vitamin A/Vitamin D 1 RAKAN BID 09/06 2224 AC 09/06 TOP 2300 Zinc Oxide 1 RAKAN BID 09/06 2224 AC 09/06 TOP 2300 Review of Systems Comments Review of Systems Constitutional: Denies: chills, fever. EENTM: Reports: no symptoms. Cardiovascular: Denies: chest pain, palpitations. Respiratory: Denies: short of breath. GI: Denies: abdominal pain. Genitourinary: Reports: no symptoms. Musculoskeletal: Reports: no symptoms. Skin: Reports: no symptoms. Neurological/Psychological: Reports: headache. Hematologic/Endocrine: Reports: no symptoms. Immunologic/Allergic: Reports: no symptoms. 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 . MOTHER (Unknown cancer). . Psychosocial History Where Do You Live? [facility] Facility Primary Language: Romansh Smoking Status: Never Smoked ETOH Use: denies use Illicit Drug Use: denies illicit drug use Functional Ability ADLs Needs Assist: dressing, eating, toileting, bathing. 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 [employer] Exam & Diagnostic Data Last 24 Hrs of Vital Signs/I&O Vital Signs Date Time Temp Pulse Resp B/P Pulse O2 O2 Flow FiO2 Ox Delivery Rate 09/07 0356 96 Nasal 2.0L Cannula 09/06 2339 95 Nasal 2.0L Cannula 09/06 2154 98.8 20 68/48 97 Room Air 09/06 2133 98.8 09/06 2104 97 Nasal 2.0L Cannula 09/06 2011 98.6 110 28 75/50 95 Nasal 2.0L Cannula 09/06 1849 99.6 109 24 75/54 96 Nasal 2.0L Cannula 09/06 1738 105 24 84/42 97 Nasal 2.0L Cannula 09/06 1654 95 30 82/40 97 Nasal 2.0L Cannula 09/06 1610 102.3 09/06 1608 Nasal Cannula 09/06 1608 99.6 107 36 84/40 95 Nasal Cannula 09/06 1436 102.3 115 26 101/63 94 Nasal 2.0L Cannula Intake & Output 09/07 1600 09/07 0800 09/07 0000 Intake Total 6000 Output Total 750 Balance 5250 Intake, IV 6000 Output, Urine 750 Patient 204 lb Weight Last 48 Hrs of Labs/Navdeep: Laboratory Tests 09/07/16 0910: PT Pending, INR Pending 09/07/16 0818: PT Cancelled, INR Cancelled 09/07/16 0510: Anion Gap 9, Estimated GFR > 60, Glucose 121 H, Calcium 6.6 L, Phosphorus 4.6 H, Magnesium 1.0 L, Total Bilirubin 0.4, AST 20, ALT 32, Albumin 2.6 L, TSH 0.973, Cortisol AM Sample 31.2 H, CBC w Diff MAN DIFF ORDERED, RBC 4.06 L, MCV 84.7, MCH 27.6, RDW 16.2 H, MPV 8.5, Gran % 96.0 H, Lymphocytes % 1.3 L, Monocytes % 2.7, Eosinophils % 0, Basophils % 0 L, Absolute Granulocytes 35.5 H, Segmented Neutrophils 84 H, Band Neutrophils 10 H, Absolute Lymphocytes 0.5 L, Lymphocytes 2 L, Monocytes 3, Absolute Monocytes 1.0 H, Absolute Eosinophils 0, Absolute Basophils 0, Metamyelocytes 1, Platelet Estimate ADEQUATE, Poikilocytosis FEW, Anisocytosis 1+, Ovalocytes FEW, PUBS MCHC 32.6 L , Fld Total RBCs Counted 100 09/07/16 0125: Lactic Acid 2.6 H 09/06/160: Lactic Acid Cancelled 09/06/165: Lactic Acid 3.6 H 09/06/16 1840: Lactic Acid 3.5 H 09/06/16 1520: Anion Gap 13, Estimated GFR > 60, BUN/Creatinine Ratio 24.5, Glucose 209 H, Lactic Acid 6.2 H, Calcium 8.2 L, Total Bilirubin 0.7, AST 41, ALT 36, Alkaline Phosphatase 98, Troponin I 0.03, Total Protein 6.0 L, Albumin 3.4 L, Globulin 2.6, Albumin/Globulin Ratio 1.3, Cortisol PM Sample 47.8 H, CBC w Diff MAN DIFF ORDERED, RBC 4.64 L, MCV 82.7, MCH 27.3, RDW 16.2 H, MPV 8.4, Gran % 98.3 H, Lymphocytes % 1.2 L, Monocytes % 0.5 L, Eosinophils % 0, Basophils % 0 L, Absolute Granulocytes 19.8 H, Segmented Neutrophils 88 H, Band Neutrophils 9 H, Absolute Lymphocytes 0.3 L, Lymphocytes 2 L, Monocytes 1 L, Absolute Monocytes 0.1 L, Absolute Eosinophils 0, Absolute Basophils 0, Platelet Estimate ADEQUATE, Normochromic RBCs VERIFIED, Anisocytosis 1+, PUBS MCHC 33.0 09/06/16 1455: Urine Color BLDY H, Urine Clarity HAZY H, Urine pH 6.0, Ur Specific Kemp 1.015, Urine Protein 30 H, Urine Ketones NEG, Urine Nitrite NEG, Urine Bilirubin NEG, Urine Urobilinogen 0.2, Ur Leukocyte Esterase LARGE H, Ur Microscopic SEDIMENT EXAMINED, Urine RBC 25-50 H, Urine WBC 10-15 H, Urine Hemoglobin LARGE H, Urine Glucose NEG 09/06/16 1000: Sodium Cancelled, Potassium Cancelled, Chloride Cancelled, Carbon Dioxide Cancelled, Anion Gap Cancelled, BUN Cancelled, Creatinine Cancelled, Glucose Cancelled, Calcium Cancelled, Phosphorus Cancelled, Magnesium Cancelled, Total Bilirubin Cancelled, AST Cancelled, ALT Cancelled, Albumin Cancelled Microbiology 09/06 1616 NASOPHARYN: Influenza Virus A & B Rapid Smear - COMP Assessment/Plan Impression/Plan: SIGNIFICANT DATA CT chest was unremarkable. No lung nodule or pneumonia CT abdomen was also unremarkable other than some stool in the right side of the colon no significant hernia mild aneurysm of the aorta. Blood work reviewed creatinine 1 potassium 3.4 anion gap is normal lactic acid is improved His magnesium is significantly low Last theophylline level was 6.6 White count 37,000 hemoglobin 11.2 with 10% bands INR 1.4 to a year ago Previous ABG had revealed that his bicarbonate was elevated at times but did come back to normal Blood cultures are growing gram-negative rods. Previous urine culture had grown Proteus which was pansensitive. Physical Exam General Appearance Lethargic but Arousable, Follows Commands Skin Psoriasiform Lesions on Abdomen HEENT Dry Mucous Membranes Neck No JVD Cardiovascular Irregularly Irregular Lungs Clear to Auscultation Bilaterally on Anterior Lung Riggs Abdomen Soft, Positive Bowel Sounds, Mild Tenderness To Palpation on Right Upper Quadrant Neurological Oriented to Name and Place, but Not Time Extremities No Clubbing, No Cyanosis, Trace Pitting Edema on Bilateral Lower Extremities IMPRESSION This is an elderly gentleman with history of dementia with severe small vessel disease in the brain, hypertension, hyperlipidemia, diabetes, previous gout and chronic anemia, small abdominal aneurysm, significant psoriasis, paroxysmal atrial fibrillation on appropriate anticoagulation, diastolic heart disease , bilateral dynamic atelectasis with significant hypoventilation, recurrent hypercarbic respiratory failure, diastolic heart disease, 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 No clinical evidence suggestive of pneumonia or any biliary tract disease by CT scan. Patient has had Proteus before and his urine. He may have had significant BPH with urinary retention before as well. 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 Normal saline with D5 and 100 mL an hour for now * Discontinue vancomycin and continue him on ceftazidime * Hold theophylline for now * Reduce hydrocortisone to 50 mg every 8 * Hold unnecessary. Medications for now including pravastatin * Continue anticoagulation * Hold by mouth diabetic medications * If he is improves in the future start him on his bedtime antipsycotic and antidepressant * Continue Flomax at bedtime * We will resume by mouth medications slowly when indicated * Continue his Ngo catheter for now * When he is able to take by mouth we'll switch him to 10 mg of prednisone * We will contemplated using mirtazapine at bedtime into the trazodone in the future Patient is critically ill DNR/DNI TTS 35 minutes Consult Acknowledgment - Thank you for your consult request.
[2016-09-07 11:50] LABS: PT 13.3 SEC (9.4-12.5)
[2016-09-07 16:00] VITALS: BP 100/60
[2016-09-08] VITALS: BP 120/82
--- NOTE | 2016-09-08 07:14 | PN- Housestaff ---
Subjective Follow-up For: Gram-negative sepsis 2/2 UTI Subjective: No acute events overnight. Patient is doing well this morning. He is awake and alert but remains confused which is his baseline. He has been complaining of generalized body aches and 6/10 chest pain that is reproducible on palpation, but denies palpitations or shortness of breath. He reports that his back his itchy. His oral intake is good. Review of Systems Constitutional: Reports: no symptoms. Cardiovascular: Reports: chest pain. Objective Last 24 Hrs of Vital Signs/I&O Vital Signs Date Time Temp Pulse Resp B/P Pulse O2 O2 Flow FiO2 Ox Delivery Rate 09/08 1105 97 Nasal 2.0L Cannula 09/08 0916 86 140/70 09/08 0800 Room Air 09/08 0800 97.6 114 20 140/70 94 Room Air 09/08 0000 95 Room Air 09/08 0000 97.4 65 18 120/82 95 Room Air 09/07 2125 97.0 80 16 116/68 09/07 1930 93 Room Air Room Air 09/07 1600 98 Nasal 2.0L Cannula 09/07 1600 97.4 70 16 100/60 94 Nasal 2.0L Cannula Intake & Output 09/08 1600 09/08 0800 09/08 0000 Intake Total 350 1300 Output Total 350 300 Balance 0 1000 Intake, IV 250 1200 Intake, Oral 100 100 Output, Urine 350 300 Physical Exam General Appearance: Alert, No Acute Distress, Confused Skin: Psoriasiform Lesions on Abdomen and Back, Warm, Dry and Well-Perfused HEENT: Mucous Membr. moist/pink Neck: Supple Cardiovascular: Irregularly Irregular, Normal S1 and S2, No Murmurs, Rubs or Gallops Lungs: Few Crackles Scattered Throughout Lung Riggs, No Wheezes, No Respiratory Distress Abdomen: Soft, No Tenderness, Positive Bowel Sounds Neurological: No Gross Focal Deficits Noted Extremities: No Clubbing, No Cyanosis, No Edema Current Medications: Current Medications Sig/Emily Start time Last Medication Dose Route Stop Time Status Admin Acetaminophen 1,000 MG Q6P PRN 09/07 0845 DC 09/07 N/A 1 UNIT IV 1606 Acetaminophen 650 MG Q6P PRN 09/06 1830 AC 09/08 PO 0752 Albuterol Sulfate 3 ML Q4P PRN 09/07 1115 AC 09/07 INH 1124 Ceftazidime 1,000 MG Q12 09/06 2200 AC 09/08 IV 1119 Dextrose/Sodium 1,000 ML Q10H 09/07 1100 DC 09/07 Chloride IV 2137 Diphenhydramine HCl 1 RAKAN BID 09/08 1000 AC 09/08 TOP 1119 Ergocalciferol 50,000 IU Q30D@1000 09/14 1000 AC PO Hydrocortisone 1 RAKAN BID 09/06 2200 AC 09/08 TOP 0854 Hydrocortisone 50 MG Q8 09/07 1400 DC Sodium Succinate IV Insulin Aspart 0 TIDAC 09/08 0800 AC 09/08 SC 1142 Insulin Human Regular 0 Q6 09/06 2359 DC 09/07 SC 1225 Lidocaine 1 PAT DAILY 09/07 1553 AC 09/08 EXT 0853 Magnesium Sulfate 1 GM ONCE ONE 09/07 1130 DC 09/07 Dextrose/Water 100 ML IV 09/07 1529 1326 Prednisone 10 MG DAILY 09/07 1450 AC 09/08 PO 0916 Risperidone 0.25 MG DAILY 09/07 1230 AC 09/08 PO 0916 Rivaroxaban 20 MG 1700 09/07 1700 AC 09/07 PO 1653 Tamsulosin HCl 0.4 MG BID 09/07 2200 AC 09/08 PO 0916 Trazodone HCl 50 MG AT BEDTIME 09/07 2200 AC 09/07 PO 2124 Vitamin A/Vitamin D 1 RAKAN BID 09/06 2224 AC 09/08 TOP 0853 Zinc Oxide 1 RAKAN BID 09/06 2224 TN 09/06 TOP 2300 Last 24 Hrs of Lab/Navdeep Results Last 24 Hrs of Labs/Mics: Laboratory Tests 09/08/16 0905: Anion Gap 8, Estimated GFR > 60, BUN/Creatinine Ratio 27.1 H, Magnesium 2.2, Troponin I < 0.01, CBC w Diff MAN DIFF ORDERED, RBC 4.13 L, MCV 83.3, MCH 27.5, RDW 16.8 H, MPV 9.0, Gran % 96.6 H, Lymphocytes % 1.5 L, Monocytes % 1.3 L, Eosinophils % 0.5, Basophils % 0.1, Absolute Granulocytes 21.8 H, Segmented Neutrophils 87 H, Band Neutrophils 9 H, Absolute Lymphocytes 0.3 L, Lymphocytes 3 L, Monocytes 1 L, Absolute Monocytes 0.3, Absolute Eosinophils 0.1, Absolute Basophils 0, Platelet Estimate VERIFIED BY SMEAR, Normocytic RBCs VERIFIED, Normochromic RBCs VERIFIED, PUBS MCHC 33.0 BCx (09/06/16): Gram negative rods x2 UCx (09/06/16): Gram negative rods Assessment/Plan Assessment: 89 y/o M with PMHx of COPD, atrial fibrillation on Xarelto and psoriasis admitted for severe gram negative sepsis 2/2 UTI, currently resolving. #Sepsis 2/2 UTI: Clinically much improved. Remains afebrile with improvement of leukocytosis on day 2 of ceftazidime for gram-negative sepsis 2/2 to UTI, most likely Proteus as patient had grown pansensitive Proteus in the past. * IVF discontinued. * Continue ceftazidime 1 g IV Q12H. * Taper prednisone to 5 mg daily for 3 more doses starting tomorrow. * DNR/DNI including no central line and pressors per patient's and family's wishes. * Follow UCx and BCx for speciation and susceptibilities. #Urinary retention 2/2 BPH: Low UOP noted today. * Urology consulted. Appreciate their recs. * Continue prior to admission tamsulosin 0.4 mg PO BID. * Keep Ngo. #HTN: Takes lisinopril 2.5 mg PO daily and furosemide 20 mg PO BID. * Holding prior to admission antihypertensives in the setting of hypotension. Consider restarting tomorrow if BPs tolerate. #Chest pain: Complained of 6/10 chest pain, reproducible on palpation. EKG with no ST-T elevations. Troponin negative. * NTD. #COPD: Not in acute exacerbation. In compensated chronic hypercarbic respiratory failure with stable respiratory status. Remains on 2 L NC, unchanged from home oxygen requirement. * Provide supplemental oxygen to keep SpO2 > 92%. * Continue to hold prior to admission theophylline. * TRC and nebs as needed. #T2DM: Takes metformin 1000 mg PO daily. * Continue Accu-checks and medium dose Novolog SSI TIDAC. * Consider resuming prior to admission metformin. #Depression: * Resume prior to admission sertraline 25 mg PO daily. #HLD: * Resume prior to admission pravastatin 40 mg PO daily. #Wound/DTI: Area of deep tissue injury noted to coccyx measuring 0.2 x 0.2 cm with areas of hyperpigmentation and excoriation extending beyond the wound margins. Full thickness wound on midback measuring 6.5 x 12 cm, present on admission, improved from previous assessment (08/21/16) on prior admission. * Management per wound care team. * Cleanse mid-back wound with normal saline and apply petroleum gauze. * Apply vitamin A + D cream to areas of DTI on coccyx and buttocks. * Nutrition consult ordered. Diet changed to consistent carbohydrate 3 ( previously on 2) for increased calorie intake per their recs. * Patient placed on category 2 mattress. * Turn and reposition patient frequently. #Psoriasis: Psoriasiform lesions noted on abdomen, buttocks and back. Complaining of itchiness today. * Continue to apply prior to admission hydrocortisone BID to rash. * Apply topical Benadryl BID to rash for relief from itching. #Atrial fibrillation: Remains in atrial fibrillation with well-controlled heart rate. * Continue prior to admission Xarelto 20 mg PO QHS. #Dementia: * Continue prior to admission risperidone 0.25 mg PO daily for agitation. #Insomnia: * Continue prior to admission trazodone 50 mg PO daily. Diet: Consistent carbohydrate 3 with 2 g Na restriction - Full chopped and regular thins DVT PPx: Xarelto and ALPs CODE: DNR/DNI including no central line or pressors Problem List: 1. Sepsis secondary to UTI 2. HTN (hypertension) 3. COPD (chronic obstructive pulmonary disease) 4. Type 2 diabetes mellitus 5. (HFpEF) heart failure with preserved ejection fraction 6. Atrial fibrillation 7. Dementia 8. Chest pain 9. Urinary retention due to benign prostatic hyperplasia 10. Deep tissue injury 11. Wound of back Pain Ratin Pain Location: Chest Pain Goal: Pain 4 or less Pain Plan: Tylenol 650 mg PO Q6H PRN for mild pain (scale 1-3) Tramadol 50 mg PO Q6H PRN for moderate pain (scale 4-6) Tomorrow's Labs & Rationales: CBC to monitor WBC in the setting of UTI
[2016-09-08 08:00] VITALS: BP 140/70
[2016-09-08 10:01] LABS: ABSOLUTE BASOPHIL COUNT 0 /CUMM (0.0-0.2); ABSOLUTE EOSINOPHIL COUNT 0.1 /CUMM (0.0-0.7); ABSOLUTE GRANULOCYTE CT 21.8 /CUMM (1.4-6.5); ABSOLUTE LYMPH COUNT 0.3 /CUMM (1.2-3.4); ABSOLUTE MONOCYTE COUNT 0.3 /CUMM (0.10-0.60); BASOPHIL % 0.1 % (0.0-2.0); EOSINOPHIL % 0.5 % (0-5); GRANULOCYTE % 96.6 % (42.2-75.2); HEMATOCRIT 34.4 % (42-52); MEAN CORPUSCULAR HGB 27.5 PG (27.0-31.0); MEAN CORPUSCULAR VOLUME 83.3 FL (80.0-94.0); PLATELET COUNT 133 /CUMM (130-400); RBC DISTRIBUTION WIDTH 16.8 % (11.5-14.5); RED BLOOD CELL CT 4.13 /CUMM (4.70-6.10); WHITE BLOOD CELL COUNT 22.6 /CUMM (4.8-10.8)
--- NOTE | 2016-09-08 13:49 | PN- Pulmonary ---
Subjective HPI/Critical Care Issues: No acute events overnight. Patient is doing well this morning. He is awake and alert but remains confused which is his baseline. He has been complaining of generalized body aches and 6/10 chest pain that is reproducible on palpation, but denies palpitations and shortness of breath. He reports that his back his itchy. Objective Current Medications: Current Medications Sig/Emily Start time Last Medication Dose Route Stop Time Status Admin Acetaminophen 1,000 MG Q6P PRN 09/07 0845 DC 09/07 N/A 1 UNIT IV 1606 Acetaminophen 650 MG Q6P PRN 09/06 1830 AC 09/08 PO 0752 Albuterol Sulfate 3 ML Q4P PRN 09/07 1115 AC 09/08 INH 1311 Ceftazidime 1,000 MG Q12 09/06 2200 AC 09/08 IV 1119 Dextrose/Sodium 1,000 ML Q10H 09/07 1100 DC 09/07 Chloride IV 2137 Diphenhydramine HCl 1 RAKAN BID 09/08 1000 AC 09/08 TOP 1119 Ergocalciferol 50,000 IU Q30D@1000 09/14 1000 AC PO Hydrocortisone 1 RAKAN BID 09/06 2200 AC 09/08 TOP 0854 Hydrocortisone 50 MG Q8 09/07 1400 DC Sodium Succinate IV Insulin Aspart 0 TIDAC 09/08 0800 AC 09/08 SC 1142 Insulin Human Regular 0 Q6 09/06 2359 DC 09/07 SC 1225 Lidocaine 1 PAT DAILY 09/07 1553 AC 09/08 EXT 0853 Magnesium Sulfate 1 GM ONCE ONE 09/07 1130 DC 09/07 Dextrose/Water 100 ML IV 09/07 1529 1326 Pravastatin Sodium 40 MG 1700 09/08 1700 UNVr PO Pravastatin Sodium 40 MG DAILY 09/08 1233 DC PO Prednisone 10 MG DAILY 09/07 1450 AC 09/08 PO 0916 Risperidone 0.25 MG DAILY 09/07 1230 AC 09/08 PO 0916 Rivaroxaban 20 MG 1700 09/07 1700 AC 09/07 PO 1653 Sertraline HCl 25 MG DAILY 09/08 1232 AC PO Tamsulosin HCl 0.4 MG BID 09/07 2200 AC 09/08 PO 0916 Trazodone HCl 50 MG AT BEDTIME 09/07 2200 AC 09/07 PO 2124 Vitamin A/Vitamin D 1 RAKAN BID 09/06 2224 AC 09/08 TOP 0853 Zinc Oxide 1 RAKAN BID 09/06 2224 DC 09/06 TOP 2300 Vital Signs & I&O Last 24 Hrs of Vitals and I&O: Vital Signs Date Time Temp Pulse Resp B/P Pulse O2 O2 Flow FiO2 Ox Delivery Rate 09/08 1319 96 Nasal 2.0L Cannula 09/08 1105 97 Nasal 2.0L Cannula 09/08 0916 86 140/70 09/08 0800 Room Air 09/08 0800 97.6 114 20 140/70 94 Room Air 09/08 0000 95 Room Air 09/08 0000 97.4 65 18 120/82 95 Room Air 09/07 2125 97.0 80 16 116/68 09/07 1930 93 Room Air Room Air 09/07 1600 98 Nasal 2.0L Cannula 09/07 1600 97.4 70 16 100/60 94 Nasal 2.0L Cannula Intake & Output 09/08 1600 09/08 0800 09/08 0000 Intake Total 350 1300 Output Total 350 300 Balance 0 1000 Intake, IV 250 1200 Intake, Oral 100 100 Output, Urine 350 300 Impression/Plan Impression/Plan Impression/Plan: SIGNIFICANT DATA CT chest was unremarkable. No lung nodule or pneumonia CT abdomen was also unremarkable other than some stool in the right side of the colon no significant hernia mild aneurysm of the aorta. Urine culture growin ecoli Blood cultures are growing gram-negative rods. Physical Exam General Appearance Lethargic but Arousable, Follows Commands Skin Psoriasiform Lesions on Abdomen HEENT Dry Mucous Membranes Neck No JVD Cardiovascular Irregularly Irregular Lungs Clear to Auscultation Bilaterally on Anterior Lung Riggs Abdomen Soft, Positive Bowel Sounds, Mild Tenderness To Palpation on Right Upper Quadrant Neurological Oriented to Name and Place, but Not Time Extremities No Clubbing, No Cyanosis, Trace Pitting Edema on Bilateral Lower Extremities IMPRESSION This is an elderly gentleman with history of dementia with severe small vessel disease in the brain, hypertension, hyperlipidemia, diabetes, previous gout and chronic anemia, small abdominal aneurysm, significant psoriasis, paroxysmal atrial fibrillation on appropriate anticoagulation, diastolic heart disease , bilateral dynamic atelectasis with significant hypoventilation, recurrent hypercarbic respiratory failure, diastolic heart disease, 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 No clinical evidence suggestive of pneumonia or any biliary tract disease by CT scan. Pt has ecoli in the urine. He may have had significant BPH with urinary retention before as well. * Dynamic lower lobe atelectasis related to chronic hypoventilation with compensated chronic hypercarbic respiratory failure, previously had significantly elevated PCO2, now appears to be not retaining PCO2 * Previous diastolic heart disease with no evidence of CHF * Secondary pulmonary hypertension most likely related to diastolic heart disease and probable obesity hypoventilation syndrome with central apnea * Diabetes, BPH, hyperlipidemia, psoriasis * Previous history suggestive of on and off hypoglycemia * Clinical evidence of tracheomalacia Recommendation * Can dc ivf once he is able to take po * Hold theophylline for now * Dc steroids iv with prednisone 10 for two days and five mg for 3 days and dc * Continue anticoagulation * Hold by mouth diabetic medications till he is taking po * If he is improves in the future start him on his bedtime antipsycotic and antidepressant * Continue Flomax at bedtime. Needs urology eval * Continue his Ngo catheter for now * We will contemplated using mirtazapine at bedtime into the trazodone in the future Ok to the floor
[2016-09-08 16:00] VITALS: BP 120/70
--- NOTE | 2016-09-08 16:49 | Cons- Urology ---
General Information and HPI Consulting Request Date of Consult: 09/08/16 Requested By: MD SIERRA Reason for Consult: URINARY RETENTION-SEPSIS Source of Information: patient, old records History of Present Illness: 89 year old pt was admitted with urinary retention and sepsis. On exam pt appeared awake and without complaints. VSS afebile. Allergies/Medications Allergies: Coded Allergies: NO KNOWN ALLERGIES (07/15/16) Home Med List: Acetazolamide 250 MG TABLET 1 TAB PO SEE ADMIN CRITERIA respiratory failure Take on: Sunday, Sunday, . Do not take your Lasix on these days. Albuterol Sulfate 5 MG/ML SOLUTION 0.5 MG NEB Q4 PRN COPD (Reported) Amoxicillin/Potassium Clav (Augmentin 875-125 Tablet) 875 MG-125 MG TABLET 1 TAB PO BID URINE INFECTION Amoxicillin/Potassium Clav (Augmentin 875-125 Tablet) 875 MG-125 MG TABLET 1 TAB PO BID URINE INFECTION Bisacodyl (Dulcolax) 10 MG SUPP.RECT 1 SUP RC DAILY PRN constipation Bisacodyl 5 MG TABLET.DR 5 MG PO DAILY PRN constipation Calcium Carbonate (TUMS) 200 MG CALCIUM (500 MG) TAB.CHEW 2 TAB PO 4 TIMES/DAY HEART BURN (Reported) Ergocalciferol (Vitamin D2) (Vitamin D2) 50,000 UNIT CAPSULE 1 CAP PO Q30D SUPPLEMENT (Reported) Furosemide 20 MG TABLET 1 TAB PO BID WATER PILL (Reported) Reason to Stop at ADM: HYPOTENSIVE Hydrocortisone (Cortaid) 1 % CREAM..G. 1 RAKAN TOP BID SKIN (Reported) Lisinopril 2.5 MG TABLET 1 TAB PO DAILY BP (Reported) Reason to Stop at ADM: HYPOTENSIVE Metformin HCl (Metformin HCl ER) 1,000 MG TAB.ER.24 1 TAB PO DAILY DM ( Reported) Reason to Stop at ADM: ISS Polyethylene Glycol 3350 (Miralax) 17 GRAM/DOSE POWDER 17 GM PO DAILY PRN constipation Pravastatin Sodium (Pravachol) 40 MG TABLET 1 TAB PO 1700 CHOLESTEROL ( Reported) Risperidone (Risperdal) 0.25 MG TABLET 1 TAB PO DAILY AGITATION (Reported) Reason to Stop at ADM: AMS Rivaroxaban (Xarelto) 20 MG TABLET 1 TAB PO DAILY AFIB (Reported) with food Sennosides/Docusate Sodium (Senna-Time S Tablet) 8.6 MG-50 MG TABLET 187 MG PO BID PRN constipation Sertraline HCl 50 MG TABLET 50 MG PO DAILY depression Tamsulosin HCl 0.4 MG CAP.ER.24H 1 CAP PO BID PROSTATE (Reported) Reason to Stop at ADM: HYPOTENSIVE Theophylline Anhydrous 200 MG TAB.ER.12H 1 TAB PO AT BEDTIME COPD Trazodone HCl 50 MG TABLET 1 TAB PO DAILY SLEEP (Reported) Reason to Stop at ADM: WILL HOLD FOR NOW, PATIENT SEPTIC AND MAY GET ALTERED Trazodone HCl 50 MG TABLET 12.5 MG PO BID agitation, anxiety Current Medications: Current Medications Sig/Emily Start time Last Medication Dose Route Stop Time Status Admin Acetaminophen 650 MG .STK-MED ONE 09/08 0733 DC PO 09/08 0734 Acetaminophen 1,000 MG Q6P PRN 09/07 0845 DC 09/07 N/A 1 UNIT IV 1606 Acetaminophen 650 MG Q6P PRN 09/06 1830 AC 09/08 PO 1425 Albuterol Sulfate 3 ML Q4P PRN 09/07 1115 AC 09/08 INH 1311 Ceftazidime 1,000 MG Q12 09/06 2200 AC 09/08 IV 1119 Dextrose/Sodium 1,000 ML Q10H 09/07 1100 DC 09/07 Chloride IV 2137 Diphenhydramine HCl 1 RAKAN BID 09/08 1000 AC 09/08 TOP 1119 Ergocalciferol 50,000 IU Q30D@1000 09/14 1000 AC PO Hydrocortisone 1 RAKAN BID 09/06 2200 AC 09/08 TOP 0854 Insulin Aspart 0 TIDAC 09/08 0800 AC 09/08 SC 1634 Insulin Human Regular 0 Q6 09/06 2359 NM 09/07 SC 1225 Lidocaine 1 PAT DAILY 09/07 1553 AC 09/08 EXT 0853 Pravastatin Sodium 40 MG 1700 09/08 1700 AC PO Pravastatin Sodium 40 MG DAILY 09/08 1233 DC PO Prednisone 5 MG DAILY 09/09 1000 AC PO 09/11 1001 Prednisone 10 MG DAILY 09/07 1450 DC 09/08 PO 0916 Risperidone 0.25 MG DAILY 09/07 1230 AC 09/08 PO 0916 Rivaroxaban 20 MG 1700 09/07 1700 AC 09/08 PO 1634 Sertraline HCl 25 MG DAILY 09/08 1232 AC 09/08 PO 1420 Tamsulosin HCl 0.4 MG BID 09/07 2199 AC 09/08 PO 0916 Tramadol HCl 50 MG Q6 PRN 09/08 1530 AC 09/08 PO 1534 Trazodone HCl 50 MG AT BEDTIME 09/07 2199 AC 09/07 PO 2124 Vitamin A/Vitamin D 1 RAKAN BID 09/06 2223 AC 09/08 TOP 0853 Past History Medical History Neurological: dementia EENT: NONE Cardiovascular: aortic aneurysm, AFIB, CHF, hypertension, hyperlipidemia Respiratory: COPD Gastrointestinal: NONE Hepatic: NONE Renal: benign prost hyperplasia Musculoskeletal: chronic back pain, degen joint disease, fracture, gout, RIB FX left shoulder fracture Psychiatric: anxiety Endocrine: diabetes Blood Disorders: NONE Cancer(s): NONE 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 . MOTHER (Unknown cancer). . Psychosocial History Where Do You Live? Long-Term Facility Primary Language: Guatemalan Smoking Status: Never Smoked ETOH Use: denies use Illicit Drug Use: denies illicit drug use Functional Ability ADLs Needs Assist: dressing, eating, toileting, bathing. 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 Cardiovascular: Denies: no symptoms. Respiratory: Denies: no symptoms. GI: Denies: no symptoms. Genitourinary: Reports: hematuria. Musculoskeletal: Reports: muscle stiffness. Exam & Diagnostic Data Vital Signs and I&O Vital Signs Date Time Temp Pulse Resp B/P Pulse O2 O2 Flow FiO2 Ox Delivery Rate 09/08 1600 Nasal 2.0L Cannula 09/08 1600 98.0 90 20 120/70 97 Nasal 2.0L Cannula 09/08 1432 Nasal 2.0L Cannula 09/08 1319 96 Nasal 2.0L Cannula 09/08 1105 97 Nasal 2.0L Cannula 09/08 0916 86 140/70 09/08 0800 Room Air 09/08 0800 97.6 114 20 140/70 94 Room Air 09/08 0000 95 Room Air 09/08 0000 97.4 65 18 120/82 95 Room Air 09/07 2125 97.0 80 16 116/68 09/07 1930 93 Room Air Room Air Intake & Output 09/08 0809/08 0000 09/07 1600 09/07 0800 09/07 0000 Intake Total 212 849 5547 6000 Output Total 200 350 300 750 Balance 540 0 1000 5250 Intake, IV 20 250 1200 6000 Intake, Oral 720 100 100 Number 0 Bowel Movements Output, Urine 200 350 300 750 Patient 204 lb 204 lb Weight Last 24 Hours of Labs: Laboratory Tests 09/08 09/08 0905 0500 Chemistry Sodium (137 - 145 mmol/L) 138 Cancelled Potassium (3.5 - 5.1 mmol/L) 4.1 Cancelled Chloride (98 - 107 mmol/L) 101 Cancelled Carbon Dioxide (22 - 30 mmol/L) 28 Cancelled Anion Gap (5 - 16) 8 Cancelled BUN (9 - 20 mg/dL) 19 Cancelled Creatinine (0.7 - 1.2 mg/dL) 0.7 Cancelled Estimated GFR (>60 ml/min) > 60 BUN/Creatinine Ratio (7 - 25 %) 27.1 H Glucose Cancelled Calcium Cancelled Phosphorus Cancelled Magnesium (1.6 - 2.3 mg/dL) 2.2 Cancelled Total Bilirubin Cancelled AST Cancelled ALT Cancelled Troponin I (<0.11 ng/ml) < 0.01 Albumin Cancelled Hematology CBC w Diff MAN DIFF ORDERED WBC (4.8 - 10.8 /CUMM) 22.6 H RBC (4.70 - 6.10 /CUMM) 4.13 L Hgb (14.0 - 18.0 G/DL) 11.4 L Hct (42 - 52 %) 34.4 L MCV (80.0 - 94.0 FL) 83.3 MCH (27.0 - 31.0 PG) 27.5 RDW (11.5 - 14.5 %) 16.8 H Plt Count (130 - 400 /CUMM) 133 MPV (7.4 - 10.4 FL) 9.0 Gran % (42.2 - 75.2 %) 96.6 H Lymphocytes % (20.5 - 51.1 %) 1.5 L Monocytes % (1.7 - 9.3 %) 1.3 L Eosinophils % (0 - 5 %) 0.5 Basophils % (0.0 - 2.0 %) 0.1 Absolute Granulocytes (1.4 - 6.5 /CUMM) 21.8 H Segmented Neutrophils (42.2 - 75.2 %) 87 H Band Neutrophils (0.0 - 5.0 %) 9 H Absolute Lymphocytes (1.2 - 3.4 /CUMM) 0.3 L Lymphocytes (20.5 - 51.1 %) 3 L Monocytes (1.7 - 9.3 %) 1 L Absolute Monocytes (0.10 - 0.60 /CUMM) 0.3 Absolute Eosinophils (0.0 - 0.7 /CUMM) 0.1 Absolute Basophils (0.0 - 0.2 /CUMM) 0 Platelet Estimate (ADEQUATE) VERIFIED BY SMEAR Normocytic RBCs VERIFIED Normochromic RBCs VERIFIED PUBS MCHC (33.0 - 37.0 G/DL) 33.0 Imaging Results: PATIENT: SUSU FRANCIS PRESENT AGE: 89 PATIENT ACCOUNT NO: [id number] : [birth year] LOCATION: [facility] ORDERING PHYSICIAN: RONNIE URBANO MD SERVICE DATE: 09/06/16 EXAM TYPE: CAT - CT ABD & PELVIS W IV CONTRAST EXAMINATION: CT CHEST, ABDOMEN AND PELVIS WITH CONTRAST CLINICAL INFORMATION: Fever, hypotension. COMPARISON: None TECHNIQUE: Multidetector volumetric imaging was performed of the abdomen and pelvis before and after the IV administration of 94 mL of Optiray 320 intravenous contrast. Sagittal and coronal reformatted images were obtained on the technologist's workstation. DLP: 1878 mGy-cm FINDINGS: CHEST: LUNGS: Both lungs are well-expanded without any acute pneumonic process. No pulmonary nodule, mass or consolidation seen. MEDIASTINUM: The thyroid lobes are symmetrical. The central trachea and the bronchi appears widely patent. The thoracic aorta is of normal caliber without dissection or aneurysm. The heart size is normal. There are coronary artery calcifications. There is no mediastinal mass or abnormal lymph nodes seen. PLEURA: There is no pleural effusion. There is minimal right posterior pleural thickening in the lower lobe. AXILLA: Unremarkable. The chest wall is unremarkable. ABDOMEN AND PELVIS: LIVER, GALLBLADDER, AND BILIARY TREE: The liver is normal in size, shape, and attenuation. No focal hepatic lesion or biliary ductal dilatation is present. The gallbladder is unremarkable with no evidence of radiopaque gallstones, gallbladder wall thickening, or obvious pericholecystic inflammatory changes. PANCREAS: Unremarkable. SPLEEN: Unremarkable. ADRENAL GLANDS: Unremarkable. KIDNEYS AND URETERS: The kidneys are normal in size, shape, and attenuation. No hydronephrosis, hydroureter, or calculi seen. No perinephric stranding. There is punctate cortical hypodensity in the upper pole both kidneys suspicious for tiny cysts. BLADDER: There is a Ngo's catheter in the bladder with mild bladder wall thickening. GASTROINTESTINAL TRACT: There is moderate stool seen in right colon without any colonic distention. The small bowel loops are normal caliber there is no obstruction, free air or free fluid. ABDOMINAL WALL: No significant hernia is appreciated. LYMPH NODES: Normal. VASCULAR: There is atherosclerotic calcification an dilation of mid end distal abdominal aorta mid abdominal aorta measures 2.8 cm in AP and transverse dimension. There is mild ectasia of the left common iliac artery. The right common iliac arteries normal caliber. PELVIC VISCERA: No free air or free fluid seen. Prostate gland is normal size. OSSEOUS STRUCTURES: No compressive fracture, lytic or sclerotic process seen. There is moderate spondylosis lower dorsal spine. IMPRESSION: No acute process seen in CT of chest, abdomen or pelvis. 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 Assessment/Plan Assessment/Plan Pt with new SPT/with recurrent UTI/Plan is for hydration and abx. New SPT should not be changed until tract has matured (8weeks from initial insertion). Copies To: DANAE DAVIS MD Consult Acknowledgment - Thank you for your consult request. Attending MD Review Statement Attending Statement Attending MD Statement: examined this patient, discuss w/resident/PA/CERTIFIED CAREGIVER Attending Assessment/Plan: UTI with new SPT: continue abx.
[2016-09-08 19:13] VITALS: BP 118/78
--- NOTE | 2016-09-08 21:39 | Transfer of Care Summary ---
Hospital Course Course Hospital Course: Mr. Lamar is a 89 y/o M with PMHx of dementia, COPD on 2 L home oxygen and atrial fibrillation on Xarelto who was brought in from [facility] for fever, urinary retention, hematuria and AMS. On initial presentation, he was febrile to 102.3, tachycardic to 115, tachypneic 26 and satting >95% on room air. Blood pressure was 101/63 on initial presentation but later dropped down to 80s/40s and he became increasingly tachypneic. Patient was awake and alert on initial presentation but within a few hours became increasingly somnolent, barely arousable to sternal rub. Labs were remarkable for WBC 20.2 with 9 bands, BUN/Cr 27/1.1 and lactic acid 6.2. Urinalysis was positive for large leukocyte esterase, 25-50 RBCs and 10-15 WBCs. CXR was unremarkable. Patient received 1 dose of vancomycin and ceftriaxone and multiple boluses of normal saline in the ED but blood pressure remained in the 80/40s. Based on family and patient's decision, his code status was set as DNR/DNI including no central line or pressors. He was admitted to the ICU for severe sepsis likely secondary to UTI. Below are the issues that were addressed during current admission: Assessment/Plan: #Gram negative sepsis 2/2 UTI: Patient met SIRS criteria for sepsis on initial presentation in the presence of fever, tachycardia, tachypnea and leukocytosis as well as severe sepsis in the presence of hypotension despite aggressive IVF resuscitation and marked lactic acidosis. This was secondary to UTI with BCx and UCx from admission, later growing gram negative rods, most likely Proteus as patient had grown pansensitive Proteus in the past. Rest of the infectious work- up including CT Chest/Abdomen/Pelvis W/ IV Contrast, stool C. difficile and rapid flu was negative. Patient was aggressively fluid resuscitated with multiple boluses of normal saline and kept on maintenance fluids with marked clinical improvement by the morning following admission. He also received stress dose of IV hydrocortisone 100 mg as he had recently been hospitalized here at [place] for COPD exacerbation and discharged on prednisone taper which he was still on. He defervesced, blood pressure improved to 100s/60s and lactic acid came down to 2.1. His mental status improved as well and he became much more alert and awake. He passed swallow eval and was started on oral intake. Patient was continued on ceftazidime as BCx grew gram negative rods. Steroids were changed to PO prednisone once able to take PO. * Patient is DNR/DNI including no pressors or central line. * Continue ceftazidime 1 g IV Q12H. * Patient received prednisone 10 mg x 2, will receive 5 mg for 3 more doses. * Follow UCx and BCx for speciation and susceptibilities. #Urinary retention 2/2 BPH: Patient was reported to be having urinary retention at retirement. Ngo was inserted. Patient continued to have low urine output despite improvement of blood pressure. * Urology consulted. Appreciate their recs. * Continue prior to admission tamsulosin 0.4 mg PO BID. * Keep Ngo. #Atrial fibrillation: Presented with atrial fibrillation with rapid ventricular response. HR improved after fluid resuscitation and remained well-controlled throughout rest of hospitalization. * Continue prior to admission Xarelto 20 mg PO QHS. #HTN: Takes lisinopril 2.5 mg PO daily and furosemide 20 mg PO BID. * Holding prior to admission antihypertensives in the setting of hypotension. Consider restarting once blood pressures tolerate. #T2DM: Takes metformin 1000 mg PO daily. * Continue Accu-checks and medium dose Novolog SSI TIDAC. * Consider resuming prior to admission metformin. #HFpEF: Most recent ECHO in July 2016 with LVEF > 60%. No evidence of decompensated CHF including JVD or crackles this admission. * Prior to admission Lasix was held in the setting of hypotension. #COPD: No evidence of acute exacerbation. In compensated chronic hypercarbic respiratory failure with stable respiratory status. Remains on 2 L NC, unchanged from home oxygen requirement. * Provide supplemental oxygen to keep SpO2 > 92%. * Continue to hold prior to admission theophylline. * TRC and nebs as needed. #HLD: * Continue prior to admission pravastatin 40 mg PO QHS. #Psoriasis: Psoriasiform lesions noted on abdomen, buttocks and back. Complaining of pruritis. * Continue to apply prior to admission hydrocortisone BID to rash. * Apply topical Benadryl BID to rash for relief from itching. #Depression: * Continue prior to admission sertraline 25 mg PO daily. #Dementia: * Continue prior to admission risperidone 0.25 mg PO daily for agitation. #Insomnia: * Continue prior to admission trazodone 50 mg PO daily. #Wound/DTI: Area of deep tissue injury noted to coccyx as well as full thickness wound present on admission. * Management per wound care team. * Nutrition consulted. Diet changed to consistent carbohydrate 3 (previously on 2) for increased calorie intake per their recs. Diet: Consistent carbohydrate 3 with 2 g Na restriction - Full chopped and regular thins DVT PPx: Xarelto and ALPs CODE: DNR/DNI including no central line or pressors
[2016-09-09 00:05] VITALS: BP 118/78
[2016-09-09 07:30] VITALS: BP 124/61
--- NOTE | 2016-09-09 08:11 | PN- Housestaff ---
RAMON JETER,BILL 09/09/16 0810: Subjective Follow-up For: Sepsis of urological origin Complaints: pain scale (0-10) Subjective: I saw and examined the patient. He is alert and oriented X 3. shouting for chest pain burning in nature, short of breath. He pulled his IV line with lot of blood all over his scrubs. Upon rising the head end of the bed he is a little better. Review of Systems Constitutional: Reports: see HPI. Comments: ROS negative except the above. Objective Last 24 Hrs of Vital Signs/I&O Vital Signs Date Time Temp Pulse Resp B/P Pulse O2 O2 Flow FiO2 Ox Delivery Rate 09/09 0730 97.9 81 20 124/61 96 Nasal 2.0L Cannula 09/09 0005 97.5 99 20 118/78 94 09/09 0000 Nasal 2.0L Cannula 09/08 2256 94 118/78 09/08 1913 97.1 103 20 118/78 95 Nasal 2.0L Cannula 09/08 1705 97 Nasal 2.0L Cannula 09/08 1600 Nasal 2.0L Cannula 09/08 1600 98.0 90 20 120/70 97 Nasal 2.0L Cannula 09/08 1432 Nasal 2.0L Cannula 09/08 1319 96 Nasal 2.0L Cannula 09/08 1105 97 Nasal 2.0L Cannula 09/08 0916 86 140/70 Intake & Output 09/09 1600 09/09 0800 09/09 0000 Intake Total 480 490 Output Total 200 275 Balance 280 215 Intake, IV 0 10 Intake, Oral 480 480 Output, Urine 200 275 Physical Exam General Appearance: Alert, Oriented X3, Cooperative, Moderate Distress Skin: No Rashes, No Breakdown HEENT: Atraumatic, PERRLA, EOMI Neck: Supple, No JVD Cardiovascular: Regular Rate, Normal S1, Normal S2, No Murmurs Lungs: Normal Air Movement, decreased breath sounds on both sides. Abdomen: Normal Bowel Sounds, No Tenderness, Distended Neurological: Normal Speech, Normal Tone Extremities: No Clubbing, No Cyanosis Vascular: Pulses Symmetrical Current Medications: Current Medications Sig/Emily Start time Last Medication Dose Route Stop Time Status Admin Acetaminophen 650 MG .STK-MED ONE 09/09 0327 DC PO 09/09 0328 Acetaminophen 650 MG Q6P PRN 09/06 1830 AC 09/09 PO 0330 Albuterol Sulfate 3 ML Q4P PRN 09/07 1115 AC 09/09 INH 0615 Ceftazidime 1,000 MG Q12 09/06 2200 DC 09/09 IV 1052 Ceftriaxone Sodium 1,000 MG DAILY@1800 09/09 1800 AC IV Diphenhydramine HCl 1 RAKAN BID 09/08 1000 AC 09/09 TOP 1053 Ergocalciferol 50,000 IU Q30D@1000 09/14 1000 AC PO Hydrocortisone 1 RAKAN BID 09/06 2200 AC 09/09 TOP 1053 Insulin Aspart 0 TIDAC 09/08 0800 AC 09/09 SC 1737 Lidocaine 1 PAT DAILY 09/07 1553 AC 09/09 EXT 1052 Pravastatin Sodium 40 MG 1700 09/08 1700 AC 09/09 PO 1737 Prednisone 5 MG DAILY 09/09 1000 AC 09/09 PO 09/11 1001 1051 Risperidone 0.25 MG DAILY 09/07 1230 AC 09/09 PO 1051 Rivaroxaban 20 MG 1700 09/07 1700 AC 09/09 PO 1737 Sertraline HCl 25 MG DAILY 09/08 1232 AC 09/09 PO 1052 Tamsulosin HCl 0.4 MG BID 09/07 2200 AC 09/09 PO 1052 Tramadol HCl 50 MG Q6 PRN 09/08 1530 AC 09/09 PO 1342 Trazodone HCl 50 MG AT BEDTIME 09/07 2200 AC 09/08 PO 2256 Vitamin A/Vitamin D 1 RAKAN BID 09/06 2224 AC 09/09 TOP 1051 Last 24 Hrs of Lab/Navdeep Results Last 24 Hrs of Labs/Mics: Laboratory Tests 09/09/16 0810: CBC w Diff MAN DIFF ORDERED, RBC 4.04 L, MCV 84.2, MCH 27.3, RDW 16.9 H, MPV 9.7, Gran % 92.6 H, Lymphocytes % 3.7 L, Monocytes % 2.6, Eosinophils % 1.0, Basophils % 0.1, Absolute Granulocytes 12.5 H, Absolute Lymphocytes 0.5 L, Absolute Monocytes 0.4, Absolute Eosinophils 0.1, Absolute Basophils 0, Platelet Estimate DECREASED, Poikilocytosis 1+, Anisocytosis 1+, Ovalocytes 1+, Tata Cells 1+, PUBS MCHC 32.4 L Lines/Diet/Fluids Lines: peripheral lines Assessment/Plan Assessment: 89 y/o M with PMHx of COPD, atrial fibrillation on Xarelto and psoriasis admitted for severe gram negative sepsis 2/2 UTI, currently resolving. #Sepsis 2/2 UTI: Clinically much improved. Remains afebrile with improvement of leukocytosis on day 2 of ceftazidime for gram-negative sepsis 2/2 to UTI, most likely Proteus as patient had grown pansensitive Proteus in the past. * Started on ceftriaxone with discontinuation of ceftazidime. * Not on IVF * Taper prednisone to 5 mg daily for 3 more doses starting tomorrow. * DNR/DNI including no central line and pressors per patient's and family's wishes. * Follow UCx and BCx for speciation and susceptibilities. #Urinary retention 2/2 BPH: Low UOP noted today. * Urology consulted. Appreciate their recs. * Continue prior to admission tamsulosin 0.4 mg PO BID. * Keep Ngo. #HTN: Takes lisinopril 2.5 mg PO daily and furosemide 20 mg PO BID. * Holding prior to admission antihypertensives in the setting of hypotension. Consider restarting tomorrow if BPs tolerate. #Chest pain: Complained of 6/10 chest pain, reproducible on palpation. EKG with no ST-T elevations. Troponin negative. * NTD. #COPD: Not in acute exacerbation. In compensated chronic hypercarbic respiratory failure with stable respiratory status. Remains on 2 L NC, unchanged from home oxygen requirement. * Provide supplemental oxygen to keep SpO2 > 92%. * Continue to hold prior to admission theophylline. * TRC and nebs as needed. #T2DM: Takes metformin 1000 mg PO daily. * Continue Accu-checks and medium dose Novolog SSI TIDAC. * Consider resuming prior to admission metformin. #Depression: * Resume prior to admission sertraline 25 mg PO daily. #HLD: * Resume prior to admission pravastatin 40 mg PO daily. #Wound/DTI: Area of deep tissue injury noted to coccyx measuring 0.2 x 0.2 cm with areas of hyperpigmentation and excoriation extending beyond the wound margins. Full thickness wound on midback measuring 6.5 x 12 cm, present on admission, improved from previous assessment (08/21/16) on prior admission. * Management per wound care team. * Cleanse mid-back wound with normal saline and apply petroleum gauze. * Apply vitamin A + D cream to areas of DTI on coccyx and buttocks. * Nutrition consult ordered. Diet changed to consistent carbohydrate 3 ( previously on 2) for increased calorie intake per their recs. * Patient placed on category 2 mattress. * Turn and reposition patient frequently. #Psoriasis: Psoriasiform lesions noted on abdomen, buttocks and back. Complaining of itchiness today. * Continue to apply prior to admission hydrocortisone BID to rash. * Apply topical Benadryl BID to rash for relief from itching. #Atrial fibrillation: Remains in atrial fibrillation with well-controlled heart rate. * Continue prior to admission Xarelto 20 mg PO QHS. #Dementia: * Continue prior to admission risperidone 0.25 mg PO daily for agitation. #Insomnia: * Continue prior to admission trazodone 50 mg PO daily. Diet: Consistent carbohydrate 3 with 2 g Na restriction - Full chopped and regular thins DVT PPx: Xarelto and ALPs CODE: DNR/DNI including no central line or pressors Problem List: 1. Urinary retention due to benign prostatic hyperplasia 2. Sepsis secondary to UTI 3. Wound of back 4. Altered mental status 5. Type 2 diabetes mellitus Pain Ratin Pain Location: chest region - appears gastric Pain Goal: Pain 4 or less Pain Plan: Tylenol PRN Tomorrow's Labs & Rationales: none NATHAN JUNE MD 09/09/16 1534: Attending MD Review Statement Attending Statement Attending MD Statement: examined this patient, discuss w/resident/PA/CHIEF STATION ENGINEER, agreed w/resident/PA/CHIEF STATION ENGINEER, reviewed EMR data (avail), discussed with nursing, discussed with case mgmt, reviewed images Attending Assessment/Plan: Fairly complex 89-year-old male with multiple medical problems including dementia, small vessel disease, gout, BPH, A. fib on Xarelto, heart failure with preserved EF. He is here after care in the ICU for shock state associated with sepsis of urological origin. Of note the Escherichia coli in the urine has different sensitivities to the Escherichia coli in the blood. He is on IV ceftaz which I think we can narrow to IV ceftriaxone for now. His medications are slowly being restarted as his blood pressure improves. Will need PT to get him out of bed. We'll continue his Xarelto for his A. fib, keep his Ngo in for now, follow-up closely especially regarding his antipsychotics and restart his meds one at a time.
[2016-09-09 08:42] LABS: ABSOLUTE BASOPHIL COUNT 0 /CUMM (0.0-0.2); ABSOLUTE EOSINOPHIL COUNT 0.1 /CUMM (0.0-0.7); ABSOLUTE GRANULOCYTE CT 12.5 /CUMM (1.4-6.5); ABSOLUTE LYMPH COUNT 0.5 /CUMM (1.2-3.4); ABSOLUTE MONOCYTE COUNT 0.4 /CUMM (0.10-0.60); BASOPHIL % 0.1 % (0.0-2.0); GRANULOCYTE % 92.6 % (42.2-75.2); MEAN CORPUSCULAR HGB 27.3 PG (27.0-31.0); MEAN CORPUSCULAR HGB CONC 32.4 G/DL (33.0-37.0); MEAN CORPUSCULAR VOLUME 84.2 FL (80.0-94.0); MEAN PLATELET VOLUME 9.7 FL (7.4-10.4); PLATELET COUNT 114 /CUMM (130-400); RBC DISTRIBUTION WIDTH 16.9 % (11.5-14.5); RED BLOOD CELL CT 4.04 /CUMM (4.70-6.10); WHITE BLOOD CELL COUNT 13.5 /CUMM (4.8-10.8)
[2016-09-09 17:18] VITALS: BP 132/70
[2016-09-10 01:12] VITALS: BP 118/74
--- NOTE | 2016-09-10 07:55 | PN- Housestaff ---
MADISON PETERSON 09/10/16 0755: Subjective Follow-up For: Urinary retention Subjective: The patient was comfortable this morning. Does not have any complaints. He was sleepy, when he walked into his room this morning. Complained of abdominal discomfort, that started last night. Vitals were stable overnight. Currently has a Ngo catheter in place, draining cloudy urine. He remained afebrile. Review of Systems Constitutional: Reports: see HPI. Objective Last 24 Hrs of Vital Signs/I&O Vital Signs Date Time Temp Pulse Resp B/P Pulse O2 O2 Flow FiO2 Ox Delivery Rate 09/10 0112 97.9 92 20 118/74 95 Nasal Cannula 09/10 0000 Nasal 4.0L Cannula 09/09 2112 98 126/80 09/09 1718 97.8 112 21 132/70 95 Nasal 4.0L Cannula 09/09 1600 95 Nasal 4.0L Cannula 09/09 0800 94 Nasal 2.0L Cannula Intake & Output 09/10 0800 09/10 0000 09/09 1600 Intake Total 650 850 Output Total 375 350 275 Balance -375 300 575 Intake, IV 50 Intake, Oral 650 800 Number 0 Bowel Movements Output, Urine 375 350 275 Physical Exam General Appearance: No Acute Distress Other Physical Findings: General Exam: AAOx3, No acute distress, Skin: No rashes, no breakdown HEENT: PERRLA, EOMI Neck: Supple, No JVD No cervical lymphadenopathy CVS: Reg Rate, Normal S1,S2, No MGR Resp: Normal air entry, bilateral rhonchi Abdomen: Soft, No tenderness, Normal Bowel Sounds, folic catheter in place Neuro: Normal Speech, Strength 5/5 b/l x 4 extremities, Sensation intact, CN III -XII NL, Reflexes 2+ Extremities: No cyanosis, pedal edema Current Medications: Current Medications Sig/Emily Start time Last Medication Dose Route Stop Time Status Admin Acetaminophen 650 MG Q6P PRN 09/06 1830 AC 09/09 PO 0330 Albuterol Sulfate 3 ML Q4P PRN 09/07 1115 AC 09/09 INH 0615 Ceftazidime 1,000 MG Q12 09/06 2200 DC 09/09 IV 1052 Ceftriaxone Sodium 1,000 MG DAILY@1800 09/09 1800 AC 09/09 IV 1843 Diphenhydramine HCl 1 RAKAN BID 09/08 1000 AC 09/09 TOP 2109 Ergocalciferol 50,000 IU Q30D@1000 09/14 1000 AC PO Hydrocortisone 1 RAKAN BID 09/06 220 AC 09/09 TOP 2111 Insulin Aspart 0 TIDAC 09/08 0800 AC 09/09 SC 1737 Lidocaine 1 PAT DAILY 09/07 1553 AC 09/09 EXT 1052 Pravastatin Sodium 40 MG 1700 09/08 1700 AC 09/09 PO 1737 Prednisone 5 MG DAILY 09/09 1000 AC 09/09 PO 09/11 1001 1051 Risperidone 0.25 MG DAILY 09/07 1230 AC 09/09 PO 1051 Rivaroxaban 20 MG 1700 09/07 1700 AC 09/09 PO 1737 Sertraline HCl 25 MG DAILY 09/08 1232 AC 09/09 PO 1052 Tamsulosin HCl 0.4 MG BID 09/07 220 AC 09/09 PO 211 Tramadol HCl 50 MG Q6 PRN 09/08 1530 AC 09/09 PO 1342 Trazodone HCl 50 MG AT BEDTIME 09/07 2199 AC 09/09 PO 2109 Vitamin A/Vitamin D 1 RAKAN BID 09/06 222 09/09 TOP 2107 Last 24 Hrs of Lab/Navdeep Results Last 24 Hrs of Labs/Mics: Laboratory Tests 09/10/16 0625: CBC w Diff Pending, WBC Pending, RBC Pending, Hgb Pending, Hct Pending, MCV Pending, MCH Pending, RDW Pending, Plt Count Pending, MPV Pending, PUBS MCHC Pending 09/09/16 0810: CBC w Diff MAN DIFF ORDERED, RBC 4.04 L, MCV 84.2, MCH 27.3, RDW 16.9 H, MPV 9.7, Gran % 92.6 H, Lymphocytes % 3.7 L, Monocytes % 2.6, Eosinophils % 1.0, Basophils % 0.1, Absolute Granulocytes 12.5 H, Absolute Lymphocytes 0.5 L, Absolute Monocytes 0.4, Absolute Eosinophils 0.1, Absolute Basophils 0, Platelet Estimate DECREASED, Poikilocytosis 1+, Anisocytosis 1+, Ovalocytes 1+, Tata Cells 1+, PUBS MCHC 32.4 L Assessment/Plan Assessment: 89 y/o M with PMHx of COPD, atrial fibrillation on Xarelto and psoriasis admitted for severe gram negative sepsis 2/2 UTI, currently resolving. #Sepsis 2/2 UTI: Clinically much improved. Remains afebrile with improvement of leukocytosis on antibiotics for gram-negative sepsis 2/2 to UTI, most likely Proteus as patient had grown pansensitive Proteus in the past. BC and UC reveal growth of Ecoli. * Continue ceftriaxone. Titrate abx in the am after discussing w/ the ID. * Not on IVF * Taper prednisone to 5 mg daily for 3 more doses. * DNR/DNI including no central line and pressors per patient's and family's wishes. #Urinary retention 2/2 BPH: Low UOP noted today. * Urology consulted. * Continue prior to admission tamsulosin 0.4 mg PO BID. * Keep Ngo. Discontinue in the a.m. Voiding trial in the a.m. #HTN: Takes lisinopril 2.5 mg PO daily and furosemide 20 mg PO BID. * Holding prior to admission antihypertensives in the setting of hypotension. Consider restarting Lisinopril tomorrow if BPs tolerates. Continue to monitor. #Chest pain: Complained of 6/10 chest pain, reproducible on palpation. EKG with no ST-T elevations. Troponin negative. * NTD. #COPD: Not in acute exacerbation. In compensated chronic hypercarbic respiratory failure with stable respiratory status. Remains on 2 L NC, unchanged from home oxygen requirement. * Provide supplemental oxygen to keep SpO2 > 92%. * Continue to hold prior to admission theophylline. * TRC and nebs as needed. #T2DM: Takes metformin 1000 mg PO daily. * Continue Accu-checks and medium dose Novolog SSI TIDAC. * Consider resuming prior to admission metformin. #Depression: * Resume prior to admission sertraline 25 mg PO daily. #HLD: * Resume prior to admission pravastatin 40 mg PO daily. #Wound/DTI: Area of deep tissue injury noted to coccyx measuring 0.2 x 0.2 cm with areas of hyperpigmentation and excoriation extending beyond the wound margins. Full thickness wound on midback measuring 6.5 x 12 cm, present on admission, improved from previous assessment (08/21/16) on prior admission. * Management per wound care team. * Cleanse mid-back wound with normal saline and apply petroleum gauze. * Apply vitamin A + D cream to areas of DTI on coccyx and buttocks. * Nutrition consult ordered. Diet changed to consistent carbohydrate 3 ( previously on 2) for increased calorie intake per their recs. * Patient placed on category 2 mattress. * Turn and reposition patient frequently. #Psoriasis: Psoriasiform lesions noted on abdomen, buttocks and back. Complaining of itchiness today. * Continue to apply prior to admission hydrocortisone BID to rash. * Apply topical Benadryl BID to rash for relief from itching. #Atrial fibrillation: Remains in atrial fibrillation with well-controlled heart rate. * Continue Xarelto 20 mg PO QHS. #Dementia: * Continue prior to admission risperidone 0.25 mg PO daily for agitation. #Insomnia: * Continue prior to admission trazodone 50 mg PO daily. Diet: Consistent carbohydrate 3 with 2 g Na restriction - Full chopped and regular thins DVT PPx: Xarelto and ALPs CODE: DNR/DNI including no central line or pressors Problem List: 1. Wound of back 2. Urinary retention due to benign prostatic hyperplasia 3. BPH (benign prostatic hyperplasia) Pain Ratin Pain Location: Abdomen Pain Goal: Pain 4 or less Pain Plan: Tramadol Tylenol when necessary Tomorrow's Labs & Rationales: CBC-patient had leukocytosis. Continue to monitor for 1 more day. NATHAN JUNE MD 09/10/16 0949: Attending MD Review Statement Attending Statement Attending MD Statement: examined this patient, discuss w/resident/PA/ORDNANCE TECHNICIAN, agreed w/resident/PA/ORDNANCE TECHNICIAN, reviewed EMR data (avail), discussed with nursing, discussed with case mgmt, reviewed images Attending Assessment/Plan: Fairly complex 89-year-old male with multiple medical problems including dementia, small vessel disease, gout, BPH, A. fib on Xarelto, heart failure with preserved EF. He is here after care in the ICU for shock state associated with sepsis of urological origin. Of note the Escherichia coli in the urine has different sensitivities to the Escherichia coli in the blood. He is on IV IV ceftriaxone. We'll narrow down the antibiotic. I would consider calling ID to help us with choice of by mouth antibiotics and duration of by mouth antibiotics and especially given the different sensitivities. PT saw him today and is recommending STR when stable. He is on anticoagulation for his A. fib which we are continuing. We'll follow his white count closely which was coming down nicely. His BP is better and his Lasix and lisinopril is on hold which I think we can slowly restart one at a time. We need to follow with urology as to duration of Ngo and treatment of the obstructive uropathy/urinary retention. Now that his mentation is better we also need to slowly restart his psychiatric meds once we confirm them.
[2016-09-10 08:17] VITALS: BP 128/72
[2016-09-10 08:39] LABS: ABSOLUTE BASOPHIL COUNT 0 /CUMM (0.0-0.2); ABSOLUTE EOSINOPHIL COUNT 0.2 /CUMM (0.0-0.7); ABSOLUTE GRANULOCYTE CT 7.6 /CUMM (1.4-6.5); ABSOLUTE LYMPH COUNT 0.4 /CUMM (1.2-3.4); ABSOLUTE MONOCYTE COUNT 0.3 /CUMM (0.10-0.60); BASOPHIL % 0 % (0.0-2.0); EOSINOPHIL % 2.1 % (0-5); GRANULOCYTE % 88.7 % (42.2-75.2); HEMATOCRIT 36.3 % (42-52); MEAN CORPUSCULAR HGB 27.6 PG (27.0-31.0); MEAN CORPUSCULAR HGB CONC 32.6 G/DL (33.0-37.0); MEAN CORPUSCULAR VOLUME 84.7 FL (80.0-94.0); PLATELET COUNT 125 /CUMM (130-400); RED BLOOD CELL CT 4.29 /CUMM (4.70-6.10); WHITE BLOOD CELL COUNT 8.6 /CUMM (4.8-10.8)
[2016-09-10 16:00] VITALS: BP 132/80
[2016-09-10 23:42] VITALS: BP 110/76
--- NOTE | 2016-09-11 07:03 | PN- Housestaff ---
RAMON JETER,BILL 09/11/16 0702: Subjective Follow-up For: Sepsis of urological origin. Dementia Subjective: I saw and examined the patient today morning. alert and oriented X 2. Not to time. He is feeling lethargic, mildly arousable. Had a sitter in place. He didnt get good sleep overnight because of which he is very irritated. Had an episode of low BP overnight for which tamsulosin is held once. Review of Systems Constitutional: Reports: see HPI, malaise, weakness. EENTM: Reports: see HPI. Comments: ROS negative except the above. Objective Last 24 Hrs of Vital Signs/I&O Vital Signs Date Time Temp Pulse Resp B/P Pulse O2 O2 Flow FiO2 Ox Delivery Rate 09/11 0000 Nasal 3.0L Cannula 09/10 2342 98.1 100 20 110/76 96 Nasal 4.0L Cannula 09/10 2230 102/70 09/10 1600 Nasal 4.0L Cannula 09/10 1600 97.6 98 21 132/80 90 Nasal 4.0L Cannula 09/10 0916 88 132/90 09/10 0817 98.1 103 20 128/72 93 Nasal 3.0L Cannula 09/10 0800 95 Nasal 4.0L Cannula Intake & Output 09/11 0800 09/11 0000 09/10 1600 Intake Total 400 450 485 Output Total 250 300 325 Balance 150 150 160 Intake, IV 10 Intake, Oral 400 450 475 Number 0 Bowel Movements Output, Urine 250 300 325 Physical Exam General Appearance: Alert, oriented X 2, not cooperative. Skin: bruising evident on the arms. HEENT: Atraumatic, PERRLA, EOMI Neck: Supple Cardiovascular: Normal S1, Normal S2 Lungs: decreased breath sounds bilaterally. Abdomen: Normal Bowel Sounds, No Tenderness, Distended. Current Medications: Current Medications Sig/Emily Start time Last Medication Dose Route Stop Time Status Admin Acetaminophen 650 MG Q6P PRN 09/06 1830 AC 09/11 PO 0356 Albuterol Sulfate 3 ML Q4P PRN 09/07 1115 AC 09/09 INH 0615 Ceftriaxone Sodium 1,000 MG DAILY@1800 09/09 1800 AC 09/10 IV 1727 Diphenhydramine HCl 1 RAKAN BID 09/08 1000 AC 09/10 TOP 2230 Ergocalciferol 50,000 IU Q30D@1000 09/14 1000 AC PO Haloperidol 2.5 MG ONCE ONE 09/11 0515 DC IM 09/11 0516 Hydrocortisone 1 RAKAN BID 09/06 2200 AC 09/10 TOP 2231 Insulin Aspart 0 TIDAC 09/08 0800 AC 09/10 SC 1840 Lidocaine 1 PAT DAILY 09/07 1553 AC 09/10 EXT 0916 Pravastatin Sodium 40 MG 1700 09/08 1700 AC 09/10 PO 1730 Prednisone 5 MG DAILY 09/09 1000 AC 09/10 PO 09/11 1001 0915 Risperidone 0.25 MG DAILY 09/07 1230 AC 09/10 PO 0916 Rivaroxaban 20 MG 1700 09/07 1700 AC 09/10 PO 1730 Sertraline HCl 25 MG DAILY 09/08 1232 AC 09/10 PO 0915 Tamsulosin HCl 0.4 MG BID 09/07 2200 AC 09/10 PO 0916 Tramadol HCl 50 MG Q6 PRN 09/08 1530 AC 09/10 PO 1925 Trazodone HCl 50 MG AT BEDTIME 09/07 2200 AC 09/10 PO 2229 Vitamin A/Vitamin D 1 RAKAN BID 09/06 2224 AC 09/10 TOP 2230 Assessment/Plan Assessment: 89 y/o M with PMHx of COPD, atrial fibrillation on Xarelto and psoriasis admitted for severe gram negative sepsis 2/2 UTI, currently resolving. Sepsis 2/2 UTI: Clinically much improved. Remains afebrile with improvement of leukocytosis on antibiotics for gram-negative sepsis 2/2 to UTI, most likely Proteus as patient had grown pansensitive Proteus in the past. BC and UC reveal growth of Ecoli sensitive to augementin. * Continue ceftriaxone, Can be started on Augmentin for a total of 14days after discharge. * Not on IVF * Discontinued on steroids today. * DNR/DNI including no central line and pressors per patient's and family's wishes. * Received around 8L of fluids, obtaining a chest X ray to rule out fluid overload. Urinary retention 2/2 BPH: Low UOP noted today. * Urology consulted. * Continue prior to admission tamsulosin 0.4 mg PO BID. * Ngo removed today. As patient is unable to void helped with straight cath. * Around 300ml urine with semiresidual output at the end. He was kept on straight cath protocol today, awaiting urology input. HTN: Takes lisinopril 2.5 mg PO daily and furosemide 20 mg PO BID. * Holding prior to admission antihypertensives in the setting of hypotension. Consider restarting Lisinopril tomorrow if BPs tolerates. Continue to monitor. Chest pain: Often complains of chest pain. reproducible on palpation. EKG with no ST-T elevations. Troponin negative. * NTD. COPD: Not in acute exacerbation. In compensated chronic hypercarbic respiratory failure with stable respiratory status. Remains on 2 L NC, unchanged from home oxygen requirement. * Provide supplemental oxygen to keep SpO2 > 92%. * Continue to hold prior to admission theophylline. * TRC and nebs as needed. T2DM: Takes metformin 1000 mg PO daily. * Continue Accu-checks and medium dose Novolog SSI TIDAC. * Consider resuming prior to admission metformin. Depression: * On his home medication sertraline 25 mg PO daily. HLD: * On his home medication pravastatin 40 mg PO daily. Wound/DTI: Area of deep tissue injury noted to coccyx measuring 0.2 x 0.2 cm with areas of hyperpigmentation and excoriation extending beyond the wound margins. Full thickness wound on midback measuring 6.5 x 12 cm, present on admission, improved from previous assessment (08/21/16) on prior admission. * Management per wound care team. * Cleanse mid-back wound with normal saline and apply petroleum gauze. * Apply vitamin A + D cream to areas of DTI on coccyx and buttocks. * Nutrition consult ordered. Diet changed to consistent carbohydrate 3 ( previously on 2) for increased calorie intake per their recs. * Patient placed on category 2 mattress. * Turn and reposition patient frequently. Psoriasis: Psoriasiform lesions noted on abdomen, buttocks and back. Complaining of itchiness today. * Continue to apply prior to admission hydrocortisone BID to rash. * Apply topical Benadryl BID to rash for relief from itching. Atrial fibrillation: Remains in atrial fibrillation with well-controlled heart rate. * Continue Xarelto 20 mg PO QHS. Dementia: * Continue prior to admission risperidone 0.25 mg PO daily for agitation. Insomnia: * Continue prior to admission trazodone 50 mg PO daily. Central Apnea * restarted on low dose of theophylline today. Diet: Consistent carbohydrate 3 with 2 g Na restriction - Full chopped and regular thins DVT PPx: Xarelto and ALPs CODE: DNR/DNI including no central line or pressors Problem List: 1. Wound of back 2. Deep tissue injury 3. Urinary retention due to benign prostatic hyperplasia 4. Sepsis secondary to UTI 5. BPH (benign prostatic hyperplasia) Pain Ratin Pain Location: n/a Pain Goal: Pain 4 or less Pain Plan: Tylenol PRN Tomorrow's Labs & Rationales: CBC as patient had thrombocytopenia ROSLYN ESCALANTE MD 09/11/16 1200: Attending MD Review Statement Attending Statement Attending MD Statement: examined this patient, discuss w/resident/PA/MACHINE STRIPPER, agreed w/resident/PA/MACHINE STRIPPER, reviewed EMR data (avail), discussed with nursing, discussed with case mgmt, reviewed images, amended to note Attending Assessment/Plan: Patient seen and examined, was somewhat upset this morning. Did not want to talk too much. He kept on taking his oxygen of. He denies any aches or pains currently. Vital Signs Date Time Temp Pulse Resp B/P Pulse O2 O2 Flow FiO2 Ox Delivery Rate 09/11 0954 128/70 09/11 0833 97.9 96 20 138/78 93 Nasal 5.0L Cannula 09/11 0000 Nasal 3.0L Cannula 09/10 2342 98.1 100 20 110/76 96 Nasal 4.0L Cannula 09/10 2230 102/70 09/10 1600 Nasal 4.0L Cannula 09/10 1600 97.6 98 21 132/80 90 Nasal 4.0L Cannula on exam; awake, upset this am. cv; s1,s2,, irregular. resp; clear abd; soft, nt, bs+ ext; trace edema. Laboratory Tests 09/11 0635 Hematology CBC w Diff MAN DIFF ORDERED WBC (4.8 - 10.8 /CUMM) 7.6 RBC (4.70 - 6.10 /CUMM) 4.09 L Hgb (14.0 - 18.0 G/DL) 11.1 L Hct (42 - 52 %) 34.6 L MCV (80.0 - 94.0 FL) 84.6 MCH (27.0 - 31.0 PG) 27.1 RDW (11.5 - 14.5 %) 16.3 H Plt Count (130 - 400 /CUMM) 116 L MPV (7.4 - 10.4 FL) 10.4 Gran % (42.2 - 75.2 %) 85.7 H Lymphocytes % (20.5 - 51.1 %) 9.4 L Monocytes % (1.7 - 9.3 %) 3.2 Eosinophils % (0 - 5 %) 1.7 Basophils % (0.0 - 2.0 %) 0 L Absolute Granulocytes (1.4 - 6.5 /CUMM) 6.5 Segmented Neutrophils (42.2 - 75.2 %) 79 H Band Neutrophils (0.0 - 5.0 %) 3 Absolute Lymphocytes (1.2 - 3.4 /CUMM) 0.7 L Lymphocytes (20.5 - 51.1 %) 12 L Monocytes (1.7 - 9.3 %) 4 Absolute Monocytes (0.10 - 0.60 /CUMM) 0.2 Eosinophils (0 - 5.0 %) 2 Absolute Eosinophils (0.0 - 0.7 /CUMM) 0.1 Absolute Basophils (0.0 - 0.2 /CUMM) 0 Platelet Estimate (ADEQUATE) DECREASED Hypochromic-Microcytic 1+ Poikilocytosis 1+ Anisocytosis 1+ Tata Cells 1+ PUBS MCHC (33.0 - 37.0 G/DL) 32.1 L Other Body Source Fld Total RBCs Counted (%) 100 A/P; Mr. Lamar is a 89 y/o M with PMHx of dementia, COPD on 2 L home oxygen and atrial fibrillation on Xarelto admitted with sepsis secondary to urological origin. Currently he is getting treated with ceftriaxone. Patient also has bacteremia. At this point he will be seen by infectious disease to help guide us in choosing the oral antibiotic. Patient's steroids will be tapered down. Continued TRC nebs. Patient kept on taking the oxygen off but he was encouraged to keep it on. Continue other current medications. For DVT px patient is on Xarelto. He will go back to his rehabilitation when switched to oral abx. Continue all other current meds. Possible Dc in am.
[2016-09-11 08:09] LABS: ABSOLUTE BASOPHIL COUNT 0 /CUMM (0.0-0.2); ABSOLUTE EOSINOPHIL COUNT 0.1 /CUMM (0.0-0.7); ABSOLUTE GRANULOCYTE CT 6.5 /CUMM (1.4-6.5); ABSOLUTE LYMPH COUNT 0.7 /CUMM (1.2-3.4); ABSOLUTE MONOCYTE COUNT 0.2 /CUMM (0.10-0.60); BASOPHIL % 0 % (0.0-2.0); EOSINOPHIL % 1.7 % (0-5); GRANULOCYTE % 85.7 % (42.2-75.2); HEMATOCRIT 34.6 % (42-52); MEAN CORPUSCULAR HGB 27.1 PG (27.0-31.0); MEAN CORPUSCULAR HGB CONC 32.1 G/DL (33.0-37.0); MEAN CORPUSCULAR VOLUME 84.6 FL (80.0-94.0); MEAN PLATELET VOLUME 10.4 FL (7.4-10.4); PLATELET COUNT 116 /CUMM (130-400); RBC DISTRIBUTION WIDTH 16.3 % (11.5-14.5); RED BLOOD CELL CT 4.09 /CUMM (4.70-6.10); WHITE BLOOD CELL COUNT 7.6 /CUMM (4.8-10.8)
[2016-09-11 08:33] VITALS: BP 138/78
--- NOTE | 2016-09-11 10:40 | PN- Pulmonary ---
Subjective HPI/Critical Care Issues: The patient was comfortable this morning. Does not have any complaints. He was sleepy. Vitals were stable overnight. Currently has a Ngo catheter in place, draining cloudy urine. He remained afebrile. Review of Systems Constitutional: Reports: see HPI. Objective Current Medications: Current Medications Sig/Emily Start time Last Medication Dose Route Stop Time Status Admin Acetaminophen 650 MG Q6P PRN 09/06 1830 AC 09/11 PO 0356 Albuterol Sulfate 3 ML Q4P PRN 09/07 1115 AC 09/09 INH 0615 Ceftriaxone Sodium 1,000 MG DAILY@1800 09/09 1800 AC 09/10 IV 1727 Diphenhydramine HCl 1 RAKAN BID 09/08 1000 AC 09/11 TOP 0947 Ergocalciferol 50,000 IU Q30D@1000 09/14 1000 AC PO Haloperidol 2.5 MG ONCE ONE 09/11 0515 DC IM 09/11 0516 Hydrocortisone 1 RAKAN BID 09/06 2200 AC 09/11 TOP 0954 Insulin Aspart 0 TIDAC 09/08 0800 AC 09/10 SC 1840 Lidocaine 1 PAT DAILY 09/07 1553 AC 09/11 EXT 0945 Pravastatin Sodium 40 MG 1700 09/08 1700 AC 09/10 PO 1730 Prednisone 5 MG DAILY 09/09 1000 DC 09/10 PO 09/11 1001 0915 Risperidone 0.25 MG DAILY 09/07 1230 AC 09/11 PO 0945 Rivaroxaban 20 MG 1700 09/07 1700 AC 09/10 PO 1730 Sertraline HCl 25 MG DAILY 09/08 1232 AC 09/11 PO 0945 Tamsulosin HCl 0.4 MG BID 09/07 2200 AC 09/11 PO 0954 Tramadol HCl 50 MG Q6 PRN 09/08 1530 AC 09/10 PO 1925 Trazodone HCl 50 MG AT BEDTIME 09/07 2200 AC 09/10 PO 2229 Vitamin A/Vitamin D 1 RAKAN BID 09/06 2224 AC 09/11 TOP 0947 Vital Signs & I&O Last 24 Hrs of Vitals and I&O: Vital Signs Date Time Temp Pulse Resp B/P Pulse O2 O2 Flow FiO2 Ox Delivery Rate 09/11 0954 128/70 09/11 0833 97.9 96 20 138/78 93 Nasal 5.0L Cannula 09/11 0000 Nasal 3.0L Cannula 09/10 2342 98.1 100 20 110/76 96 Nasal 4.0L Cannula 09/10 2230 102/70 09/10 1600 Nasal 4.0L Cannula 09/10 1600 97.6 98 21 132/80 90 Nasal 4.0L Cannula Intake & Output 09/11 1600 09/11 0800 09/11 0000 Intake Total 400 450 Output Total 250 300 Balance 150 150 Intake, Oral 400 450 Output, Urine 250 300 Impression/Plan Impression/Plan Impression/Plan: SIGNIFICANT DATA CT chest was unremarkable. No lung nodule or pneumonia CT abdomen was also unremarkable other than some stool in the right side of the colon no significant hernia mild aneurysm of the aorta. 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, hypertension, hyperlipidemia, diabetes, previous gout and chronic anemia, small abdominal aneurysm, significant psoriasis, paroxysmal atrial fibrillation on appropriate anticoagulation, diastolic heart disease , bilateral dynamic atelectasis with significant hypoventilation, recurrent hypercarbic respiratory failure, diastolic heart disease, 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 He may have had significant BPH with urinary retention before as well. 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
--- NOTE | 2016-09-11 13:48 | Patient Discharge Instructions ---
Discharge Instructions General Discharge Information You were seen/treated for: SEPSIS OF UROLOGICAL ORIGIN Special Instructions: Please follow up with your PCP in a week Please follow up with in a week Diet Continue normal diet: Yes Recommended Diet: Diabetic Activity Activity Self Limited: No Acute Coronary Syndrome Inclusion Criteria At DC or during hospital stay patient has or had the following: ACS DIAGNOSIS No Discharge Core Measures Meds if any: Prescribed or Continued at Discharge Meds if any: NOT Prescribed or Continued at Discharge Congestive Heart Failure Inclusion Criteria At DC or during hospital stay patient has or had the following: CHF DIAGNOSIS No Discharge Core Measures Meds if any: Prescribed or Continued at Discharge Meds if any: NOT Prescribed or Continued at Discharge Cerebrovascular accident Inclusion Criteria At DC or during hospital stay patient has or had the following: CVA/TIA Diagnosis No Discharge Core Measures Meds if any: Prescribed or Continued at Discharge Meds if any: NOT Prescribed or Continued at Discharge Venous thromboembolism Inclusion Criteria VTE Diagnosis No VTE Type NONE VTE Confirmed by (Test) NONE Discharge Core Measures - Per Current guidelines, there needs to be overlap - treatment for the first 5 days of Warfarin therapy. - If discharged on Warfarin prior to 5 days of - overlap therapy, the patient will need to be - assessed for post discharge needs including - *Post discharge parental anticoagulation - *Warfarin and/or parental anticoagulation education - *Follow up date to check INR post discharge At least 5 days overlap therapy as Inpatient No Meds if any: Prescribed or Continued at Discharge Note: Overlap Therapy is Warfarin and Anticoagulant Meds if any: NOT Prescribed or Continued at Discharge
--- NOTE | 2016-09-11 14:27 | Cons- Infect Disease ---
General Information and HPI Consulting Request Date of Consult: 09/11/16 Requested By: ROSLYN ESCALANTE MD Reason for Consult: Sepsis of urologic origin Source of Information: patient, old records Exam Limitations: poor historian History of Present Illness: This is an 89-year-old man with a history of mild dementia, COPD, maintained on 2 L of oxygen, atrial fibrillation, maintained on Xarelto, CHF, diabetes, psoriasis and BPH, status post several hospitalizations over the last 5 months, mostly for COPD/pneumonia, most recently 2 weeks prior to admission, at which time he received a course of Augmentin after initial treatment with Vancomycin and Ceftazidime, admitted on September 06 from the [facility] because of urinary retention and hematuria following unsuccessful attempts at catheterization. On admission he was febrile to 102.3. His initial blood pressure was 101/63 but it did decrease to 68/48. A coud catheter was placed yielding 400 mL of urine. Laboratory data revealed a white blood cell count of 20,000, with 88 segs and 9 bands, BUN/creatinine 27 and 1.1, lactic acid 6.2, with normal liver enzymes. Urinalysis 25-50 RBC/10-15 WBCs. Chest x-ray was negative. CT of the chest, abdomen and pelvis was also negative. He was given 6 L of fluid in the emergency room and admitted to the ICU, where he was given an additional 1 1/2 L of fluid, with eventual improvement in his blood pressure. He was begun empirically on Ceftriaxone and was then changed to Vancomycin and Ceftazidime. He was also given prednisone. On September 07 blood cultures 2 and urine culture were reported positive for gram-negative rods. The Vancomycin was discontinued and he was continued on Ceftazidime, which was changed to Ceftriaxone September 09 based on the sensitivities. He rapidly defervesced and white blood cell count has normalized. His Ngo catheter was removed this morning, and a post void straight catheterization apparently yielded 300 mL of urine. Presently he complains of nausea. He also notes lower chest discomfort, shortness of breath and a dry cough. Allergies/Medications Allergies: Coded Allergies: NO KNOWN ALLERGIES (07/15/16) Home Med List: Acetazolamide 250 MG TABLET 1 TAB PO SEE ADMIN CRITERIA respiratory failure Take on: Sunday, Sunday, . Do not take your Lasix on these days. Albuterol Sulfate 5 MG/ML SOLUTION 0.5 MG NEB Q4 PRN COPD (Reported) Calcium Carbonate (TUMS) 200 MG CALCIUM (500 MG) TAB.CHEW 2 TAB PO 4 TIMES/DAY HEART BURN (Reported) Ceftriaxone Sodium (Ceftriaxone) 1 GRAM VIAL 1 IM 1300 UTI (Reported) FIRST DOSE 09/06 LAST DATE 09/10 Ergocalciferol (Vitamin D2) (Vitamin D2) 50,000 UNIT CAPSULE 1 CAP PO Q30D SUPPLEMENT (Reported) Furosemide 20 MG TABLET 1 TAB PO BID WATER PILL (Reported) Reason to Stop at ADM: HYPOTENSIVE Hydrocortisone (Cortaid) 1 % CREAM..G. 1 RAKAN TOP BID SKIN (Reported) Lisinopril 2.5 MG TABLET 1 TAB PO DAILY BP (Reported) Reason to Stop at ADM: HYPOTENSIVE Metformin HCl (Metformin HCl ER) 1,000 MG TAB.ER.24 1 TAB PO DAILY DM ( Reported) Reason to Stop at ADM: ISS Pravastatin Sodium (Pravachol) 40 MG TABLET 1 TAB PO 1700 CHOLESTEROL ( Reported) Prednisone 20 MG TABLET 2 TAB PO DAILY STEROID (Reported) 20MG 09/05-09/07 10MG 09/08-09/10 5MG 09/11 Risperidone (Risperdal) 0.25 MG TABLET 1 TAB PO DAILY AGITATION (Reported) Reason to Stop at ADM: AMS Rivaroxaban (Xarelto) 20 MG TABLET 1 TAB PO DAILY AFIB (Reported) with food Sertraline HCl (Zoloft) 25 MG TABLET 1 TAB PO DAILY MENTAL HEALTH (Reported) Reason to Stop at ADM: AMS Tamsulosin HCl 0.4 MG CAP.ER.24H 1 CAP PO BID PROSTATE (Reported) Reason to Stop at ADM: HYPOTENSIVE Theophylline Anhydrous 200 MG TAB.ER.12H 1 TAB PO AT BEDTIME COPD Trazodone HCl 50 MG TABLET 1 TAB PO DAILY SLEEP (Reported) Reason to Stop at ADM: WILL HOLF FOR NOW, PATIENT SEPTIC AND MAY GET ALTERED Past History Travel History Traveled to [place] past 21 day No Medical History Neurological: dementia EENT: NONE Cardiovascular: aortic aneurysm, AFIB, CHF, hypertension, hyperlipidemia Respiratory: COPD Gastrointestinal: NONE Hepatic: NONE Renal: benign prost hyperplasia Musculoskeletal: chronic back pain, degen joint disease, fracture, gout, RIB FX left shoulder fracture Psychiatric: anxiety Endocrine: diabetes Blood Disorders: NONE Cancer(s): NONE 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 . MOTHER (Unknown cancer). . Psychosocial History Where Do You Live? [facility] Facility Primary Language: Pakistani Smoking Status: Never Smoked ETOH Use: denies use Illicit Drug Use: denies illicit drug use Functional Ability ADLs Needs Assist: dressing, eating, toileting, bathing. 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 [employer] Review of Systems Review of Systems All Other Systems: Reviewed and Negative Exam & Diagnostic Data Last 24 Hrs of Vital Signs/I&O Vital Signs Date Time Temp Pulse Resp B/P Pulse O2 O2 Flow FiO2 Ox Delivery Rate 09/11 1313 94 Nasal 3.0L Cannula 09/11 0954 128/70 09/11 0833 97.9 96 20 138/78 93 Nasal 5.0L Cannula 09/11 0000 Nasal 3.0L Cannula 09/10 2342 98.1 100 20 110/76 96 Nasal 4.0L Cannula 09/10 2230 102/70 09/10 1600 Nasal 4.0L Cannula 09/10 1600 97.6 98 21 132/80 90 Nasal 4.0L Cannula Intake & Output 09/11 1600 09/11 0800 09/11 0000 Intake Total 400 450 Output Total 250 300 Balance 150 150 Intake, Oral 400 450 Output, Urine 250 300 Physical Exam Other Physical Findings: He is awake and alert in no acute distress. He is afebrile. Skin reveals scattered psoriatic lesions on his trunk and extremities. HEENT exam is negative. Neck is supple with no adenopathy. Lungs scattered wheezes. Heart irregular rhythm with a 1/6 systolic ejection murmur. Abdomen is soft, nontender with positive bowel sounds. Back no CVA tenderness. Extremities trace pedal edema both lower extremities. Neuro is without focality. Last 24 Hours of Lab Results: Laboratory Tests 09/11 0635 Hematology CBC w Diff MAN DIFF ORDERED WBC (4.8 - 10.8 /CUMM) 7.6 RBC (4.70 - 6.10 /CUMM) 4.09 L Hgb (14.0 - 18.0 G/DL) 11.1 L Hct (42 - 52 %) 34.6 L MCV (80.0 - 94.0 FL) 84.6 MCH (27.0 - 31.0 PG) 27.1 RDW (11.5 - 14.5 %) 16.3 H Plt Count (130 - 400 /CUMM) 116 L MPV (7.4 - 10.4 FL) 10.4 Gran % (42.2 - 75.2 %) 85.7 H Lymphocytes % (20.5 - 51.1 %) 9.4 L Monocytes % (1.7 - 9.3 %) 3.2 Eosinophils % (0 - 5 %) 1.7 Basophils % (0.0 - 2.0 %) 0 L Absolute Granulocytes (1.4 - 6.5 /CUMM) 6.5 Segmented Neutrophils (42.2 - 75.2 %) 79 H Band Neutrophils (0.0 - 5.0 %) 3 Absolute Lymphocytes (1.2 - 3.4 /CUMM) 0.7 L Lymphocytes (20.5 - 51.1 %) 12 L Monocytes (1.7 - 9.3 %) 4 Absolute Monocytes (0.10 - 0.60 /CUMM) 0.2 Eosinophils (0 - 5.0 %) 2 Absolute Eosinophils (0.0 - 0.7 /CUMM) 0.1 Absolute Basophils (0.0 - 0.2 /CUMM) 0 Platelet Estimate (ADEQUATE) DECREASED Hypochromic-Microcytic 1+ Poikilocytosis 1+ Anisocytosis 1+ Tata Cells 1+ PUBS MCHC (33.0 - 37.0 G/DL) 32.1 L Other Body Source Fld Total RBCs Counted (%) 100 Last 24 Hours of Navdeep Results: Blood cultures September 06 positive for Escherichia coli sensitive to Augmentin, Cefoxitin, Ceftazidime and Ceftriaxone and intermediate to Cefazolin Urine culture September 06 greater than 100,000 colonies of Escherichia coli sensitive to Amikacin, Cefazolin, Augmentin and Nitrofurantoin and intermediate to Unasyn Rapid flu swab September 06 negative Stool C. difficile September 07 negative Diagnostic Data Recent Imaging Findings: Chest x-ray September [address] of the chest, abdomen and pelvis September 06 negative. Assessment/Plan Assessment/Plan Impression: This is an 89-year-old man with a history of diabetes, COPD, CHF, atrial fibrillation and BPH status post several hospitalizations over the past 5 months , mostly for COPD/pneumonia, most recently 2 weeks prior to admission, admitted on September 06 with urinary retention and hematuria following unsuccessful attempts at straight catheterization, found to be febrile with a leukocytosis and with blood and urine culture positive for Escherichia coli. His clinical picture is consistent with sepsis of urologic origin, likely related to BPH. The sensitivities of his urine and blood culture isolates are slightly different , but this is not unusual as they are 2 different sources. He was evaluated by Urology, with no specific recommendations made, but feel he may warrant further evaluation. He did have 300 mL of urine on postvoid residual this morning and may require continued straight catheterization. Of note he has received a significant amount of fluids and, given his wheezing and increasing oxygen requirements, would rule out congestive heart failure. Suggestion: 1. Repeat chest x-ray 2. Would repeat bladder scan and initiate straight catheterization protocol if residuals are high 3. Urology follow-up regarding further evaluation/management of his urinary retention 4. Continue Ceftriaxone, with eventual change to Augmentin 875 mg po every 12 hours to complete a 14 day course of treatment Consult Acknowledgment - Thank you for your consult request.
[2016-09-11] MEDS ORDERED: AUGMENTIN 875-1 EACH PO (15:38)
[2016-09-11 15:44] VITALS: BP 104/62
--- NOTE | 2016-09-11 19:34 | PN- Urology ---
Surgical Brief Attending Note Brief Attending Note: VSS AFEB. OVERALL PT MUCH IMPROVED. AGREE WITH VOIDING TRIAL TODAY-IF FAILS PLEASE RE-INSERT MAYEN (MAY THEN NEED TURP IN FUTURE IF FAILS)
--- NOTE | 2016-09-11 20:50 | RADIOLOGY REPORT ---
EXAMINATION: XR CHEST CLINICAL INFORMATION: Increased oxygen demand. Shortness of breath. Decreased breath sounds. COMPARISON: 09/06/2016 TECHNIQUE: 2 views of the chest were obtained. FINDINGS: Low lung volumes. Increased interstitial prominence with central vascular prominence. Small pleural effusions. No dense consolidation. No pneumothorax. The cardiomediastinal silhouette is unchanged, with a tortuous aorta. IMPRESSION: Small pleural effusions. Mild interstitial edema.
[2016-09-12 01:00] VITALS: BP 118/68
[2016-09-12 08:00] LABS: ABSOLUTE BASOPHIL COUNT 0 /CUMM (0.0-0.2); ABSOLUTE EOSINOPHIL COUNT 0.1 /CUMM (0.0-0.7); ABSOLUTE LYMPH COUNT 0.9 /CUMM (1.2-3.4); ABSOLUTE MONOCYTE COUNT 0.4 /CUMM (0.10-0.60); BASOPHIL % 0.2 % (0.0-2.0); EOSINOPHIL % 1.8 % (0-5); GRANULOCYTE % 80.2 % (42.2-75.2); HEMATOCRIT 31.9 % (42-52); MEAN CORPUSCULAR HGB 27.5 PG (27.0-31.0); MEAN CORPUSCULAR HGB CONC 32.6 G/DL (33.0-37.0); MEAN CORPUSCULAR VOLUME 84.4 FL (80.0-94.0); PLATELET COUNT 130 /CUMM (130-400); RBC DISTRIBUTION WIDTH 16.5 % (11.5-14.5); RED BLOOD CELL CT 3.78 /CUMM (4.70-6.10); WHITE BLOOD CELL COUNT 7.4 /CUMM (4.8-10.8)
--- NOTE | 2016-09-12 08:16 | PN- Housestaff ---
RAMON JETER,BILL 09/12/16 0813: Subjective Follow-up For: Sepsis of urological origin Complaints: no complaints Subjective: I saw and examined the patient today morning. He is lying on the bed, woke up at 3am, very agitated. Review of Systems Constitutional: Reports: see HPI. Comments: ROS negative except the above. Objective Last 24 Hrs of Vital Signs/I&O Vital Signs Date Time Temp Pulse Resp B/P Pulse O2 O2 Flow FiO2 Ox Delivery Rate 09/12 0100 98.5 102 19 118/68 96 Nasal Cannula 09/12 0000 Nasal 3.0L Cannula 09/11 2241 97 Nasal 5.0L Cannula 09/11 2053 120/72 09/11 1600 92 Nasal 3.0L Cannula 09/11 1550 92 Nasal 5.0L Cannula 09/11 1544 98.4 107 19 104/62 97 09/11 1526 Nasal 2.0L Cannula 09/11 1313 94 Nasal 3.0L Cannula 09/11 0954 128/70 09/11 0833 97.9 96 20 138/78 93 Nasal 5.0L Cannula Intake & Output 09/12 1600 09/12 0800 09/12 0000 Intake Total 360 Output Total 500 350 Balance -500 10 Intake, Oral 360 Output, Urine 500 350 Physical Exam General Appearance: Alert, Oriented X1, not to place and time. Skin: No Rashes, No Breakdown HEENT: Atraumatic, PERRLA, EOMI Neck: Supple Cardiovascular: Normal S1, Normal S2 Lungs: Normal Air Movement Abdomen: Normal Bowel Sounds, No Tenderness, distended in the upper abdomen Neurological: Normal Speech, Strength at 5/5 X4 Ext, Normal Tone Current Medications: Current Medications Sig/Emily Start time Last Medication Dose Route Stop Time Status Admin Acetaminophen 650 MG Q6P PRN 09/06 1830 AC 09/11 PO 0356 Albuterol Sulfate 3 ML Q4P PRN 09/07 1115 09/12 INH 1019 Amoxicillin/ 875 MG Q12 09/12 1430 AC 09/12 Clavulanate Potassium PO 2134 Bisacodyl 5 MG DAILY 09/11 2000 AC 09/12 PO 0926 Ceftriaxone Sodium 1,000 MG DAILY@1800 09/09 1800 DC 09/11 IV 1736 Diphenhydramine HCl 1 RAKAN BID 09/08 1000 AC 09/12 TOP 2135 Ergocalciferol 50,000 IU Q30D@1000 09/14 1000 AC PO Furosemide 20 MG BID 09/120 AC 09/12 PO 2134 Furosemide 40 MG .STK-MED ONE 09/12 0931 DC IV 09/12 0932 Furosemide 20 MG ONCE ONE 09/12 0915 DC 09/12 IV 09/12 0916 0935 Hydrocortisone 1 RAKAN BID 09/06 220 AC 09/12 TOP 213 Insulin Aspart 0 TIDAC 09/08 0800 AC 09/11 SC 1152 Lidocaine 1 PAT DAILY 09/07 1553 AC 09/12 EXT 0925 Magnesium Hydroxide 30 ML ONE ONE 09/12 0830 DC 09/12 PO 09/12 0831 0925 Polyethylene Glycol 17 GM DAILY 09/11 1999 AC 09/12 PO 0926 Pravastatin Sodium 40 MG 1700 09/08 1700 AC 09/12 PO 1822 Risperidone 0.25 MG DAILY 09/07 1230 AC 09/12 PO 0925 Rivaroxaban 20 MG 1700 09/07 1700 AC 09/12 PO 1822 Senna 187 MG AT BEDTIME 09/11 1999 09/12 PO 2134 Sertraline HCl 25 MG DAILY 09/08 1232 AC 09/12 PO 0925 Tamsulosin HCl 0.4 MG BID 09/07 2200 AC 09/12 PO 2134 Theophylline 100 MG AT BEDTIME 09/11 220 09/12 PO 2134 Tramadol HCl 50 MG Q6 PRN 09/08 1530 AC 09/12 PO 1822 Trazodone HCl 50 MG AT BEDTIME 09/07 2200 AC 09/12 PO 2134 Vitamin A/Vitamin D 1 RAKAN BID 09/06 222 09/12 TOP 213 Last 24 Hrs of Lab/Navdeep Results Last 24 Hrs of Labs/Mics: Laboratory Tests 09/12/16 0625: CBC w Diff NO MAN DIFF REQ, RBC 3.78 L, MCV 84.4, MCH 27.5, RDW 16.5 H, MPV 10.0, Gran % 80.2 H, Lymphocytes % 12.3 L, Monocytes % 5.5, Eosinophils % 1.8, Basophils % 0.2, Absolute Granulocytes 6.0, Absolute Lymphocytes 0.9 L, Absolute Monocytes 0.4, Absolute Eosinophils 0.1, Absolute Basophils 0, PUBS MCHC 32.6 L Lines/Diet/Fluids Lines: peripheral lines Assessment/Plan Assessment: 89 y/o M with PMHx of COPD, atrial fibrillation on Xarelto and psoriasis admitted for severe gram negative sepsis 2/2 UTI, currently resolving. Sepsis 2/2 UTI: Clinically much improved. Remains afebrile with improvement of leukocytosis on antibiotics for gram-negative sepsis 2/2 to UTI, most likely Proteus as patient had grown pansensitive Proteus in the past. BC and UC reveal growth of Ecoli sensitive to augementin. * started on Augmentin for a total of 14days with discontinuation of IV ceftriaxone. * Not on IVF * Discontinued on steroids. * DNR/DNI including no central line and pressors per patient's and family's wishes. * Received around 8L of fluids, CXR reveals small pleural effusions, gave 20mg IV lasix. Urinary retention 2/2 BPH: * Urology consulted. * Continue prior to admission tamsulosin 0.4 mg PO BID. * Castillo removed today. As patient is unable to void helped with straight cath. * Around 300ml urine with semiresidual output at the end. * He was kept on castillo with revels bright red blood HTN: Takes lisinopril 2.5 mg PO daily and furosemide 20BID * Gave 20mg IV lasix, will resume his oral home dose. Chest pain: Often complains of chest pain. reproducible on palpation. EKG with no ST-T elevations. Troponin negative. * NTD. COPD: Not in acute exacerbation. In compensated chronic hypercarbic respiratory failure with stable respiratory status. Remains on 2 L NC, unchanged from home oxygen requirement. * Provide supplemental oxygen to keep SpO2 > 92%. * Continue to hold prior to admission theophylline. * TRC and nebs as needed. T2DM: Takes metformin 1000 mg PO daily. * Continue Accu-checks and medium dose Novolog SSI TIDAC. * Consider resuming prior to admission metformin. Depression: * On his home medication sertraline 25 mg PO daily. HLD: * On his home medication pravastatin 40 mg PO daily. Wound/DTI: Area of deep tissue injury noted to coccyx measuring 0.2 x 0.2 cm with areas of hyperpigmentation and excoriation extending beyond the wound margins. Full thickness wound on midback measuring 6.5 x 12 cm, present on admission, improved from previous assessment (08/21/16) on prior admission. * Management per wound care team. * Cleanse mid-back wound with normal saline and apply petroleum gauze. * Apply vitamin A + D cream to areas of DTI on coccyx and buttocks. * Nutrition consult ordered. Diet changed to consistent carbohydrate 3 ( previously on 2) for increased calorie intake per their recs. * Patient placed on category 2 mattress. * Turn and reposition patient frequently. Psoriasis: Psoriasiform lesions noted on abdomen, buttocks and back. Complaining of itchiness today. * Continue to apply prior to admission hydrocortisone BID to rash. * Apply topical Benadryl BID to rash for relief from itching. Atrial fibrillation: Remains in atrial fibrillation with well-controlled heart rate. * Continue Xarelto 20 mg PO QHS. Dementia: * Continue prior to admission risperidone 0.25 mg PO daily for agitation. Insomnia: * Continue prior to admission trazodone 50 mg PO daily. Central Apnea * restarted on low dose of theophylline today. Diet: Consistent carbohydrate 3 with 2 g Na restriction - Full chopped and regular thins DVT PPx: Xarelto and ALPs CODE: DNR/DNI including no central line or pressors Problem List: 1. BPH 2. Diabetes mellitus type 2 3. Wound of back 4. Deep tissue injury 5. Urinary retention due to benign prostatic hyperplasia 6. Sepsis secondary to UTI 7. HTN (hypertension) 8. COPD (chronic obstructive pulmonary disease) Pain Ratin Pain Location: n/a Pain Goal: Pain 4 or less Pain Plan: tylenol prn Tomorrow's Labs & Rationales: none JOSE ESCALANTE MDESHA 09/12/16 1206: Attending MD Review Statement Attending Statement Attending MD Statement: examined this patient, discuss w/resident/PA/STAFF ELECTRICAL ENGINEER, agreed w/resident/PA/STAFF ELECTRICAL ENGINEER, reviewed EMR data (avail), discussed with nursing, discussed with case mgmt, amended to note Attending Assessment/Plan: Patient seen and examined, and said that he was not feeling that well. He was complaining of some shortness of breath this morning. Patient has a telemetry monitor. Vital Signs Date Time Temp Pulse Resp B/P Pulse O2 O2 Flow FiO2 Ox Delivery Rate 09/12 1021 Nasal 3.0L Cannula 09/12 0955 Nasal 2.0L Cannula 09/12 0925 93 Nasal 3.0L Cannula 09/12 0842 98.0 107 20 126/76 95 Nasal 2.0L Cannula 09/12 0800 94 Nasal 2.0L Cannula 09/12 0100 98.5 102 19 118/68 96 Nasal Cannula 09/12 0000 Nasal 3.0L Cannula 09/11 2241 97 Nasal 5.0L Cannula 09/11 2053 120/72 09/11 1600 92 Nasal 3.0L Cannula 09/11 1550 92 Nasal 5.0L Cannula 09/11 1544 98.4 107 19 104/62 97 09/11 1526 Nasal 2.0L Cannula 09/11 1313 94 Nasal 3.0L Cannula on exam; He was sleeping but arousable. cv; s1,s2, rrr. resp; mild scattered wheeze. abd; soft, nt, bs+ ext; trace edema. Laboratory Tests 09/12 624 Hematology CBC w Diff NO MAN DIFF REQ WBC (4.8 - 10.8 /CUMM) 7.4 RBC (4.70 - 6.10 /CUMM) 3.78 L Hgb (14.0 - 18.0 G/DL) 10.4 L Hct (42 - 52 %) 31.9 L MCV (80.0 - 94.0 FL) 84.4 MCH (27.0 - 31.0 PG) 27.5 RDW (11.5 - 14.5 %) 16.5 H Plt Count (130 - 400 /CUMM) 130 MPV (7.4 - 10.4 FL) 10.0 Gran % (42.2 - 75.2 %) 80.2 H Lymphocytes % (20.5 - 51.1 %) 12.3 L Monocytes % (1.7 - 9.3 %) 5.5 Eosinophils % (0 - 5 %) 1.8 Basophils % (0.0 - 2.0 %) 0.2 Absolute Granulocytes (1.4 - 6.5 /CUMM) 6.0 Absolute Lymphocytes (1.2 - 3.4 /CUMM) 0.9 L Absolute Monocytes (0.10 - 0.60 /CUMM) 0.4 Absolute Eosinophils (0.0 - 0.7 /CUMM) 0.1 Absolute Basophils (0.0 - 0.2 /CUMM) 0 PUBS MCHC (33.0 - 37.0 G/DL) 32.6 L A/P; Mr. Lamar is a 89 y/o M with PMHx of dementia, COPD on 2 L home oxygen and atrial fibrillation on Xarelto admitted with sepsis secondary to urological origin. Currently he is getting treated with ceftriaxone. Patient also has bacteremia. Reportedly patient said that he wants to kill himself 2 days ago. He needs a psych evaluation. He had a sitter which is now converted to telemetry monitor. His antibiotics can be switched to oral Augmentin as recommended by infectious disease. He will need a total of 14 day course. His chest x-ray obtained showing some interstitial edema. Upon reviewing patient's home medications we found that he was taking Lasix. We'll give a dose of IV Lasix and resume his oral dose starting tonight. Will continue his current medications. DVT prophylaxis: Xarelto. Patient will ultimately need to go to rehabilitation once cleared by psych.
[2016-09-12 08:42] VITALS: BP 126/76
--- NOTE | 2016-09-12 10:13 | PN- Pulmonary ---
Subjective HPI/Critical Care Issues: Still has on off agitation Fatigued Did not sleep well last night Review of Systems: Eyes no blurred or double vision Ears no deafness or ringing Nose and throat no recurrent sinusitis Lungs per history of present illness Heart per history of present illness Abdomen no nausea vomiting Musculoskeletal occasional muscle and joint pains Psych no anxiety or depression Neuro without recurrent headache or seizures Endocrine no heat or cold intolerance Objective Current Medications: Current Medications Sig/Emily Start time Last Medication Dose Route Stop Time Status Admin Acetaminophen 650 MG Q6P PRN 09/06 1830 AC 09/11 PO 0356 Albuterol Sulfate 3 ML Q4P PRN 09/07 1115 AC 09/09 INH 0615 Bisacodyl 5 MG DAILY 09/11 1999 AC 09/12 PO 0926 Ceftriaxone Sodium 1,000 MG DAILY@1800 09/09 1800 AC 09/11 IV 1736 Diphenhydramine HCl 1 RAKAN BID 09/08 1000 AC 09/12 TOP 0926 Ergocalciferol 50,000 IU Q30D@1000 09/14 1000 AC PO Furosemide 20 MG BID 09/12 2200 AC PO Furosemide 20 MG ONCE ONE 09/12 0915 DC 09/12 IV 09/12 0916 0935 Hydrocortisone 1 RAKAN BID 09/06 2200 AC 09/12 TOP 0926 Insulin Aspart 0 TIDAC 09/08 0800 AC 09/11 SC 1152 Lidocaine 1 PAT DAILY 09/07 1553 AC 09/12 EXT 0925 Magnesium Hydroxide 30 ML ONE ONE 09/12 0830 DC 09/12 PO 09/12 0831 0925 Patient Medication 1 ED .STK-MED ONE 09/11 1310 TN Teaching ED 09/11 1311 Polyethylene Glycol 17 GM DAILY 09/11 1999 AC 09/12 PO 0926 Pravastatin Sodium 40 MG 0 09/08 1700 AC 09/11 PO 1736 Risperidone 0.25 MG DAILY 09/07 1230 AC 09/12 PO 0925 Rivaroxaban 20 MG 09/07 1700 AC 09/11 PO 173 Senna 187 MG AT BEDTIME 09/11 1999 AC 09/11 PO 2057 Sertraline HCl 25 MG DAILY 09/08 1232 AC 09/12 PO 0925 Tamsulosin HCl 0.4 MG BID 09/07 2200 AC 09/12 PO 0925 Theophylline 100 MG AT BEDTIME 09/11 2200 AC 09/11 PO 205 Tramadol HCl 50 MG Q6 PRN 09/08 1530 AC 09/12 PO 0926 Trazodone HCl 50 MG AT BEDTIME 09/07 2199 AC 09/11 PO 2049 Vitamin A/Vitamin D 1 RAKAN BID 09/06 2223 09/12 [facility] 0926 Laboratory Tests 09/12 09/11 0625 0633 Hematology CBC w Diff NO MAN DIFF REQ MAN DIFF ORDERED WBC (4.8 - 10.8 /CUMM) 7.4 7.6 RBC (4.70 - 6.10 /CUMM) 3.78 L 4.09 L Hgb (14.0 - 18.0 G/DL) 10.4 L 11.1 L Hct (42 - 52 %) 31.9 L 34.6 L MCV (80.0 - 94.0 FL) 84.4 84.6 MCH (27.0 - 31.0 PG) 27.5 27.1 RDW (11.5 - 14.5 %) 16.5 H 16.3 H Plt Count (130 - 400 /CUMM) 130 116 L MPV (7.4 - 10.4 FL) 10.0 10.4 Gran % (42.2 - 75.2 %) 80.2 H 85.7 H Lymphocytes % (20.5 - 51.1 %) 12.3 L 9.4 L Monocytes % (1.7 - 9.3 %) 5.5 3.2 Eosinophils % (0 - 5 %) 1.8 1.7 Basophils % (0.0 - 2.0 %) 0.2 0 L Absolute Granulocytes (1.4 - 6.5 /CUMM) 6.0 6.5 Segmented Neutrophils (42.2 - 75.2 %) 79 H Band Neutrophils (0.0 - 5.0 %) 3 Absolute Lymphocytes (1.2 - 3.4 /CUMM) 0.9 L 0.7 L Lymphocytes (20.5 - 51.1 %) 12 L Monocytes (1.7 - 9.3 %) 4 Absolute Monocytes (0.10 - 0.60 /CUMM) 0.4 0.2 Eosinophils (0 - 5.0 %) 2 Absolute Eosinophils (0.0 - 0.7 /CUMM) 0.1 0.1 Absolute Basophils (0.0 - 0.2 /CUMM) 0 0 Platelet Estimate (ADEQUATE) DECREASED Hypochromic-Microcytic 1+ Poikilocytosis 1+ Anisocytosis 1+ [place] Cells 1+ PUBS MCHC (33.0 - 37.0 G/DL) 32.6 L 32.1 L Other Body Source Fld Total RBCs Counted (%) 100 Vital Signs & I&O Last 24 Hrs of Vitals and I&O: Vital Signs Date Time Temp Pulse Resp B/P Pulse O2 O2 Flow FiO2 Ox Delivery Rate 09/12 0955 Nasal 2.0L Cannula 09/12 0925 93 Nasal 3.0L Cannula 09/12 0842 98.0 107 20 126/76 95 Nasal 2.0L Cannula 09/12 0100 98.5 102 19 118/68 96 Nasal Cannula 09/12 0000 Nasal 3.0L Cannula 09/11 2241 97 Nasal 5.0L Cannula 09/11 2053 120/72 09/11 1600 92 Nasal 3.0L Cannula 09/11 1550 92 Nasal 5.0L Cannula 09/11 1544 98.4 107 19 104/62 97 09/11 1526 Nasal 2.0L Cannula 09/11 1313 94 Nasal 3.0L Cannula Intake & Output 09/12 1600 09/12 0800 09/12 0000 Intake Total 360 Output Total 500 350 Balance -500 10 Intake, Oral 360 Output, Urine 500 350 Impression/Plan Impression/Plan Impression/Plan: SIGNIFICANT DATA CT chest was unremarkable. No lung nodule or pneumonia CT abdomen was also unremarkable other than some stool in the right side of the colon no significant hernia mild aneurysm of the aorta. 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, hypertension, hyperlipidemia, diabetes, previous gout and chronic anemia, small abdominal aneurysm, significant psoriasis, paroxysmal atrial fibrillation on appropriate anticoagulation, diastolic heart disease , bilateral dynamic atelectasis with significant hypoventilation, recurrent hypercarbic respiratory failure, diastolic heart disease, 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 He may have had significant BPH with urinary retention before as well. 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
[2016-09-12 12:00] VITALS: BP 126/78
--- NOTE | 2016-09-12 13:37 | PN- Infect Dx ---
Subjective Subjective: Afebrile. He required straight catheterization 2 overnight with 400 mL of urine obtained, and a Ngo catheter was inserted this morning. He does not offer any specific complaints at this time. Objective Last 24 Hrs of Vital Signs/I&O Vital Signs Date Time Temp Pulse Resp B/P Pulse O2 O2 Flow FiO2 Ox Delivery Rate 09/12 1021 Nasal 3.0L Cannula 09/12 0955 Nasal 2.0L Cannula 09/12 0925 93 Nasal 3.0L Cannula 09/12 0842 98.0 107 20 126/76 95 Nasal 2.0L Cannula 09/12 0800 94 Nasal 2.0L Cannula 09/12 0100 98.5 102 19 118/68 96 Nasal Cannula 09/12 0000 Nasal 3.0L Cannula 09/11 2241 97 Nasal 5.0L Cannula 09/11 2053 120/72 09/11 1600 92 Nasal 3.0L Cannula 09/11 1550 92 Nasal 5.0L Cannula 09/11 1544 98.4 107 19 104/62 97 09/11 1526 Nasal 2.0L Cannula Intake & Output 09/12 1600 09/12 0800 09/12 0000 Intake Total 360 Output Total 500 350 Balance -500 10 Intake, Oral 360 Output, Urine 500 350 Physical Exam Other Physical Findings: He appears comfortable in no acute distress Lungs are clear Heart irregular rhythm with no murmur Extremities trace edema both lower extremities Results Last 24 Hours of Lab Results: Laboratory Tests 09/12 624 Hematology CBC w Diff NO MAN DIFF REQ WBC (4.8 - 10.8 /CUMM) 7.4 RBC (4.70 - 6.10 /CUMM) 3.78 L Hgb (14.0 - 18.0 G/DL) 10.4 L Hct (42 - 52 %) 31.9 L MCV (80.0 - 94.0 FL) 84.4 MCH (27.0 - 31.0 PG) 27.5 RDW (11.5 - 14.5 %) 16.5 H Plt Count (130 - 400 /CUMM) 130 MPV (7.4 - 10.4 FL) 10.0 Gran % (42.2 - 75.2 %) 80.2 H Lymphocytes % (20.5 - 51.1 %) 12.3 L Monocytes % (1.7 - 9.3 %) 5.5 Eosinophils % (0 - 5 %) 1.8 Basophils % (0.0 - 2.0 %) 0.2 Absolute Granulocytes (1.4 - 6.5 /CUMM) 6.0 Absolute Lymphocytes (1.2 - 3.4 /CUMM) 0.9 L Absolute Monocytes (0.10 - 0.60 /CUMM) 0.4 Absolute Eosinophils (0.0 - 0.7 /CUMM) 0.1 Absolute Basophils (0.0 - 0.2 /CUMM) 0 PUBS MCHC (33.0 - 37.0 G/DL) 32.6 L Last 24 Hours of Navdeep Results: No recent cultures Recent Imaging Studies: Chest x-ray September 11, personally reviewed, reveals increased interstitial prominence with central vascular prominence and small pleural effusions Assessment/Plan Impression: Stable on Ceftriaxone Day 6 of treatment for Escherichia coli sepsis of urologic origin in this patient with BPH and history of urinary retention. A Ngo catheter has been reinserted secondary to the need for recurrent straight catheterization, but straight catheterization, per protocol, if feasible, would be preferable to an indwelling Ngo catheter. Urology input noted with consideration of TURP at some point. His chest x-ray does suggest fluid overload, and he did receive 1 dose of Lasix this morning. Suggestion: 1. Would remove Ngo catheter and reinstitute straight cath protocol 2. Further management with regard to possible TURP per Urology 3. Further management of his fluid status per Medicine 4. Discontinue Ceftriaxone 5. Begin Augmentin 875 mg po every 12 hours to complete a 14 day course of treatment
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
[2016-09-12 16:52] VITALS: BP 132/78
[2016-09-13] VITALS: BP 128/80
[2016-09-13 08:32] VITALS: BP 110/74
--- NOTE | 2016-09-13 09:16 | PN- Housestaff ---
RAMON JETER,BILL 09/13/16 0915: Subjective Follow-up For: Sepsis of urological origin Agitation Subjective: I saw and examined the patient today morning He is still very agitated, pulled his IV lines, nurse monitoring at bedside. Feels discomfort in his stomach, short of breath, irritable to talk. No bowel movement. Review of Systems Constitutional: Reports: see HPI, malaise, weakness. Comments: ROS negative except the above. Objective Last 24 Hrs of Vital Signs/I&O Vital Signs Date Time Temp Pulse Resp B/P Pulse O2 O2 Flow FiO2 Ox Delivery Rate 09/13 2204 112 150/100 09/13 2147 98.0 118 20 150/90 91 Nasal 3.0L Cannula 09/13 2123 150/92 09/13 2055 91 Nasal 3.5L Cannula 09/13 1600 94 Nasal 3.0L Cannula 09/13 1440 98.3 114 22 134/70 94 Nasal 3.0L Cannula 09/13 1324 20 91 Nasal 3.0L Cannula 09/13 1324 22 88 Nasal 2.0L Cannula 09/13 1133 88 Nasal 2.0L Cannula 09/13 1124 20 91 Nasal 2.0L Cannula 09/13 0957 100 114/70 09/13 0921 Nasal 2.0L Cannula 09/13 0832 98.0 110 22 110/74 94 Nasal 3.0L Cannula 09/13 0800 94 Nasal 2.0L Cannula 09/13 0000 Nasal 2.0L Cannula 09/13 0000 97.5 94 20 128/80 94 Room Air Intake & Output 09/13 1600 09/13 0800 09/13 0000 Intake Total 810 650 Output Total 1400 2250 475 Balance -590 -2250 175 Intake, IV 10 Intake, Oral 800 650 Number 0 Bowel Movements Output, Urine 1400 2250 475 Physical Exam General Appearance: Alert, Cooperative, Mild Distress, oriented X 2, not to the time. Skin: No Rashes, No Breakdown HEENT: Atraumatic, PERRLA, EOMI Neck: Supple Cardiovascular: Normal S1, Normal S2, systolic murmur Lungs: Clear to Auscultation, Normal Air Movement Abdomen: Normal Bowel Sounds, No Tenderness, distended Neurological: Normal Speech, Normal Tone Extremities: No Clubbing, No Cyanosis, 2+ pitting edema over both the extremities. Vascular: Pulses Symmetrical Current Medications: Current Medications Sig/Emily Start time Last Medication Dose Route Stop Time Status Admin Acetaminophen 650 MG Q6P PRN 09/06 1830 AC 09/11 PO 0356 Albuterol Sulfate 3 ML Q4P PRN 09/07 1115 AC 09/12 INH 1019 Amoxicillin/ 875 MG Q12 09/12 1430 AC 09/12 Clavulanate Potassium PO 2134 Bisacodyl 5 MG DAILY 09/11 1999 AC 09/12 PO 0926 Ceftriaxone Sodium 1,000 MG DAILY@1800 09/09 1800 DC 09/11 IV 1736 Diphenhydramine HCl 1 RAKAN BID 09/08 1000 AC 09/12 TOP 2135 Ergocalciferol 50,000 IU Q30D@1000 09/14 1000 AC PO Furosemide 20 MG BID 09/12 220 AC 09/12 PO 2134 Furosemide 40 MG .STK-MED ONE 09/12 0931 DC IV 09/12 0932 Furosemide 20 MG ONCE ONE 09/12 0915 DC 09/12 IV 09/12 0916 0935 Hydrocortisone 1 RAKAN BID 09/06 220 09/12 TOP 2135 Insulin Aspart 0 TIDAC 09/08 0800 AC 09/11 SC 1152 Lidocaine 1 PAT DAILY 09/07 1553 AC 09/12 EXT 0925 Polyethylene Glycol 17 GM DAILY 09/11 1999 AC 09/12 PO 0926 Pravastatin Sodium 40 MG 1700 09/08 1700 AC 09/12 PO 1822 Risperidone 0.25 MG DAILY 09/07 1230 AC 09/12 PO 0925 Rivaroxaban 20 MG 1700 09/07 1700 AC 09/12 PO 1822 Senna 187 MG AT BEDTIME 09/11 1999 09/12 PO 2134 Sertraline HCl 25 MG DAILY 09/08 1232 09/12 PO 0925 Tamsulosin HCl 0.4 MG BID 09/07 2200 AC 09/12 PO 2134 Theophylline 100 MG AT BEDTIME 09/11 2200 AC 09/12 PO 2134 Tramadol HCl 50 MG Q6 PRN 09/08 1530 AC 09/13 PO 0251 Trazodone HCl 50 MG AT BEDTIME 09/07 2200 AC 09/12 PO 2134 Vitamin A/Vitamin D 1 RAKAN BID 09/06 2224 09/12 TOP 2135 Last 24 Hrs of Lab/Navdeep Results Last 24 Hrs of Labs/Mics: Laboratory Tests 09/13/16 0855: CBC w Diff Pending, WBC Pending, RBC Pending, Hgb Pending, Hct Pending, MCV Pending, MCH Pending, RDW Pending, Plt Count Pending, MPV Pending, PUBS MCHC Pending Lines/Diet/Fluids Lines: peripheral lines Assessment/Plan Assessment: 89 y/o M with PMHx of COPD, atrial fibrillation on Xarelto and psoriasis admitted for severe gram negative sepsis 2/2 UTI, currently resolving. Sepsis 2/2 UTI: Clinically much improved. Remains afebrile with improvement of leukocytosis on antibiotics for gram-negative sepsis 2/2 to UTI, most likely Proteus as patient had grown pansensitive Proteus in the past. BC and UC reveal growth of Ecoli sensitive to augementin. * started on Augmentin for a total of 14days * DNR/DNI including no central line and pressors per patient's and family's wishes. * Currently awaiting placement pending bowel movement. Urinary retention 2/2 BPH: * Urology consulted. * Continue prior to admission tamsulosin 0.4 mg PO BID. * After failing voiding trails, he was placed on castillo - Plan is to discharge with castillo and get an outpatient TURP eventually in 2 weeks. * Urine is clear today. HTN: Takes lisinopril 2.5 mg PO daily and furosemide 20BID at home. * Currently on furosemide 20mg BID, would continue lisinopril at discharge. Chest pain: Often complains of chest pain. reproducible on palpation. EKG with no ST-T elevations. Troponin negative. * NTD. COPD: Not in acute exacerbation. In compensated chronic hypercarbic respiratory failure with stable respiratory status. Remains on 2 L NC, unchanged from home oxygen requirement. * Provide supplemental oxygen to keep SpO2 > 92%. * Continue to hold prior to admission theophylline. * TRC and nebs as needed. T2DM: Takes metformin 1000 mg PO daily. * Continue Accu-checks and medium dose Novolog SSI TIDAC. * Consider resuming prior to admission metformin. Depression: * Increased sertraline dose to 50 mg PO daily. * Started on trazodone 12.5mg BID in addition to 50mg at bedtime. HLD: * On his home medication pravastatin 40 mg PO daily. Wound/DTI: Area of deep tissue injury noted to coccyx measuring 0.2 x 0.2 cm with areas of hyperpigmentation and excoriation extending beyond the wound margins. Full thickness wound on midback measuring 6.5 x 12 cm, present on admission, improved from previous assessment (08/21/16) on prior admission. * Management per wound care team. * Cleanse mid-back wound with normal saline and apply petroleum gauze. * Apply vitamin A + D cream to areas of DTI on coccyx and buttocks. * Nutrition consult ordered. Diet changed to consistent carbohydrate 3 ( previously on 2) for increased calorie intake per their recs. * Patient placed on category 2 mattress. * Turn and reposition patient frequently. Psoriasis: Psoriasiform lesions noted on abdomen, buttocks and back. Complaining of itchiness today. * Continue to apply prior to admission hydrocortisone BID to rash. * Apply topical Benadryl BID to rash for relief from itching. Atrial fibrillation: Remains in atrial fibrillation with well-controlled heart rate. * Continue Xarelto 20 mg PO QHS. Dementia: * Continue prior to admission risperidone 0.25 mg PO daily for agitation. Insomnia: * Continue prior to admission trazodone 50 mg PO daily. Central Apnea * restarted on low dose of theophylline. Diet: Consistent carbohydrate 3 with 2 g Na restriction - Full chopped and regular thins DVT PPx: Xarelto and ALPs CODE: DNR/DNI including no central line or pressors Problem List: 1. BPH 2. Cellulitis 3. Urinary tract infection 4. Dementia 5. Lower extremity edema 6. Sacral decubitus ulcer, stage II 7. Deep tissue injury 8. Wound of back Pain Ratin Pain Location: abdomen Pain Goal: Pain 4 or less Pain Plan: tyelnol prn Tomorrow's Labs & Rationales: none ROSLYN ESCALANTE MD 09/13/16 1346: Attending MD Review Statement Attending Statement Attending MD Statement: examined this patient, discuss w/resident/PA/GRADING MACHINE FEEDER, agreed w/resident/PA/GRADING MACHINE FEEDER, reviewed EMR data (avail), discussed with nursing, discussed with case mgmt, amended to note Attending Assessment/Plan: Patient seen and examined, did complain of some of abdominal discomfort this morning. He is constipated and has not had a bowel movement yet. His abdomen is soft and he has positive pulses sounds. He has been seen by psychiatry. As per their recommendations, sitter was discontinued. Patient's psychiatric medications were adjusted. His and hepatic has been switched to oral. He is getting aggressive bowel regimen so that he can have a bowel movement. Afterwards he can be discharged to rehabilitation today.
[2016-09-13 09:29] LABS: ABSOLUTE BASOPHIL COUNT 0 /CUMM (0.0-0.2); ABSOLUTE EOSINOPHIL COUNT 0.2 /CUMM (0.0-0.7); ABSOLUTE LYMPH COUNT 0.7 /CUMM (1.2-3.4); ABSOLUTE MONOCYTE COUNT 0.3 /CUMM (0.10-0.60); BASOPHIL % 0.2 % (0.0-2.0); EOSINOPHIL % 2.8 % (0-5); GRANULOCYTE % 83.9 % (42.2-75.2); HEMATOCRIT 33.8 % (42-52); MEAN CORPUSCULAR HGB 27.4 PG (27.0-31.0); MEAN CORPUSCULAR HGB CONC 32.8 G/DL (33.0-37.0); MEAN CORPUSCULAR VOLUME 83.7 FL (80.0-94.0); MEAN PLATELET VOLUME 9.4 FL (7.4-10.4); PLATELET COUNT 137 /CUMM (130-400); RBC DISTRIBUTION WIDTH 16.4 % (11.5-14.5); RED BLOOD CELL CT 4.04 /CUMM (4.70-6.10); WHITE BLOOD CELL COUNT 7.1 /CUMM (4.8-10.8)
[2016-09-13] MEDS ORDERED: DULCOLAX10 M1 RC (12:27)
[2016-09-13] MEDS ORDERED: AUGMENTIN 875-1 EACH PO (12:34)
--- NOTE | 2016-09-13 14:05 | Discharge Summary ---
See Addendum Visit Information Visit Dates Admission Date: 09/06/16 Discharge Date: 09/14/16 Hospital Course Course Attending Physician: AVA JETER,ROSLYN Primary Care Physician: YAZ PACK MD Hospital Course: Mr. Lamar is a 89 y/o M with PMHx of dementia, COPD on 2 L home oxygen and atrial fibrillation on Xarelto who was brought in from [facility] for fever, urinary retention, hematuria and AMS. On initial presentation, he was febrile to 102.3, tachycardic to 115, tachypneic 26 and satting >95% on room air. Blood pressure was 101/63 on initial presentation but later dropped down to 80s/40s and he became increasingly tachypneic. Patient was awake and alert on initial presentation but within a few hours became increasingly somnolent, barely arousable to sternal rub. Labs were remarkable for WBC 20.2 with 9 bands, BUN/Cr 27/1.1 and lactic acid 6.2. Urinalysis was positive for large leukocyte esterase, 25-50 RBCs and 10-15 WBCs. CXR was unremarkable. Hospital course 1. Sepsis of urological origin: Patient met SIRS criteria for sepsis on initial presentation in the presence of fever, tachycardia, tachypnea and leukocytosis as well as severe sepsis in the presence of hypotension despite aggressive IVF resuscitation and marked lactic acidosis. This was secondary to UTI with BCx and UCx from admission, later growing gram negative rods, most likely Proteus as patient had grown pansensitive Proteus in the past. Rest of the infectious work- up including CT Chest/Abdomen/Pelvis W/ IV Contrast, stool C. difficile and rapid flu was negative. Patient was aggressively fluid resuscitated with multiple boluses of normal saline and kept on maintenance fluids with marked clinical improvement by the morning following admission. He defervesced, blood pressure improved to 100s/60s and lactic acid came down to 2.1. His mental status improved as well and he became much more alert and awake. He passed swallow eval and was started on oral intake. He was initially started on ceftriaxone and vancomycin. Urine and blood culture grew Escherichia coli. Antibiotics changed to ceftriaxone based on sensitivity. Infectious disease specialist was on board. Discharging on augmentin for a total course of 14days. castillo need to be in place as patient failed voiding on his own. Need urology evaluation for possible TURP as an outpatient 2. Urinary retention secondary to BPH: Patient had history of urinary retention in [facility]. Castillo was inserted. Urology consult was called who recommended to straight cath him. As patient was unable to void he was placed on indwelling Castillo. He will need to follow-up with urology for transurethral prostate resection upon discharge. He was continued on tamsulosin. 3. Atrial fibrillation: Patient on presentation was found to be in A. fib with rapid ventricular rate. His heart rate improved after fluid resuscitation and remained well controlled throughout this hospitalization. He was continued on Xarelto. 4. Hypertension: Blood pressure medications initially withheld secondary to hypotension. Later once his blood pressure stabilized his home medications including lisinopril and furosemide was resumed. He can continue the rest of his medications upon discharge for his blood pressure. 5. Type 2 diabetes mellitus: Patient takes metformin 1000 daily at home. He was maintained on Accu-Cheks and NovoLog sliding scale while in the hospital. His blood sugar remained within acceptable range. 6. History of COPD: No evidence of acute exacerbation. He is at baseline 2 L oxygen through nasal cannula. He was continued on nasal cannula to maintain oxygen saturation more than 92%. Patient was on theophylline which was held during admission and later to see him. He was continued on TRC nebulizes as needed 7. Psoriasis: Psoriaform lesions noted on abdomen buttocks and back with complaints of pruritus. He was started on hydrocortisone and topical Benadryl for rash with good relief. 8. Was continued on pravastatin for hyperlipidemia 9. Depression/anxiety/confusion: Patient's initial mentation improved after at adequate fluid resuscitation and appropriate antibiotics. There was a concern that he has made statements of suicidal attempts and endorses sadness, anxiety and passive suicidal ideation while in rehab. Patient was placed on a sitter and was seen by psychiatrist. Upon conversation with the patient he was nonsuicidal and hence the sitter was discontinued. Recommendation was given to start trazodone 12.5 twice a day for anxiety and agitation. And increase sertraline from 25 to 50 mg at bedtime. Continue with his other mood disorder medications including risperidone. Other nonpharmacological interventions for confusion was also suggested including -Avoid nursing and medical procedures during sleep hours whenever possible should be followed while he is at rehabilitation. - Cluster at night interventions that must be completed as much as possible to minimize sleep disruption - Decrease noise in patient area during sleeping hours - Reduce lighting at night - Ensure patient has any sensory aids close by that he regularly uses 10. Wound noted in the coccygeal area present on admission: Own consult was called. Recommendation was given to clean the wound with normal saline and apply petroleum gauze, vitamin A and D cream. Desitin to be Andre as the skin already appears dry. Frequent repositioning recommended. Nutrition consult was obtained who changed patient's diet. He was continued on a chopped diet with regular thin liquids. DNR DNI Allergies: Coded Allergies: NO KNOWN ALLERGIES (07/15/16) Pertinent Lab Results: Laboratory Tests 09/13 09/12 0855 0625 Hematology CBC w Diff MAN DIFF ORDERED NO MAN DIFF REQ WBC (4.8 - 10.8 /CUMM) 7.1 7.4 RBC (4.70 - 6.10 /CUMM) 4.04 L 3.78 L Hgb (14.0 - 18.0 G/DL) 11.1 L 10.4 L Hct (42 - 52 %) 33.8 L 31.9 L MCV (80.0 - 94.0 FL) 83.7 84.4 MCH (27.0 - 31.0 PG) 27.4 27.5 RDW (11.5 - 14.5 %) 16.4 H 16.5 H Plt Count (130 - 400 /CUMM) 137 130 MPV (7.4 - 10.4 FL) 9.4 10.0 Gran % (42.2 - 75.2 %) 83.9 H 80.2 H Lymphocytes % (20.5 - 51.1 %) 9.3 L 12.3 L Monocytes % (1.7 - 9.3 %) 3.8 5.5 Eosinophils % (0 - 5 %) 2.8 1.8 Basophils % (0.0 - 2.0 %) 0.2 0.2 Absolute Granulocytes (1.4 - 6.5 /CUMM) 6.0 6.0 Segmented Neutrophils (42.2 - 75.2 %) 69 Band Neutrophils (0.0 - 5.0 %) 5 Absolute Lymphocytes (1.2 - 3.4 /CUMM) 0.7 L 0.9 L Lymphocytes (20.5 - 51.1 %) 14 L Monocytes (1.7 - 9.3 %) 5 Absolute Monocytes (0.10 - 0.60 /CUMM) 0.3 0.4 Eosinophils (0 - 5.0 %) 4 Absolute Eosinophils (0.0 - 0.7 /CUMM) 0.2 0.1 Absolute Basophils (0.0 - 0.2 /CUMM) 0 0 Metamyelocytes (0.0 - 1.0 %) 2 H Myelocytes (0 - 0 %) 1 H Platelet Estimate (ADEQUATE) DECREASED Poikilocytosis 1+ Anisocytosis 1+ PUBS MCHC (33.0 - 37.0 G/DL) 32.8 L 32.6 L 09/11 634 Hematology CBC w Diff MAN DIFF ORDERED WBC (4.8 - 10.8 /CUMM) 7.6 RBC (4.70 - 6.10 /CUMM) 4.09 L Hgb (14.0 - 18.0 G/DL) 11.1 L Hct (42 - 52 %) 34.6 L MCV (80.0 - 94.0 FL) 84.6 MCH (27.0 - 31.0 PG) 27.1 RDW (11.5 - 14.5 %) 16.3 H Plt Count (130 - 400 /CUMM) 116 L MPV (7.4 - 10.4 FL) 10.4 Gran % (42.2 - 75.2 %) 85.7 H Lymphocytes % (20.5 - 51.1 %) 9.4 L Monocytes % (1.7 - 9.3 %) 3.2 Eosinophils % (0 - 5 %) 1.7 Basophils % (0.0 - 2.0 %) 0 L Absolute Granulocytes (1.4 - 6.5 /CUMM) 6.5 Segmented Neutrophils (42.2 - 75.2 %) 79 H Band Neutrophils (0.0 - 5.0 %) 3 Absolute Lymphocytes (1.2 - 3.4 /CUMM) 0.7 L Lymphocytes (20.5 - 51.1 %) 12 L Monocytes (1.7 - 9.3 %) 4 Absolute Monocytes (0.10 - 0.60 /CUMM) 0.2 Eosinophils (0 - 5.0 %) 2 Absolute Eosinophils (0.0 - 0.7 /CUMM) 0.1 Absolute Basophils (0.0 - 0.2 /CUMM) 0 Platelet Estimate (ADEQUATE) DECREASED Hypochromic-Microcytic 1+ Poikilocytosis 1+ Anisocytosis 1+ [place] Cells 1+ PUBS MCHC (33.0 - 37.0 G/DL) 32.1 L Other Body Source Fld Total RBCs Counted (%) 100 Disposition Summary Disposition Principal Diagnosis: 1. Sepsis of urological origin 2. Urinary retention secondary to BPH 3. Atrial fibrillation with RVR 4. Anxiety/depession/confusion Additional Diagnosis: 1. Hypertension 2. H/o COPD 3. T2DM 4. Psoriasis 5. Decubitus ulcer Discharge Disposition: STR Discharge Instructions General Discharge Information Code Status: Do Not Resucitate/Intubat (no pressors or central line) Patient's Diet: chopped diet with regular thin liquids. Patient's Activity: 1. As tolerated with PT Follow-Up Instructions/Appts: 1. Follow up with PCP in a week upon discharge 2. Follow up with Dr. Cool in 2 weeks, as discharged with castillo catheter for possible prostate surgery. 3. Follow up with Dr. Barkley Medications at Discharge Discharge Medications: Stop taking the following medications: Sertraline HCl (Zoloft) 25 MG TABLET ORAL DAILY Ceftriaxone Sodium (Ceftriaxone) 1 GRAM VIAL INTRAMUSC 1300 Prednisone (Prednisone) 20 MG TABLET ORAL DAILY Continue taking these medications: Metformin HCl (Metformin HCl ER) 1,000 MG TAB.ER.24 1 Tablet ORAL DAILY Instructions: Reason to Stop at ADM: ISS Pravastatin Sodium (Pravachol) 40 MG TABLET 1 Tablet ORAL 5 PM Lisinopril (Lisinopril) 2.5 MG TABLET 1 Tablet ORAL DAILY Instructions: Reason to Stop at ADM: HYPOTENSIVE Risperidone (Risperdal) 0.25 MG TABLET 1 Tablet ORAL DAILY Qty = 30 Instructions: Reason to Stop at ADM: AMS Acetazolamide (Acetazolamide) 250 MG TABLET 1 Tablet ORAL SEE INSTRUCTIONS Qty = 60 Instructions: Take on: Sunday, Sunday, . Do not take your Lasix on these days. Comments: NOT GIVEN IN HOSPITAL Furosemide (Furosemide) 20 MG TABLET 1 Tablet ORAL TWICE DAILY Qty = 60 Instructions: Reason to Stop at ADM: HYPOTENSIVE Trazodone HCl (Trazodone HCl) 50 MG TABLET 1 Tablet ORAL DAILY Instructions: Reason to Stop at ADM: WILL HOLF FOR NOW, PATIENT SEPTIC AND MAY GET ALTERED Ergocalciferol (Vitamin D2) (Vitamin D2) 50,000 UNIT CAPSULE 1 Capsule ORAL ONCE A MONTH Hydrocortisone (Cortaid) 1 % CREAM..G. 1 Application On the skin TWICE DAILY Tamsulosin HCl (Tamsulosin HCl) 0.4 MG CAP.ER.24H 1 Capsule ORAL TWICE DAILY Instructions: Reason to Stop at ADM: HYPOTENSIVE Rivaroxaban (Xarelto) 20 MG TABLET 1 Tablet ORAL DAILY Instructions: with food Calcium Carbonate (TUMS) 200 MG CALCIUM (500 MG) TAB.CHEW 2 Tablet ORAL 4 TIMES A DAY Albuterol Sulfate (Albuterol Sulfate) 5 MG/ML SOLUTION 0.5 Milligram Inhale Solution via Nebulizer Every 4 hours as needed for COPD Theophylline Anhydrous (Theophylline Anhydrous) 200 MG TAB.ER.12H 1 Tablet ORAL AT BEDTIME Qty = 30 This prescription has been renewed Start taking the following new medications: Bisacodyl (Bisacodyl) 5 MG TABLET.DR 5 Milligram ORAL DAILY as needed for constipation Qty = 30 No Refills Polyethylene Glycol 3350 (Miralax) 17 GRAM/DOSE POWDER 17 Gram ORAL DAILY as needed for constipation Qty = 30 No Refills Sennosides/Docusate Sodium (Senna-Time S Tablet) 8.6 MG-50 MG TABLET 187 Milligram ORAL TWICE DAILY as needed for constipation Qty = 30 No Refills Trazodone HCl (Trazodone HCl) 50 MG TABLET 12.5 Milligram ORAL TWICE DAILY Qty = 30 No Refills Sertraline HCl (Sertraline HCl) 50 MG TABLET 50 Milligram ORAL DAILY Qty = 30 No Refills Amoxicillin/Potassium Clav (Augmentin 875-125 Tablet) 875 MG-125 MG TABLET 1 Tablet ORAL TWICE DAILY Qty = 19 No Refills Copies To: RAMONE JETER,YAZ Cruz
[2016-09-13 14:40] VITALS: BP 134/70
--- NOTE | 2016-09-13 16:24 | PN- Psychiatry ---
Assessment/Plan Impression: Identifying Info: This 89-year-old male presents to [facility] emergency department on 09/06/2016 with altered mental status. The patient has a history of dementia with behavioral disturbances and was subsequently diagnosed with UTI and sepsis and admitted to medicine. SUBJECTIVE "Not bad" Brief ROS Gait: OOB +2 assist Sleep: Sometime interupted Appetite: Adequate OBJECTIVE Per nursing report the patient was unable to tolerate not having a one-to-one and within 3 hours of discontinuation of sitter began pulling lines and calling out. He is reported to have pulled out his IV again this morning. Additionally he was spitting out medications, he received his first dose of trazodone as needed today which appeared to be effective. Patient interviewed in bed. Mental Status Exam Presentation/Appearance: Cooperative with evaluation to best of ability but has some difficulty responding appropriately and many questin require multiple attempts. He is unable to respond to multiple questions. Hospital garb. Lying in bed with 1:[address] Orientation: Oriented to self and day of the week only Sensorium: Awake but somewhat somnolent Eye contact: Appropriate Affect: Somewhat blunted but congruent with stated mood Mood: "Not bad" Depression: Denies Anxiety: Denies Thought Content: - Denies SI/HI, AH/VH, PI. States and also believes they will not kill themselves. - Denies Hopeless/Helpless Thoughts Thought Process: Some paucity of content Speech: Somewhat dysarthric, soft Judgment: Poor Insight: Poor Cognition: Memory: Pronounced deficits Attention/Concentration: Patient is unable to complete simple tasks at this time but can follow directions Abstractions:Unable to respond appropriately to assessment question MMSE: (unable to complete) ASSESSMENT 89-year-old male presents with altered mental status in the context of infectious process on top of known neurocognitive deficits. He remains confused but again appears to be close to his baseline as described by [facility] staff. He may benefit from the recent change in his psychotropic medications in terms of decreasing his disruptive and unsafe behaviors. Differential diagnosis Delirium due to UTI/Sepsis, resolved vs resolving By history Dementia with behavioral disturbance Rule out Unspecified depressive disorder with anxious features Suggestion: 1. Continue safety monitor for the time being to ensure patient does not pull out his IV lines or attempt to self DC'd his Ngo catheter. 2. Continue psychotropics as currently ordered. 3. If the patient continues spitting out medications may be prudent to consider switching his a.m. antipsychotic to an ODT formulation. 4. Please continue to avoid benzodiazepines, opioid analgesics, and meds with strong anticholinergic properties as much as possible to prevent further confusion. 5. Please initiate the following nonpharmacologic interventions: -Avoid nursing and medical procedures during sleep hours whenever possible - Cluster at night interventions that must be completed as much as possible to minimize sleep disruption - Decrease noise in patient area during sleeping hours - Reduce lighting at night - Ensure patient has any sensory aids close by that he regularly uses 6. Please Ensure the patient has a geriatric consult on return to [facility] as well as psychiatric consult. Thank you for including psychiatry in this case, we will continue to follow. Stevan Sepulveda APRN, pager [phone] Subjective Subjective: . Objective Last 24 Hrs of Vital Signs/I&O Vital Signs Date Time Temp Pulse Resp B/P Pulse O2 O2 Flow FiO2 Ox Delivery Rate 09/13 1440 98.3 114 22 134/70 94 Nasal 3.0L Cannula 09/13 1324 20 91 Nasal 3.0L Cannula 09/13 1324 22 88 Nasal 2.0L Cannula 09/13 1133 88 Nasal 2.0L Cannula 09/13 1124 20 91 Nasal 2.0L Cannula 09/13 0957 100 114/70 09/13 0921 Nasal 2.0L Cannula 09/13 0832 98.0 110 22 110/74 94 Nasal 3.0L Cannula 09/13 0800 94 Nasal 2.0L Cannula 09/13 0000 Nasal 2.0L Cannula 09/13 0000 97.5 94 20 128/80 94 Room Air 09/12 2134 96 142/90 09/12 2014 93 Nasal 3.0L Cannula 09/12 1652 97.8 90 20 132/78 95 Room Air Intake & Output 09/13 1600 09/13 0800 09/13 0000 Intake Total 810 650 Output Total 1400 2250 475 Balance -590 -2250 175 Intake, IV 10 Intake, Oral 800 650 Number 0 Bowel Movements Output, Urine 1400 2250 475 Current Medications Sig/Emily Start time Last Medication Dose Route Stop Time Status Admin Acetaminophen 650 MG Q6P PRN 09/06 1830 AC 09/11 PO 0356 Albuterol Sulfate 3 ML Q4P PRN 09/07 1115 AC 09/13 INH 1124 Amoxicillin/ 875 MG Q12 09/12 1430 AC 09/13 Clavulanate Potassium PO 0957 Bisacodyl 5 MG DAILY 09/11 1999 AC 09/13 PO 1231 Diphenhydramine HCl 1 RAKAN BID 09/08 1000 AC 09/13 TOP 0957 Ergocalciferol 50,000 IU Q30D@1000 09/14 1000 AC PO Furosemide 20 MG BID 09/12 2200 AC 09/13 PO 0957 Hydrocortisone 1 ARKAN BID 09/06 220 AC 09/13 TOP 0957 Insulin Aspart 0 TIDAC 09/08 0800 AC 09/11 SC 1152 Lidocaine 1 PAT DAILY 09/07 1553 AC 09/13 EXT 0956 Polyethylene Glycol 17 GM DAILY 09/11 1999 AC 09/13 PO 1232 Pravastatin Sodium 40 MG 1700 09/08 1700 AC 09/12 PO 1822 Risperidone 0.25 MG DAILY 09/07 1230 AC 09/13 PO 0957 Rivaroxaban 20 MG 1700 09/07 1700 AC 09/12 PO 1822 Senna 187 MG AT BEDTIME 09/11 1999 AC 09/12 PO 2134 Sertraline HCl 50 MG DAILY 09/13 1000 AC 09/13 PO 1232 Sertraline HCl 25 MG DAILY 09/08 1232 DC 09/12 PO 0925 Sodium Phosphate 1 UNIT ONCE ONE 09/13 0930 DC 09/13 RI 09/13 0931 0956 Tamsulosin HCl 0.4 MG BID 09/07 2200 AC 09/13 PO 0957 Theophylline 100 MG AT BEDTIME 09/11 2200 AC 09/12 PO 2134 Tramadol HCl 50 MG Q6 PRN 09/08 1530 AC 09/13 PO 1232 Trazodone HCl 12.5 MG BID 09/13 1000 AC 09/13 PO 1232 Trazodone HCl 50 MG AT BEDTIME 09/07 2200 AC 09/12 PO 2134 Vitamin A/Vitamin D 1 RAKAN BID 09/06 2224 AC 09/13 TOP 0957
[2016-09-13 21:47] VITALS: BP 150/90
[2016-09-13 22:05] VITALS: BP 150/100
--- NOTE | 2016-09-14 06:41 | PN- Housestaff ---
RAMON JETER,BILL 09/14/16 0640: Subjective Follow-up For: Sepsis of urological origin Agitation Subjective: I saw and examined the patient today morning. nursing unit coordinator at bedside, lethargic, not oriented. Doesnt report any discomfort in abdomen, had a bowel movement yesterday. Review of Systems Constitutional: Reports: see HPI, malaise, weakness. Comments: ROS negative except the above. Objective Last 24 Hrs of Vital Signs/I&O Vital Signs Date Time Temp Pulse Resp B/P Pulse O2 O2 Flow FiO2 Ox Delivery Rate 09/13 2205 112 150/100 09/13 2147 98.0 118 20 150/90 91 Nasal 3.0L Cannula 09/13 2123 150/92 09/13 2055 91 Nasal 3.5L Cannula 09/13 1600 94 Nasal 3.0L Cannula 09/13 1440 98.3 114 22 134/70 94 Nasal 3.0L Cannula 09/13 1324 20 91 Nasal 3.0L Cannula 09/13 1324 22 88 Nasal 2.0L Cannula 09/13 1133 88 Nasal 2.0L Cannula 09/13 1124 20 91 Nasal 2.0L Cannula 09/13 0957 100 114/70 09/13 0921 Nasal 2.0L Cannula 09/13 0832 98.0 110 22 110/74 94 Nasal 3.0L Cannula 09/13 0800 94 Nasal 2.0L Cannula Intake & Output 09/14 0800 09/14 0000 09/13 1600 Intake Total 480 810 Output Total 550 1400 Balance -70 -590 Intake, IV 10 Intake, Oral 480 800 Number 1 0 Bowel Movements Output, Urine 550 1400 Physical Exam General Appearance: Alert, Cooperative Skin: No Rashes, No Breakdown HEENT: Atraumatic, PERRLA, EOMI Neck: Supple Cardiovascular: Normal S1, Normal S2, systolic murmur present Lungs: Clear to Auscultation, Normal Air Movement Abdomen: Normal Bowel Sounds, Soft, No Tenderness Neurological: Normal Speech, Strength at 5/5 X4 Ext, Normal Tone, Sensation Intact Extremities: No Clubbing, No Cyanosis, 1-2+ edema over both the feet. Current Medications: Current Medications Sig/Emily Start time Last Medication Dose Route Stop Time Status Admin Acetaminophen 650 MG Q6P PRN 09/06 1830 DCD 09/11 PO 0356 Albuterol Sulfate 3 ML Q4P PRN 09/07 1115 DCD 09/13 INH 1124 Amoxicillin/ 875 MG Q12 09/12 1430 DCD 09/14 Clavulanate Potassium PO 0939 Bisacodyl 5 MG DAILY 09/11 1999 DCD 09/14 PO 0950 Diphenhydramine HCl 1 RAKAN BID 09/08 1000 DCD 09/14 TOP 0950 Ergocalciferol 50,000 IU Q30D@1000 09/14 1000 DCD 09/14 PO 0947 Furosemide 20 MG BID 09/12 2200 DCD 09/14 PO 0948 Hydrocortisone 1 RAKAN BID 09/06 220 DCD 09/14 TOP 0940 Insulin Aspart 0 TIDAC 09/08 0800 DCD 09/13 SC 1657 Lidocaine 1 PAT DAILY 09/07 1553 DCD 09/14 EXT 0951 Polyethylene Glycol 17 GM DAILY 09/11 1999 DCD 09/13 PO 1232 Pravastatin Sodium 40 MG 1700 09/08 1700 DCD 09/13 PO 1643 Risperidone 0.25 MG DAILY 09/07 1230 DCD 09/14 PO 0947 Rivaroxaban 20 MG 1700 09/07 1700 DCD 09/13 PO 1643 Senna 187 MG AT BEDTIME 09/11 1999 DCD 09/12 PO 2134 Sertraline HCl 50 MG DAILY 09/13 1000 DCD 09/14 PO 0949 Tamsulosin HCl 0.4 MG BID 09/07 2199 DCD 09/14 PO 0949 Theophylline 100 MG AT BEDTIME 09/11 2199 DCD 09/13 PO 2123 Tramadol HCl 50 MG Q6 PRN 09/08 1530 DCD 09/13 PO 2218 Trazodone HCl 12.5 MG BID 09/13 1000 DCD 09/14 PO 0951 Trazodone HCl 50 MG AT BEDTIME 09/07 220 DCD 09/13 PO 2123 Vitamin A/Vitamin D 1 RAKAN BID 09/06 222 DCD 09/14 TOP 0939 Lines/Diet/Fluids Lines: peripheral lines Assessment/Plan Assessment: 89 y/o M with PMHx of COPD, atrial fibrillation on Xarelto and psoriasis admitted for severe gram negative sepsis 2/2 UTI, currently resolving. Sepsis 2/2 UTI: Clinically much improved. Remains afebrile with improvement of leukocytosis on antibiotics for gram-negative sepsis 2/2 to UTI, most likely Proteus as patient had grown pansensitive Proteus in the past. BC and UC reveal growth of Ecoli sensitive to augementin. * started on Augmentin for a total of 14days * DNR/DNI including no central line and pressors per patient's and family's wishes. * Discharged today as STR bed is available. Urinary retention 2/2 BPH: * Urology consulted. * Continue prior to admission tamsulosin 0.4 mg PO BID. * After failing voiding trails, he was placed on castillo - Plan is to discharge with castillo and get an outpatient appointment with Dr.Rivera lewis in 2 weeks. * Urine is clear today. HTN: Takes lisinopril 2.5 mg PO daily and furosemide 20BID at home. * Currently on furosemide 20mg BID, would continue lisinopril at discharge. Chest pain: Often complains of chest pain. reproducible on palpation. EKG with no ST-T elevations. Troponin negative. * NTD. COPD: Not in acute exacerbation. In compensated chronic hypercarbic respiratory failure with stable respiratory status. Remains on 2 L NC, unchanged from home oxygen requirement. * Provide supplemental oxygen to keep SpO2 > 92%. * Continue to hold prior to admission theophylline. * TRC and nebs as needed. T2DM: Takes metformin 1000 mg PO daily. * Continue Accu-checks and medium dose Novolog SSI TIDAC. * Consider resuming prior to admission metformin at discharge. Depression: * Increased sertraline dose to 50 mg PO daily. * Started on trazodone 12.5mg BID in addition to 50mg at bedtime. HLD: * On his home medication pravastatin 40 mg PO daily. Wound/DTI: Area of deep tissue injury noted to coccyx measuring 0.2 x 0.2 cm with areas of hyperpigmentation and excoriation extending beyond the wound margins. Full thickness wound on midback measuring 6.5 x 12 cm, present on admission, improved from previous assessment (08/21/16) on prior admission. * Management per wound care team. * Cleanse mid-back wound with normal saline and apply petroleum gauze. * Apply vitamin A + D cream to areas of DTI on coccyx and buttocks. * Nutrition consult ordered. Diet changed to consistent carbohydrate 3 ( previously on 2) for increased calorie intake per their recs. * Patient placed on category 2 mattress. * Turn and reposition patient frequently. Psoriasis: Psoriasiform lesions noted on abdomen, buttocks and back. Complaining of itchiness today. * Continue to apply prior to admission hydrocortisone BID to rash. * Apply topical Benadryl BID to rash for relief from itching. Atrial fibrillation: Remains in atrial fibrillation with well-controlled heart rate. * Continue Xarelto 20 mg PO QHS. Dementia: * Continue prior to admission risperidone 0.25 mg PO daily for agitation. Insomnia: * Continue prior to admission trazodone 50 mg PO daily. Central Apnea * restarted on low dose of theophylline. Diet: Consistent carbohydrate 3 with 2 g Na restriction - Full chopped and regular thins DVT PPx: Xarelto and ALPs CODE: DNR/DNI including no central line or pressors Problem List: 1. Diabetes mellitus type 2 2. Depression 3. COPD (chronic obstructive pulmonary disease) 4. Wound of back 5. Deep tissue injury 6. Urinary retention due to benign prostatic hyperplasia 7. Sepsis secondary to UTI 8. BPH (benign prostatic hyperplasia) 9. Altered mental status Pain Ratin Pain Location: n/a Pain Goal: Pain 4 or less Pain Plan: Tylneol PRN Tomorrow's Labs & Rationales: NONE ROSLYN ESCALANTE MD 09/14/16 1152: Attending MD Review Statement Attending Statement Attending MD Statement: examined this patient, discuss w/resident/PA/CERTIFIED NURSING ASSISTANT, agreed w/resident/PA/CERTIFIED NURSING ASSISTANT, reviewed EMR data (avail), discussed with nursing, discussed with case mgmt, amended to note Attending Assessment/Plan: Patient seen and examined, overall doing better. He finally did yesterday. His antiemetics have been switched to oral. We discussed at length his urology yesterday and they continue to recommend keeping the Castillo in. Patient to follow-up with Dr. Cool as an outpatient. Patient is medically stable for discharge to rehabilitation today.
[2016-09-14 07:41] VITALS: BP 140/92
[2016-09-14 11:33] VITALS: BP 144/86
[2016-09-14] MEDS ORDERED: BISACODYL5 M1 PO (11:45)
[2016-09-14] MEDS ORDERED: MIRALAX119 GM PO (11:45)
[2016-09-14] MEDS ORDERED: SERTRALINE HCL50 MG PO (11:46)
[2016-09-14] MEDS ORDERED: SENNA-TIME S T1 EACH PO (11:46)
[2016-09-14] MEDS ORDERED: TRAZODONE HCL50 M1 PO (11:47)
== END 2016-09-14 12:53 | DRG 871 ==
LOC: ENRESERVDT → ENRESERVTM → ERH 14:32 → ENPENDDIS 16:48 → CRI 16:48 → ERHI 16:48 → 2NB 16:48 → CRI 22:03 → 2NB 09-08 17:49
PROVIDERS: Dermatology; Internal Medicine; Internal Medicine Endocrinology, Diabetes & Metabolism; Physician Assistant Medical; Student in an Organized Health Care Education/Training Program; ADMIT Hospitalist
DX: A41.51 Sepsis due to Escherichia coli [E. coli] (principal); R65.21 Severe sepsis with septic shock; L89.109 Pressure ulcer of unspecified part of back, unspecified stage; L89.150 Pressure ulcer of sacral region, unstageable; N39.0 Urinary tract infection, site not specified; I50.32 Chronic diastolic (congestive) heart failure; F03.91 Unspecified dementia, unspecified severity, with behavioral disturbance; Z99.81 Dependence on supplemental oxygen; J44.9 Chronic obstructive pulmonary disease, unspecified; R33.9 Retention of urine, unspecified; N40.1 Benign prostatic hyperplasia with lower urinary tract symptoms; R33.8 Other retention of urine; I48.91 Unspecified atrial fibrillation; Z79.01 Long term (current) use of anticoagulants; I10 Essential (primary) hypertension; E11.9 Type 2 diabetes mellitus without complications; Z79.84 Long term (current) use of oral hypoglycemic drugs; L40.9 Psoriasis, unspecified; F41.8 Other specified anxiety disorders
CPT/HCPCS: CCU; 36415; 74177; 81001; 82436; 87040; 87086; 87804; 87804-59; 93005; 93010; 96361; 96365; 96375; 97161-GP; 97530-GO; 99233; 99291; J0131; J0696; J0713; J1630; J1720; J1940; J3370; J3490; J7040; J7042; J7060; J7512

== ENCOUNTER 2016-09-23 18:01 | Inpatient (IN) | payer OTHER, MEDICARE ==
[~2016-09-23] VITALS: Ht 177.8 cm; Wt 98.9 kg
[~2016-09-23 18:01] MED LIST changes: +ALBUTEROL S5 MG/1 ML NEB; +BISACODYL5 M1 PO; +CEFTRIAXONE1 G1 IM; +CORTAID42 GM TOP; +DULCOLAX10 M1 RC; +MIRALAX119 GM PO; +SENNA-TIME S T1 EACH PO; +SERTRALINE HCL50 MG PO; +TAMSULOSIN HCL0.4 M1 PO; +TRAZODONE HCL50 M1 PO; +TUMS200 MG PO; +VITAMIN D250000 UNIT PO
--- NOTE | 2016-09-23 18:41 | ED GI/GU/ABDOMINAL COMPLAINT ---
History of Present Illness General Chief Complaint: Male Genitourinary Problems Stated Complaint: BIBA FOR HEMATURIA Source: patient Exam Limitations: dementia Vital Signs & Intake/Output Vital Signs & Intake/Output Vital Signs Date Time Temp Pulse Resp B/P Pulse O2 O2 Flow FiO2 Ox Delivery Rate 09/24 0332 26 09/24 0032 98.5 89 36 108/60 96 Nasal 3.0L Cannula 09/234 97.0 86 18 106/70 09/236 98.0 92 20 105/66 96 Nasal 3.0L Cannula 09/23 2056 95 Nasal 3.0L Cannula 09/23 2004 97.5 93 18 128/60 95 09/23 1813 99.0 90 22 90/54 94 Nasal 3.0L Cannula ED Intake and Output 09/24 0000 09/23 1200 Intake Total Output Total 500 Balance -500 Output, Urine 500 Patient 165 lb Weight Allergies Coded Allergies: NO KNOWN ALLERGIES (07/15/16) Reconcile Medications Acetaminophen (Pain Relief) 325 MG TABLET 2 TAB PO Q6H PRN PAIN/TEMP>101 ( Reported) Acetaminophen (Acephen) 650 MG SUPP.RECT 1 SUPP MI Q6H PRN PAIN/TEMP>101 ( Reported) Acetazolamide 250 MG TABLET 1 TAB PO SEE ADMIN CRITERIA respiratory failure Take on: Sunday, Sunday, . Do not take your Lasix on these days. Albuterol Sulfate 5 MG/ML SOLUTION 0.5 MG NEB Q4 PRN COPD (Reported) Amoxicillin/Potassium Clav (Augmentin 875-125 Tablet) 875 MG-125 MG TABLET 1 TAB PO BID URINE INFECTION Bisacodyl (Dulcolax) 10 MG SUPP.RECT 1 SUP RC DAILY PRN CONSTIPATION ( Reported) Bisacodyl 5 MG TABLET.DR 5 MG PO DAILY PRN constipation Calcium Carbonate (Calcium) 500 MG CALCIUM (1,250 MG) TABLET 2 TAB PO 4XDAILY PRN GASTRIC DISTRESS (Reported) Ergocalciferol (Vitamin D2) (Vitamin D2) 50,000 UNIT CAPSULE 1 CAP PO Q30D SUPPLEMENT (Reported) Furosemide 20 MG TABLET 1 TAB PO BID WATER PILL (Reported) Reason to Stop at ADM: HYPOTENSIVE Glucagon,Human Recombinant (Glucagon Emergency Kit) 1 MG KIT 1 MG IM AD PRN HYPOGLYCEMIA (Reported) Hydrocortisone (Cortaid) 1 % CREAM..G. 1 RAKAN TOP BID SKIN (Reported) Lisinopril 2.5 MG TABLET 1 TAB PO DAILY BP (Reported) Reason to Stop at ADM: HYPOTENSIVE Magnesium Hydroxide (Milk Of Magnesia) 400 MG/5 ML ORAL.SUSP 30 ML PO Q3D PRN CONSTIPATION (Reported) Metformin HCl 500 MG TABLET 1 TAB PO BID DM (Reported) Na Phos,M-B/Na Phos,Di-Ba (Fleet Enema) 19 GRAM-7 GRAM/118 ML ENEMA 1 E RC DAILY PRN CONSTIPATION (Reported) Nitrofurantoin Monohyd/M-Cryst (Macrobid 100 MG Capsule) 100 MG CAPSULE 1 CAP PO BID ANTIBIOTIC (Reported) with food Polyethylene Glycol 3350 (Miralax) 17 GRAM/DOSE POWDER 17 GM PO DAILY PRN constipation Pravastatin Sodium (Pravachol) 40 MG TABLET 1 TAB PO 1700 CHOLESTEROL ( Reported) Risperidone (Risperdal) 0.25 MG TABLET 1 TAB PO DAILY AGITATION (Reported) Reason to Stop at ADM: AMS Rivaroxaban (Xarelto) 20 MG TABLET 1 TAB PO DAILY AFIB (Reported) with food Sennosides/Docusate Sodium (Senna-Time S Tablet) 8.6 MG-50 MG TABLET 187 MG PO BID PRN constipation Sertraline HCl 50 MG TABLET 50 MG PO DAILY depression Tamsulosin HCl 0.4 MG CAP.ER.24H 1 CAP PO BID PROSTATE (Reported) Reason to Stop at ADM: HYPOTENSIVE Theophylline Anhydrous 200 MG TAB.ER.12H 1 TAB PO AT BEDTIME COPD Trazodone HCl 50 MG TABLET 1 TAB PO BID UNKNOWN (Reported) Reason to Stop at ADM: WILL HOLD FOR NOW, PATIENT SEPTIC AND MAY GET ALTERED Trazodone HCl 50 MG TABLET 12.5 MG PO BID PRN ANXIETY/AGITATION (Reported) Triage Note: SENT FROM [facility] INCREASED HEMATURIA AFTER CHANGING MAYEN DECREASED B/P Triage Nurses Notes Reviewed? yes Onset: Abrupt Duration: day(s): (few), constant Timing: recent history Radiation: no radiation Activities at Onset: none No Modifying Factors: none HPI: 89-year-old male comes into the emergency room brought in by ambulance for blood in his Mayen catheter bag. Patient has history dementia so history is somewhat limited. Patient denies any fever chills. Denies any vomiting. Patient is oriented 2. He complains of no pain currently. I spoke with the nurse from [facility]. Patient is on Xarelto but did not take his dose today due to the bleeding. He received his normal dose yesterday. (JALEEL STREETER) Past History Travel History Traveled to [place] past 21 day No Medical History Any Pertinent Medical History? 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 . MOTHER (Unknown cancer). . Hx Contributory? No (JALEEL STREETER) Review of Systems Review of Systems Constitutional: Reports: no symptoms. EENTM: Reports: no symptoms. Respiratory: Reports: no symptoms. Cardiovascular: Reports: no symptoms. GI: Reports: no symptoms. Genitourinary: Reports: see HPI. Musculoskeletal: Reports: no symptoms. Skin: Reports: no symptoms. Neurological/Psychological: Reports: no symptoms. Hematologic/Endocrine: Reports: see HPI. Immunologic/Allergic: Reports: no symptoms. All Other Systems: Reviewed and Negative (JALEEL STREETER) Physical Exam Physical Exam General Appearance: well developed/nourished, no apparent distress, alert Head: atraumatic Eyes: Bilateral: normal appearance. Ears, Nose, Throat, Mouth: hearing grossly normal, moist mucous membrane Neck: normal inspection Respiratory: no respiratory distress Cardiovascular: irregularly irregular Gastrointestinal: soft, non-tender, dark red blood in Mayen bag, no clots, Back: normal inspection Extremities: normal range of motion Neurologic/Psych: awake, alert, oriented x 3, normal mood/affect Skin: intact, normal color Core Measures ACS in differential dx? No Severe Sepsis Present: No Septic Shock Present: No (JALEEL STREETER) Progress Differential Diagnosis: appendicitis, biliary colic, bowel obstruction, cholecystitis, diverticulitis, gastritis, hernia, hemorrhoids, orchitis, pancreatitis, prostatitis, peptic ulcer, PUD/GERD, testicular torsion, ureterolithiasis, urinary retention, urethritis, UTI/pyelo Plan of Care: Orders Procedure Date/time Status Regular Diet 09/24 B Active CBC WITHOUT DIFFERENTIAL 09/24 0600 Active BASIC ELECTROLYTES PLUS BUN&CR 09/24 06 Active Turn and Reposition 09/24 0025 Active Skin Integrity Protocol 09/24 0025 Active Skin/Pressure Ulcer Assess (Sk 09/24 0025 Active Vital Signs 09/24 0016 Active Teach/Educate 09/24 001 Active Pain Treatment and Response 09/25 15 Active Nutritional Intake, Monitor 09/25 15 Active Isolation 09/25 15 Active Intake & Output 09/25 15 Active Patient Care Conference 09/246 Active Activity/Ambulation 09/25 15 Active Pathway - chart 09/23 2201 Active House Staff 09/23 2201 Active Patient Data 09/23 2201 Active URINALYSIS 09/23 2201 Complete Code Status 09/23 2201 Active Patient Data 09/24 2119 Active Saline Lock 09/23 2109 Active Misc Message 09/23 2109 Active ED Holding Orders 09/23 2109 Active Vital Signs 09/23 2109 Active Code Status 09/[address] in observation 09/23 2108 Active CULTURE,URINE 09/23 2022 Active EKG 09/23 190 Active Intake & Output 09/23 190 Complete TYPE & SCREEN (NOT X-MATCH) 09/23 1832 Complete PARTIAL THROMBOPLASTIN TIME 09/23 1830 Complete PROTHROMBIN TIME 09/23 1830 Complete COMPREHENSIVE METABOLIC PANEL 09/23 1830 Complete CBC WITHOUT DIFFERENTIAL 09/23 1830 Complete VTE Mechanical Prophylaxis 09/23 UNK Active Current Medications Sig/Emily Start time Last Medication Dose Stop Time Status Admin Prednisone 10 MG DAILY 09/27 1000 AC 09/27 1001 Prednisone 20 MG DAILY 09/26 1000 AC 09/26 1001 Prednisone 30 MG DAILY 09/25 1000 AC 09/25 1001 Theophylline 200 MG AT BEDTIME 09/24 2200 AC (Theophylline 200MG ER Tab) Pravastatin Sodium 20 MG 1700 09/24 1700 AC (Pravachol) Nitrofurantoin 100 MG BID 09/24 1000 CAN (Macrodantin 50MG 09/26 2300 Cap) Prednisone 40 MG DAILY 09/24 1000 AC 09/24 1001 Risperidone 0.25 MG DAILY PRN 09/24 1000 AC (Risperidone) Sertraline HCl 50 MG DAILY 09/24 1000 AC (Zoloft) Insulin Aspart 0 TIDAC 09/24 0800 AC (NovoLOG) Bisacodyl 5 MG DAILY PRN 09/23 221 AC (Dulcolax) Magnesium Hydroxide 30 ML Q3D PRN 09/23 221 AC (Milk Of Magnesia) Senna/Docusate Sodium 1 TAB BID PRN 09/23 221 AC (Senokot S) Trazodone HCl 12.5 MG BID PRN 09/23 221 AC (Desyrel) Acetaminophen 650 MG Q6P PRN 09/23 2199 AC (Tylenol) Acetaminophen 1,000 MG Q6P PRN 09/23 220 AC (Ofirmev) Oxycodone HCl 5 MG Q8P PRN 09/23 2199 AC (Roxicodone) Laboratory Tests 09/23/164: Urine Color PINK H, Urine Clarity HAZY H, Urine pH 6.5, Ur Specific [place]man 1.010, Urine Protein TRACE H, Urine Ketones NEG, Urine Nitrite NEG, Urine Bilirubin NEG, Urine Urobilinogen 0.2, Ur Leukocyte Esterase SMALL H, Ur Microscopic SEDIMENT EXAMINED, Urine RBC >75 H, Urine WBC 5-10 H, Urine Hemoglobin LARGE H, Urine Glucose NEG 09/23/16 1915: Anion Gap 6, Estimated GFR > 60, BUN/Creatinine Ratio 24.3, Glucose 108 H, Calcium 8.2 L, Total Bilirubin 0.7, AST 23, ALT 23, Alkaline Phosphatase 63, Total Protein 5.6 L, Albumin 3.0 L, Globulin 2.6, Albumin/Globulin Ratio 1.2, PT 12.6 H, INR 1.20 H, APTT 31, CBC w Diff NO MAN DIFF REQ, RBC 3.69 L, MCV 84.3, MCH 27.4, RDW 17.4 H, MPV 8.8, Gran % 85.7 H, Lymphocytes % 6.1 L, Monocytes % 7.1, Eosinophils % 0.9, Basophils % 0.2, Absolute Granulocytes 7.0 H, Absolute Lymphocytes 0.5 L, Absolute Monocytes 0.6, Absolute Eosinophils 0.1 , Absolute Basophils 0, PUBS MCHC 32.5 L Microbiology 09/23 2324 URINE ROUT: Urine Culture - RECD Initial ED EKG: rate (80), AFIB (JALEEL STREETER) Departure Departure Disposition: STILL A PATIENT Condition: Stable Clinical Impression Primary Impression: Acute blood loss anemia Secondary Impressions: Hematuria Referrals: RAMONE JETER,YAZ Cruz (PCP/Family) Departure Forms: Customer Survey General Discharge Information Observation Note Spoke With: ZHANG JETER,ARPAN Physician Advisor Notified: LEIDA WHEELER DO Place Patient In: Non-ED OBS Care Area Rationale for Observation: My rational for observation is as follows . Patient require continuous bladder irrigation. Patient will require urology consultation. Repeat H&H tomorrow. Patient remained stable he may be able to be discharged within the next 48 hours. At this time patient will require close observation for monitoring vitals as well as blood counts and making sure he does not become unstable. (JALEEL STREETER) PA/COMPLIANCE MANAGER Co-Sign Statement Statement: ED Attending supervision documentation- [] I saw and evaluated the patient. I have also reviewed all the pertinent lab results and diagnostic results. I agree with the findings and the plan of care as documented in the PA's/COMPLIANCE MANAGER's documentation. [x] I have reviewed the ED Record and agree with the PA's/COMPLIANCE MANAGER's documentation. [] Additions or exceptions (if any) to the PAs/COMPLIANCE MANAGER's note and plan are summarized below: [] (SANYA JETER,LUANN Kaminski)
[2016-09-23 19:26] LABS: ABSOLUTE BASOPHIL COUNT 0 /CUMM (0.0-0.2); ABSOLUTE EOSINOPHIL COUNT 0.1 /CUMM (0.0-0.7); ABSOLUTE LYMPH COUNT 0.5 /CUMM (1.2-3.4); ABSOLUTE MONOCYTE COUNT 0.6 /CUMM (0.10-0.60); BASOPHIL % 0.2 % (0.0-2.0); EOSINOPHIL % 0.9 % (0-5); HEMATOCRIT 31.1 % (42-52); MEAN CORPUSCULAR HGB 27.4 PG (27.0-31.0); MEAN CORPUSCULAR HGB CONC 32.5 G/DL (33.0-37.0); MEAN CORPUSCULAR VOLUME 84.3 FL (80.0-94.0); MEAN PLATELET VOLUME 8.8 FL (7.4-10.4); PLATELET COUNT 300 /CUMM (130-400); RBC DISTRIBUTION WIDTH 17.4 % (11.5-14.5); RED BLOOD CELL CT 3.69 /CUMM (4.70-6.10); WHITE BLOOD CELL COUNT 8.1 /CUMM (4.8-10.8)
[2016-09-23 19:32] LABS: GRANULOCYTE % 85.7 % (42.2-75.2)
[2016-09-23 19:38] LABS: PT 12.6 SEC (9.4-12.5); PTT 31 SEC (25-37)
[2016-09-23] MEDS ORDERED: MACROBID 100 M100 MG PO (19:57)
[2016-09-23] MEDS ORDERED: METFORMIN HCL500 M3 PO (20:00)
[2016-09-23] MEDS ORDERED: PAIN RELIEF325 MG PO (20:02)
[2016-09-23] MEDS ORDERED: ACEPHEN650 M1 PR (20:03)
[2016-09-23] MEDS ORDERED: CALCIUM500 M1 PO (20:06)
[2016-09-23] MEDS ORDERED: TRAZODONE HCL50 M1 PO (20:06)
[2016-09-23] MEDS ORDERED: GLUCAGON EMERGEN1 M1 IM (20:08)
[2016-09-23] MEDS ORDERED: DULCOLAX10 M1 RC (20:11)
[2016-09-23] MEDS ORDERED: MILK OF MA400 MG/52 PO (20:11)
[2016-09-23] MEDS ORDERED: FLEET ENEMA133 ML RC (20:12)
--- NOTE | 2016-09-23 22:21 | History & Physical ---
XU JETER,[facility] 09/23/16 9870: General Information and HPI MD Statement: I have seen and personally examined SUSU FRANCIS and documented this H&P. The patient is a 89 year old M who presented with a patient stated chief complaint of HEMATURIA. 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 Even though patient is alert and oriented, is not able to recall the events. Therefore, the history was obtained from patient's son and [facility] staff. Patient's son reports that he noticed the patinet's urine was reddish yellow on night, which then progressed to a darker red on Sunday. The nursing staff [facility] reports that the hematuria with some clots was noticed on Sunday. Patient received CBI on Sunday and Sunday. Of note, patient was discharged 10 days ago with a Ngo after failing a voiding trial. Last reported Ngo change was done today (09/24). Patient was also discharged with a 10 day antibiotic course of Augmentin and was scheduled to take his last dose today at 9 PM. Patient is reported to have had recent abdominal distention but with no complaints of abdominal pain . half-way does not report patient complaining of any dysuria, fever chills, cough, dizziness, chest pain, palpitation,abdominal pain, or dysuria. Allergies/Medications Allergies: Coded Allergies: NO KNOWN ALLERGIES (07/15/16) Home Med list Acetaminophen (Pain Relief) 325 MG TABLET 2 TAB PO Q6H PRN PAIN/TEMP>101 ( Reported) Acetaminophen (Acephen) 650 MG SUPP.RECT 1 SUPP CO Q6H PRN PAIN/TEMP>101 ( Reported) Acetazolamide 250 MG TABLET 1 TAB PO SEE ADMIN CRITERIA respiratory failure Take on: Sunday, Sunday, . Do not take your Lasix on these days. Albuterol Sulfate 5 MG/ML SOLUTION 0.5 MG NEB Q4 PRN COPD (Reported) Amoxicillin/Potassium Clav (Augmentin 875-125 Tablet) 875 MG-125 MG TABLET 1 TAB PO BID URINE INFECTION Bisacodyl (Dulcolax) 10 MG SUPP.RECT 1 SUP RC DAILY PRN CONSTIPATION ( Reported) Bisacodyl 5 MG TABLET.DR 5 MG PO DAILY PRN constipation Calcium Carbonate (Calcium) 500 MG CALCIUM (1,250 MG) TABLET 2 TAB PO 4XDAILY PRN GASTRIC DISTRESS (Reported) Ergocalciferol (Vitamin D2) (Vitamin D2) 50,000 UNIT CAPSULE 1 CAP PO Q30D SUPPLEMENT (Reported) Furosemide 20 MG TABLET 1 TAB PO BID WATER PILL (Reported) Reason to Stop at ADM: HYPOTENSIVE Glucagon,Human Recombinant (Glucagon Emergency Kit) 1 MG KIT 1 MG IM AD PRN HYPOGLYCEMIA (Reported) Hydrocortisone (Cortaid) 1 % CREAM..G. 1 RAKAN TOP BID SKIN (Reported) Lisinopril 2.5 MG TABLET 1 TAB PO DAILY BP (Reported) Reason to Stop at ADM: HYPOTENSIVE Magnesium Hydroxide (Milk Of Magnesia) 400 MG/5 ML ORAL.SUSP 30 ML PO Q3D PRN CONSTIPATION (Reported) Metformin HCl 500 MG TABLET 1 TAB PO BID DM (Reported) Na Phos,M-B/Na Phos,Di-Ba (Fleet Enema) 19 GRAM-7 GRAM/118 ML ENEMA 1 E RC DAILY PRN CONSTIPATION (Reported) Nitrofurantoin Monohyd/M-Cryst (Macrobid 100 MG Capsule) 100 MG CAPSULE 1 CAP PO BID ANTIBIOTIC (Reported) with food Polyethylene Glycol 3350 (Miralax) 17 GRAM/DOSE POWDER 17 GM PO DAILY PRN constipation Pravastatin Sodium (Pravachol) 40 MG TABLET 1 TAB PO 1700 CHOLESTEROL ( Reported) Risperidone (Risperdal) 0.25 MG TABLET 1 TAB PO DAILY AGITATION (Reported) Reason to Stop at ADM: AMS Rivaroxaban (Xarelto) 20 MG TABLET 1 TAB PO DAILY AFIB (Reported) with food Sennosides/Docusate Sodium (Senna-Time S Tablet) 8.6 MG-50 MG TABLET 187 MG PO BID PRN constipation Sertraline HCl 50 MG TABLET 50 MG PO DAILY depression Tamsulosin HCl 0.4 MG CAP.ER.24H 1 CAP PO BID PROSTATE (Reported) Reason to Stop at ADM: HYPOTENSIVE Theophylline Anhydrous 200 MG TAB.ER.12H 1 TAB PO AT BEDTIME COPD Trazodone HCl 50 MG TABLET 1 TAB PO BID UNKNOWN (Reported) Reason to Stop at ADM: WILL HOLD FOR NOW, PATIENT SEPTIC AND MAY GET ALTERED Trazodone HCl 50 MG TABLET 12.5 MG PO BID PRN ANXIETY/AGITATION (Reported) Past History Travel History Traveled to [place] past 21 day No Medical History Neurological: dementia EENT: NONE Cardiovascular: aortic aneurysm, AFIB, CHF, hypertension, hyperlipidemia Respiratory: COPD Gastrointestinal: NONE Hepatic: NONE Renal: benign prost hyperplasia Musculoskeletal: chronic back pain, degen joint disease, fracture, gout, RIB FX left shoulder fracture Psychiatric: anxiety Endocrine: diabetes Blood Disorders: NONE Cancer(s): NONE JAVA J2EE LEAD/Reproductive: NONE Other Medical Hx: Psoriasis History of MRSA: Yes History of VRE: No History of CDIFF: No Influenza Vaccine: 03/16/16 Surgical History Surgical History: appendectomy Past Family/Social History Family History Relations & Conditions if any FATHER (Heart disease in father). . MOTHER (Unknown cancer). . Psychosocial History Primary Language: Urdu Functional Ability ADLs Needs Assist: dressing, eating, toileting, bathing. Ambulation: walker Review of Systems Review of Systems Constitutional: Reports: see HPI. EENTM: Denies: blurred vision, double vision, visual changes, eye pain. Cardiovascular: Denies: chest pain, edema, orthopena. Respiratory: Denies: short of breath. GI: Reports: abdominal pain. Denies: constipation, melena. Genitourinary: Reports: hematuria. Denies: frequency. Musculoskeletal: Reports: no symptoms. Skin: Reports: no symptoms. Neurological/Psychological: Reports: no symptoms. Hematologic/Endocrine: Reports: bleeding. Immunologic/Allergic: Reports: no symptoms. Exam & Diagnostic Data Last 24 Hrs of Vital Signs/I&O Vital Signs Date Time Temp Pulse Resp B/P Pulse O2 O2 Flow FiO2 Ox Delivery Rate 09/24 0332 26 09/24 0032 98.5 89 36 108/60 96 Nasal 3.0L Cannula 09/234 97.0 86 18 106/70 09/23 2256 98.0 92 20 105/66 96 Nasal 3.0L Cannula 09/23 2056 95 Nasal 3.0L Cannula 09/23 2004 97.5 93 18 128/60 95 09/23 1812 99.0 90 22 90/54 94 Nasal 3.0L Cannula Intake & Output 09/24 0800 09/24 0000 09/23 1600 Intake Total Output Total 500 Balance -500 Output, Urine 500 Patient 98.883 kg 74.843 kg Weight Physical Exam General Appearance Alert, Oriented X3, Cooperative, pursed breathing HEENT Atraumatic, PERRLA, EOMI Neck Supple, No JVD, No thryomegaly Lymphatic Cervical nl Cardiovascular Regular Rate, Normal S1, Normal S2 Lungs BILATERAL DIFFUSE WHEEZES Abdomen Normal Bowel Sounds, Tenderness to palaptaion of left and right abdominal areas. No guarding or rebound noted Neurological Normal Speech, Sensation Intact Extremities No Edema, Normal Pulses, No Tenderness/Swelling Last 24 Hrs of Labs/Navdeep: Laboratory Tests 09/23/162323: Urine Color PINK H, Urine Clarity HAZY H, Urine pH 6.5, Ur Specific Craig 1.010, Urine Protein TRACE H, Urine Ketones NEG, Urine Nitrite NEG, Urine Bilirubin NEG, Urine Urobilinogen 0.2, Ur Leukocyte Esterase SMALL H, Ur Microscopic SEDIMENT EXAMINED, Urine RBC >75 H, Urine WBC 5-10 H, Urine Hemoglobin LARGE H, Urine Glucose NEG 09/23/16 1915: Anion Gap 6, Estimated GFR > 60, BUN/Creatinine Ratio 24.3, Glucose 108 H, Calcium 8.2 L, Total Bilirubin 0.7, AST 23, ALT 23, Alkaline Phosphatase 63, Total Protein 5.6 L, Albumin 3.0 L, Globulin 2.6, Albumin/Globulin Ratio 1.2, PT 12.6 H, INR 1.20 H, APTT 31, CBC w Diff NO MAN DIFF REQ, RBC 3.69 L, MCV 84.3, MCH 27.4, RDW 17.4 H, MPV 8.8, Gran % 85.7 H, Lymphocytes % 6.1 L, Monocytes % 7.1, Eosinophils % 0.9, Basophils % 0.2, Absolute Granulocytes 7.0 H, Absolute Lymphocytes 0.5 L, Absolute Monocytes 0.6, Absolute Eosinophils 0.1 , Absolute Basophils 0, PUBS MCHC 32.5 L Microbiology 09/24 2323 URINE ROUT: Urine Culture - RECD Assessment/Plan Assessment: This is a 89-year-old gentleman with a past medical history of BPH, recent UTI and completing a 14 day course of antibiotic today, Ngo placement, and anticoagulation use presents with a 2 day onset of acute hematuria. At the ED vital signs obtained are remarkable for hypotension. CBC is remarkable for hemoglobin of 9.7 and hematocrit of 29.8. Urinalysis is negative for UTI but does show large urine hemoglobin. Assessment and plan #Acute hematuria Possible etiology include Ngo trauma in the setting of anticoagulation use and ongoing history of BPH. Patient is just finishing an antibiotic course of 14 day treatment a UA is unremarkable, therefore UTIs less likely cause of the hematuria. Plan Will admit to [facility] for observation Will continue CBI as recommended by urology ((appreciated) Will continue to trend CBC Gentle hydration normal saline 75 mls per hour In the setting of hematuria will hold Xarelto for now Will finish the last dose of Augmentin for the treatment of recent UTI. #Abdominal pain Patient is endorsing generalized nonspecific abdominal pain during palpation exam, it is also noted that the nursing staff at [facility] is reporting a distended abdomen recently. Plan CT abdomen and pelvis (patient currently refuses) #Acute blood loss anemia H&H's dropped from patient's baseline, etiology from hematuria. Plan Will trend CBC #Low blood pressure Patient BP is noted to be 90/54 during admission but responded adequately to fluid resuscitation. Most likely etiology is the hematuria. Plan We'll hold off BP meds for now Will continue gentle hydration to maintain MAP greater than 65 #History of diabetes Type 2 diabetes. Accu-Cheks 3 times a day and bedtime. NovoLog sliding scale . #History of BPH Will continue tamsulosin #History of COPD Patient physical examination was remarkable for bilateral wheezes and patient was noted to be exhibiting pursed lip breathing during examination, however at this time he was not on any O2 supplementation. Plan Solu-Medrol 120 mg IV once and then will transition to prednisone rapid taper starting with 40 mg today and decreasing by 10 mg. Will continue O2 supplementation to maintain sats above 90% Patient is noted to have elevated bicarbonate which shows chronic compensation, will consider ABGs if patient develops increased hypoxia. Will continue theophylline 200 mg #History of A. fib Xarelto is being held in the setting of acute hematuria Will obtain cardiology consult #History of depression Continue sertraline 50 mg daily As Ranked By This Provider Problem List: 1. Hematuria Core Measures/Miscellaneous Acute Coronary Syndrome ACS Diagnosis: No Cerebrovascular Accident CVA/TIA Diagnosis: No Congestive Heart Failure CHF Diagnosis: No Venous Thromboembolism VTE Risk Factors: Age > 40 No Mech VTE prophylaxis d/t: No contraindications No VTE Pharm Prophylaxis d/t: Active bleeding VTE Diagnosis: No VTE Type: NONE VTE Confirmed by (Test): NONE Severe Sepsis Severe Sepsis Present: No BC x2: Yes Lactic Acid x2: Yes IV ABX Broad Spectrum: Yes Septic Shock Septic Shock Present: No Miscellaneous Documentation Attending Case Discussed With: ARPAN HOLCOMB MD Primary Care Physician: YAZ PACK MD Patient sees these Specialists urology Level of Patient Care: General Medicine CAROL HOLCOMB MD 09/24/16 0105: Attending MD Review Statement Attending Statement Attending MD Statement: examined this patient, discuss w/resident/PA/PLATINUM AND PALLADIUM KETTLE TENDER, agreed w/resident/PA/PLATINUM AND PALLADIUM KETTLE TENDER Attending Assessment/Plan: 89 yo M with h/o dementia, COPD on 2L, chronic hypercarbia, diastolic heart disease, OHS with central apnea, Afib on xarelto, chronic anemia, HTN, T2DM, recently admitted to [facility] (09/06 09/14) for sepsis on urological origin discharged on Augmentin and Ngo in place for urinary retention 2/2 BPH (needs TURP), is sent in from [facility] today for evaluation of ongoing hematuria over past 2 days with clots that required CBI. History as obtained from son and [facility]. Patient was noted to be hypotensive (94/56) at the [facility]. Ngo was changed today at the [facility]. Patient denied any symptoms. Vitals stable except for BP 90/54 on ER arrival --> 105/66 with IV fluids. Exam: AAO, pursed lip breathing, no cyanosis, not using accessory muscles of respiration. Chest b/l reduced air entry with expiratory wheezes, Heart S1S2 regular, Abd soft, tender on deep palpation, patient would not allow me to assess the abdomen. Labs: H/H 10.1/ 31.1 (11-13/33-38 ), INR 1.20, Na 129, bicarb 36, UA pink, hazy, trace protein, small LE, RBC > 75, WBC 5-10. CXR: no pneumonia, nonspecific interstitial prominence. EKG: Afib. Echo (2017): EF > 60% , moderate pulm hypertension. 1. Acute on chronic blood loss anemia in the setting of hematuria. 23 Obs on GM, CBC Q12, hold xarelto, type and crossmatch, transfuse if Hb < 8.0, Urology consult. Per discussion with Dr. Springer, plan is to continue CBI overnight. Patient eventually would require TURP for BPH. Complete Augmentin course today for recent E.coli UTI. Patient had some abdominal discomfort on palpation, we ordered CT abd/pelvis to evaluate this, however patient refused this. Please re- consider if he has persistent symptoms. 2. Borderline hypotension 2/2 dehydration and blood loss anemia. This resolved with IV hydration. Hold anti-hypertensives. 3. Mild COPD exacerbation. TRC nebs, IV solumedrol followed by rapid PO prednisone taper. No need for abx. Consider Pulm consult if worsening respiratory status. 4. Afib, rate controlled. Xarelto on hold. Please consult cardio, given he will be off AC until hematuria resolves. DVT ppx Alps. DNR/I. ANDRES RENEE 09/24/16 0108: Resident Review Statement Resident Statement: examined this patient, discussed with journalism intern, agreed with journalism intern Other Findings: Patient is 89-year-old woman with past medical history significant for dementia, COPD on 2 L, atrial fibrillation on Xarelto recently admitted to [facility] in [facility] due to sepsis of urological origin and urinary retention secondary to BPH was discharged with a Ngo catheter presented to the ED for evaluation of hematuria. Patient has an underlying history of dementia. So most of the history was obtained from the son and the nursing staff [facility]. The son notified the nursing staff regarding reddish discoloration of the urine in the catheter on . Had hematuria with some clots on Sunday, received CPF for 2 days. CBC done today showed drop in the H&H with urine analysis positive for blood without any evidence of infection, patient was hypotensive in the nursing facility and he was sent to the ED for further evaluation. The ED physician talked to the urologist Dr. springer over the phone and recommended to continue with CBI. According to the nursing staff patient did not report any dizziness or headaches. They did notice some abdominal distention without any nausea or vomiting diarrhea or constipation. No chest discomfort or breathing. As mentioned above patient was treated for sepsis of urological origin and was discharged on d on Augmentin for a total of 14 days(last dose is today). Vitals on admission temperature 99.0, pulse 90, respiratory rate 22, blood pressure 90/52 saturating more than 92% on 3 L. On examination Appearance: Alert and oriented 3 , function acute distress Skin: Grossly normal. HEENT: PEERLA, pharyngeal erythema Neck: Supple, No signs. Full range of motion. No midline tenderness Cardiovascular: Regular Rate, Normal S1, Normal S2, No Murmurs Lungs: Bilateral wheeze on exam. Abdomen: Lower abdominal discomfort without any guarding Neurological: Neuro exam intact grossly. Extremities: No Clubbing, No Cyanosis, No Edema. Vascular: Normal Pulses. Pertinent labs on admission Normal, WBC count H&H(9.7/29.8) Baseline H&H 11.1/35) urinalysis positive for large hemoglobin without any evidence of infection Chest x-ray:No evidence of pneumonia. Nonspecific mild interstitial prominence in the right mid to lower lung is of unclear clinical significance; the degree of interstitial prominence has decreased compared to exam 09/11/2016. Assessment and plan: 1. . Acute on chronic blood loss anemia(due to hematuria): * We'll admit the patient [facility] floor * Continue with CBI as per urology recommendations * Continue with gentle hydration * Monitor H&H watch for any active signs of bleed. * Obtained urology consult in the morning * Hold Xarelto. * Call cardiology in the morning and inform regarding holding xeralto. * Hold antihypertensives. * Watch for any hemodynamic instability 2. Possible COPD exacerbation(bilateral wheeze on exam): * Will give one dose of IV Solu-Medrol 125 mg * Start the patient on quick prednisone taper 43 m,g, 30 mg, 20 mg, and 10 mg * Continue TRC nebs. * Continue oxygen to keep saturations below 92%. * If patient became hypoxic/condition deteriorates overnight will do stat ABG, and depending on the findings, if evidence of hypercarbia we'll put the patient on BiPAP. 3. Nonspecific lower abdominal pain with distention * CT abdomen and pelvis IV contrast has been ordered to rule out any underlying abdominal/renal pathology but patient refused it. * Will convince the patient in the morning. 4 history of atrial fibrillation * hold Xarelto in view of hematuria. * Consider restarting after discussing with the urologist. * Obtain cardiology consult in the morning. 4. Hypotension most likely due to dehydration/hematuria: * Hold antihypertensives * Continue gentle hydration * Consider restarting in the morning once blood pressure stabilizes. 5. History of type 2 diabetes mellitus: * Hold metformin * Maintain blood sugar levels with NovoLog sliding scale * Accu-Cheks. 6. Urinary retention secondary to BPh. * Continue tamsulosin. 7. History of anxiety and depression: 8. Hyperlipidemia continue statins * Mild to moderate pain controlled with Tylenol .DVT prophylaxis Alps. Patient is DNR/DNI
--- NOTE | 2016-09-23 22:30 | RADIOLOGY REPORT ---
EXAMINATION: XR PORTABLE CHEST CLINICAL INFORMATION: COPD. Pneumonia. Shortness of breath. COMPARISON: Chest radiography 09/11/2016. TECHNIQUE: Portable AP view of the chest was obtained. FINDINGS: Mild patient rotation. The lungs are well expanded. Subtle interstitial prominence in the peripheral right mid to lower lung. No focal consolidation, pleural effusion, pulmonary edema, or pneumothorax. Mediastinal contours have not significantly changed compared to prior exam. Aortic tortuosity. No acute osseous abnormalities. Chronic left proximal humeral deformity. IMPRESSION: No evidence of pneumonia. Nonspecific mild interstitial prominence in the right mid to lower lung is of unclear clinical significance; the degree of interstitial prominence has decreased compared to exam 09/11/2016.
[2016-09-24 00:32] VITALS: BP 108/60
[2016-09-24 06:44] VITALS: BP 84/48
[2016-09-24 08:16] LABS: ABSOLUTE BASOPHIL COUNT 0 /CUMM (0.0-0.2); ABSOLUTE EOSINOPHIL COUNT 0 /CUMM (0.0-0.7); ABSOLUTE LYMPH COUNT 0.3 /CUMM (1.2-3.4); ABSOLUTE MONOCYTE COUNT 0.1 /CUMM (0.10-0.60); BASOPHIL % 0 % (0.0-2.0); EOSINOPHIL % 0.1 % (0-5); HEMATOCRIT 29.6 % (42-52); MEAN CORPUSCULAR HGB 27.8 PG (27.0-31.0); MEAN CORPUSCULAR HGB CONC 32.7 G/DL (33.0-37.0); MEAN CORPUSCULAR VOLUME 84.9 FL (80.0-94.0); MEAN PLATELET VOLUME 9.6 FL (7.4-10.4); PLATELET COUNT 270 /CUMM (130-400); RBC DISTRIBUTION WIDTH 17.4 % (11.5-14.5); RED BLOOD CELL CT 3.49 /CUMM (4.70-6.10); WHITE BLOOD CELL COUNT 7.4 /CUMM (4.8-10.8)
--- NOTE | 2016-09-24 08:29 | PN- Housestaff ---
Subjective Follow-up For: Hematuria causing low H&H Hypotension Subjective: I saw the patient today morning He is sleeping, very mildly arousable, nurses report that he is unable to sleep overnight. CBI at bedside. Urine appears yellow in color, previous bag is pinkish (nurses report). Review of Systems Constitutional: Reports: see HPI. Comments: ROS cannot be appreciated as per the patient condition. Objective Last 24 Hrs of Vital Signs/I&O Vital Signs Date Time Temp Pulse Resp B/P Pulse O2 O2 Flow FiO2 Ox Delivery Rate 09/24 0644 98.5 90 24 84/48 96 09/24 0332 26 09/24 0032 98.5 89 36 108/60 96 Nasal 3.0L Cannula 09/234 97.0 86 18 106/70 09/24 2255 98.0 92 20 105/66 96 Nasal 3.0L Cannula 09/23 2056 95 Nasal 3.0L Cannula 09/23 2004 97.5 93 18 128/60 95 09/23 1813 99.0 90 22 90/54 94 Nasal 3.0L Cannula Intake & Output 09/24 1600 09/24 0800 09/24 0000 Intake Total 270 Output Total 300 500 Balance -30 -500 Intake, IV 150 Intake, Oral 120 Number 1 Bowel Movements Output, Urine 300 500 Patient 98.883 kg 74.843 kg Weight Physical Exam General Appearance: Alert Skin: No Rashes HEENT: Atraumatic Current Medications: Current Medications Sig/Emily Start time Last Medication Dose Route Stop Time Status Admin Acetaminophen 650 MG Q6P PRN 09/23 2199 AC PO Acetaminophen 1,000 MG Q6P PRN 09/23 2199 AC IV Amoxicillin/ 875 MG ONCE ONE 09/23 2229 DC 09/23 Clavulanate Potassium PO 09/23 2230 2314 Amoxicillin/ 875 MG BID 09/23 2214 DC Clavulanate Potassium PO 09/24 230 Bisacodyl 5 MG DAILY PRN 09/23 2214 AC PO Insulin Aspart 0 TIDAC 09/24 08 AC SC Magnesium Hydroxide 30 ML Q3D PRN 09/23 2214 AC PO Methylprednisolone 0 .STK-MED ONE 09/23 2301 DC .ROUTE Methylprednisolone 125 MG ONCE ONE 09/23 2214 DC 09/23 IV 09/24 2215 230 Nitrofurantoin 100 MG BID 09/24 1000 CAN PO 09/26 2300 Oxycodone HCl 5 MG Q8P PRN 09/23 2200 AC PO Pravastatin Sodium 20 MG 1700 09/24 1700 AC PO Prednisone 10 MG DAILY 09/27 1000 AC PO 09/27 1001 Prednisone 20 MG DAILY 09/26 1000 AC PO 09/26 1001 Prednisone 30 MG DAILY 09/25 1000 AC PO 09/25 1001 Prednisone 40 MG DAILY 09/24 1000 AC PO 09/24 1001 Risperidone 0.25 MG DAILY PRN 09/24 1000 AC PO Senna/Docusate Sodium 1 TAB BID PRN 09/23 2215 AC PO Sertraline HCl 50 MG DAILY 09/24 1000 AC PO Sodium Chloride 1,000 ML Q13H 09/24 0545 AC 09/24 IV 0612 Sodium Chloride 500 ML BOLUS ONE 09/23 1845 DC 09/23 IV 09/23 194 192 Tamsulosin HCl 0.4 MG BID 09/23 221 AC 09/23 PO 2314 Theophylline 200 MG AT BEDTIME 09/24 220 AC PO Trazodone HCl 12.5 MG BID PRN 09/23 221 AC PO Last 24 Hrs of Lab/Navdeep Results Last 24 Hrs of Labs/Mics: Laboratory Tests 09/24/16 0620: Anion Gap 6, Estimated GFR > 60, BUN/Creatinine Ratio 22.9, CBC w Diff NO MAN DIFF REQ, RBC 3.49 L, MCV 84.9, MCH 27.8, RDW 17.4 H, MPV 9.6, Gran % 94.2 H, Lymphocytes % 4.2 L, Monocytes % 1.5 L, Eosinophils % 0.1, Basophils % 0 L, Absolute Granulocytes 7.0 H, Absolute Lymphocytes 0.3 L, Absolute Monocytes 0.1 L, Absolute Eosinophils 0, Absolute Basophils 0, PUBS MCHC 32.7 L 09/23/16 2324: Urine Color PINK H, Urine Clarity HAZY H, Urine pH 6.5, Ur Specific [place] 1.010, Urine Protein TRACE H, Urine Ketones NEG, Urine Nitrite NEG, Urine Bilirubin NEG, Urine Urobilinogen 0.2, Ur Leukocyte Esterase SMALL H, Ur Microscopic SEDIMENT EXAMINED, Urine RBC >75 H, Urine WBC 5-10 H, Urine Hemoglobin LARGE H, Urine Glucose NEG 09/23/16 1915: Anion Gap 6, Estimated GFR > 60, BUN/Creatinine Ratio 24.3, Glucose 108 H, Calcium 8.2 L, Total Bilirubin 0.7, AST 23, ALT 23, Alkaline Phosphatase 63, Total Protein 5.6 L, Albumin 3.0 L, Globulin 2.6, Albumin/Globulin Ratio 1.2, PT 12.6 H, INR 1.20 H, APTT 31, CBC w Diff NO MAN DIFF REQ, RBC 3.69 L, MCV 84.3, MCH 27.4, RDW 17.4 H, MPV 8.8, Gran % 85.7 H, Lymphocytes % 6.1 L, Monocytes % 7.1, Eosinophils % 0.9, Basophils % 0.2, Absolute Granulocytes 7.0 H, Absolute Lymphocytes 0.5 L, Absolute Monocytes 0.6, Absolute Eosinophils 0.1 , Absolute Basophils 0, PUBS MCHC 32.5 L Microbiology 09/24 2323 URINE ROUT: Urine Culture - RES Lines/Diet/Fluids Catheters/Tubes: drains, CBI Castillo Still Needed? Yes Lines: peripheral lines Assessment/Plan Assessment: Mr. Lamar is a 89 y/o M with PMHx of dementia, BPH on castillo catheter, COPD on 2 L home oxygen and atrial fibrillation on Xarelto who was brought in from [facility] for evaluation of hematuria. He was recently discharged from [facility] on september 14 after being treated for sepsis of urological origin with a castillo in place. At that he was asked to follow up with urology for possible TURP as an outpatient. ER course Vitals on admission temperature 99.0, pulse 90, respiratory rate 22, blood pressure 90/52 saturating more than 92% on 3 L. labs on admission Normal, WBC count H&H(9.7/29.8) Baseline H&H 11.1/35) urinalysis positive for large hemoglobin without any evidence of infection Chest x-ray:No evidence of pneumonia. Nonspecific mild interstitial prominence in the right mid to lower lung is of unclear clinical significance; the degree on interstitial prominence has decreased compared to exam 09/11/2016. Plan Admitted to general medicine floor [facility] in the setting of BPH with castillo in situ * Bright red blood from castillo at admission * Urology consult placed and requested CBI * Today morning urine appears more yellowish, appears getting better. * Urology consult placed, awaiting their recommendations. Hypotension * BP is 90/54 during admission but responded adequately to fluid resuscitation. * Today morning noted 84/48mmHg, on fluids NS @75ml/hr, still borderline without any signs of heart failure. * Holding hypertensive medications in the setting of low BP A.fib on xarelto * Holded in the setting of hematuria, appears bleed is resolving today * Cardio consulted - asked to follow urology recommendations regarding restarting anticoagulation. Type 2 Diabetes Mellitus * Today am sugars are elevated * on insulin sliding scale History of COPD * On 2L home oxygen, increased to 3L in the ER. * Received a single dose of 125mg IV solumedrol in ER * Placed on quick prednisone taper. Hyperlipidemia * we will continue Pravastatin 20mg Dementia * On risperidone 0.25mg dialy. Depression/anxiety * Sertraline 50mg dialy, trazodone 12.5mg BID PRN and Trazodone 50mg at bedtime are continued. Full thickness wound in coccyx region * Vitamin A and D ointment and Desitin Code Status * DNR/DNI Problem List: 1. BPH 2. Acute blood loss anemia 3. Hematuria 4. Wound of back 5. Deep tissue injury 6. Urinary retention due to benign prostatic hyperplasia 7. HTN (hypertension) 8. BPH (benign prostatic hyperplasia) Pain Ratin Pain Location: n/a Pain Goal: Pain 4 or less Pain Plan: Tylenol PRN Tomorrow's Labs & Rationales: CBC BEP to monitor electrolytes
[2016-09-24 08:38] LABS: GRANULOCYTE % 94.2 % (42.2-75.2)
[2016-09-24 14:59] VITALS: BP 98/60
--- NOTE | 2016-09-24 15:10 | PN- Att Addend ---
Attending MD Review Statement Attending Statement Attending MD Statement: examined this patient, discuss w/resident/PA/SENIOR RECRUITER, agreed w/resident/PA/SENIOR RECRUITER, reviewed EMR data (avail), discussed w/nursing Attending Assessment/Plan: Laboratory Tests 09/24/16 0620: Anion Gap 6, Estimated GFR > 60, BUN/Creatinine Ratio 22.9, CBC w Diff NO MAN DIFF REQ, RBC 3.49 L, MCV 84.9, MCH 27.8, RDW 17.4 H, MPV 9.6, Gran % 94.2 H, Lymphocytes % 4.2 L, Monocytes % 1.5 L, Eosinophils % 0.1, Basophils % 0 L, Absolute Granulocytes 7.0 H, Absolute Lymphocytes 0.3 L, Absolute Monocytes 0.1 L, Absolute Eosinophils 0, Absolute Basophils 0, PUBS MCHC 32.7 L 09/23/16 2324: Urine Color PINK H, Urine Clarity HAZY H, Urine pH 6.5, Ur Specific [place] 1.010, Urine Protein TRACE H, Urine Ketones NEG, Urine Nitrite NEG, Urine Bilirubin NEG, Urine Urobilinogen 0.2, Ur Leukocyte Esterase SMALL H, Ur Microscopic SEDIMENT EXAMINED, Urine RBC >75 H, Urine WBC 5-10 H, Urine Hemoglobin LARGE H, Urine Glucose NEG 09/23/16 1915: Anion Gap 6, Estimated GFR > 60, BUN/Creatinine Ratio 24.3, Glucose 108 H, Calcium 8.2 L, Total Bilirubin 0.7, AST 23, ALT 23, Alkaline Phosphatase 63, Total Protein 5.6 L, Albumin 3.0 L, Globulin 2.6, Albumin/Globulin Ratio 1.2, PT 12.6 H, INR 1.20 H, APTT 31, CBC w Diff NO MAN DIFF REQ, RBC 3.69 L, MCV 84.3, MCH 27.4, RDW 17.4 H, MPV 8.8, Gran % 85.7 H, Lymphocytes % 6.1 L, Monocytes % 7.1, Eosinophils % 0.9, Basophils % 0.2, Absolute Granulocytes 7.0 H, Absolute Lymphocytes 0.5 L, Absolute Monocytes 0.6, Absolute Eosinophils 0.1 , Absolute Basophils 0, PUBS MCHC 32.5 L Vital Signs Date Time Temp Pulse Resp B/P Pulse O2 O2 Flow FiO2 Ox Delivery Rate 09/24 1459 98.0 71 22 98/60 93 Nasal 3.0L Cannula 09/24 1027 98/62 09/24 0911 Nasal 2.0L Cannula 09/24 0800 97 Nasal 2.0L Cannula 09/24 0644 98.5 90 24 84/48 96 09/24 0332 26 09/24 0032 98.5 89 36 108/60 96 Nasal 3.0L Cannula 09/23 2314 97.0 86 18 106/70 09/23 2256 98.0 92 20 105/66 96 Nasal 3.0L Cannula 09/237 95 Nasal 3.0L Cannula 09/23 2004 97.5 93 18 128/60 95 09/23 1813 99.0 90 22 90/54 94 Nasal 3.0L Cannula Patient seen and examined at bedside. 89-year-old male with a history of dementia COPD on home oxygen at 2 L, chronic hypercarbia, diastolic heart disease, obesity hypoventilation syndrome with central apnea, atrial fibrillation on xarelto who was recently discharged on September 14 for sepsis of urological origin and was discharged on Augmentin and chronic Ngo secondary to BPH. Patient was at [facility] and was brought back because of hematuria for 2 days. Hematuria is resolving and we're holding the patient's anticoagulation. Urology consult placed we will follow up on their recommendations. We'll repeat labs in a.m. tomorrow to follow-up on hemoglobin as well as hyponatremia. Discussed with patient the care plan
--- NOTE | 2016-09-24 17:09 | Cons- Cardiology ---
General Information and HPI Consulting Request Date of Consult: 09/24/16 Requested By: ZHANG JETER,ARPAN Reason for Consult: Atrial fibrillation on anticoagulation with hematuria Source of Information: patient, family, old records History of Present Illness: This is an 89-year-old male with a past medical history of dementia, atrial fibrillation on Xarelto, diastolic CHF, BPH, diabetes, hypertension, and aortic aneurysm who was recently at [facility] with an episode of urosepsis and was discharged to [facility]. His son was in the room during my interview and helped provide some history. The patient had a Ngo in place at the senior care and his son had noticed some reddish discoloration which subsequently got darker and apparently some clots were noted in the Ngo as well. The patient had not been complaining of any chest pain, dyspnea, palpitations, or chest pain. His son notes his appetite has been poor although it has been better today. The patient was eating his dinner on my interview with him this evening. The senior care records did not report the patient was having any significant fevers. The patient is currently getting CBI and the urine in the catheter bag appears clear currently. Allergies/Medications Allergies: Coded Allergies: NO KNOWN ALLERGIES (07/15/16) Home Med List: Acetaminophen (Pain Relief) 325 MG TABLET 2 TAB PO Q6H PRN PAIN/TEMP>101 ( Reported) Acetaminophen (Acephen) 650 MG SUPP.RECT 1 SUPP LA Q6H PRN PAIN/TEMP>101 ( Reported) Acetazolamide 250 MG TABLET 1 TAB PO SEE ADMIN CRITERIA respiratory failure Take on: Sunday, Sunday, . Do not take your Lasix on these days. Albuterol Sulfate 5 MG/ML SOLUTION 0.5 MG NEB Q4 PRN COPD (Reported) Amoxicillin/Potassium Clav (Augmentin 875-125 Tablet) 875 MG-125 MG TABLET 1 TAB PO BID URINE INFECTION Bisacodyl (Dulcolax) 10 MG SUPP.RECT 1 SUP RC DAILY PRN CONSTIPATION ( Reported) Bisacodyl 5 MG TABLET.DR 5 MG PO DAILY PRN constipation Calcium Carbonate (Calcium) 500 MG CALCIUM (1,250 MG) TABLET 2 TAB PO 4XDAILY PRN GASTRIC DISTRESS (Reported) Ergocalciferol (Vitamin D2) (Vitamin D2) 50,000 UNIT CAPSULE 1 CAP PO Q30D SUPPLEMENT (Reported) Furosemide 20 MG TABLET 1 TAB PO BID WATER PILL (Reported) Reason to Stop at ADM: HYPOTENSIVE Glucagon,Human Recombinant (Glucagon Emergency Kit) 1 MG KIT 1 MG IM AD PRN HYPOGLYCEMIA (Reported) Hydrocortisone (Cortaid) 1 % CREAM..G. 1 RAKAN TOP BID SKIN (Reported) Lisinopril 2.5 MG TABLET 1 TAB PO DAILY BP (Reported) Reason to Stop at ADM: HYPOTENSIVE Magnesium Hydroxide (Milk Of Magnesia) 400 MG/5 ML ORAL.SUSP 30 ML PO Q3D PRN CONSTIPATION (Reported) Metformin HCl 500 MG TABLET 1 TAB PO BID DM (Reported) Na Phos,M-B/Na Phos,Di-Ba (Fleet Enema) 19 GRAM-7 GRAM/118 ML ENEMA 1 E RC DAILY PRN CONSTIPATION (Reported) Nitrofurantoin Monohyd/M-Cryst (Macrobid 100 MG Capsule) 100 MG CAPSULE 1 CAP PO BID ANTIBIOTIC (Reported) with food Polyethylene Glycol 3350 (Miralax) 17 GRAM/DOSE POWDER 17 GM PO DAILY PRN constipation Pravastatin Sodium (Pravachol) 40 MG TABLET 1 TAB PO 1700 CHOLESTEROL ( Reported) Risperidone (Risperdal) 0.25 MG TABLET 1 TAB PO DAILY AGITATION (Reported) Reason to Stop at ADM: AMS Rivaroxaban (Xarelto) 20 MG TABLET 1 TAB PO DAILY AFIB (Reported) with food Sennosides/Docusate Sodium (Senna-Time S Tablet) 8.6 MG-50 MG TABLET 187 MG PO BID PRN constipation Sertraline HCl 50 MG TABLET 50 MG PO DAILY depression Tamsulosin HCl 0.4 MG CAP.ER.24H 1 CAP PO BID PROSTATE (Reported) Reason to Stop at ADM: HYPOTENSIVE Theophylline Anhydrous 200 MG TAB.ER.12H 1 TAB PO AT BEDTIME COPD Trazodone HCl 50 MG TABLET 1 TAB PO BID UNKNOWN (Reported) Reason to Stop at ADM: WILL HOLD FOR NOW, PATIENT SEPTIC AND MAY GET ALTERED Trazodone HCl 50 MG TABLET 12.5 MG PO BID PRN ANXIETY/AGITATION (Reported) Review of Systems Review of Systems: Limited as the patient is a limited historian. Past History Travel History Traveled to [place] past 21 day No Medical History Blood Transfusion Hx: No Neurological: dementia EENT: NONE Cardiovascular: aortic aneurysm, AFIB, CHF, hypertension, hyperlipidemia Respiratory: COPD Gastrointestinal: NONE Hepatic: NONE Renal: benign prost hyperplasia Musculoskeletal: chronic back pain, degen joint disease, fracture, gout, RIB FX left shoulder fracture Psychiatric: anxiety Endocrine: diabetes Blood Disorders: NONE Cancer(s): NONE FIFTH HAND/Reproductive: NONE Other Medical Hx: Psoriasis Surgical History Surgical History: appendectomy Family History Relations & Conditions If Any: FATHER (Heart disease in father). . MOTHER (Unknown cancer). . Psychosocial History Primary Language: Georgian Smoking Status: Former Smoker Functional Ability ADLs Needs Assist: dressing, eating, toileting, bathing. Ambulation: walker Exam & Diagnostic Data Vital Signs and I&O Vital Signs Date Time Temp Pulse Resp B/P Pulse O2 O2 Flow FiO2 Ox Delivery Rate 09/24 1459 98.0 71 22 98/60 93 Nasal 3.0L Cannula 09/24 1027 98/62 09/24 0911 Nasal 2.0L Cannula 09/24 0800 97 Nasal 2.0L Cannula 09/24 0644 98.5 90 24 84/48 96 09/24 0332 26 09/24 0032 98.5 89 36 108/60 96 Nasal 3.0L Cannula 09/23 2314 97.0 86 18 106/70 09/23 2256 98.0 92 20 105/66 96 Nasal 3.0L Cannula 09/237 95 Nasal 3.0L Cannula 09/23 2004 97.5 93 18 128/60 95 09/23 1813 99.0 90 22 90/54 94 Nasal 3.0L Cannula Intake & Output 09/24 1600 09/24 0800 09/24 0000 09/23 1600 09/23 0800 09/23 0000 Intake Total 1200 270 Output Total 400 300 500 Balance 800 -30 -500 Intake, IV 600 150 Intake, Oral 600 120 Number 1 Bowel Movements Output, Urine 400 300 500 Patient 218 lb 165 lb Weight Physical Exam: General: no apparent distress. Eyes: No obvious scleral icterus. HEENT: No jugular venous distention or abnormal jugular venous pulsations. Cardiovascular: Normal intensity S1/S2. Irregular. Respiratory: No rales or rhonchi Abdomen: Soft, nontender with no guarding or rebound tenderness. Musculoskeletal: No clubbing or cyanosis noted, no edema Skin: Warm Neurologic: No gross focal deficits noted. : Ngo in place Labs/Navdeep Results: Laboratory Tests 09/24 09/23 0620 2324 Chemistry Sodium (137 - 145 mmol/L) 130 L Potassium (3.5 - 5.1 mmol/L) 4.6 Chloride (98 - 107 mmol/L) 89 L Carbon Dioxide (22 - 30 mmol/L) 35 H Anion Gap (5 - 16) 6 BUN (9 - 20 mg/dL) 16 Creatinine (0.7 - 1.2 mg/dL) 0.7 Estimated GFR (>60 ml/min) > 60 BUN/Creatinine Ratio (7 - 25 %) 22.9 Hematology CBC w Diff NO MAN DIFF REQ WBC (4.8 - 10.8 /CUMM) 7.4 RBC (4.70 - 6.10 /CUMM) 3.49 L Hgb (14.0 - 18.0 G/DL) 9.7 L Hct (42 - 52 %) 29.6 L MCV (80.0 - 94.0 FL) 84.9 MCH (27.0 - 31.0 PG) 27.8 RDW (11.5 - 14.5 %) 17.4 H Plt Count (130 - 400 /CUMM) 270 MPV (7.4 - 10.4 FL) 9.6 Gran % (42.2 - 75.2 %) 94.2 H Lymphocytes % (20.5 - 51.1 %) 4.2 L Monocytes % (1.7 - 9.3 %) 1.5 L Eosinophils % (0 - 5 %) 0.1 Basophils % (0.0 - 2.0 %) 0 L Absolute Granulocytes (1.4 - 6.5 /CUMM) 7.0 H Absolute Lymphocytes (1.2 - 3.4 /CUMM) 0.3 L Absolute Monocytes (0.10 - 0.60 /CUMM) 0.1 L Absolute Eosinophils (0.0 - 0.7 /CUMM) 0 Absolute Basophils (0.0 - 0.2 /CUMM) 0 PUBS MCHC (33.0 - 37.0 G/DL) 32.7 L Urines Urine Color (YEL,AMB,STR) PINK H Urine Clarity (CLEAR) HAZY H Urine pH (5.0 - 8.0) 6.5 Ur Specific [place] (1.001 - 1.035) 1.010 Urine Protein (NEG,<30 MG/DL) TRACE H Urine Ketones (NEG) NEG Urine Nitrite (NEG) NEG Urine Bilirubin (NEG) NEG Urine Urobilinogen (0.1 - 1.0 EU/dl) 0.2 Ur Leukocyte Esterase (NEG) SMALL H Ur Microscopic SEDIMENT EXAMINED Urine RBC (0 - 5 /HPF) >75 H Urine WBC (0 - 2 /HPF) 5-10 H Urine Hemoglobin (NEG) LARGE H Urine Glucose (N MG/DL) NEG 09/23 1915 Chemistry Sodium (137 - 145 mmol/L) 129 L Potassium (3.5 - 5.1 mmol/L) 4.5 Chloride (98 - 107 mmol/L) 87 L Carbon Dioxide (22 - 30 mmol/L) 36 H Anion Gap (5 - 16) 6 BUN (9 - 20 mg/dL) 17 Creatinine (0.7 - 1.2 mg/dL) 0.7 Estimated GFR (>60 ml/min) > 60 BUN/Creatinine Ratio (7 - 25 %) 24.3 Glucose (65 - 99 mg/dL) 108 H Calcium (8.4 - 10.2 mg/dL) 8.2 L Total Bilirubin (0.2 - 1.3 mg/dL) 0.7 AST (17 - 59 U/L) 23 ALT (21 - 72 U/L) 23 Alkaline Phosphatase (< 127 U/L) 63 Total Protein (6.3 - 8.2 g/dL) 5.6 L Albumin (3.5 - 5.0 g/dL) 3.0 L Globulin (1.9 - 4.2 gm/dL) 2.6 Albumin/Globulin Ratio (1.1 - 2.2 %) 1.2 Coagulation PT (9.4 - 12.5 SEC) 12.6 H INR (0.90 - 1.17) 1.20 H APTT (25 - 37 SEC) 31 Hematology CBC w Diff NO MAN DIFF REQ WBC (4.8 - 10.8 /CUMM) 8.1 RBC (4.70 - 6.10 /CUMM) 3.69 L Hgb (14.0 - 18.0 G/DL) 10.1 L Hct (42 - 52 %) 31.1 L MCV (80.0 - 94.0 FL) 84.3 MCH (27.0 - 31.0 PG) 27.4 RDW (11.5 - 14.5 %) 17.4 H Plt Count (130 - 400 /CUMM) 300 MPV (7.4 - 10.4 FL) 8.8 Gran % (42.2 - 75.2 %) 85.7 H Lymphocytes % (20.5 - 51.1 %) 6.1 L Monocytes % (1.7 - 9.3 %) 7.1 Eosinophils % (0 - 5 %) 0.9 Basophils % (0.0 - 2.0 %) 0.2 Absolute Granulocytes (1.4 - 6.5 /CUMM) 7.0 H Absolute Lymphocytes (1.2 - 3.4 /CUMM) 0.5 L Absolute Monocytes (0.10 - 0.60 /CUMM) 0.6 Absolute Eosinophils (0.0 - 0.7 /CUMM) 0.1 Absolute Basophils (0.0 - 0.2 /CUMM) 0 PUBS MCHC (33.0 - 37.0 G/DL) 32.5 L Diagnostic Data EKG Results Tracing was personally reviewed and shows atrial fibrillation at 80 bpm with no obvious ST depressions CXR Results No evidence of pneumonia. Nonspecific mild interstitial prominence in the right mid to lower lung is of unclear clinical significance; the degree of interstitial prominence has decreased compared to exam 09/11/2016. Other Results Echo from July Normal size left ventricle. Mild concentric left ventricular hypertrophy. No obvious regional wall motion abnormalities. Normal left ventricular ejection fraction visually estimated at > 60%. Normal right ventricular size and function. Mild right atrial dilatation. Mild to moderate left atrial dilatation. Mild mitral regurgitation. Mild aortic regurgitation. Mild tricuspid regurgitation. Mild to moderate pulmonary hypertension. Assessment/Plan Assessment/Plan 1. Atrial fibrillation on outpatient Xarelto due to elevated CHADS-Vasc score 2. Hematuria 3. Chronic diastolic CHF 4. Dementia 5. History of aortic aneurysm 6. Diabetes 7. Mild hyponatremia The patient remains in atrial fibrillation with controlled heart rate. Ngo remains in place and he is currently receiving CBI with the urine appearing clear this evening. Anticoagulation is being held until cleared by urology. The patient's blood pressure is currently borderline but stable. He has no evidence of CHF decompensation at this time. Respiratory status appears stable. There is no indication for transfusion at this time. Jesse López MD [facility] Consult Acknowledgment - Thank you for your consult request.
[2016-09-24 22:38] VITALS: BP 118/62
--- NOTE | 2016-09-25 05:57 | PN- Housestaff ---
RAMON JETER,BILL 09/25/16 0557: Subjective Follow-up For: Hematuria. Subjective: I saw and examined the patient today morning He is doing much better today, alert and oriented. reports abdominal discomfort, unreliable. urine from CBI is clear. Review of Systems Constitutional: Reports: see HPI. Comments: ROS cannot be appreciated as per the patient condition Objective Last 24 Hrs of Vital Signs/I&O Vital Signs Date Time Temp Pulse Resp B/P Pulse O2 O2 Flow FiO2 Ox Delivery Rate 09/25 0000 97 Nasal 2.0L Cannula 09/24 2238 98.0 86 21 118/62 97 Nasal 2.0L Cannula 09/24 2208 94 Nasal 2.0L Cannula 09/24 2058 86 118/62 09/24 1600 Nasal 2.0L Cannula 09/24 1459 98.0 71 22 98/60 93 Nasal 3.0L Cannula 09/24 1027 98/62 09/24 0911 Nasal 2.0L Cannula 09/24 0800 97 Nasal 2.0L Cannula 09/24 0644 98.5 90 24 84/48 96 Intake & Output 09/25 0800 09/25 0000 09/24 1600 Intake Total 1250 1200 Output Total 500 400 Balance 750 800 Intake, IV 600 600 Intake, Oral 650 600 Output, Urine 500 400 Physical Exam General Appearance: Alert, Oriented X3, Cooperative, No Acute Distress Skin: No Rashes, No Breakdown HEENT: Atraumatic, PERRLA, EOMI Neck: Supple, No JVD Cardiovascular: Normal S1, Normal S2, systolic murmur present Lungs: diffuse expiratory wheezing present Abdomen: Normal Bowel Sounds, Soft, No Tenderness Neurological: Normal Tone, Sensation Intact Extremities: No Clubbing, No Cyanosis, 4+ edema present Current Medications: Current Medications Sig/Emily Start time Last Medication Dose Route Stop Time Status Admin Acetaminophen 650 MG Q6P PRN 09/23 2199 AC PO Acetaminophen 1,000 MG Q6P PRN 09/23 2199 AC IV Albuterol Sulfate 3 ML Q4H PRN 09/24 899 AC INH Bisacodyl 5 MG DAILY PRN 09/23 2214 AC PO Insulin Aspart 0 TIDAC 09/24 0800 AC 09/24 SC 1654 Magnesium Hydroxide 30 ML Q3D PRN 09/23 2214 AC PO Oxycodone HCl 5 MG Q8P PRN 09/23 2199 AC 09/24 PO 1526 Pravastatin Sodium 20 MG 1700 09/24 1700 AC 09/24 PO 1654 Prednisone 10 MG DAILY 09/27 1000 AC PO 09/27 1001 Prednisone 20 MG DAILY 09/26 1000 AC PO 09/26 1001 Prednisone 30 MG DAILY 09/25 1000 AC PO 09/25 1001 Prednisone 40 MG DAILY 09/24 1000 DC 09/24 PO 09/24 1001 1027 Risperidone 0.25 MG DAILY PRN 09/24 1000 AC PO Senna/Docusate Sodium 1 TAB BID PRN 09/23 2215 AC PO Sertraline HCl 50 MG DAILY 09/24 1000 AC 09/24 PO 1027 Sodium Chloride 1,000 ML Q13H 09/24 0545 AC 09/24 IV 2024 Tamsulosin HCl 0.4 MG BID 09/23 2210 AC 09/24 PO 2058 Theophylline 200 MG AT BEDTIME 09/24 2200 AC 09/24 PO 205 Trazodone HCl 50 MG .STK-MED ONE 09/24 1753 DC PO 09/24 1754 Trazodone HCl 12.5 MG BID PRN 09/23 2215 AC 09/24 PO 1932 Vitamin A/Vitamin D 1 RAKAN BID 09/24 1047 AC 09/24 TOP 2054 Zinc Oxide 1 RAKAN BID 09/24 1047 09/24 TOP 2054 Last 24 Hrs of Lab/Navdeep Results Last 24 Hrs of Labs/Mics: Laboratory Tests 09/25/16 0728: Anion Gap 4 L, Estimated GFR > 60, BUN/Creatinine Ratio 27.1 H, CBC w Diff NO MAN DIFF REQ, RBC 3.49 L, MCV 84.4, MCH 27.7, RDW 17.1 H, MPV 9.4, Gran % 80.3 H, Lymphocytes % 10.0 L, Monocytes % 9.4 H, Eosinophils % 0.1, Basophils % 0.2, Absolute Granulocytes 5.9, Absolute Lymphocytes 0.7 L, Absolute Monocytes 0.7 H, Absolute Eosinophils 0, Absolute Basophils 0, PUBS MCHC 32.8 L Lines/Diet/Fluids Lines: peripheral lines Assessment/Plan Assessment: Mr. Lamar is a 89 y/o M with PMHx of dementia, BPH on castillo catheter, COPD on 2 L home oxygen and atrial fibrillation on Xarelto who was brought in from [facility] for evaluation of hematuria. He was recently discharged from [facility] on september 14 after being treated for sepsis of urological origin with a castillo in place. At that he was asked to follow up with urology for possible TURP as an outpatient. ER course Vitals on admission temperature 99.0, pulse 90, respiratory rate 22, blood pressure 90/52 saturating more than 92% on 3 L. labs on admission Normal, WBC count H&H(9.7/29.8) Baseline H&H 11.1/35) urinalysis positive for large hemoglobin without any evidence of infection Chest x-ray:No evidence of pneumonia. Nonspecific mild interstitial prominence in the right mid to lower lung is of unclear clinical significance; the degree on interstitial prominence has decreased compared to exam 09/11/2016. Plan Admitted to general medicine floor [facility] in the setting of BPH with castillo in situ * Urine appears clear today, spoke with - asked to clamp the input port, continue flushing with the output port for 24hrs after restarting Xarelto today. Hypotension * BP is 90/54 during admission but responded adequately to fluid resuscitation. * Today BP appears much more stable, so discontinued fluids. A.fib on xarelto * Holded in the setting of hematuria, appears bleed is resolving today * Cardio consulted - asked to follow urology recommendations regarding restarting anticoagulation. * found to have a positive balance of 1.5L so requested a CXR Type 2 Diabetes Mellitus * Today am sugars are elevated * on insulin sliding scale History of COPD * On 2L home oxygen, increased to 3L in the ER. * Received a single dose of 125mg IV solumedrol in ER * Placed on quick prednisone taper. Hyperlipidemia * we will continue Pravastatin 20mg Dementia * On risperidone 0.25mg dialy. Depression/anxiety * Sertraline 50mg dialy, trazodone 12.5mg BID PRN and Trazodone 50mg at bedtime are continued. Full thickness wound in coccyx region * Vitamin A and D ointment and Desitin Code Status * DNR/DNI Problem List: 1. Afib 2. Dementia 3. Urinary tract infection 4. Benign prostate hyperplasia 5. Abdominal pain 6. CHF (congestive heart failure) Pain Ratin Pain Location: abdomen Pain Goal: Pain 4 or less Pain Plan: yoanal prn Tomorrow's Labs & Rationales: bep to monitor electrolytes ROSLYN ESCALANTE MD 09/25/16 1251: Attending MD Review Statement Attending Statement Attending MD Statement: examined this patient, discuss w/resident/PA/UNDERCOATER, agreed w/resident/PA/UNDERCOATER, reviewed EMR data (avail), discussed with nursing, discussed with case mgmt, reviewed images, amended to note Attending Assessment/Plan: Patient seen and examined, offers no complaints. Seems to be in a pleasant today. The urine in the bag from CBI looks clean. CBI has been stopped. Patient's Xarelto was also stopped and after he was seen by esthetician, the recommendation was to resume the Xarelto when it is okay from the urological standpoint. Vital Signs Date Time Temp Pulse Resp B/P Pulse O2 O2 Flow FiO2 Ox Delivery Rate 09/25 1156 Nasal 2.0L Cannula 09/25 1121 Nasal 2.0L Cannula 09/25 1101 94 Nasal 2.0L Cannula 09/25 0814 86 124/78 09/25 0812 98.0 86 20 124/78 96 Nasal 3.0L Cannula 09/25 0800 Nasal 2.0L Cannula 09/25 0640 98.2 96 20 114/80 97 Nasal 3.0L Cannula 09/25 0000 97 Nasal 2.0L Cannula 09/24 2238 98.0 86 21 118/62 97 Nasal 2.0L Cannula 09/24 2208 94 Nasal 2.0L Cannula 09/24 2058 86 118/62 09/24 1600 Nasal 2.0L Cannula 09/24 1459 98.0 71 22 98/60 93 Nasal 3.0L Cannula on exam; aox3, nad. cv; s1, s2, irregular. resp; mild exp wheeze. abd; soft, nt, bs+ ext; no edema. Urine catheter has been urine. Laboratory Tests 09/25 07 Chemistry Sodium (137 - 145 mmol/L) 132 L Potassium (3.5 - 5.1 mmol/L) 4.1 Chloride (98 - 107 mmol/L) 91 L Carbon Dioxide (22 - 30 mmol/L) 36 H Anion Gap (5 - 16) 4 L BUN (9 - 20 mg/dL) 19 Creatinine (0.7 - 1.2 mg/dL) 0.7 Estimated GFR (>60 ml/min) > 60 BUN/Creatinine Ratio (7 - 25 %) 27.1 H Hematology CBC w Diff NO MAN DIFF REQ WBC (4.8 - 10.8 /CUMM) 7.4 RBC (4.70 - 6.10 /CUMM) 3.49 L Hgb (14.0 - 18.0 G/DL) 9.7 L Hct (42 - 52 %) 29.5 L MCV (80.0 - 94.0 FL) 84.4 MCH (27.0 - 31.0 PG) 27.7 RDW (11.5 - 14.5 %) 17.1 H Plt Count (130 - 400 /CUMM) 285 MPV (7.4 - 10.4 FL) 9.4 Gran % (42.2 - 75.2 %) 80.3 H Lymphocytes % (20.5 - 51.1 %) 10.0 L Monocytes % (1.7 - 9.3 %) 9.4 H Eosinophils % (0 - 5 %) 0.1 Basophils % (0.0 - 2.0 %) 0.2 Absolute Granulocytes (1.4 - 6.5 /CUMM) 5.9 Absolute Lymphocytes (1.2 - 3.4 /CUMM) 0.7 L Absolute Monocytes (0.10 - 0.60 /CUMM) 0.7 H Absolute Eosinophils (0.0 - 0.7 /CUMM) 0 Absolute Basophils (0.0 - 0.2 /CUMM) 0 PUBS MCHC (33.0 - 37.0 G/DL) 32.8 L A/P; 89 y/o M with pmh sig for dementia, COPD on 2 L home oxygen, atrial fibrillation on Xarelto, BPH, recent admission to [facility] with sepsis secondary to UTI who was discharged on oral antibiotics as well as a Castillo catheter secondary to developing urinary retention. Patient is now placed on general medicine observation with hematuria. Xarelto was stopped and according to esthetician Xarelto can be resumed once okay with urology. We have contacted Dr. Cool from urology. According to his recommendations, we will resume the Xarelto. We will continue and outgoing port of CBI and discontinue the incoming report. We will observe him for another 24 hours to make sure that he does not develop any further hematuria. Continue other current medications and if patient continues to do well with no further hematuria, he will be discharged back to intermediate with further follow-up with Dr. Cool as an outpatient. any further hematuria. Continue other current medications and if patient continues to do well with no further hematuria, he will be discharged back to intermediate with further follow-up with Dr. Cool as an outpatient.
[2016-09-25 06:40] VITALS: BP 114/80
[2016-09-25 08:12] VITALS: BP 124/78
[2016-09-25 08:48] LABS: ABSOLUTE BASOPHIL COUNT 0 /CUMM (0.0-0.2); ABSOLUTE EOSINOPHIL COUNT 0 /CUMM (0.0-0.7); ABSOLUTE GRANULOCYTE CT 5.9 /CUMM (1.4-6.5); ABSOLUTE LYMPH COUNT 0.7 /CUMM (1.2-3.4); ABSOLUTE MONOCYTE COUNT 0.7 /CUMM (0.10-0.60); BASOPHIL % 0.2 % (0.0-2.0); EOSINOPHIL % 0.1 % (0-5); GRANULOCYTE % 80.3 % (42.2-75.2); HEMATOCRIT 29.5 % (42-52); MEAN CORPUSCULAR HGB 27.7 PG (27.0-31.0); MEAN CORPUSCULAR HGB CONC 32.8 G/DL (33.0-37.0); MEAN CORPUSCULAR VOLUME 84.4 FL (80.0-94.0); MEAN PLATELET VOLUME 9.4 FL (7.4-10.4); PLATELET COUNT 285 /CUMM (130-400); RBC DISTRIBUTION WIDTH 17.1 % (11.5-14.5); RED BLOOD CELL CT 3.49 /CUMM (4.70-6.10); WHITE BLOOD CELL COUNT 7.4 /CUMM (4.8-10.8)
--- NOTE | 2016-09-25 13:36 | Discharge Summary ---
Visit Information Visit Dates Admission Date: 09/25/16 Discharge Date: 09/27/16 Hospital Course Course Attending Physician: ROSLYN ESCALANTE MD Primary Care Physician: YAZ PACK MD Hospital Course: Patient is 89-year-old man with past medical history significant for dementia, COPD on 2 L, atrial fibrillation on Xarelto recently admitted to [facility] in August due to sepsis of urological origin and urinary retention secondary to BPH was discharged with a Ngo catheter presented to the ED for evaluation of hematuria. Vitals on admission temperature 99.0, pulse 90, respiratory rate 22, blood pressure 90/52 saturating more than 92% on 3 L. Pertinent labs on admission Normal, WBC count H&H(9.7/29.8) Baseline H&H 11.1/35) urinalysis positive for large hemoglobin without any evidence of infection Chest x-ray:No evidence of pneumonia. Nonspecific mild interstitial prominence in the right mid to lower lung is of unclear clinical significance; the degree of interstitial prominence has decreased compared to exam 09/11/2016. Hospital course 1. Acute on chronic blood loss anemia due to hematuria: Patient was initially admitted as an observation in general medical floor and later converted to a full admit. Urology was contacted who recommended continuous bladder irrigation and hold of anticoagulation. Patient's urine cleared up with continuous bladder irrigation. He was restarted on Xarelto once bleeding is stopped and watched for recurrence of bleeding. Patient's Ngo catheter was removed due to concern for kinking/displacement and patient discomfort. However it was reinserted the following day per urologist Dr. Cool's recommendations. Patient was discharged on Ngo with instructions to follow up with Dr. Cool as outpatient. 2. Atrial fibrillation on Xarelto due to elevated Chads-Vasc score: Cardiology consult was obtained who agreed with urology in holding Xarelto given his acute event of hematuria. Xarelto was later restarted 3. History of Hypertension: Patient's blood pressure on admission was low and hence his blood pressure medications was held. His blood pressure medications was later resumed once pressure stable. 4. Chronic diastolic congestive heart failure: He had no evidence of CHF decompensation during this admission. Lasix was initially held which was later restarted. 5. COPD exacerbation: He received IV Solu-Medrol in the ED and later started on a prednisone taper. He was continued on ABGs. His condition remained stable and he was maintained on oxygen through nasal cannula. 6. History of type 2 diabetes mellitus: Metformin held and started on NovoLog sliding scale with Accu-Cheks. 7. Urinary retention secondary to BPH: Was continued on tamsulosin. Patient was later started on finasteride 5 mg PO daily according to urologist Dr. Cool's recommendations and discharged on the medication. 8. Dementia: Patient has been agitated during his hospital stay which is close to his baseline. He was repeatedly reoriented. He was continued on his home medications Allergies: Coded Allergies: NO KNOWN ALLERGIES (07/15/16) Pertinent Lab Results: Laboratory Tests 09/26 09/25 0640 0728 Chemistry Sodium (137 - 145 mmol/L) 132 L 132 L Potassium (3.5 - 5.1 mmol/L) 4.1 4.1 Chloride (98 - 107 mmol/L) 92 L 91 L Carbon Dioxide (22 - 30 mmol/L) 38 H 36 H Anion Gap (5 - 16) 3 L 4 L BUN (9 - 20 mg/dL) 14 19 Creatinine (0.7 - 1.2 mg/dL) 0.6 L 0.7 Estimated GFR (>60 ml/min) > 60 > 60 BUN/Creatinine Ratio (7 - 25 %) 23.3 27.1 H Hematology CBC w Diff NO MAN DIFF REQ WBC (4.8 - 10.8 /CUMM) 7.4 RBC (4.70 - 6.10 /CUMM) 3.49 L Hgb (14.0 - 18.0 G/DL) 9.7 L Hct (42 - 52 %) 29.5 L MCV (80.0 - 94.0 FL) 84.4 MCH (27.0 - 31.0 PG) 27.7 RDW (11.5 - 14.5 %) 17.1 H Plt Count (130 - 400 /CUMM) 285 MPV (7.4 - 10.4 FL) 9.4 Gran % (42.2 - 75.2 %) 80.3 H Lymphocytes % (20.5 - 51.1 %) 10.0 L Monocytes % (1.7 - 9.3 %) 9.4 H Eosinophils % (0 - 5 %) 0.1 Basophils % (0.0 - 2.0 %) 0.2 Absolute Granulocytes (1.4 - 6.5 /CUMM) 5.9 Absolute Lymphocytes (1.2 - 3.4 /CUMM) 0.7 L Absolute Monocytes (0.10 - 0.60 /CUMM) 0.7 H Absolute Eosinophils (0.0 - 0.7 /CUMM) 0 Absolute Basophils (0.0 - 0.2 /CUMM) 0 PUBS MCHC (33.0 - 37.0 G/DL) 32.8 L Disposition Summary Disposition Principal Diagnosis: 1. Acute on chronic blood loss anemia secondary to hematuria 2. Atrial fibrillation on Xarelto 3. Chronic diastolic congestive heart failure with no evidence of decompensation 4. COPD exacerbation Additional Diagnosis: 1. History of hypertension 2. History of diabetes mellitus 3. Dementia Discharge Disposition: assisted-living facility Discharge Instructions General Discharge Information Code Status: Do Not Resucitate/Intubat Patient's Diet: Diabetic diet - Full Chopped/Thin Liquids Patient's Activity: As tolerated Follow-Up Instructions/Appts: 1. Follow-up with primary care physician in a week upon discharge 2. Follow-up with Dr. Cool Medications at Discharge Discharge Medications: Stop taking the following medications: Amoxicillin/Potassium Clav (Augmentin 875-125 Tablet) 875 MG-125 MG TABLET ORAL TWICE DAILY Qty = 19 Continue taking these medications: Pravastatin Sodium (Pravachol) 40 MG TABLET 1 Tablet ORAL 5 PM Comments: Last Taken: 09/26/16 Time: 1550 PM Lisinopril (Lisinopril) 2.5 MG TABLET 1 Tablet ORAL DAILY Instructions: Reason to Stop at ADM: HYPOTENSIVE Comments: Last Taken: 09/27/16 Time: 1000 Risperidone (Risperdal) 0.25 MG TABLET 1 Tablet ORAL DAILY Qty = 30 Instructions: Reason to Stop at ADM: AMS Comments: Last Taken:09/26/16 Time: 1950 Acetazolamide (Acetazolamide) 250 MG TABLET 1 Tablet ORAL SEE INSTRUCTIONS Qty = 60 Instructions: Take on: Sunday, Sunday, . Do not take your Lasix on these days. Comments: DID NOT RECEIVE IN HOSPITAL Trazodone HCl (Trazodone HCl) 50 MG TABLET 1 Tablet ORAL TWICE DAILY Comments: Last Taken: 09/26/16 Time: 2250 Ergocalciferol (Vitamin D2) (Vitamin D2) 50,000 UNIT CAPSULE 1 Capsule ORAL ONCE A MONTH Comments: DID NOT RECEIVE IN HOSPITAL Hydrocortisone (Cortaid) 1 % CREAM..G. 1 Application On the skin TWICE DAILY Comments: DID NOT RECEIVE IN HOSPITAL Tamsulosin HCl (Tamsulosin HCl) 0.4 MG CAP.ER.24H 1 Capsule ORAL TWICE DAILY Instructions: Reason to Stop at ADM: HYPOTENSIVE Comments: Last Taken:09/27/16 Time:1000 Theophylline Anhydrous (Theophylline Anhydrous) 200 MG TAB.ER.12H 1 Tablet ORAL AT BEDTIME Qty = 30 Comments: Last Taken: 09/26/16 Time: 2113 PM Rivaroxaban (Xarelto) 20 MG TABLET 1 Tablet ORAL DAILY Instructions: with food Comments: Last Taken: 09/26/16 Time: 1550 Albuterol Sulfate (Albuterol Sulfate) 5 MG/ML SOLUTION 0.5 Milligram Inhale Solution via Nebulizer Every 4 hours as needed for COPD Comments: Last Taken: 09/26/16 Time: 0800 Bisacodyl (Bisacodyl) 5 MG TABLET.DR 5 Milligram ORAL DAILY as needed for constipation Qty = 30 Comments: DID NOT RECIEVE IN HOSPITAL Polyethylene Glycol 3350 (Miralax) 17 GRAM/DOSE POWDER 17 Gram ORAL DAILY as needed for constipation Qty = 30 Comments: NOT GIVEN IN HOSPITAL Sennosides/Docusate Sodium (Senna-Time S Tablet) 8.6 MG-50 MG TABLET 187 Milligram ORAL TWICE DAILY as needed for constipation Qty = 30 Comments: Last Taken: 09/27/16 Time: 0540 AM Sertraline HCl (Sertraline HCl) 50 MG TABLET 50 Milligram ORAL DAILY Qty = 30 Comments: Last Taken: 09/27/16 Time: 1000 Nitrofurantoin Monohyd/M-Cryst (Macrobid 100 MG Capsule) 100 MG CAPSULE 1 Capsule ORAL TWICE DAILY Instructions: with food Comments: NOT GIVEN IN HOSPITAL Metformin HCl (Metformin HCl) 500 MG TABLET 1 Tablet ORAL TWICE DAILY Comments: NOT GIVEN IN HOSPITAL Acetaminophen (Pain Relief) 325 MG TABLET 2 Tablet ORAL Q6H as needed for PAIN/TEMP>101 Comments: Last Taken: 09/26/16 Time: 1550 Acetaminophen (Acephen) 650 MG SUPP.RECT 1 SUPPOSITORY RECTALLY Q6H as needed for PAIN/TEMP>101 Comments: DID NOT RECEIVE IN HOSPITAL Trazodone HCl (Trazodone HCl) 50 MG TABLET 12.5 Milligram ORAL TWICE DAILY as needed for ANXIETY/AGITATION Comments: Last Taken: 09/26/16 Time: 2024 Calcium Carbonate (Calcium) 500 MG CALCIUM (1,250 MG) TABLET 2 Tablet ORAL 4XDAILY as needed for GASTRIC DISTRESS Comments: DID NOT RECEIVE IN HOSPITAL Glucagon,Human Recombinant (Glucagon Emergency Kit) 1 MG KIT 1 Milligram INTRAMUSC As Directed as needed for HYPOGLYCEMIA Comments: DID NOT RECEIVE IN HOSPITAL Magnesium Hydroxide (Milk Of Magnesia) 400 MG/5 ML ORAL.SUSP 30 Milliliters ORAL Every 3 days as needed for CONSTIPATION Comments: Last Taken: 09/27/16 Time: 0540 AM Bisacodyl (Dulcolax) 10 MG SUPP.RECT 1 Suppository RECTAL DAILY as needed for CONSTIPATION Comments: DID NOT RECEIVE IN HOSPITAL Na Phos,M-B/Na Phos,Di-Ba (Fleet Enema) 19 GRAM-7 GRAM/118 ML ENEMA 1 Enema RECTAL DAILY as needed for CONSTIPATION Comments: NOT GIVEN IN HOSPITAL Furosemide (Furosemide) 20 MG TABLET 1 Tablet ORAL DAILY Instructions: Please do not take on Sunday, and Sunday when you will take Acetazolamide instead. Start taking the following new medications: Finasteride (Proscar) 5 MG TABLET 1 Tablet ORAL DAILY Qty = 30 No Refills Comments: Last Taken: 09/27/16 Time: 1000 Copies To: RAMONE JETER,YAZ Cruz; RYAN JETER,DANAE
--- NOTE | 2016-09-25 13:54 | PN- Cardiology ---
Subjective Subjective: No complaints of chest discomfort, palpitations, shortness of breath, etc., but has dementia. Objective Vital Signs and I&Os Vital Signs Date Time Temp Pulse Resp B/P Pulse O2 O2 Flow FiO2 Ox Delivery Rate 09/25 1156 Nasal 2.0L Cannula 09/25 1121 Nasal 2.0L Cannula 09/25 1101 94 Nasal 2.0L Cannula 09/25 0814 86 124/78 09/25 0812 98.0 86 20 124/78 96 Nasal 3.0L Cannula 09/25 0800 Nasal 2.0L Cannula 09/25 0640 98.2 96 20 114/80 97 Nasal 3.0L Cannula 09/25 0000 97 Nasal 2.0L Cannula 09/24 2238 98.0 86 21 118/62 97 Nasal 2.0L Cannula 09/24 2208 94 Nasal 2.0L Cannula 09/24 2058 86 118/62 09/24 1600 Nasal 2.0L Cannula 09/24 1459 98.0 71 22 98/60 93 Nasal 3.0L Cannula Intake & Output 09/25 1600 09/25 0800 09/25 0000 09/24 1600 09/24 0800 09/24 0000 Intake Total 1140 1250 1200 270 Output Total 535 500 400 300 500 Balance 605 750 800 -30 -500 Intake, IV 600 600 600 150 Intake, Oral 540 650 600 120 Number 0 1 Bowel Movements Output, Urine 535 500 400 300 500 Patient 218 lb 165 lb Weight Physical Exam: Well-developed, obese elderly male in no acute distress with nasal oxygen in place. Vital signs: See above. Lungs: Decreased breath sounds bilaterally with poor inspiratory effort. Heart: S1, S2 grade 1-2/6 systolic murmur. Extremities: Positive edema. Assessment/Plan Assessment/Plan Mr. Lamar is an 89-year-old white male with a history of dementia, chronic obstructive pulmonary disease, hypertension, dyslipidemia, diabetes mellitus, hypomagnesemia, gout, chronic anemia, small abdominal aortic aneurysm, recurrent falls, recurrent diastolic heart failure with echocardiographic evidence of left ventricular hypertrophy, chronic atrial fibrillation on anticoagulation with the factor Xa inhibitor rivaroxaban (Xarelto), and benign prostatic hypertrophy who was recently admitted to (09/06-09/14/2016) with fever, altered mental status , urinary retention, hematuria, etc. ultimately felt to be on the basis of urosepsis that responded to standard therapy and who returned to the ED from his SNF (09/23/2016) with a Ngo catheter in place and hematuria who is now undergoing continuous bladder irrigation (CBI). Diuretic and CATHERINE inhibitor have been on hold secondary to hypotension. Blood pressure has improved and according to input/output he is approximately 1.5 L positive. Would repeat CXR. Continue present management. Continue telemetry? Not applicable
[2016-09-25 14:58] VITALS: BP 130/74
--- NOTE | 2016-09-25 17:09 | RADIOLOGY REPORT ---
EXAMINATION: XR PORTABLE CHEST CLINICAL INFORMATION: Hypoxia. COMPARISON: None TECHNIQUE: Portable AP view of the chest was obtained. FINDINGS: Patient is slightly rotated to the right. Lungs are symmetrically expanded and clear; no acute pulmonary edema, focal consolidation or pleural effusion. Cardiac silhouette is mildly enlarged. Aortic arch is uncoiled. Prominent paracardiac fat pads are noted. Mild levocurvature of the thoracic spine. No acute skeletal abnormalities. IMPRESSION: Cardiomegaly without pulmonary edema. No acute findings within the chest compared to 09/23/2016.
--- NOTE | 2016-09-25 20:28 | Cons- Urology ---
General Information and HPI Consulting Request Date of Consult: 09/25/16 Requested By: ROSLYN ESCALANTE MD Reason for Consult: hematuria Source of Information: old records Exam Limitations: unable to give history, poor historian History of Present Illness: 89 year old with multiple med. hx. recently with urosepsis. [facility] and returns with gross hematuria-no clots. unclear if there was castillo trauma with ambulation/etc. pt comfortable and urine clear yellow today. Allergies/Medications Allergies: Coded Allergies: NO KNOWN ALLERGIES (07/15/16) Home Med List: Acetaminophen (Pain Relief) 325 MG TABLET 2 TAB PO Q6H PRN PAIN/TEMP>101 ( Reported) Acetaminophen (Acephen) 650 MG SUPP.RECT 1 SUPP WI Q6H PRN PAIN/TEMP>101 ( Reported) Acetazolamide 250 MG TABLET 1 TAB PO SEE ADMIN CRITERIA respiratory failure Take on: Sunday, Sunday, . Do not take your Lasix on these days. Albuterol Sulfate 5 MG/ML SOLUTION 0.5 MG NEB Q4 PRN COPD (Reported) Amoxicillin/Potassium Clav (Augmentin 875-125 Tablet) 875 MG-125 MG TABLET 1 TAB PO BID URINE INFECTION Bisacodyl (Dulcolax) 10 MG SUPP.RECT 1 SUP RC DAILY PRN CONSTIPATION ( Reported) Bisacodyl 5 MG TABLET.DR 5 MG PO DAILY PRN constipation Calcium Carbonate (Calcium) 500 MG CALCIUM (1,250 MG) TABLET 2 TAB PO 4XDAILY PRN GASTRIC DISTRESS (Reported) Ergocalciferol (Vitamin D2) (Vitamin D2) 50,000 UNIT CAPSULE 1 CAP PO Q30D SUPPLEMENT (Reported) Furosemide 20 MG TABLET 1 TAB PO BID WATER PILL (Reported) Reason to Stop at ADM: HYPOTENSIVE Glucagon,Human Recombinant (Glucagon Emergency Kit) 1 MG KIT 1 MG IM AD PRN HYPOGLYCEMIA (Reported) Hydrocortisone (Cortaid) 1 % CREAM..G. 1 RAKAN TOP BID SKIN (Reported) Lisinopril 2.5 MG TABLET 1 TAB PO DAILY BP (Reported) Reason to Stop at ADM: HYPOTENSIVE Magnesium Hydroxide (Milk Of Magnesia) 400 MG/5 ML ORAL.SUSP 30 ML PO Q3D PRN CONSTIPATION (Reported) Metformin HCl 500 MG TABLET 1 TAB PO BID DM (Reported) Na Phos,M-B/Na Phos,Di-Ba (Fleet Enema) 19 GRAM-7 GRAM/118 ML ENEMA 1 E RC DAILY PRN CONSTIPATION (Reported) Nitrofurantoin Monohyd/M-Cryst (Macrobid 100 MG Capsule) 100 MG CAPSULE 1 CAP PO BID ANTIBIOTIC (Reported) with food Polyethylene Glycol 3350 (Miralax) 17 GRAM/DOSE POWDER 17 GM PO DAILY PRN constipation Pravastatin Sodium (Pravachol) 40 MG TABLET 1 TAB PO 1700 CHOLESTEROL ( Reported) Risperidone (Risperdal) 0.25 MG TABLET 1 TAB PO DAILY AGITATION (Reported) Reason to Stop at ADM: AMS Rivaroxaban (Xarelto) 20 MG TABLET 1 TAB PO DAILY AFIB (Reported) with food Sennosides/Docusate Sodium (Senna-Time S Tablet) 8.6 MG-50 MG TABLET 187 MG PO BID PRN constipation Sertraline HCl 50 MG TABLET 50 MG PO DAILY depression Tamsulosin HCl 0.4 MG CAP.ER.24H 1 CAP PO BID PROSTATE (Reported) Reason to Stop at ADM: HYPOTENSIVE Theophylline Anhydrous 200 MG TAB.ER.12H 1 TAB PO AT BEDTIME COPD Trazodone HCl 50 MG TABLET 1 TAB PO BID UNKNOWN (Reported) Reason to Stop at ADM: WILL HOLD FOR NOW, PATIENT SEPTIC AND MAY GET ALTERED Trazodone HCl 50 MG TABLET 12.5 MG PO BID PRN ANXIETY/AGITATION (Reported) Current Medications: Current Medications Sig/Emily Start time Last Medication Dose Route Stop Time Status Admin Acetaminophen 650 MG .STK-MED ONE 09/25 1222 DC PO 09/25 1223 Acetaminophen 650 MG Q6P PRN 09/23 2200 AC 09/25 PO 1227 Acetaminophen 1,000 MG Q6P PRN 09/23 2200 AC IV Albuterol Sulfate 3 ML Q4H PRN 09/24 0900 AC INH Bisacodyl 5 MG DAILY PRN 09/23 2215 AC PO Insulin Aspart 0 TIDAC 09/24 0800 AC 09/25 SC 1702 Magnesium Hydroxide 30 ML Q3D PRN 09/23 2215 AC PO Oxycodone HCl 5 MG Q8P PRN 09/23 2200 AC 09/25 PO 0814 Patient Medication 1 ED .STK-MED ONE 09/25 1409 DC Teaching ED 09/25 1410 Pravastatin Sodium 20 MG 1700 03/12 1700 AC 09/25 PO 1702 Prednisone 10 MG DAILY 09/27 1000 AC PO 09/27 1001 Prednisone 20 MG DAILY 09/26 1000 AC PO 09/26 1001 Prednisone 30 MG DAILY 09/25 1000 DC 09/25 PO 09/25 1001 0814 Risperidone 0.25 MG DAILY PRN 09/24 1000 AC PO Rivaroxaban 20 MG 1700 09/25 1700 AC 09/25 PO 1702 Senna/Docusate Sodium 1 TAB BID PRN 09/23 2215 AC PO Sertraline HCl 50 MG DAILY 09/24 1000 AC 09/25 PO 0814 Sodium Chloride 1,000 ML Q13H 09/24 0545 DC 09/25 IV 0815 Tamsulosin HCl 0.4 MG BID 09/23 2210 AC 09/25 PO 0814 Theophylline 200 MG AT BEDTIME 09/24 2200 AC 09/24 PO 2054 Trazodone HCl 12.5 MG BID PRN 09/23 2215 AC 09/24 PO 1932 Vitamin A/Vitamin D 1 RAKAN BID 09/24 1047 AC 09/25 TOP 0815 Zinc Oxide 1 RAKAN BID 09/24 1047 AC 09/25 TOP 0815 Past History Medical History Blood Transfusion Hx: No Neurological: dementia EENT: NONE Cardiovascular: aortic aneurysm, AFIB, CHF, hypertension, hyperlipidemia Respiratory: COPD Gastrointestinal: NONE Hepatic: NONE Renal: benign prost hyperplasia Musculoskeletal: chronic back pain, degen joint disease, fracture, gout, RIB FX left shoulder fracture Psychiatric: anxiety Endocrine: diabetes Blood Disorders: NONE Cancer(s): NONE 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 . MOTHER (Unknown cancer). . Psychosocial History Primary Language: Nigerian Smoking Status: Former Smoker Functional Ability ADLs Needs Assist: dressing, eating, toileting, bathing. Ambulation: walker Employment History Retired? yes Review of Systems Review of Systems Constitutional: Denies: no symptoms. EENTM: Denies: no symptoms. Cardiovascular: Denies: no symptoms. Respiratory: Denies: no symptoms. GI: Denies: no symptoms. Genitourinary: Reports: hematuria. Skin: Denies: no symptoms. Exam & Diagnostic Data Vital Signs and I&O Vital Signs Date Time Temp Pulse Resp B/P Pulse O2 O2 Flow FiO2 Ox Delivery Rate 09/25 1623 95 Nasal 2.0L Cannula 09/25 1458 97.5 84 20 130/74 95 Nasal 3.0L Cannula 09/25 1427 Nasal 2.0L Cannula 09/25 1156 Nasal 2.0L Cannula 09/25 1121 Nasal 2.0L Cannula 09/25 1101 94 Nasal 2.0L Cannula 09/25 0814 86 124/78 09/25 0812 98.0 86 20 124/78 96 Nasal 3.0L Cannula 09/25 0800 Nasal 2.0L Cannula 09/25 0640 98.2 96 20 114/80 97 Nasal 3.0L Cannula 09/25 0000 97 Nasal 2.0L Cannula 09/24 2238 98.0 86 21 118/62 97 Nasal 2.0L Cannula 09/24 2208 94 Nasal 2.0L Cannula 09/24 2058 86 118/62 Intake & Output 09/25 1600 09/25 0800 09/25 0000 09/24 1600 09/24 0800 09/24 0000 Intake Total 870 1140 1250 1200 270 Output Total 1800 535 500 400 300 500 Balance -930 605 750 800 -30 -500 Intake, IV 150 600 600 600 150 Intake, Oral 720 540 650 600 120 Number 0 1 Bowel Movements Output, Urine 1800 535 500 400 300 500 Patient 218 lb 218 lb 165 lb Weight Physical Exam General Appearance: well developed/nourished Head: atraumatic Eyes: Bilateral: normal appearance. Respiratory: normal breath sounds Cardiovascular: regular rate/rhythm Rectal: normal exam Back: no vertebral tenderness Extremities: normal inspection Reproductive: Normal male genitalia Last 24 Hours of Labs: Laboratory Tests 09/26 727 Chemistry Sodium (137 - 145 mmol/L) 132 L Potassium (3.5 - 5.1 mmol/L) 4.1 Chloride (98 - 107 mmol/L) 91 L Carbon Dioxide (22 - 30 mmol/L) 36 H Anion Gap (5 - 16) 4 L BUN (9 - 20 mg/dL) 19 Creatinine (0.7 - 1.2 mg/dL) 0.7 Estimated GFR (>60 ml/min) > 60 BUN/Creatinine Ratio (7 - 25 %) 27.1 H Hematology CBC w Diff NO MAN DIFF REQ WBC (4.8 - 10.8 /CUMM) 7.4 RBC (4.70 - 6.10 /CUMM) 3.49 L Hgb (14.0 - 18.0 G/DL) 9.7 L Hct (42 - 52 %) 29.5 L MCV (80.0 - 94.0 FL) 84.4 MCH (27.0 - 31.0 PG) 27.7 RDW (11.5 - 14.5 %) 17.1 H Plt Count (130 - 400 /CUMM) 285 MPV (7.4 - 10.4 FL) 9.4 Gran % (42.2 - 75.2 %) 80.3 H Lymphocytes % (20.5 - 51.1 %) 10.0 L Monocytes % (1.7 - 9.3 %) 9.4 H Eosinophils % (0 - 5 %) 0.1 Basophils % (0.0 - 2.0 %) 0.2 Absolute Granulocytes (1.4 - 6.5 /CUMM) 5.9 Absolute Lymphocytes (1.2 - 3.4 /CUMM) 0.7 L Absolute Monocytes (0.10 - 0.60 /CUMM) 0.7 H Absolute Eosinophils (0.0 - 0.7 /CUMM) 0 Absolute Basophils (0.0 - 0.2 /CUMM) 0 PUBS MCHC (33.0 - 37.0 G/DL) 32.8 L Imaging Results: PATIENT: SUSU FRANCIS PRESENT AGE: 89 PATIENT ACCOUNT NO: [id number] : [birth year] LOCATION: [facility] ORDERING PHYSICIAN: RONNIE URBANO MD SERVICE DATE: 09/06/16 EXAM TYPE: CAT - CT ABD & PELVIS W IV CONTRAST EXAMINATION: CT CHEST, ABDOMEN AND PELVIS WITH CONTRAST CLINICAL INFORMATION: Fever, hypotension. COMPARISON: None TECHNIQUE: Multidetector volumetric imaging was performed of the abdomen and pelvis before and after the IV administration of 94 mL of Optiray 320 intravenous contrast. Sagittal and coronal reformatted images were obtained on the technologist's workstation. DLP: 1878 mGy-cm FINDINGS: CHEST: LUNGS: Both lungs are well-expanded without any acute pneumonic process. No pulmonary nodule, mass or consolidation seen. MEDIASTINUM: The thyroid lobes are symmetrical. The central trachea and the bronchi appears widely patent. The thoracic aorta is of normal caliber without dissection or aneurysm. The heart size is normal. There are coronary artery calcifications. There is no mediastinal mass or abnormal lymph nodes seen. PLEURA: There is no pleural effusion. There is minimal right posterior pleural thickening in the lower lobe. AXILLA: Unremarkable. The chest wall is unremarkable. ABDOMEN AND PELVIS: LIVER, GALLBLADDER, AND BILIARY TREE: The liver is normal in size, shape, and attenuation. No focal hepatic lesion or biliary ductal dilatation is present. The gallbladder is unremarkable with no evidence of radiopaque gallstones, gallbladder wall thickening, or obvious pericholecystic inflammatory changes. PANCREAS: Unremarkable. SPLEEN: Unremarkable. ADRENAL GLANDS: Unremarkable. KIDNEYS AND URETERS: The kidneys are normal in size, shape, and attenuation. No hydronephrosis, hydroureter, or calculi seen. No perinephric stranding. There is punctate cortical hypodensity in the upper pole both kidneys suspicious for tiny cysts. BLADDER: There is a Castillo's catheter in the bladder with mild bladder wall thickening. GASTROINTESTINAL TRACT: There is moderate stool seen in right colon without any colonic distention. The small bowel loops are normal caliber there is no obstruction, free air or free fluid. ABDOMINAL WALL: No significant hernia is appreciated. LYMPH NODES: Normal. VASCULAR: There is atherosclerotic calcification an dilation of mid end distal abdominal aorta mid abdominal aorta measures 2.8 cm in AP and transverse dimension. There is mild ectasia of the left common iliac artery. The right common iliac arteries normal caliber. PELVIC VISCERA: No free air or free fluid seen. Prostate gland is normal size. OSSEOUS STRUCTURES: No compressive fracture, lytic or sclerotic process seen. There is moderate spondylosis lower dorsal spine. IMPRESSION: No acute process seen in CT of chest, abdomen or pelvis. 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 Assessment/Plan Assessment/Plan pt with gross hematuria (intermittent) due to bph/castillo irritation./continue castillo with manual castillo irrigation of 50cc q 4-6 hours. start proscar 5mg po daily-indefinitely. Copies To: DANAE DAVIS MD Consult Acknowledgment - Thank you for your consult request. Attending MD Review Statement Attending Statement Attending MD Statement: examined this patient, discuss w/resident/PA/GASOLINE TRUCK OPERATOR Attending Assessment/Plan: pt with bph/castillo=irritation and gross hematuria. start proscar. manually irrigate castillo q 4-6hrs.
--- NOTE | 2016-09-25 21:07 | Patient Discharge Instructions ---
Discharge Instructions General Discharge Information You were seen/treated for: Hematuria Watch for these problems: Blood in your urine Pain in your abdomen or back Fever or chills Nausea or vomiting Feeling like your bladder is full Special Instructions: Please see your primary care physician Dr. Jasmine within one week of discharge. Please follow up with urologist Dr. Cool within two weeks of discharge. Diet Continue normal diet: Yes Recommended Diet: Diabetic (Full Chopped/Thin Liquids) Activity Additional ACTIVITY Info: As tolerated with assistance. Acute Coronary Syndrome Inclusion Criteria At DC or during hospital stay patient has or had the following: ACS DIAGNOSIS No Discharge Core Measures Meds if any: Prescribed or Continued at Discharge Meds if any: NOT Prescribed or Continued at Discharge Congestive Heart Failure Inclusion Criteria At DC or during hospital stay patient has or had the following: CHF DIAGNOSIS No Discharge Core Measures Meds if any: Prescribed or Continued at Discharge Meds if any: NOT Prescribed or Continued at Discharge Cerebrovascular accident Inclusion Criteria At DC or during hospital stay patient has or had the following: CVA/TIA Diagnosis No Discharge Core Measures Meds if any: Prescribed or Continued at Discharge Meds if any: NOT Prescribed or Continued at Discharge Venous thromboembolism Inclusion Criteria VTE Diagnosis No VTE Type NONE VTE Confirmed by (Test) NONE Discharge Core Measures - Per Current guidelines, there needs to be overlap - treatment for the first 5 days of Warfarin therapy. - If discharged on Warfarin prior to 5 days of - overlap therapy, the patient will need to be - assessed for post discharge needs including - *Post discharge parental anticoagulation - *Warfarin and/or parental anticoagulation education - *Follow up date to check INR post discharge At least 5 days overlap therapy as Inpatient No Meds if any: Prescribed or Continued at Discharge Note: Overlap Therapy is Warfarin and Anticoagulant Meds if any: NOT Prescribed or Continued at Discharge
[2016-09-25 21:54] VITALS: BP 128/80
--- NOTE | 2016-09-26 06:53 | PN- Housestaff ---
[place] [place]652: Subjective Follow-up For: Hematuria BPH HTN SOB Subjective: No acute events overnight. Patient seen and examined this morning. SOB has improved and he is satting well on room air. He complains of mild abdominal discomfort which is chronic. Urine in the Ngo is clear yellow. Patient later complained of discomfort secondary to the Ngo and nursing staff noted leakage of urine raising concern that the Ngo was displaced. Ngo was subsequently removed. Review of Systems Constitutional: Denies: chills, fever. Cardiovascular: Denies: chest pain, palpitations. Respiratory: Denies: short of breath. Gastrointestinal: Reports: abdominal pain. Denies: constipation, diarrhea, nausea, vomiting. Objective Last 24 Hrs of Vital Signs/I&O Vital Signs Date Time Temp Pulse Resp B/P Pulse O2 O2 Flow FiO2 Ox Delivery Rate 09/26 1427 98.2 68 20 126/80 94 Nasal 2.0L Cannula 09/26 1424 126/80 09/26 0852 120/72 09/26 0800 94 Room Air Room Air 09/26 0705 98.2 92 20 140/74 97 Nasal 2.0L Cannula 09/26 0000 Nasal 2.0L Cannula 09/25 2154 97.5 98 20 128/80 100 Nasal 2.0L Cannula 09/25 2104 130/74 09/25 1623 95 Nasal 2.0L Cannula 09/25 1600 Nasal 2.0L Cannula Intake & Output 09/26 1600 09/26 0800 09/26 0000 Intake Total 120 Output Total 700 150 Balance -700 -30 Intake, Oral 120 Output, Urine 700 150 Physical Exam General Appearance: Alert, No Acute Distress HEENT: Mucous Membr. moist/pink Neck: Supple Cardiovascular: Normal S1, Normal S2 Lungs: Diminished Breath Sounds Abdomen: Soft, No Tenderness, Positive Bowel Sounds Extremities: Trace Edema on Bilateral Lower Extremiteis Current Medications: Current Medications Sig/Emily Start time Last Medication Dose Route Stop Time Status Admin Acetaminophen 650 MG Q6P PRN 09/23 2199 AC 09/25 PO 1227 Acetaminophen 1,000 MG Q6P PRN 09/23 2199 AC IV Albuterol Sulfate 3 ML Q4H PRN 09/24 0900 AC 09/26 INH 0759 Bisacodyl 5 MG DAILY PRN 09/23 2215 AC PO Finasteride 5 MG DAILY 09/26 1000 AC 09/26 PO 0853 Furosemide 20 MG BID 09/26 1043 AC 09/26 PO 1424 Insulin Aspart 0 TIDAC 09/24 0800 AC 09/26 SC 1427 Lisinopril 2.5 MG DAILY 09/26 1042 AC 09/26 PO 1424 Magnesium Hydroxide 30 ML Q3D PRN 09/23 2215 AC PO Oxycodone HCl 5 MG Q8P PRN 09/23 2200 AC 09/25 PO 0814 Pravastatin Sodium 20 MG 1700 09/24 1700 AC 09/25 PO 1702 Prednisone 10 MG DAILY 09/27 1000 AC PO 09/27 1001 Prednisone 20 MG DAILY 09/26 1000 DC 09/26 PO 09/26 1001 0853 Risperidone 0.25 MG DAILY PRN 09/24 1000 AC PO Rivaroxaban 20 MG 1700 09/25 1700 AC 09/25 PO 1702 Senna/Docusate Sodium 1 TAB BID PRN 09/23 2215 AC PO Sertraline HCl 50 MG DAILY 09/24 1000 AC 09/26 PO 0853 Tamsulosin HCl 0.4 MG BID 09/23 2210 AC 09/26 PO 0852 Theophylline 200 MG AT BEDTIME 09/24 2200 AC 09/25 PO 2108 Trazodone HCl 12.5 MG BID PRN 09/23 2215 AC 09/25 PO 2104 Vitamin A/Vitamin D 1 RAKAN BID 09/24 1047 AC 09/26 TOP 0853 Zinc Oxide 1 RAKAN BID 09/24 1047 AC 09/26 TOP 0853 Last 24 Hrs of Lab/Navdeep Results Last 24 Hrs of Labs/Mics: Laboratory Tests 09/26/16 0640: Anion Gap 3 L, Estimated GFR > 60, BUN/Creatinine Ratio 23.3 Orders Radiology Findings: Cardiomegaly without pulmonary edema. No acute findings within the chest compared to 09/23/2016. Assessment/Plan Assessment: 89 y/o M with PMHx of BPH, COPD on 2 L home oxygen and atrial fibrillation on Xarelto who was brought in from [facility] for evaluation of hematuria. #Hematuria: Secondary to BPH. Urine appears clear today. Ngo removed secondary to concern for kinking/displacement and patient discomfort. * Bladder scan patient 6 hours after removal of Ngo. * Consider initiating straight cath protocol or re-inserting Ngo if patient has not voided. * Finasteride 5 mg PO daily started. * Continue tamsulosin 0.4 mg PO BID. * Follow up with urologist Dr. Cool as outpatient. #HTN: * Resume prior to admission antihypertensives lisinopril 2.5 mg PO daily and Lasix 20 mg PO BID. #Atrial fibrillation: * Continue prior to admission Xarelto 20 mg PO daily. #Diastolic CHF: CXR yesterday without pulmonary edema. I/Os well matched today. * Continue to monitor volume status. Diet: Consistent Carbohydrate 3 DVT PPx: Xarelto and ALPs CODE: DNR/DNI Problem List: 1. Hematuria 2. HTN (hypertension) 3. Diastolic CHF 4. Atrial fibrillation 5. BPH (benign prostatic hyperplasia) Pain Ratin Pain Location: N/A Pain Goal: Remain pain free Pain Plan: Oxycodone 5 mg PO Q8H PRN for severe pain (scale 7-10) Tylenol 650 mg PO Q6H PRN for mild pain (scale 1-3) Tomorrow's Labs & Rationales: None Discharge Plan Discharge Disposition: STR/NH Stable for Discharge? Yes Anticipated Discharge (Day): tomorrow JESENIA RAMOS MD 09/26/16 1250: Attending MD Review Statement Attending Statement Attending MD Statement: examined this patient, discuss w/resident/PA/DESIGNER AND PATTERNMAKER, agreed w/resident/PA/DESIGNER AND PATTERNMAKER, reviewed EMR data (avail), discussed with nursing, amended to note Attending Assessment/Plan: The patient was seen and discussed with house staff. Agree with the plan of care as outlined. Discharge Plan Discharge Disposition: STR/NH Stable for Discharge? Yes Anticipated Discharge (Day): tomorrow JESENIA RAMOS MD 09/26/16 1250: Attending MD Review Statement Attending Statement Attending MD Statement: examined this patient, discuss w/resident/PA/DESIGNER AND PATTERNMAKER, agreed w/resident/PA/DESIGNER AND PATTERNMAKER, reviewed EMR data (avail), discussed with nursing, amended to note Attending Assessment/Plan: The patient was seen and discussed with house staff. Agree with the plan of care as outlined.
[2016-09-26] MEDS ORDERED: PROSCAR5 M1 PO (06:58)
[2016-09-26 07:05] VITALS: BP 140/74
--- NOTE | 2016-09-26 12:43 | PN- Cardiology ---
Subjective Subjective: No complaints. Denies any chest discomfort, palpitations, shortness of breath, etc., but has dementia. Objective Vital Signs and I&Os Vital Signs Date Time Temp Pulse Resp B/P Pulse O2 O2 Flow FiO2 Ox Delivery Rate 09/26 0852 120/72 09/26 0800 94 Room Air Room Air 09/26 0705 98.2 92 20 140/74 97 Nasal 2.0L Cannula 09/26 0000 Nasal 2.0L Cannula 09/25 2154 97.5 98 20 128/80 100 Nasal 2.0L Cannula 09/25 2104 130/74 09/25 1623 95 Nasal 2.0L Cannula 09/25 1600 Nasal 2.0L Cannula 09/25 1458 97.5 84 20 130/74 95 Nasal 3.0L Cannula 09/25 1427 Nasal 2.0L Cannula Intake & Output 09/26 1600 09/26 0800 09/26 0000 09/25 1600 09/25 0800 09/25 0000 Intake Total 433 926 9030 1250 Output Total 243 513 4924 535 500 Balance -700 -30 -930 605 750 Intake, IV 150 600 600 Intake, Oral 120 720 540 650 Number 0 Bowel Movements Output, Urine 287 442 5122 535 500 Patient 218 lb Weight Physical Exam: Well-developed, obese elderly male in no acute distress with nasal oxygen in place. Vital signs: See above. Lungs: Decreased breath sounds bilaterally with poor inspiratory effort. Heart: S1, S2 grade 1-2/6 systolic murmur. Extremities: Positive edema. Current Medications: Current Medications Sig/Emily Start time Last Medication Dose Route Stop Time Status Admin Acetaminophen 650 MG Q6P PRN 09/23 2199 AC 09/25 PO 1227 Acetaminophen 1,000 MG Q6P PRN 09/23 220 AC IV Albuterol Sulfate 3 ML Q4H PRN 09/24 0900 AC 09/26 INH 0759 Bisacodyl 5 MG DAILY PRN 09/23 2215 AC PO Finasteride 5 MG DAILY 09/26 1000 AC 09/26 PO 0853 Furosemide 20 MG BID 09/26 1043 AC PO Insulin Aspart 0 TIDAC 09/24 0800 AC 09/25 SC 1702 Lisinopril 2.5 MG DAILY 09/26 1042 AC PO Magnesium Hydroxide 30 ML Q3D PRN 09/23 2215 AC PO Oxycodone HCl 5 MG Q8P PRN 09/23 2200 AC 09/25 PO 0814 Patient Medication 1 ED .STK-MED ONE 09/25 1409 DC Teaching ED 09/25 1410 Pravastatin Sodium 20 MG 1700 09/24 1700 AC 09/25 PO 1702 Prednisone 10 MG DAILY 09/27 1000 AC PO 09/27 1001 Prednisone 20 MG DAILY 09/26 1000 DC 09/26 PO 09/26 1001 0853 Risperidone 0.25 MG DAILY PRN 09/24 1000 AC PO Rivaroxaban 20 MG 1700 09/25 1700 AC 09/25 PO 1702 Senna/Docusate Sodium 1 TAB BID PRN 09/23 2215 AC PO Sertraline HCl 50 MG DAILY 09/24 1000 AC 09/26 PO 0853 Tamsulosin HCl 0.4 MG BID 09/23 2210 AC 09/26 PO 0852 Theophylline 200 MG AT BEDTIME 09/24 2200 AC 09/25 PO 2108 Trazodone HCl 12.5 MG BID PRN 09/23 2215 AC 09/25 PO 2104 Vitamin A/Vitamin D 1 RAKAN BID 09/24 1047 AC 09/26 TOP 0853 Zinc Oxide 1 RAKAN BID 09/24 1047 AC 09/26 TOP 0853 Results Last 48 Hrs of Labs/Mics: Laboratory Tests 09/26/16 0640: Anion Gap 3 L, Estimated GFR > 60, BUN/Creatinine Ratio 23.3 09/25/16 0728: Anion Gap 4 L, Estimated GFR > 60, BUN/Creatinine Ratio 27.1 H, CBC w Diff NO MAN DIFF REQ, RBC 3.49 L, MCV 84.4, MCH 27.7, RDW 17.1 H, MPV 9.4, Gran % 80.3 H, Lymphocytes % 10.0 L, Monocytes % 9.4 H, Eosinophils % 0.1, Basophils % 0.2, Absolute Granulocytes 5.9, Absolute Lymphocytes 0.7 L, Absolute Monocytes 0.7 H, Absolute Eosinophils 0, Absolute Basophils 0, PUBS MCHC 32.8 L Recent Imaging Studies: CXR (09/25/2016): Cardiomegaly without pulmonary edema. No acute findings within the chest compared to 09/23/2016. Assessment/Plan Assessment/Plan Mr. Lamar is an 89-year-old white male with a history of dementia, chronic obstructive pulmonary disease, hypertension, dyslipidemia, diabetes mellitus, hypomagnesemia, gout, chronic anemia, small abdominal aortic aneurysm, recurrent falls, recurrent diastolic heart failure with echocardiographic evidence of left ventricular hypertrophy, chronic atrial fibrillation on anticoagulation with the factor Xa inhibitor rivaroxaban (Xarelto), and benign prostatic hypertrophy who was recently admitted to (09/06-09/14/2016) with fever, altered mental status , urinary retention, hematuria, etc. ultimately felt to be on the basis of urosepsis that responded to standard therapy and who returned to the ED from his SNF (09/23/2016) with a Ngo catheter in place and hematuria that improved following continuous bladder irrigation (CBI). The plan is to have the Ngo catheter discontinued. His diuretic and CATHERINE inhibitor have been restarted. Blood pressure has improved and according to input/outputs he is pretty evenly matched. Continue present management. Continue telemetry? Not applicable
[2016-09-26 14:27] VITALS: BP 126/80
[2016-09-26 23:10] VITALS: BP 128/74
--- NOTE | 2016-09-27 07:09 | PN- Housestaff ---
NATANAEL JETER,[facility] [place] 09/27/16 0709: Subjective Follow-up For: Hematuria Urinary retention HTN Subjective: Patient complained of pain and inability to urine approximately 3 hours after the removal of Ngo yesterday. Bladder scan showed 126 mL of urine. Patient was agitated overnight and continuously screaming, and was given Trazodone. He was incontinent of urine. Patient was seen and examined this morning. He complains of discomfort around his penis. Respiratory status is stable. He remains on room air. Review of Systems Constitutional: Reports: see HPI. Objective Last 24 Hrs of Vital Signs/I&O Vital Signs Date Time Temp Pulse Resp B/P Pulse O2 O2 Flow FiO2 Ox Delivery Rate 09/27 1141 95 Room Air 09/27 1131 98.6 119 20 132/84 09/27 1006 132/84 09/27 1006 132/84 09/27 0800 Nasal 2.0L Cannula 09/27 0715 98.6 119 20 148/85 92 Nasal Cannula 09/27 0000 Nasal 2.0L Cannula 09/26 2310 98.2 106 20 128/74 94 Nasal 2.0L Cannula 09/26 2113 132/82 Intake & Output 09/27 1600 09/27 0800 09/27 0000 Intake Total 800 700 Output Total Balance 800 700 Intake, Oral 800 700 Physical Exam General Appearance: Alert, No Acute Distress HEENT: Atraumatic, Mucous Membr. moist/pink Neck: Supple Cardiovascular: Normal S1, Normal S2 Lungs: Diminished Breath Sounds Abdomen: Soft, No Tenderness, Positive Bowel Sounds Extremities: Trace Edema on Bilateral Lower Extremities Current Medications: Current Medications Sig/Emily Start time Last Medication Dose Route Stop Time Status Admin Acetaminophen 1,000 MG .STK-MED ONE 09/26 2005 DC IV 09/26 2005 Acetaminophen 650 MG Q6P PRN 09/23 2200 DCD 09/26 PO 1550 Acetaminophen 1,000 MG Q6P PRN 09/23 2200 DCD 09/26 IV 2010 Albuterol Sulfate 3 ML Q4H PRN 09/24 0900 DCD 09/26 INH 0759 Bisacodyl 5 MG DAILY PRN 09/23 2215 DCD PO Finasteride 5 MG DAILY 09/26 1000 DCD 09/27 PO 1004 Furosemide 20 MG BID 09/26 1043 DCD 09/27 PO 1004 Hydroxyzine HCl 25 MG ONCE ONE 09/27 1215 DC PO 09/27 1216 Insulin Aspart 0 TIDAC 09/24 0800 DCD 09/27 SC 1228 Lisinopril 2.5 MG DAILY 09/26 1042 DCD 09/27 PO 1006 Magnesium Hydroxide 30 ML .STK-MED ONE 09/27 0536 DC PO 09/27 0537 Magnesium Hydroxide 30 ML Q3D PRN 09/23 2215 DCD 09/27 PO 0539 Nystatin 1 RAKAN TID 09/26 2200 DCD 09/27 TOP 1007 Oxycodone HCl 5 MG Q8P PRN 09/23 2200 DCD 09/27 PO 1030 Patient Medication 1 ED .STK-MED ONE 09/27 1349 DC Teaching ED 09/27 1350 Pravastatin Sodium 20 MG 1700 09/24 1700 DCD 09/26 PO 1549 Prednisone 10 MG DAILY 09/27 1000 DC 09/27 PO 09/27 1001 1004 Risperidone 0.25 MG DAILY PRN 09/24 1000 DCD 09/26 PO 1950 Rivaroxaban 20 MG 1700 09/25 1700 DCD 09/26 PO 1549 Senna/Docusate Sodium 1 TAB BID PRN 09/23 2215 DCD 09/27 PO 0540 Sertraline HCl 50 MG DAILY 09/24 1000 DCD 09/27 PO 1005 Tamsulosin HCl 0.4 MG BID 09/23 2210 DCD 09/27 PO 1006 Theophylline 200 MG AT BEDTIME 09/24 2200 DCD 09/26 PO 2113 Trazodone HCl 50 MG AT BEDTIME NEED.. 09/26 2245 DCD 09/26 PO 2253 Trazodone HCl 12.5 MG BID PRN 09/23 2215 DCD 09/26 PO 2024 Vitamin A/Vitamin D 1 RAKAN BID 09/24 1047 DCD 09/27 TOP 1004 Zinc Oxide 1 RAKAN BID 09/24 1047 DCD 09/27 TOP 1004 Assessment/Plan Assessment: 89 y/o M with PMHx of BPH, COPD on 2 L home oxygen and atrial fibrillation on Xarelto who was brought in from [facility] for evaluation of hematuria. #Hematuria: Secondary to BPH. Ngo removed yesterday due to concern for kinking /displacement and patient discomfort. * Discharge to SNF today. * Ngo reinserted per urologist Dr. Cool's recs. * Continue tamsulosin 0.4 mg PO BID and finasteride 5 mg PO daily on discharge. * Follow up with Dr. Cool as outpatient. #HTN: Blood pressures well-controlled after resuming prior to admission furosemide 20 mg PO BID and lisinopril 2.5 mg PO daily yesterday. * Continue prior to admission antihypertensive regimen on discharge. Diet: Consistent Carbohydrate 3 DVT PPx: Xarelto and ALPs CODE: DNR/DNI Problem List: 1. BPH 2. Hematuria 3. Urinary retention due to benign prostatic hyperplasia 4. HTN (hypertension) Pain Ratin Pain Location: N/A Pain Goal: Remain pain free Pain Plan: Oxycodone 5 mg PO Q8H PRN for severe pain (scale 7-10) Tylenol 1 g IV Q6H PRN for moderate pain (scale 4-6) Tylenol 650 mg PO Q6H PRN for mild pain (scale 1-3) Tomorrow's Labs & Rationales: None Discharge Plan Discharge Disposition: STR/NH Stable for Discharge? Yes Anticipated Discharge (Day): today ROSLYN ESCALANTE MD 09/27/16 1420: Attending MD Review Statement Attending Statement Attending MD Statement: examined this patient, discuss w/resident/PA/BUSINESS EMPLOYMENT SPECIALIST, agreed w/resident/PA/BUSINESS EMPLOYMENT SPECIALIST, reviewed EMR data (avail), discussed with nursing, discussed with case mgmt, amended to note Attending Assessment/Plan: Patient seen and examined, offers no complaints. Doing well. Urinary retention still remains a problem and patient requires a Ngo catheter. That will be reinserted. Xarelto was resumed and so far urine has remained clear. Patient is otherwise medically stable for discharge back to his rehabilitation today with folllow up with urology as outpatient.
[2016-09-27 07:15] VITALS: BP 148/85
[2016-09-27] MEDS ORDERED: FUROSEMIDE20 M1 PO ×4 (10:08→15:13)
[2016-09-27 11:31] VITALS: BP 132/84
== END 2016-09-27 15:44 | DRG 812 ==
LOC: ENRESERVDT → ENRESERVTM → ERH 18:01 → ERHI 21:09 → 2NB 21:09 → ENPENDDIS 09-25 13:36 → 2NB 09-25 13:36
PROVIDERS: Internal Medicine; Physician Assistant Medical; Student in an Organized Health Care Education/Training Program; ADMIT Student in an Organized Health Care Education/Training Program
DX: D62 Acute posthemorrhagic anemia (principal); L89.312 Pressure ulcer of right buttock, stage 2; L89.322 Pressure ulcer of left buttock, stage 2; I95.9 Hypotension, unspecified; I11.0 Hypertensive heart disease with heart failure; J44.1 Chronic obstructive pulmonary disease with (acute) exacerbation; I50.32 Chronic diastolic (congestive) heart failure; E66.2 Morbid (severe) obesity with alveolar hypoventilation; E87.1 Hypo-osmolality and hyponatremia; I48.2 Chronic atrial fibrillation; Z79.01 Long term (current) use of anticoagulants; E11.9 Type 2 diabetes mellitus without complications; E78.5 Hyperlipidemia, unspecified; M10.9 Gout, unspecified; Z79.84 Long term (current) use of oral hypoglycemic drugs; F41.8 Other specified anxiety disorders; N40.1 Benign prostatic hyperplasia with lower urinary tract symptoms; R33.8 Other retention of urine; Z87.891 Personal history of nicotine dependence; I71.4 Abdominal aortic aneurysm, without rupture; Z68.33 Body mass index [BMI] 33.0-33.9, adult
CPT/HCPCS: 2NBP; 36415; 81001; 82436; 87086; 93005; 93010; J0131; J2930; J3490; J7040; J7512